=== PATIENT | male | born 1940 | race Caucasian/White ===

== ENCOUNTER 2017-04-20 10:12 | Inpatient (IN) | payer MEDICARE, OTHER ==
[2017-04-20] VITALS (17 sets, daily range): BP systolic 107–169; BP diastolic 82–105; PULSE 62–126; RESP 13–18; TEMP 98–98.7; O2SAT 92–97
[~2017-04-20] VITALS: Ht 180.3 cm; Wt 66.5 kg
[~2017-04-20 10:12] MED LIST: LORT5TAB PO; Z.0.UNKNOWN
--- NOTE | 2017-04-20 10:36 | PD ---
HPI Chief Complaint: Respiratory Symptoms Time Seen by Provider: 10:27 Travel History International Travel<30 days: No Contact w/Intl Traveler<30days: No Traveled to known affect area: No History of Present Illness HPI This is a 76-year-old male who presents to the emergency department with a history of atrial fibrillation and stent in the coronary arteries who presents to the emergency department with increasing shortness of breath over the past 2 days. He says he's become increasingly short of breath, constant, worse with exertion, improved with rest with no associated chest pain. He says he's had a nonproductive cough. 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 He says he took his diltiazem last evening. PFSH Past Medical History Hx Anticoagulant Therapy: Yes (XARELTO) Cardiovascular Problems: Yes (STENT PLACEMENT) Cerebrovascular Accident: Yes (CVA 20 YEARS AGO) Myocardial Infarction: Yes (2004) Past Surgical History Coronary Stent: Yes Other Surgery: Yes Social History Alcohol Use: No Tobacco Use: No Substance Use: No Allergies-Medications (Allergen,Severity, Reaction): Coded Allergies: No Known Allergies (Unverified , 04/20/17) Reported Meds & Prescriptions Reported Meds & Active Scripts Active Reported Xarelto (Rivaroxaban) 20 Mg Tab 20 Mg PO DAILY Digoxin 0.125 Mg Tab 0.125 Mg PO DAILY Cartia Xt (Diltiazem ER 24 HR) 120 Mg Caper 180 Mg PO DAILY Review of Systems Except as stated in HPI: all other systems reviewed are Neg Physical Exam Narrative GENERAL:Well appearing, no acute distress SKIN: Focused skin assessment warm and dry. HEAD: Atraumatic. Normocephalic. EYES: Pupils equal and round. No injection or drainage. ENT: Moist mucous membranes NECK: Trachea midline. CARDIOVASCULAR: Regular rate and rhythm. No murmur appreciated. Trace edema bilaterally. RESPIRATORY: Rales in the right lung base. GASTROINTESTINAL: Abdomen soft, non-tender, nondistended. MUSCULOSKELETAL: No obvious deformities. NEUROLOGICAL: Awake and alert. No obvious cranial nerve deficits. Moving all extremities. PSYCHIATRIC: Appropriate mood and affect; insight and judgment normal. Data Data Last Documented VS Vital Signs Date Time Temp Pulse Resp B/P Pulse Ox O2 Delivery O2 Flow Rate FiO2 04/20/17 11:30 82 18 143/89 94 Room Air 04/20/17 10:16 98.7 Orders Complete Blood Count With Diff (04/20/17 10:33) Comprehensive Metabolic Panel (04/20/17 10:33) B-Type Natriuretic Peptide (04/20/17 10:33) Troponin I (04/20/17 10:33) Iv Access Insert/Monitor (04/20/17 10:33) Electrocardiogram (04/20/17 10:33) Ecg Monitoring (04/20/17 10:33) Oximetry (04/20/17 10:33) Oxygen Administration (04/20/17 10:33) Chest, Single Ap (04/20/17 10:33) Sodium Chloride 0.9% Flush (Ns Flush) (04/20/17 10:45) Diltiazem Inj (Cardizem Inj) (04/20/17 10:45) Furosemide Inj (Lasix Inj) (04/20/17 12:00) Admit Order (Ed Use Only) (04/20/17 12:22) Vital Signs (Adult) MI.Q4H (04/20/17 12:23) Sodium Chloride 0.9% Flush (Ns Flush) (04/20/17 12:30) Sodium Chloride 0.9% Flush (Ns Flush) (04/20/17 12:30) Labs Laboratory Tests Test 04/20/17 10:45 White Blood Count 8.4 TH/MM3 Red Blood Count 4.53 MIL/MM3 Hemoglobin 13.5 GM/DL Hematocrit 40.9 % Mean Corpuscular Volume 90.3 FL Mean Corpuscular Hemoglobin 29.7 PG Mean Corpuscular Hemoglobin 32.9 % Concent Red Cell Distribution Width 14.5 % Platelet Count 222 TH/MM3 Mean Platelet Volume 9.4 FL Neutrophils (%) (Auto) 75.3 % Lymphocytes (%) (Auto) 14.9 % Monocytes (%) (Auto) 6.9 % Eosinophils (%) (Auto) 1.7 % Basophils (%) (Auto) 1.2 % Neutrophils # (Auto) 6.3 TH/MM3 Lymphocytes # (Auto) 1.2 TH/MM3 Monocytes # (Auto) 0.6 TH/MM3 Eosinophils # (Auto) 0.1 TH/MM3 Basophils # (Auto) 0.1 TH/MM3 CBC Comment DIFF FINAL Differential Comment Sodium Level 141 MEQ/L Potassium Level 4.0 MEQ/L Chloride Level 106 MEQ/L Carbon Dioxide Level 27.1 MEQ/L Anion Gap 8 MEQ/L Blood Urea Nitrogen 24 MG/DL Creatinine 1.22 MG/DL Estimat Glomerular Filtration 57 ML/MIN Rate Random Glucose 188 MG/DL Calcium Level 9.0 MG/DL Total Bilirubin 0.4 MG/DL Aspartate Amino Transf 25 U/L (AST/SGOT) Alanine Aminotransferase 22 U/L (ALT/SGPT) Alkaline Phosphatase 85 U/L Troponin I 0.05 NG/ML B-Type Natriuretic Peptide 1398 PG/ML Total Protein 7.4 GM/DL Albumin 3.0 GM/DL [facility] Medical Decision Making Medical Screen Exam Complete: Yes Emergency Medical Condition: Yes Interpretation(s) Afebrile, tachycardic, hypertensive No leukocytosis Electrolytes are reassuring BNP is 1398 Chest x-ray: Cardiomegaly with positive fluid balance, small to moderate left pleural effusion Differential Diagnosis Atrial fibrillation with RVR, congestive heart failure, pneumonia Narrative Course This is a 76-year-old male who presents to the emergency department with increasing shortness of breath it's been going on for 2 days. When he arrived his heart rate was in the 130s in atrial fibrillation with RVR. He was placed in a monitor and an IV was established. He is given 1 dose of IV diltiazem and his heart rate improved. He was found to have volume overload on chest x-ray and his BNP is elevated consistent with congestive heart failure. I think he requires admission for diuresis and rate control. Diagnosis Primary Impression: Congestive heart failure Qualified Code: I50.9 - Acute congestive heart failure, unspecified congestive heart failure type Admitting Information Admitting Physician Requests: Admit Shoshana Brandt MD Apr 20, 2017 10:36
[2017-04-20] MEDS ORDERED: SODIUM CHLORIDE 0.9% FLUSH 10 ML FLUSH IVF PRN (10:45)
[2017-04-20] MEDS ORDERED: DILTIAZEM HCL 25 MG/5 ML VIAL IV ONE (10:45)
[2017-04-20 11:07] LABS: AUTOMATED NEUTROPHIL # 6.3 TH/MM3 (1.8-7.7); BASOPHIL # 0.1 TH/MM3 (0-0.2); BASOPHIL % 1.2 % (0.0-2.0); EOSINOPHIL # 0.1 TH/MM3 (0-0.4); EOSINOPHIL % 1.7 % (0.0-4.0); HEMATOCRIT 40.9 % (39.0-51.0); HEMO FLAGS DIFF FINAL; LYMPH % 14.9 % (9.0-44.0); LYMPHOCYTE # 1.2 TH/MM3 (1.0-4.8); MEAN CELL VOLUME 90.3 FL (80.0-100.0); MEAN CORPUSCULAR HEMOGLOBIN 29.7 PG (27.0-34.0); MEAN CORPUSCULAR HGB CONC 32.9 % (32.0-36.0); MONO % 6.9 % (0.0-8.0); NEUT % 75.3 % (16.0-70.0); PLATELET COUNT 222 TH/MM3 (150-450); RED BLOOD COUNT 4.53 MIL/MM3 (4.50-5.90); RED CELL DISTRIBUTION WIDTH 14.5 % (11.6-17.2); WHITE BLOOD COUNT 8.4 TH/MM3 (4.0-11.0)
[2017-04-20 11:20] LABS: ALT (GPT) 22 U/L (12-78); ANION GAP 8 MEQ/L (5-15); AST (GOT) 25 U/L (15-37); BICARBONATE 27.1 MEQ/L (21.0-32.0); BLOOD UREA NITROGEN 24 MG/DL (7-18); CHLORIDE 106 MEQ/L (98-107); GLOMERULAR FILTRATION RATE 57 ML/MIN (>89); SODIUM (NA) 141 MEQ/L (136-145)
--- NOTE | 2017-04-20 11:20 | RADRPT ---
EXAM DATE/TIME: 04/20/2017 10:56 [facility] COMPARISON: No previous studies available for comparison. INDICATIONS : Shortness of breath for 2 days. MEDICAL HISTORY : Myocardial infarction. CVA. SURGICAL HISTORY : Coronary stent. ENCOUNTER: Initial ACUITY: 2 days PAIN SCORE: 0/10 LOCATION: Bilateral chest FINDINGS: Prior silhouette is enlarged with indistinct central bony vasculature. There is a small to moderate l eft pleural effusion with associated airspace disease in the left lower lobe. Bony thorax is intact. CONCLUSION: 1. Cardiomegaly with positive fluid balance. 2. Small to moderate left pleural effusion with associated left lower lobe airspace disease. Himanshu Uribe MD on April 20, 2017 at 11:16 Board Certified Radiologist. This report was verified electronically.
[2017-04-20 11:24] LABS: ALKALINE PHOSPHATASE 85 U/L (45-117); TOTAL BILIRUBIN ADULT 0.4 MG/DL (0.2-1.0)
--- NOTE | 2017-04-20 11:58 | EKG ---
Date Performed: 04/20/2017 Time Performed: 10:38:42 PTAGE: 76 years EKG: ATRIAL FIBRILLATION WITH RAPID VENTRICULAR RESPONSE LEFT AXIS DEVIATION LEFT BUNDLE BRANCH BLOCK ABNORMAL ECG PREVIOUS TRACING : 03/05/2017 23.26, image not available. DOCTOR: Yuri Montenegro Interpretating Date/Time 04/20/2017 11:57:30
[2017-04-20] MEDS ORDERED: FUROSEMIDE 40 MG/4 ML VIAL IV PUSH ONE (12:00)
[2017-04-20] MEDS ORDERED: SODIUM CHLORIDE 0.9% FLUSH 10 ML FLUSH IV FLUSH PRN (12:30)
[2017-04-20] MEDS: SODIUM CHLORIDE 0.9% FLUSH 10 ML FLUSH IV FLUSH SCH ×2 (12:30→21:00)
--- NOTE | 2017-04-20 13:02 | HHI.HP ---
HPI Service Family Medicine Primary Care Physician Nadeem Souza MD Admission Diagnosis atrial fibrillation with rvr, chf Diagnoses: International Travel<30 Days: No Contact w/Intl Traveler<30days: No Known Affected Area: No History of Present Illness Patient is a pleasant 76-year-old male, with a past medical history of atrial fibrillation and CAD with a stent placed in 2007, who has been having increasing shortness of breath since 4 PM on 04/19/2017. It became progressively worse overnight, and he saw his hog scalder in the morning. He was found to have a heart rate of 130, and was directed to go to the [place] emergency room. He was given 10 mg Cardizem IV push 1 in the ED and his rate corrected to 90 bpm. He has been taking 20 mg of Xarelto daily. In general, he takes digoxin 0.125 mg daily, as well as diltiazem extended release 180 mg daily, he has not been compliant with these medications, and reports missing his doses on Wednesday 04/18. He feels like his shortness of breath , is similar to previous episodes where there was "fluid on his lungs." He also reports a fast heart rate, but denies any chest pain. He denies any fevers , chills, headaches, blurry vision, abdominal pain, nausea, vomiting, diarrhea, diaphoresis, chest pain, arm pain. His shortness of breath was the most concerning. (Angelito Hu MD R2) Review of Systems ROS Limitations: Poor Historian Constitutional: COMPLAINS OF: Fatigue, DENIES: Fever, Chills Eyes: DENIES: Blurred vision, Diplopia Respiratory: COMPLAINS OF: Shortness of breath, DENIES: Cough, Sputum production Cardiovascular: COMPLAINS OF: Palpitations, Dyspnea on Exertion, PND, Orthopnea , DENIES: Chest pain, Syncope, Lower Extremity Edema Gastrointestinal: DENIES: Abdominal pain, Black stools, Bloody stools, Constipation, Diarrhea, Nausea, Vomiting (Angelito Hu MD R2) Past Family Social History Past Medical History A fib CAD s/p stent in 2007 hypertension Past Surgical History Cardiac stent placement 2007, otherwise denies surgeries (Angelito Hu MD R2) Allergies: Coded Allergies: No Known Allergies (Unverified , 04/20/17) Family History Non contributory Social History Denies tob, etoh, or drug use. Originally from [facility]. (Angelito Hu MD R2) Physical Exam Vital Signs Vital Signs Date Time Temp Pulse Resp B/P Pulse Ox O2 Delivery O2 Flow Rate FiO2 04/20/17 11:30 82 18 143/89 94 Room Air 04/20/17 10:55 76 18 137/83 95 Room Air 04/20/17 10:39 96 Room Air 04/20/17 10:39 96 Room Air 04/20/17 10:33 128 18 97 Room Air 04/20/17 10:16 98.7 126 13 140/105 97 Physical Exam GENERAL: This is a well-nourished, well-developed patient, in no apparent distress. SKIN: No rashes, ecchymoses or lesions. Cool and dry. HEAD: Atraumatic. Normocephalic. No temporal or scalp tenderness. EYES: Pupils equal round and reactive. Extraocular motions intact. No scleral icterus. No injection or drainage. ENT: Nose without bleeding, purulent drainage or septal hematoma. Throat without erythema, tonsillar hypertrophy or exudate. Uvula midline. Airway patent. NECK: Trachea midline. No JVD or lymphadenopathy. Supple, nontender, no meningeal signs. CARDIOVASCULAR: Regular rate and rhythm without murmurs, gallops, or rubs. RESPIRATORY: Clear to auscultation. Breath sounds equal bilaterally. No wheezes , rales, or rhonchi. GASTROINTESTINAL: Abdomen soft, non-tender, nondistended. No hepato-splenomegaly , or palpable masses. No guarding. MUSCULOSKELETAL: Extremities without clubbing, cyanosis, or edema. No joint tenderness, effusion, or edema noted. No calf tenderness. Negative Homans sign bilaterally. NEUROLOGICAL: Awake and alert. Cranial nerves II through XII intact. Motor and sensory grossly within normal limits. Five out of 5 muscle strength in all muscle groups. Normal speech. Laboratory Laboratory Tests Test 04/20/17 10:45 White Blood Count 8.4 Red Blood Count 4.53 Hemoglobin 13.5 Hematocrit 40.9 Mean Corpuscular Volume 90.3 Mean Corpuscular Hemoglobin 29.7 Mean Corpuscular Hemoglobin 32.9 Concent Red Cell Distribution Width 14.5 Platelet Count 222 Mean Platelet Volume 9.4 Neutrophils (%) (Auto) 75.3 Lymphocytes (%) (Auto) 14.9 Monocytes (%) (Auto) 6.9 Eosinophils (%) (Auto) 1.7 Basophils (%) (Auto) 1.2 Neutrophils # (Auto) 6.3 Lymphocytes # (Auto) 1.2 Monocytes # (Auto) 0.6 Eosinophils # (Auto) 0.1 Basophils # (Auto) 0.1 CBC Comment DIFF FINAL Differential Comment Sodium Level 141 Potassium Level 4.0 Chloride Level 106 Carbon Dioxide Level 27.1 Anion Gap 8 Blood Urea Nitrogen 24 Creatinine 1.22 Estimat Glomerular Filtration 57 Rate Random Glucose 188 Calcium Level 9.0 Total Bilirubin 0.4 Aspartate Amino Transf 25 (AST/SGOT) Alanine Aminotransferase 22 (ALT/SGPT) Alkaline Phosphatase 85 Troponin I 0.05 B-Type Natriuretic Peptide 1398 Total Protein 7.4 Albumin 3.0 (Angelito Hu MD R2) Result Diagram: 04/20/17 1045 04/20/17 1045 Assessment and Plan Assessment and Plan Pleasant 76-year-old male, with a past medical history of coronary artery disease, status post stent in 2007, and atrial fibrillation, presenting with a heart rate of 130 bpm, and an elevated BNP of 1400, as well as signs of congestive heart failure on chest x-ray. He will be admitted on a Cardizem drip , to control his heart rate, trend EKGs and troponins, and consult his hog scalder. Code Status Full Code. (Angelito Hu MD R2) Attending Attestation The patient has been seen and examined. The chart and all resident notes have been reviewed. I agree that inpatient care is appropriate and that a two midnight stay is expected for the reasons documented in the resident history and physical. I have discussed this with the resident and certify the resident s order for inpatient admission. All systems reviewed and neg except as stated in HPI (Christy Peter MD) Problem List: (1) Atrial fibrillation Status: Acute Plan: IV cardizem gtt; titrate to HR < 100 bpm. Transition to PO medications at the discretion of cardiology. Appreciate their assistance. Continue home anticoagulation (Xarelto 20 mg daily). Monitor fluid status; strict I&Os. (2) Congestive heart failure Status: Acute Plan: Likely 2/2 to uncontrolled atrial fibrillation, given medical non- compliance with anti-arrhythmics. Trend troponin x 3, and EKGs. No recent Echocardiogram in EMR. Will repeat. (3) Nutrition, metabolism, and development symptoms Status: Acute Plan: Fluids: Encourage PO intake Nutrition: Heart Healthy Diet DVT ppx: Xarelto as above. Electrolytes: At goal. Repeat BMP in am. dw Dr. Peter. (Angelito Hu MD R2) Physician Certification 2 Midnight Certification Type: Admission for Inpatient Services Order for Inpatient Services The services are ordered in accordance with Medicare regulations or non- Medicare payer requirements, as applicable. In the case of services not specified as inpatient-only, they are appropriately provided as inpatient services in accordance with the 2-midnight benchmark. Estimated LOS (days): 2 2 days is the estimated time the patient will need to remain in the hospital, assuming treatment plan goals are met and no additional complications. Post-Hospital Plan: Home (Angelito Hu MD R2) Problem Qualifiers (1) Congestive heart failure: Qualified Code: I50.9 - Acute congestive heart failure, unspecified congestive heart failure type Angelito Hu MD R2 Apr 20, 2017 13:02 Christy Peter MD Apr 25, 2017 14:39
[2017-04-20] MEDS ORDERED: DILTIAZEM INJ 125 MG in SODIUM CHLORIDE 0.9% INJ 100 ML IV SCH (13:30)
[2017-04-20] MEDS ORDERED: CART120C PO (13:32)
[2017-04-20] MEDS ORDERED: XARE20TA PO (13:32)
[2017-04-20] MEDS ORDERED: DIGO0.12 PO (13:32)
[2017-04-20] MEDS: POTASSIUM CHLORIDE 10 MEQ CONTROLLED RELEASE TAB PO SCH ×2 (14:00→22:04)
[2017-04-20] MEDS ORDERED: NITROGLYCERIN 0.4 MG SL 25 TABS/BTL SL PRN (14:00)
[2017-04-20] MEDS ORDERED: DILTIAZEM HCL 25 MG/5 ML VIAL IVP ONE (14:00)
[2017-04-20] MEDS: FUROSEMIDE 20 MG/2 ML VIAL IV PUSH SCH (17:31)
[2017-04-20] MEDS ORDERED: DILTIAZEM HCL 30 MG TAB PO SCH (18:00)
[2017-04-20] MEDS: DILTIAZEM HCL 60 MG TAB PO SCH (18:41)
[2017-04-20] MEDS: RIVAROXABAN 20 MG TAB PO SCH (18:41)
--- NOTE | 2017-04-20 20:42 | MB ---
cc: LONG LEE MD DATE OF CONSULTATION 04/20/17 DATE OF 1940 REASON FOR CONSULTATION A-fib with RVR. HISTORY OF PRESENT ILLNESS 76-year-old male with past medical history significant for atrial fibrillation on chronic oral anticoagulation. Coronary artery disease status post stent who presents to the hospital with complaints of palpitations and worsening shortness of breath since yesterday. He was found to be in atrial fibrillation with RVR and heart failure. He was given Cardizem and admitted to the hospital for further evaluation and management. He denies chest pain, fevers, chills, nausea, vomiting, diarrhea, diaphoresis, chest pain. He does report noncompliance with medications for the last 2 days. The last time he took his medication was on Tuesday. REVIEW OF SYSTEMS Negative except for what is mentioned in the HPI. PAST MEDICAL HISTORY History of hypertension, atrial fibrillation, on chronic oral anticoagulation. MEDICATIONS Home medications: 1. Digoxin 0.125 milligrams p.o. daily. 2. Diltiazem 180 milligrams p.o. daily. 3. Xarelto 20 milligrams p.o. daily. FAMILY HISTORY Noncontributory. ALLERGIES NO KNOWN DRUG ALLERGIES. PHYSICAL EXAMINATION VITAL SIGNS: Temperature 97, respiratory rate 18, heart rate 126 in the ER and now it is in the 90s. GENERAL: Generally awake, alert, oriented x3 in no acute distress. NECK: No JVD, no carotid bruits. HEART: Irregularly irregularly. There is a 1/6 systolic ejection murmur. No gallops or rubs. LUNGS: Clear to auscultation bilaterally. No wheezes or rhonchi or rales. ABDOMEN: Soft, nontender, nondistended. Positive bowel sounds. EXTREMITIES: No cyanosis or edema. Pulses throughout. LABORATORY DATA CBC hemoglobin 13, hematocrit of 40, platelet count of 222. Electrolytes, sodium 141, potassium 4.0, BUN 24, creatinine 1.2, troponin 0.05. BNP 1398, TSH 0.7. IMAGING STUDIES Chest x-ray some pulmonary edema. CARDIOLOGY STUDIES EKG atrial fibrillation with RVR with a heart rate in the 120s. ASSESSMENT/PLAN 76-year-old main admitted with atrial fibrillation with RVR and symptoms Heart failure in the setting of noncompliance with medications. He remains afebrile and hemodynamically stable. He was started on Cardizem drip in the emergency department and heart rate has come down significantly. No cardiovascular complaints. Atrial fibrillation exacerbation most likely due to noncompliance with home a-fib regimen. Recommendations: 1. Wean the Cardizem drip and start Cardizem p.o. 2. Restart oral anticoagulation. 3. Continue cycling cardiac markers per protocol 4. Low-salt diet, 5. Encourage ambulation 6. Strict in and outputs. 7. IV diuresis. 8. 2DEcho Thank you for the opportunity to take part in the care of this patient. Long Lee MD COMMUNITY RECREATION PROGRAMMER/EO /5:35 PM /8:30 PM [email or web address]
[2017-04-21] VITALS (18 sets, daily range): BP systolic 105–114; BP diastolic 68–75; PULSE 65–97; RESP 16–19; TEMP 98–98.3; O2SAT 91–94
[2017-04-21] MEDS: DILTIAZEM HCL 60 MG TAB PO SCH ×3 (00:01→11:08)
[2017-04-21 00:13] LABS: BICARBONATE 30.2 MEQ/L (21.0-32.0); POTASSIUM 3.8 MEQ/L (3.5-5.1)
[2017-04-21 06:24] LABS: AUTOMATED NEUTROPHIL # 5.6 TH/MM3 (1.8-7.7); BASOPHIL # 0.1 TH/MM3 (0-0.2); BASOPHIL % 0.8 % (0.0-2.0); EOSINOPHIL # 0.3 TH/MM3 (0-0.4); EOSINOPHIL % 4.1 % (0.0-4.0); HEMO FLAGS DIFF FINAL; LYMPH % 18.6 % (9.0-44.0); LYMPHOCYTE # 1.6 TH/MM3 (1.0-4.8); MEAN CORPUSCULAR HGB CONC 32.2 % (32.0-36.0); MONO % 9.3 % (0.0-8.0); NEUT % 67.2 % (16.0-70.0); PLATELET COUNT 214 TH/MM3 (150-450); RED BLOOD COUNT 4.56 MIL/MM3 (4.50-5.90); RED CELL DISTRIBUTION WIDTH 13.8 % (11.6-17.2); WHITE BLOOD COUNT 8.3 TH/MM3 (4.0-11.0)
[2017-04-21] MEDS ORDERED: DIGOXIN 0.125 MG TAB PO SCH (09:00)
[2017-04-21] MEDS: FUROSEMIDE 20 MG/2 ML VIAL IV PUSH SCH (09:16)
[2017-04-21] MEDS: POTASSIUM CHLORIDE 10 MEQ CONTROLLED RELEASE TAB PO SCH (09:16)
[2017-04-21] MEDS: SODIUM CHLORIDE 0.9% FLUSH 10 ML FLUSH IV FLUSH SCH (09:16)
[2017-04-21] MEDS: RIVAROXABAN 20 MG TAB PO SCH (09:17)
--- NOTE | 2017-04-21 12:31 | ECHRPT ---
Indication: Persistent atrial fibrillation CONCLUSIONS The left ventricular systolic function is severely reduced with an estimated ejection fraction in th e range of 25-30%. Upper normal left ventricular size. Possible akinesis of the mid to basal inferior wall, and modera te to severe hypokinesis of all other myocardial segments. Septal wall motion is also abnormal possibly due to a n underlying left bundle branch block. Mild mitral valve regurgitation. Structurally normal mitral valve. There is trace tricuspid valve regurgitation. The estimated pulmonary arterial pressure is 21 mmHg. BP: 143 / 89 HR: 82 Rhythm: Atrial fibrillation MEASUREMENTS (Male / Female) Normal Values Technical Quality:Fair 2D ECHO LV Diastolic Diameter PLAX 5.4 cm 4.2 - 5.9 / 3.9 - 5.3 cm LV Systolic Diameter PLAX 4.9 cm IVS Diastolic Thickness 1.4 cm 0.6 - 1.0 / 0.6 - 0.9 cm LVPW Diastolic Thickness 1.4 cm 0.6 - 1.0 / 0.6 - 0.9 cm LV Relative Wall Thickness 0.5 LVOT Diameter 2.0 cm LA Systolic Diameter LX 4.0 cm 3.0 - 4.0 / 2.7 - 3.8 cm M-MODE Aortic Root Diameter MM 2.8 cm AV Cusp Separation MM 1.8 cm DOPPLER AV Peak Velocity 133.0 cm/s AV Peak Gradient 7.1 mmHg LVOT Peak Velocity 102.0 cm/s LVOT Peak Gradient 4.2 mmHg AV Area Cont Eq pk 2.4 cm MR Peak Velocity 271.5 cm/s MR Peak Gradient 29.5 mmHg TR Peak Velocity 228.0 cm/s TR Peak Gradient 20.8 mmHg FINDINGS LEFT VENTRICLE The left ventricular systolic function is severely reduced with an estimated ejection fraction in th e range of 25-30%. Upper normal left ventricular size. Possible akinesis of the mid to basal inferior wall, and modera te to severe hypokinesis of all other myocardial segments. MITRAL VALVE Mild mitral valve regurgitation. Structurally normal mitral valve. TRICUSPID VALVE There is trace tricuspid valve regurgitation. The estimated pulmonary arterial pressure is 21 mmHg. Structurally normal tricuspid valve. PERICARDIUM A left sided pleural effusion is present. There is a small pericardial effusion present. Yuri Montenegro MD (Electronically Signed) Final Date:21 April 2017 12:30
--- NOTE | 2017-04-21 13:13 | HHI.DCPOC ---
Discharge Care Plan Goals to Promote Your Health * To prevent worsening of your condition and complications follow all discharge instructions * To maintain your health at the optimal level take all medications as prescribed Directions to Meet Your Goals Take your medications as prescribed Follow your dietary instruction Follow activity as directed Keep your appointments as scheduled Take your immunizations and boosters as scheduled If your symptoms worsen call your PCP, if no PCP go to Urgent Care Center or Emergency Room Smoking is Dangerous to Your Health. Avoid second hand smoke Call the 24-hour hour crisis hotline for domestic abuse at Mitzi Alcantara MD R3 Apr 21, 2017 13:13 Christy Peter MD Apr 21, 2017 14:14
--- NOTE | 2017-04-21 14:01 | EKG ---
Date Performed: 04/21/2017 Time Performed: 05:42:30 PTAGE: 76 years EKG: Atrial fibrillation Left axis deviation Left bundle branch block Compared to prior tracing no significant change Abnormal ECG PREVIOUS TRACING : 04/20/2017 22.51 DOCTOR: Sussy Salcedo Interpretating Date/Time 04/21/2017 13:53:22
--- NOTE | 2017-04-21 14:01 | EKG ---
Date Performed: 04/20/2017 Time Performed: 22:51:40 PTAGE: 76 years EKG: Atrial fibrillation Left axis deviation Left bundle branch block Compared to prior tracing no significant change Abnormal ECG PREVIOUS TRACING : 04/20/2017 10.38 DOCTOR: Sussy Salcedo Interpretating Date/Time 04/21/2017 13:53:14
[2017-04-21] MEDS ORDERED: ENAL5TAB PO (14:08)
[2017-04-21] MEDS ORDERED: FURO1TAB62 PO (14:11)
[2017-04-21] MEDS ORDERED: POTA10CA PO (14:11)
--- NOTE | 2017-04-21 14:18 | PD.CARD.PN ---
Subjective Subjective Remarks no complaints no overnight events afib rate control Objective Medications Current Medications Medications (Trade) Dose Ordered Sig/[place] Route Start Time Stop Time Status Last Admin (NS Flush) 2 ml UNSCH PRN IV FLUSH 04/20/17 12:30 (NS Flush) 2 ml BID IV FLUSH 04/20/17 12:30 04/21/17 09:16 (Nitrostat Sl) 0.4 mg Q5M PRN SL 04/20/17 14:00 (Lasix Inj) 20 mg BID@09,18 IV PUSH 04/20/17 18:00 04/21/17 09:16 (KCl) 10 meq BID PO 04/20/17 14:00 04/21/17 09:16 (Xarelto) 20 mg DAILY PO 04/20/17 18:00 04/21/17 09:17 (Cardizem) 60 mg Q6HR PO 04/20/17 18:00 04/21/17 11:08 (Lanoxin) 0.125 mg DAILY PO 04/21/17 09:00 04/21/17 09:16 Vital Signs / I&O Vital Signs Date Time Temp Pulse Resp B/P Pulse Ox O2 Delivery O2 Flow Rate FiO2 04/21/17 11:09 94 Room Air 04/21/17 11:07 98.0 93 19 105/75 94 04/21/17 11:00 82 04/21/17 10:00 86 04/21/17 09:03 92 04/21/17 09:00 82 04/21/17 08:00 82 04/21/17 07:45 98.2 78 16 114/72 93 04/21/17 07:15 69 04/21/17 07:00 92 Room Air 04/21/17 06:00 80 04/21/17 05:15 65 04/21/17 04:12 70 04/21/17 03:49 97 04/21/17 03:15 91 Room Air 04/21/17 03:15 98.3 77 16 108/68 91 04/21/17 02:00 75 04/21/17 01:00 70 04/21/17 00:00 72 04/20/17 23:20 93 Room Air 04/20/17 23:00 82 04/20/17 23:00 98.0 96 18 107/82 93 04/20/17 22:49 96 04/20/17 22:00 68 04/20/17 21:00 62 04/20/17 20:00 80 04/20/17 19:40 96 Room Air 04/20/17 19:40 107 04/20/17 19:20 98.2 86 16 120/91 96 04/20/17 18:00 96 04/20/17 17:00 84 04/20/17 16:30 79 04/20/17 16:30 94 Room Air 04/20/17 15:46 90 17 134/94 92 Room Air 04/20/17 14:33 95 21 I/O 04/20/17 04/20/17 04/20/17 04/21/17 04/21/17 04/21/17 07:00 15:00 23:00 07:00 15:00 23:00 Intake Total 253 ml 527 ml Output Total 500 ml 1200 ml 1100 ml Balance -500 ml -947 ml -573 ml Intake Oral 240 ml 490 ml IV Total 13 ml 37 ml Output Urine Total 500 ml 1200 ml 1100 ml # Voids 1 3 # Bowel Movements 0 Physical Exam GENERAL: Well-nourished, well-developed patient. SKIN: Warm and dry. HEAD: Normocephalic. EYES: No scleral icterus. No injection or drainage. NECK: Supple, trachea midline. No JVD or lymphadenopathy. CARDIOVASCULAR: Irr Irr without murmurs, gallops, or rubs. RESPIRATORY: Breath sounds equal bilaterally. No accessory muscle use. GASTROINTESTINAL: Abdomen soft, non-tender, nondistended. EXTREMITIES: No cyanosis, or edema. NEUROLOGICAL: Awake, alert, and oriented x 3. Non-focal. Laboratory Laboratory Tests Test 04/20/17 04/20/17 04/20/17 04/21/17 14:39 19:00 23:06 04:31 Thyroid Stimulating Hormone 0.770 uIU/ML 3rd Gen Troponin I 0.08 NG/ML 0.08 NG/ML Sodium Level 141 MEQ/L Potassium Level 3.8 MEQ/L Chloride Level 105 MEQ/L Carbon Dioxide Level 30.2 MEQ/L Anion Gap 6 MEQ/L Blood Urea Nitrogen 26 MG/DL Creatinine 1.27 MG/DL Estimat Glomerular Filtration 55 ML/MIN Rate Random Glucose 120 MG/DL Calcium Level 8.7 MG/DL Phosphorus Level 3.1 MG/DL Magnesium Level 2.0 MG/DL White Blood Count 8.3 TH/MM3 Red Blood Count 4.56 MIL/MM3 Hemoglobin 13.2 GM/DL Hematocrit 41.0 % Mean Corpuscular Volume 90.0 FL Mean Corpuscular Hemoglobin 29.0 PG Mean Corpuscular Hemoglobin 32.2 % Concent Red Cell Distribution Width 13.8 % Platelet Count 214 TH/MM3 Mean Platelet Volume 9.6 FL Neutrophils (%) (Auto) 67.2 % Lymphocytes (%) (Auto) 18.6 % Monocytes (%) (Auto) 9.3 % Eosinophils (%) (Auto) 4.1 % Basophils (%) (Auto) 0.8 % Neutrophils # (Auto) 5.6 TH/MM3 Lymphocytes # (Auto) 1.6 TH/MM3 Monocytes # (Auto) 0.8 TH/MM3 Eosinophils # (Auto) 0.3 TH/MM3 Basophils # (Auto) 0.1 TH/MM3 CBC Comment DIFF FINAL Differential Comment B-Type Natriuretic Peptide 920 PG/ML Assessment and Plan Problem List: (1) Atrial fibrillation Assessment and Plan: Rate controlled Recs: Cont Cardizem PO Cont OAC Stable from CV standpoint to be d/c home today (2) LBBB (left bundle branch block) (3) Congestive heart failure Problem Qualifiers (1) Congestive heart failure: Qualified Code: I50.9 - Acute congestive heart failure, unspecified congestive heart failure type Nadeem Souza MD Apr 21, 2017 14:17
--- NOTE | 2017-04-21 14:21 | HHI.FPPN ---
Subjective Subjective Patient seen and examined with the resident team this morning. Case reviewed and discussed. Please refer to resident H&P for further details regarding history of present illness, ROS, past medical and surgical history, family and social history. All systems reviewed and negative except as stated in history of present illness. In summary, patient is a 76-year-old male with a history of chronic systolic heart failure as well as atrial fibrillation and medical nonadherence, presenting with A. fib with RVR and acute congestive heart failure. He was started on a diltiazem drip with rate control as well as diuresis overnight. He had over 2 L of urine output overnight. He is seen this morning in his bed undergoing 2-D echo. He reports significant improvement in his breathing and feels back to his baseline. He remains rate controlled. [facility] Objective Objective Laboratory Tests - Abnormals Test 04/20/17 04/20/17 04/21/17 19:00 23:06 04:31 Troponin I 0.08 NG/ML 0.08 NG/ML Blood Urea Nitrogen 26 MG/DL Estimat Glomerular Filtration 55 ML/MIN Rate Random Glucose 120 MG/DL Monocytes (%) (Auto) 9.3 % Eosinophils (%) (Auto) 4.1 % B-Type Natriuretic Peptide 920 PG/ML Vital Signs 04/20/17 04/20/17 04/20/17 04/20/17 14:33 15:46 16:30 16:30 Pulse 90 79 Resp 17 B/P 134/94 Pulse Ox 95 92 94 O2 Delivery Room Air Room Air FiO2 21 04/20/17 04/20/17 04/20/17 04/20/17 17:00 18:00 19:20 19:40 Temp 98.2 Pulse 84 96 86 107 Resp 16 B/P 120/91 Pulse Ox 96 04/20/17 04/20/17 04/20/17 04/20/17 19:40 20:00 21:00 22:00 Pulse 80 62 68 Pulse Ox 96 O2 Delivery Room Air 04/20/17 04/20/17 04/20/17 04/20/17 22:49 23:00 23:00 23:20 Temp 98.0 Pulse 96 82 Resp 18 B/P 107/82 Pulse Ox 96 93 93 O2 Delivery Room Air 04/21/17 04/21/17 04/21/17 04/21/17 00:00 01:00 02:00 03:15 Temp 98.3 Pulse 72 70 75 77 Resp 16 B/P 108/68 Pulse Ox 91 04/21/17 04/21/17 04/21/17 04/21/17 03:15 03:49 04:12 05:15 Pulse 97 70 65 Pulse Ox 91 O2 Delivery Room Air 04/21/17 04/21/17 04/21/17 04/21/17 06:00 07:00 07:15 07:45 Temp 98.2 Pulse 80 69 78 Resp 16 B/P 114/72 Pulse Ox 92 93 O2 Delivery Room Air 04/21/17 04/21/17 04/21/17 04/21/17 08:00 09:00 09:03 10:00 Pulse 82 82 86 Pulse Ox 92 04/21/17 04/21/17 04/21/17 11:00 11:07 11:09 Temp 98.0 Pulse 82 93 Resp 19 B/P 105/75 Pulse Ox 94 94 O2 Delivery Room Air INTAKE & OUTPUT 04/21/17 07:00 Intake Total 780 ml Output Total 2800 ml Balance -2020 ml Physical exam GENERAL: Well-developed, well-nourished thin elderly male resting in bed SKIN: Warm and dry. No rashes HEAD: Normocephalic. Atraumatic EYES: No scleral icterus. No injection or drainage. ENT: OP clear. MMM. NECK: Supple, trachea midline. No lymphadenopathy. CARDIOVASCULAR: Irregularly irregular rhythm, rate-controlled without audible murmurs, gallops, or rubs. RESPIRATORY: Breath sounds equal and clear bilaterally. No accessory muscle use. GASTROINTESTINAL: Abdomen soft, non-tender, nondistended. Normal active bowel sounds. MUSCULOSKELETAL: No cyanosis, or edema. No calf tenderness BACK: Nontender without obvious deformity. No CVA tenderness. Neuro: Awake and alert, cranial nerves grossly intact. Normal speech Assessment Assessment 76-year-old male with: Acute on chronic congestive heart failure Atrial fibrillation with RVR Medical nonadherence PLAN PLAN Cardizem drip, weaned to off and resume home oral meds Continue anticoagulation with Xarelto Continue diuresis 2-D echo Continue telemetry monitoring Cardiology consulted, appreciate Dr. Fuentes. Patient seen and examined. Case reviewed and discussed with the resident team. Agree with plan of care as discussed with me and documented in the resident note. Christy Peter MD Apr 21, 2017 14:21
== END 2017-04-21 14:17 | disposition home or self-care (01) | DRG 309 ==
LOC: NEPE 10:12 → NEDA 12:24 → HCIN 16:04 → HCIS 04-21 11:15
PROVIDERS: ADMIT Family Medicine; ATTEND Family Medicine
DX: I48.91 Unspecified atrial fibrillation (principal); I50.22 Chronic systolic (congestive) heart failure; I11.0 Hypertensive heart disease with heart failure; I44.7 Left bundle-branch block, unspecified; I25.10 Atherosclerotic heart disease of native coronary artery without angina pectoris; I25.2 Old myocardial infarction; Z79.01 Long term (current) use of anticoagulants; Z86.73 Personal history of transient ischemic attack (TIA), and cerebral infarction without residual deficits; Z91.14 Patient's other noncompliance with medication regimen; Z91.19 Patient's noncompliance with other medical treatment and regimen; Z95.5 Presence of coronary angioplasty implant and graft
CPT/HCPCS: 71010; 80048; 80053; 83735; 83880; 84100; 84443; 84484; 85025; 93005; 93306; 96374; 96375; J1940

== ENCOUNTER 2017-08-31 10:20 | Inpatient (IN) | payer MEDICARE, OTHER ==
[2017-08-31] VITALS (7 sets, daily range): BP systolic 122–149; BP diastolic 61–90; PULSE 61–98; RESP 12–18; TEMP 97.3–97.8; O2SAT 92–100
[~2017-08-31] VITALS: Ht 182.9 cm; Wt 67.5 kg
[~2017-08-31 10:20] MED LIST changes: +CART120C PO; +DIGO0.12 PO; +ENAL5TAB PO; +FURO1TAB62 PO; -LORT5TAB PO; +POTA10CA PO; +XARE20TA PO; -Z.0.UNKNOWN
--- NOTE | 2017-08-31 11:16 | PD ---
HPI Chief Complaint: Medical Clearance Time Seen by Provider: 11:00 Travel History International Travel<30 days: No Contact w/Intl Traveler<30days: No Traveled to known affect area: No History of Present Illness HPI 77 YO M with PMH of hypertension, CHF, A. fib, [place], CAD status post stenting ON XARELTO presents to the ED for evaluation after abnormal result. The patient had a CT at [facility] by orders of Dr. Fuentes, interventional cardiology. This showed an 8.7 cm infrarenal abdominal aneurysm. He is aware of this finding as he had a workup in [place] a month ago and was told to follow up on return to the [place]. On arrival the patient has no physical complaints. He endorses compliance with his daily medications. He is originally from [facility], [place]. 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) Asthma: No Autoimmune Disease: No Heart Rhythm Problems: Yes (a fib) Cancer: No Cardiovascular Problems: Yes High Cholesterol: No Chest Pain: No Congestive Heart Failure: Yes COPD: No Cerebrovascular Accident: Yes (CVA x2, 2007 and 1989) Endocrine: No Genitourinary: No Immune Disorder: No Musculoskeletal: Yes Neurologic: Yes Psychiatric: No Reproductive: No Respiratory: Yes Migraines: No Myocardial Infarction: Yes (2004) Seizures: No Sickle Cell Disease: No Sleep Apnea: No Past Surgical History Abdominal Surgery: No Cardiac Surgery: No Coronary Stent: Yes Ear Surgery: No Endocrine Surgery: No Eye Surgery: No Genitourinary Surgery: No Gynecologic Surgery: No Oral Surgery: Yes (sinus dental abcess) Thoracic Surgery: No Other Surgery: Yes Social History Alcohol Use: No Tobacco Use: No Substance Use: No Allergies-Medications (Allergen,Severity, Reaction): Coded Allergies: No Known Allergies (Unverified Adverse Reaction, Unknown, 08/31/17) Reported Meds & Prescriptions Reported Meds & Active Scripts Active Lasix (Furosemide) 20 Mg Tab 20 Mg PO DAILY Reported Xarelto (Rivaroxaban) 20 Mg Tab 20 Mg PO DAILY Digoxin 0.125 Mg Tab 0.125 Mg PO DAILY Cartia Xt (Diltiazem ER 24 HR) 120 Mg Caper 180 Mg PO DAILY Review of Systems Except as stated in HPI: all other systems reviewed are Neg Physical Exam Narrative GENERAL: Well-nourished, well-developed tall, thin white male in no acute distress. SKIN: Focused skin assessment warm/dry. HEAD: Normocephalic. EYES: No scleral icterus. No injection or drainage. NECK: Supple, trachea midline. No JVD or lymphadenopathy. CARDIOVASCULAR: Irregularly irregular rate and rhythm without murmurs, gallops, or rubs. RESPIRATORY: Breath sounds clear and equal bilaterally. No accessory muscle use. GASTROINTESTINAL: Abdomen soft, non-tender, nondistended. No palpable masses. Active bowel sounds. MUSCULOSKELETAL: No cyanosis, or edema. BACK: Nontender without obvious deformity. No CVA tenderness. Data Data Last Documented VS Vital Signs Date Time Temp Pulse Resp B/P (MAP) Pulse Ox O2 Delivery O2 Flow Rate FiO2 08/31/17 11:56 98 18 128/61 (83) 92 Nasal Cannula 3.00 08/31/17 10:23 97.4 Orders Orders Complete Blood Count With Diff (08/31/17 11:16) Comprehensive Metabolic Panel (08/31/17 11:16) Prothrombin Time / Inr (Pt) (08/31/17 11:16) Act Partial Throm Time (Ptt) (08/31/17 11:16) Urinalysis - C+S If Indicated (08/31/17 11:16) Iv Access Insert/Monitor (08/31/17 11:16) Ecg Monitoring (08/31/17 11:16) Oximetry (08/31/17 11:16) Sodium Chloride 0.9% Flush (Ns Flush) (08/31/17 11:30) Electrocardiogram (08/31/17 11:16) Chest, Single Ap (08/31/17 11:16) Type And Screen (08/31/17 11:16) Consult Cardiology (08/31/17 ) (Hub Use Only)Inp Phy Cons/Ref (08/31/17 ) Cta Thor Abd Aorta W Iv C W3d (08/31/17 ) Consult Vascular Surgery (08/31/17 ) Diet Npo (08/31/17 Lunch) (Hub Use Only)In Phy Cons/Ref (08/31/17 ) Admit Order (Ed Use Only) (08/31/17 12:41) Labs Laboratory Tests Test 08/31/17 11:30 White Blood Count 8.0 TH/MM3 Red Blood Count 4.81 MIL/MM3 Hemoglobin 14.3 GM/DL Hematocrit 43.3 % Mean Corpuscular Volume 90.0 FL Mean Corpuscular Hemoglobin 29.7 PG Mean Corpuscular Hemoglobin Concent 33.0 % Red Cell Distribution Width 14.4 % Platelet Count 226 TH/MM3 Mean Platelet Volume 9.0 FL Neutrophils (%) (Auto) 67.6 % Lymphocytes (%) (Auto) 19.6 % Monocytes (%) (Auto) 9.8 % Eosinophils (%) (Auto) 2.1 % Basophils (%) (Auto) 0.9 % Neutrophils # (Auto) 5.4 TH/MM3 Lymphocytes # (Auto) 1.6 TH/MM3 Monocytes # (Auto) 0.8 TH/MM3 Eosinophils # (Auto) 0.2 TH/MM3 Basophils # (Auto) 0.1 TH/MM3 CBC Comment DIFF FINAL Differential Comment Prothrombin Time 11.6 SEC Prothromb Time International Ratio 1.0 RATIO Activated Partial Thromboplast Time 28.5 SEC Blood Urea Nitrogen 26 MG/DL Creatinine 1.15 MG/DL Random Glucose 68 MG/DL Total Protein 7.9 GM/DL Albumin 3.1 GM/DL Calcium Level 8.8 MG/DL Alkaline Phosphatase 105 U/L Aspartate Amino Transf (AST/SGOT) 26 U/L Alanine Aminotransferase (ALT/SGPT) 25 U/L Total Bilirubin 0.4 MG/DL Sodium Level 136 MEQ/L Potassium Level 4.1 MEQ/L Chloride Level 102 MEQ/L Carbon Dioxide Level 28.0 MEQ/L Anion Gap 6 MEQ/L Estimat Glomerular Filtration Rate 61 ML/MIN [facility] Medical Decision Making Medical Screen Exam Complete: Yes Emergency Medical Condition: Yes Differential Diagnosis Abnormal result versus AAA versus CAD versus other Narrative Course 77 YO M with PMH of hypertension, CHF, A. fib, [place], CAD s/p stenting ON XARELTO presents to the ED for evaluation after abnormal result. The patient had a CT at [facility] by orders of Dr. Fuentes, interventional cardiology. This showed an 8.7 cm infrarenal abdominal aneurysm. He is aware of this finding as he had a workup in [place] a month ago. On arrival the patient has no physical complaints. He is originally from [facility], has lived in the for 30 years. Vitals reviewed. Physical exam reveals a thin, tall white male in no acute distress. Irregularly irregular heart rate with no appreciable M/R/G. Chest CTAB. Abdomen soft, nontender. No palpable masses. No lower extremity edema. EKG: Rate 70, A. fib with PVCs. Marked LAD. LBBB. Reviewed by Dr. Goyal CXR: No acute disease per radiology read. CBC unremarkable. INR 1.0. Mild elevation of the BUN, CMP otherwise unremarkable. Type and screen ordered and pending. I reviewed the CT from [facility]. I spoke with Dr. Fuentes. He states that the patient also had a positive nuclear stress test and will require a heart catheter and stenting. Dr. Fuentes recommends that the patient be admitted to the hospitalist service in the CICU. Dr. Pena evaluated the patient in the ED and he plans endovascular AAA repair, possibly Tuesday, pending studies. I discussed the plan of care with the patient who is agreeable to admission. Dr. Sidhu agrees to accept the patient to the medicine service. Please see medicine notes for disposition. Kaylin Fletcher Aug 31, 2017 11:15
--- NOTE | 2017-08-31 11:16 | PD ---
HPI Chief Complaint: Medical Clearance Time Seen by Provider: 11:00 Travel History International Travel<30 days: No Contact w/Intl Traveler<30days: No Traveled to known affect area: No History of Present Illness HPI 77 YO M with PMH of hypertension, CHF, A. fib, [place], CAD status post stenting ON XARELTO presents to the ED for evaluation after abnormal result. The patient had a CT at [employer] [facility] by orders of Dr. Fuentes, interventional cardiology. This showed an 8.7 cm infrarenal abdominal aneurysm. He is aware of this finding as he had a workup in [place] a month ago and was told to follow [place] On arrival the patient has no physical complaints. He endorses compliance with his daily medications. He is originally from [facility], [place]. 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) Asthma: No Autoimmune Disease: No Heart Rhythm Problems: Yes (a fib) Cancer: No Cardiovascular Problems: Yes High Cholesterol: No Chest Pain: No Congestive Heart Failure: Yes COPD: No Cerebrovascular Accident: Yes (CVA x2, 2007 and 1989) Endocrine: No Genitourinary: No Immune Disorder: No Musculoskeletal: Yes Neurologic: Yes Psychiatric: No Reproductive: No Respiratory: Yes Migraines: No Myocardial Infarction: Yes (2004) Seizures: No Sickle Cell Disease: No Sleep Apnea: No Past Surgical History Abdominal Surgery: No Cardiac Surgery: No Coronary Stent: Yes Ear Surgery: No Endocrine Surgery: No Eye Surgery: No Genitourinary Surgery: No Gynecologic Surgery: No Oral Surgery: Yes (sinus dental abcess) Thoracic Surgery: No Other Surgery: Yes Social History Alcohol Use: No Tobacco Use: No Substance Use: No Allergies-Medications (Allergen,Severity, Reaction): Coded Allergies: No Known Allergies (Unverified Adverse Reaction, Unknown, 08/31/17) Reported Meds & Prescriptions Reported Meds & Active Scripts Active Lasix (Furosemide) 20 Mg Tab 20 Mg PO DAILY Reported Xarelto (Rivaroxaban) 20 Mg Tab 20 Mg PO DAILY Digoxin 0.125 Mg Tab 0.125 Mg PO DAILY Cartia Xt (Diltiazem ER 24 HR) 120 Mg Caper 180 Mg PO DAILY Review of Systems Except as stated in HPI: all other systems reviewed are Neg Physical Exam Narrative GENERAL: Well-nourished, well-developed tall, thin white male in no acute distress. SKIN: Focused skin assessment warm/dry. HEAD: Normocephalic. EYES: No scleral icterus. No injection or drainage. NECK: Supple, trachea midline. No JVD or lymphadenopathy. CARDIOVASCULAR: Irregularly irregular rate and rhythm without murmurs, gallops, or rubs. RESPIRATORY: Breath sounds clear and equal bilaterally. No accessory muscle use. GASTROINTESTINAL: Abdomen soft, non-tender, nondistended. No palpable masses. Active bowel sounds. MUSCULOSKELETAL: No cyanosis, or edema. BACK: Nontender without obvious deformity. No CVA tenderness. Data Data Last Documented VS Vital Signs Date Time Temp Pulse Resp B/P (MAP) Pulse Ox O2 Delivery O2 Flow Rate FiO2 08/31/17 11:56 98 18 128/61 (83) 92 Nasal Cannula 3.00 08/31/17 10:23 97.4 Orders Orders Complete Blood Count With Diff (08/31/17 11:16) Comprehensive Metabolic Panel (08/31/17 11:16) Prothrombin Time / Inr (Pt) (08/31/17 11:16) Act Partial Throm Time (Ptt) (08/31/17 11:16) Urinalysis - C+S If Indicated (08/31/17 11:16) Iv Access Insert/Monitor (08/31/17 11:16) Ecg Monitoring (08/31/17 11:16) Oximetry (08/31/17 11:16) Sodium Chloride 0.9% Flush (Ns Flush) (08/31/17 11:30) Electrocardiogram (08/31/17 11:16) Chest, Single Ap (08/31/17 11:16) Type And Screen (08/31/17 11:16) Consult Cardiology (08/31/17 ) (Hub Use Only)Inp Phy Cons/Ref (08/31/17 ) Cta Thor Abd Aorta W Iv C W3d (08/31/17 ) Consult Vascular Surgery (08/31/17 ) Diet Npo (08/31/17 Lunch) (Hub Use Only)In Phy Cons/Ref (08/31/17 ) Admit Order (Ed Use Only) (08/31/17 12:41) Labs Laboratory Tests Test 08/31/17 11:30 White Blood Count 8.0 TH/MM3 Red Blood Count 4.81 MIL/MM3 Hemoglobin 14.3 GM/DL Hematocrit 43.3 % Mean Corpuscular Volume 90.0 FL Mean Corpuscular Hemoglobin 29.7 PG Mean Corpuscular Hemoglobin Concent 33.0 % Red Cell Distribution Width 14.4 % Platelet Count 226 TH/MM3 Mean Platelet Volume 9.0 FL Neutrophils (%) (Auto) 67.6 % Lymphocytes (%) (Auto) 19.6 % Monocytes (%) (Auto) 9.8 % Eosinophils (%) (Auto) 2.1 % Basophils (%) (Auto) 0.9 % Neutrophils # (Auto) 5.4 TH/MM3 Lymphocytes # (Auto) 1.6 TH/MM3 Monocytes # (Auto) 0.8 TH/MM3 Eosinophils # (Auto) 0.2 TH/MM3 Basophils # (Auto) 0.1 TH/MM3 CBC Comment DIFF FINAL Differential Comment Prothrombin Time 11.6 SEC Prothromb Time International Ratio 1.0 RATIO Activated Partial Thromboplast Time 28.5 SEC Blood Urea Nitrogen 26 MG/DL Creatinine 1.15 MG/DL Random Glucose 68 MG/DL Total Protein 7.9 GM/DL Albumin 3.1 GM/DL Calcium Level 8.8 MG/DL Alkaline Phosphatase 105 U/L Aspartate Amino Transf (AST/SGOT) 26 U/L Alanine Aminotransferase (ALT/SGPT) 25 U/L Total Bilirubin 0.4 MG/DL Sodium Level 136 MEQ/L Potassium Level 4.1 MEQ/L Chloride Level 102 MEQ/L Carbon Dioxide Level 28.0 MEQ/L Anion Gap 6 MEQ/L Estimat Glomerular Filtration Rate 61 ML/MIN [facility] Medical Decision Making Medical Screen Exam Complete: Yes Emergency Medical Condition: Yes Differential Diagnosis Abnormal result versus AAA versus CAD versus other Narrative Course 77 YO M with PMH of hypertension, CHF, A. fib, OR, CAD s/p stenting ON XARELTO presents to the ED for evaluation after abnormal result. The patient had a CT at [facility] by orders of Dr. Fuentes, interventional cardiology. This showed an 8.7 cm infrarenal abdominal aneurysm. He is aware of this finding as he had a workup in [place] a month ago. On arrival the patient has no physical complaints. He is originally from [facility], has lived in the for 30 years. Vitals reviewed. Physical exam reveals a thin, tall white male in no acute distress. Irregularly irregular heart rate with no appreciable M/R/G. Chest CTAB. Abdomen soft, nontender. No palpable masses. No lower extremity edema. EKG: Rate 70, A. fib with PVCs. Marked LAD. LBBB. Reviewed by Dr. Goyal CXR: No acute disease per radiology read. CBC unremarkable. INR 1.0. Mild elevation of the BUN, CMP otherwise unremarkable. Type and screen ordered and pending. I reviewed the CT from [employer]. I spoke with Dr. Fuentse. He states that the patient also had a positive nuclear stress test and will require a heart catheter and stenting. Dr. Fuentes recommends that the patient be admitted to the hospitalist service in the CICU. Dr. Pena evaluated the patient in the ED and he plans endovascular AAA repair, possibly Tuesday, pending studies. I discussed the plan of care with the patient who is agreeable to admission. Dr. Sidhu agrees to accept the patient to the medicine service. Please see medicine notes for disposition. Kaylin Fletcher Aug 31, 2017 11:15
[2017-08-31] MEDS ORDERED: SODIUM CHLORIDE 0.9% FLUSH 10 ML FLUSH IV FLUSH PRN ×2 (11:30→19:00)
[2017-08-31 11:59] LABS: AUTOMATED NEUTROPHIL # 5.4 TH/MM3 (1.8-7.7); BASOPHIL # 0.1 TH/MM3 (0-0.2); BASOPHIL % 0.9 % (0.0-2.0); EOSINOPHIL # 0.2 TH/MM3 (0-0.4); EOSINOPHIL % 2.1 % (0.0-4.0); HEMATOCRIT 43.3 % (39.0-51.0); HEMOGLOBIN 14.3 GM/DL (13.0-17.0); LYMPH % 19.6 % (9.0-44.0); LYMPHOCYTE # 1.6 TH/MM3 (1.0-4.8); MEAN CORPUSCULAR HEMOGLOBIN 29.7 PG (27.0-34.0); MONO % 9.8 % (0.0-8.0); MONOCYTE # 0.8 TH/MM3 (0-0.9); NEUT % 67.6 % (16.0-70.0); PLATELET COUNT 226 TH/MM3 (150-450); RED BLOOD COUNT 4.81 MIL/MM3 (4.50-5.90); RED CELL DISTRIBUTION WIDTH 14.4 % (11.6-17.2)
--- NOTE | 2017-08-31 12:04 | RADRPT ---
EXAM DATE/TIME: 08/31/2017 11:35 [facility] COMPARISON: CHEST SINGLE AP, April 20, 2017, 10:56. INDICATIONS : Evaluate for communicable disease, pneumothorax, pneumonia. Preoperative exam. MEDICAL HISTORY : Myocardial infarction. SURGICAL HISTORY : Coronary artery stent. ENCOUNTER: Initial ACUITY: 1 day PAIN SCORE: 0/10 LOCATION: Bilateral chest FINDINGS: A single view of the chest demonstrates the lungs to be symmetrically aerated without evidence of mas s, infiltrate or effusion. There is apparent mild residual scarring at the left lung base. Mild athe rosclerotic changes are present in the aorta. The cardiomediastinal contours are unremarkable. [place] us structures are intact. CONCLUSION: No acute disease. Apparent mild chronic scarring in the left lung base. Markos Padilla MD on August 31, 2017 at 12:03 Board Certified Radiologist. This report was verified electronically.
[2017-08-31 12:14] LABS: PROTHROMBIN TIME - PATIENT 11.6 SEC (9.8-11.6)
[2017-08-31 12:16] LABS: ALKALINE PHOSPHATASE 105 U/L (45-117); TOTAL BILIRUBIN ADULT 0.4 MG/DL (0.2-1.0); TOTAL PROTEIN 7.9 GM/DL (6.4-8.2)
[2017-08-31 12:17] LABS: ALBUMIN 3.1 GM/DL (3.4-5.0); ALT (GPT) 25 U/L (12-78); AST (GOT) 26 U/L (15-37); BLOOD UREA NITROGEN 26 MG/DL (7-18); CALCIUM 8.8 MG/DL (8.5-10.1); CHLORIDE 102 MEQ/L (98-107); CREATININE 1.15 MG/DL (0.60-1.30); GLOMERULAR FILTRATION RATE 61 ML/MIN (>89); GLUCOSE,RANDOM 68 MG/DL (74-106); SODIUM (NA) 136 MEQ/L (136-145)
--- NOTE | 2017-08-31 12:48 | PD.VS.CON ---
History of Present Illness Chief Complaint: AAA Consult Requested by: Dr. Fuentes History of Present Illness 77 yo German male with newly diagnosed AAA, nearly 9 cm. No abdominal pain and no back pain. Was visiting his son in [facility] last week and "felt bad" - but again no pain - and his son did what sounds like CT or ultrasound and he was advised to see a physician in the [place]. No prior knowledge of a AAA. No family history. Past/Family/Social History Past Medical History CAD with stents ? a fib skin cancer arthritis Past Surgical History C with stents 2007 skin cancers Family History no aneurysms Home Medications Active Scripts Furosemide (Lasix) 20 Mg Tab, 20 MG PO DAILY, #30 TAB 0 Refills Prov:Mitzi Alcantara MD 04/21/17 Reported Medications Rivaroxaban (Xarelto) 20 Mg Tab, 20 MG PO DAILY for Blood Clot Prevention, TAB 0 Refills 04/20/17 Digoxin (Digoxin) 0.125 Mg Tab, 0.125 MG PO DAILY for Regulate Heart Beat, #30 TAB 0 Refills 04/20/17 Diltiazem ER 24 HR (Cartia Xt) 120 Mg Caper, 180 MG PO DAILY, #30 CAP 0 Refills 04/20/17 Coded Allergies: No Known Allergies (Unverified Adverse Reaction, Unknown, 08/31/17) Review of Systems Constitutional: DENIES: Fatigue, Chills Cardiovascular: DENIES: Chest pain, Lower Extremity Edema, Claudication Gastrointestinal: DENIES: Abdominal pain Physical Exam Vitals/I&O Date Time Temp Pulse Resp B/P (MAP) Pulse Ox O2 Delivery O2 Flow Rate FiO2 08/31/17 11:56 98 18 128/61 (83) 92 Nasal Cannula 3.00 08/31/17 10:23 97.4 61 16 125/90 (102) 100 Room Air Neuro: resting comfortably, no distress HEENT: anicteric sclera Neck: trachea midline, no JVD Heart: no murmurs appreciated Lungs: clear B Abdomen: nontender, palpable pulsatile mass L of midline, nontender Vascular: palpable femoral pulses generous R popliteal pulse Extremities: no edema no masses or lesions Laboratory Tests Test 08/31/17 11:30 White Blood Count 8.0 Red Blood Count 4.81 Hemoglobin 14.3 Hematocrit 43.3 Mean Corpuscular Volume 90.0 Mean Corpuscular Hemoglobin 29.7 Mean Corpuscular Hemoglobin Concent 33.0 Red Cell Distribution Width 14.4 Platelet Count 226 Mean Platelet Volume 9.0 Neutrophils (%) (Auto) 67.6 Lymphocytes (%) (Auto) 19.6 Monocytes (%) (Auto) 9.8 Eosinophils (%) (Auto) 2.1 Basophils (%) (Auto) 0.9 Neutrophils # (Auto) 5.4 Lymphocytes # (Auto) 1.6 Monocytes # (Auto) 0.8 Eosinophils # (Auto) 0.2 Basophils # (Auto) 0.1 CBC Comment DIFF FINAL Differential Comment Prothrombin Time 11.6 Prothromb Time International Ratio 1.0 Activated Partial Thromboplast Time 28.5 Blood Urea Nitrogen 26 Creatinine 1.15 Random Glucose 68 Total Protein 7.9 Albumin 3.1 Calcium Level 8.8 Alkaline Phosphatase 105 Aspartate Amino Transf (AST/SGOT) 26 Alanine Aminotransferase (ALT/SGPT) 25 Total Bilirubin 0.4 Sodium Level 136 Potassium Level 4.1 Chloride Level 102 Carbon Dioxide Level 28.0 Anion Gap 6 Estimat Glomerular Filtration Rate 61 Last 48 hours Impressions Chest X-Ray 08/31/17 1116 Signed Impressions: Service Date/Time: Thursday, August 31, 2017 11:35 - CONCLUSION: No acute disease. Apparent mild chronic scarring in the left lung base. Markos Padilla MD Assessment and Plan Plan Reasonably healthy male with very large AAA. On my review of outpatient [place] CT, he is a marginal endovascular candidate. Will get contrasted CTA and perform centerpath analysis to determine if endovascular option appropriate. I think he would tolerate open repair if that is best anatomic option. In talking with Dr. Fuentes, he would like to perform LHC on him and if so, will give him a day or two to recover but plan on repairing AAA this admission. Pt aware and agrees with plan. Josh Pena MD FACS RPVI watch and clock repairer [facility] - Heart and Vascular Surgery at [facility] [phone] Josh Pena MD Aug 31, 2017 12:48
--- NOTE | 2017-08-31 12:48 | PD.VS.CON ---
History of Present Illness Chief Complaint: AAA Consult Requested by: Dr. Fuentes History of Present Illness 77 yo Mongolian male with newly diagnosed AAA, nearly 9 cm. No abdominal pain and no back pain. Was visiting his son in [facility] last week and "felt bad" - but again no pain - and his son did what sounds like CT or ultrasound and he was advised to see a physician in the [place]. No prior knowledge of a AAA. No family history. Past/Family/Social History Past Medical History CAD with stents ? a fib skin cancer arthritis Past Surgical History C with stents 2007 skin cancers Family History no aneurysms Home Medications Active Scripts Furosemide (Lasix) 20 Mg Tab, 20 MG PO DAILY, #30 TAB 0 Refills Prov:Mitzi Alcantara MD 04/21/17 Reported Medications Rivaroxaban (Xarelto) 20 Mg Tab, 20 MG PO DAILY for Blood Clot Prevention, TAB 0 Refills 04/20/17 Digoxin (Digoxin) 0.125 Mg Tab, 0.125 MG PO DAILY for Regulate Heart Beat, #30 TAB 0 Refills 04/20/17 Diltiazem ER 24 HR (Cartia Xt) 120 Mg Caper, 180 MG PO DAILY, #30 CAP 0 Refills 04/20/17 Coded Allergies: No Known Allergies (Unverified Adverse Reaction, Unknown, 08/31/17) Review of Systems Constitutional: DENIES: Fatigue, Chills Cardiovascular: DENIES: Chest pain, Lower Extremity Edema, Claudication Gastrointestinal: DENIES: Abdominal pain Physical Exam Vitals/I&O Date Time Temp Pulse Resp B/P (MAP) Pulse Ox O2 Delivery O2 Flow Rate FiO2 08/31/17 11:56 98 18 128/61 (83) 92 Nasal Cannula 3.00 08/31/17 10:23 97.4 61 16 125/90 (102) 100 Room Air Neuro: resting comfortably, no distress HEENT: anicteric sclera Neck: trachea midline, no JVD Heart: no murmurs appreciated Lungs: clear B Abdomen: nontender, palpable pulsatile mass L of midline, nontender Vascular: palpable femoral pulses generous R popliteal pulse Extremities: no edema no masses or lesions Laboratory Tests Test 08/31/17 11:30 White Blood Count 8.0 Red Blood Count 4.81 Hemoglobin 14.3 Hematocrit 43.3 Mean Corpuscular Volume 90.0 Mean Corpuscular Hemoglobin 29.7 Mean Corpuscular Hemoglobin Concent 33.0 Red Cell Distribution Width 14.4 Platelet Count 226 Mean Platelet Volume 9.0 Neutrophils (%) (Auto) 67.6 Lymphocytes (%) (Auto) 19.6 Monocytes (%) (Auto) 9.8 Eosinophils (%) (Auto) 2.1 Basophils (%) (Auto) 0.9 Neutrophils # (Auto) 5.4 Lymphocytes # (Auto) 1.6 Monocytes # (Auto) 0.8 Eosinophils # (Auto) 0.2 Basophils # (Auto) 0.1 CBC Comment DIFF FINAL Differential Comment Prothrombin Time 11.6 Prothromb Time International Ratio 1.0 Activated Partial Thromboplast Time 28.5 Blood Urea Nitrogen 26 Creatinine 1.15 Random Glucose 68 Total Protein 7.9 Albumin 3.1 Calcium Level 8.8 Alkaline Phosphatase 105 Aspartate Amino Transf (AST/SGOT) 26 Alanine Aminotransferase (ALT/SGPT) 25 Total Bilirubin 0.4 Sodium Level 136 Potassium Level 4.1 Chloride Level 102 Carbon Dioxide Level 28.0 Anion Gap 6 Estimat Glomerular Filtration Rate 61 Last 48 hours Impressions Chest X-Ray 08/31/17 1116 Signed Impressions: Service Date/Time: Thursday, August 31, 2017 11:35 - CONCLUSION: No acute disease. Apparent mild chronic scarring in the left lung base. Markos Padilla MD Assessment and Plan Plan Reasonably healthy male with very large AAA. On my review of outpatient [place] CT, he is a marginal endovascular candidate. Will get contrasted CTA and perform centerpath analysis to determine if endovascular option appropriate. I think he would tolerate open repair if that is best anatomic option. In talking with Dr. Fuentes, he would like to perform LHC on him and if so, will give him a day or two to recover but plan on repairing AAA this admission. Pt aware and agrees with plan. Josh Pena MD FACS RPVI web developer programmer [facility] - Heart and Vascular Surgery at [facility] [phone] Josh Pena MD Aug 31, 2017 12:48
--- NOTE | 2017-08-31 12:48 | PD.VS.CON ---
History of Present Illness Chief Complaint: AAA Consult Requested by: Dr. Fuentes History of Present Illness 77 yo Belarusian male with newly diagnosed AAA, nearly 9 cm. No abdominal pain and no back pain. Was visiting his son in [facility] last week and "felt bad" - but again no pain - and his son did what sounds like CT or ultrasound and he was advised to see a physician in the [place]. No prior knowledge of a AAA. No family history. Past/Family/Social History Past Medical History CAD with stents ? a fib skin cancer arthritis Past Surgical History C with stents 2007 skin cancers Family History no aneurysms Home Medications Active Scripts Furosemide (Lasix) 20 Mg Tab, 20 MG PO DAILY, #30 TAB 0 Refills Prov:Mitzi Alcantara MD 04/21/17 Reported Medications Rivaroxaban (Xarelto) 20 Mg Tab, 20 MG PO DAILY for Blood Clot Prevention, TAB 0 Refills 04/20/17 Digoxin (Digoxin) 0.125 Mg Tab, 0.125 MG PO DAILY for Regulate Heart Beat, #30 TAB 0 Refills 04/20/17 Diltiazem ER 24 HR (Cartia Xt) 120 Mg Caper, 180 MG PO DAILY, #30 CAP 0 Refills 04/20/17 Coded Allergies: No Known Allergies (Unverified Adverse Reaction, Unknown, 08/31/17) Review of Systems Constitutional: DENIES: Fatigue, Chills Cardiovascular: DENIES: Chest pain, Lower Extremity Edema, Claudication Gastrointestinal: DENIES: Abdominal pain Physical Exam Vitals/I&O Date Time Temp Pulse Resp B/P (MAP) Pulse Ox O2 Delivery O2 Flow Rate FiO2 08/31/17 11:56 98 18 128/61 (83) 92 Nasal Cannula 3.00 08/31/17 10:23 97.4 61 16 125/90 (102) 100 Room Air Neuro: resting comfortably, no distress HEENT: anicteric sclera Neck: trachea midline, no JVD Heart: no murmurs appreciated Lungs: clear B Abdomen: nontender, palpable pulsatile mass L of midline, nontender Vascular: palpable femoral pulses generous R popliteal pulse Extremities: no edema no masses or lesions Laboratory Tests Test 08/31/17 11:30 White Blood Count 8.0 Red Blood Count 4.81 Hemoglobin 14.3 Hematocrit 43.3 Mean Corpuscular Volume 90.0 Mean Corpuscular Hemoglobin 29.7 Mean Corpuscular Hemoglobin Concent 33.0 Red Cell Distribution Width 14.4 Platelet Count 226 Mean Platelet Volume 9.0 Neutrophils (%) (Auto) 67.6 Lymphocytes (%) (Auto) 19.6 Monocytes (%) (Auto) 9.8 Eosinophils (%) (Auto) 2.1 Basophils (%) (Auto) 0.9 Neutrophils # (Auto) 5.4 Lymphocytes # (Auto) 1.6 Monocytes # (Auto) 0.8 Eosinophils # (Auto) 0.2 Basophils # (Auto) 0.1 CBC Comment DIFF FINAL Differential Comment Prothrombin Time 11.6 Prothromb Time International Ratio 1.0 Activated Partial Thromboplast Time 28.5 Blood Urea Nitrogen 26 Creatinine 1.15 Random Glucose 68 Total Protein 7.9 Albumin 3.1 Calcium Level 8.8 Alkaline Phosphatase 105 Aspartate Amino Transf (AST/SGOT) 26 Alanine Aminotransferase (ALT/SGPT) 25 Total Bilirubin 0.4 Sodium Level 136 Potassium Level 4.1 Chloride Level 102 Carbon Dioxide Level 28.0 Anion Gap 6 Estimat Glomerular Filtration Rate 61 Last 48 hours Impressions Chest X-Ray 08/31/17 1116 Signed Impressions: Service Date/Time: Thursday, August 31, 2017 11:35 - CONCLUSION: No acute disease. Apparent mild chronic scarring in the left lung base. Markos Padilla MD Assessment and Plan Plan Reasonably healthy male with very large AAA. On my review of outpatient [place] CT, he is a marginal endovascular candidate. Will get contrasted CTA and perform centerpath analysis to determine if endovascular option appropriate. I think he would tolerate open repair if that is best anatomic option. In talking with Dr. Fuentes, he would like to perform LHC on him and if so, will give him a day or two to recover but plan on repairing AAA this admission. Pt aware and agrees with plan. Josh Pena MD FACS RPVI shell mold bonder [facility] - Heart and Vascular Surgery at [facility] [phone] Josh Pena MD Aug 31, 2017 12:48
--- NOTE | 2017-08-31 12:57 | HHI.HP ---
[facility] No Primary Care Physician Admission Diagnosis AAA, CAD Diagnoses: (1) AAA (abdominal aortic aneurysm) Diagnosis: Principal (2) CAD (coronary artery disease) Diagnosis: Principal Chief Complaint: ' I'm doing fine'. Travel History International Travel<30 Days: No Contact w/Intl Traveler <30 Da: No Traveled to Known Affected Are: No History of Present Illness patient is a 77 y/o male with history of CAD, atrial fibrillation, AAA, was sent to ER by his hospital pharmacy technician because of abdominal aortic aneurysm. he was found to have an abdominal aortic aneurysm of 8.7 cm. he also reportedly have an abnormal stress test. he was sent to ER by his hospital pharmacy technician for further evaluation. at the time of my examination he was resting comfortably with no distress. he denies any chest pain, sob or abdominal pain. Review of Systems Constitutional: DENIES: Fever, Weight loss, Chills, Night Sweats Eyes: DENIES: Blurred vision, Diplopia, Vision loss, Double Vision Ears, nose, mouth, throat: DENIES: Tinnitus, Vertigo, Throat pain, Epistaxis Respiratory: DENIES: Apneas, Cough, Snoring, Wheezing, Hemoptysis, Sputum production, Shortness of breath Cardiovascular: DENIES: Chest pain, Palpitations, Syncope, Dyspnea on Exertion , PND, Lower Extremity Edema, Orthopnea, Claudication Gastrointestinal: DENIES: Abdominal pain, Black stools, Bloody stools, Constipation, Diarrhea, Nausea, Vomiting, Difficulty Swallowing, Anorexia Genitourinary: DENIES: Urinary frequency, Urgency, Hematuria, Dysuria Musculoskeletal: DENIES: Joint pain, Muscle aches, Stiffness, Joint Swelling Integumentary: DENIES: Rash Neurologic: DENIES: Abnormal gait, Headache, Localized weakness, Paresthesias, Seizures, Speech Problems, Tremor, Poor Balance Psychiatric: DENIES: Anxiety, Confusion, Mood changes, Depression, Hallucinations, Agitation, Suicidal Ideation, Homicidal Ideation, Delusions Past Family Social History Past Medical History atrial fibrillation CAD AAA Past Surgical History cardiac stent placement Reported Medications Lasix (Furosemide) 20 Mg Tab 20 Mg PO DAILY Xarelto (Rivaroxaban) 20 Mg Tab 20 Mg PO DAILY Digoxin 0.125 Mg Tab 0.125 Mg PO DAILY Cartia Xt (Diltiazem ER 24 HR) 120 Mg Caper 180 Mg PO RODNEY Allergies: Coded Allergies: No Known Allergies (Unverified Adverse Reaction, Unknown, 08/31/17) Active Ordered Medications Current Medications Sodium Chloride (NS Flush) 2 ml UNSCH PRN IV FLUSH FLUSH AFTER USING IV ACCESS ; Start 08/31/17 at 11:30 Family History not significant. Social History no smoking or drinking. Physical Exam Vital Signs Vital Signs Date Time Temp Pulse Resp B/P (MAP) Pulse Ox O2 Delivery O2 Flow Rate FiO2 08/31/17 11:56 98 18 128/61 (83) 92 Nasal Cannula 3.00 08/31/17 10:23 97.4 61 16 125/90 (102) 100 Room Air Physical Exam GENERAL: This is a well-nourished, well-developed patient, in no apparent distress. SKIN: No rashes, ecchymoses or lesions. Cool and dry. HEAD: Atraumatic. Normocephalic. No temporal or scalp tenderness. EYES: Pupils equal round and reactive. Extraocular motions intact. No scleral icterus. No injection or drainage. ENT: Nose without bleeding, purulent drainage or septal hematoma. Throat without erythema, tonsillar hypertrophy or exudate. Uvula midline. Airway patent. NECK: Trachea midline. No JVD or lymphadenopathy. Supple, nontender, no meningeal signs. CARDIOVASCULAR: Regular rate and rhythm without murmurs, gallops, or rubs. RESPIRATORY: Clear to auscultation. Breath sounds equal bilaterally. No wheezes , rales, or rhonchi. GASTROINTESTINAL: Abdomen soft, non-tender, nondistended. No hepato-splenomegaly , or palpable masses. No guarding. MUSCULOSKELETAL: Extremities without clubbing, cyanosis, or edema. No joint tenderness, effusion, or edema noted. No calf tenderness. Negative Homans sign bilaterally. NEUROLOGICAL: Awake and alert. Cranial nerves II through XII intact. Motor and sensory grossly within normal limits. Five out of 5 muscle strength in all muscle groups. Normal speech. Laboratory Laboratory Tests Test 08/31/17 11:30 White Blood Count 8.0 Red Blood Count 4.81 Hemoglobin 14.3 Hematocrit 43.3 Mean Corpuscular Volume 90.0 Mean Corpuscular Hemoglobin 29.7 Mean Corpuscular Hemoglobin Concent 33.0 Red Cell Distribution Width 14.4 Platelet Count 226 Mean Platelet Volume 9.0 Neutrophils (%) (Auto) 67.6 Lymphocytes (%) (Auto) 19.6 Monocytes (%) (Auto) 9.8 Eosinophils (%) (Auto) 2.1 Basophils (%) (Auto) 0.9 Neutrophils # (Auto) 5.4 Lymphocytes # (Auto) 1.6 Monocytes # (Auto) 0.8 Eosinophils # (Auto) 0.2 Basophils # (Auto) 0.1 CBC Comment DIFF FINAL Differential Comment Prothrombin Time 11.6 Prothromb Time International Ratio 1.0 Activated Partial Thromboplast Time 28.5 Blood Urea Nitrogen 26 Creatinine 1.15 Random Glucose 68 Total Protein 7.9 Albumin 3.1 Calcium Level 8.8 Alkaline Phosphatase 105 Aspartate Amino Transf (AST/SGOT) 26 Alanine Aminotransferase (ALT/SGPT) 25 Total Bilirubin 0.4 Sodium Level 136 Potassium Level 4.1 Chloride Level 102 Carbon Dioxide Level 28.0 Anion Gap 6 Estimat Glomerular Filtration Rate 61 Result Diagram: 08/31/17 1130 08/31/17 1130 Imaging Last Impressions Chest X-Ray 08/31/17 1116 Signed Impressions: Service Date/Time: Thursday, August 31, 2017 11:35 - CONCLUSION: No acute disease. Apparent mild chronic scarring in the left lung base. Markos Padilla MD EKG; atrial fibrillation with LBBB Caprini VTE Risk Assessment Caprini VTE Risk Assessment: Mod/High Risk (score >= 2) Caprini Risk Assessment Model Point Value = 1 Point Value = 2 Point Value = 3 Point Value = 5 Age 41-60 Minor surgery BMI > 25 kg/m2 Swollen legs Varicose veins or History of unexplained or recurrent spontaneous Oral contraceptives or hormone replacement Sepsis (< 1 month) Serious lung disease, including pneumonia (< 1 month) Abnormal pulmonary function Acute myocardial infarction Congestive heart failure (< 1 month) History of inflammatory bowel disease Medical patient at bed rest Age 61-74 Arthroscopic surgery Major open surgery (> 45 min) Laparoscopic surgery (> 45 min) Malignancy Confined to bed (> 72 hours) Immobilizing plaster cast Central venous access Age >= 75 History of VTE Family history of VTE Factor V Leiden Prothrombin [id number] Lupus anticoagulant Anticardiolipin antibodies Elevated serum homocysteine Heparin-induced thrombocytopenia Other congenital or acquired thrombophilia Stroke (< 1 month) Elective arthroplasty Hip, pelvis, or leg fracture Acute spinal cord injury (< 1 month) Prophylaxis Regimen Total Risk Factor Score Risk Level Prophylaxis Regimen 0-1 Low Early ambulation 2 Moderate Order ONE of the following: *Sequential Compression Device (SCD) *Heparin 5000 units SQ BID 3-4 Higher Order ONE of the following medications: *Heparin 5000 units SQ TID *Enoxaparin/Lovenox 40 mg SQ daily (WT < 150 kg, CrCl > 30 mL/min) *Enoxaparin/Lovenox 30 mg SQ daily (WT < 150 kg, CrCl > 10-29 mL/min) *Enoxaparin/Lovenox 30 mg SQ BID (WT < 150 kg, CrCl > 30 mL/min) AND/OR *Sequential Compression Device (SCD) 5 or more Highest Order ONE of the following medications: *Heparin 5000 units SQ TID (Preferred with Epidurals) *Enoxaparin/Lovenox 40 mg SQ daily (WT < 150 kg, CrCl > 30 mL/min) *Enoxaparin/Lovenox 30 mg SQ daily (WT < 150 kg, CrCl > 10-29 mL/min) *Enoxaparin/Lovenox 30 mg SQ BID (WT < 150 kg, CrCl > 30 mL/min) AND *Sequential Compression Device (SCD) Assessment and Plan Assessment and Plan A/P - Abdominal Aortic Aneurysm CTA of the abdominal aorta pending- vascular surgery consulted. -CAD- s/p stent placement with reported abnormal stress test cardiology consult pending. -atrial fibrillation; resume cardizem and digoxin- Xarelto on hold till cardiology/ vascular surgery evaluation -DVT prophylaxis; hold Xarelto till cardiology / vascular surgery evaluation and recommendations. Discussed Condition With ER and the patient. Physician Certification 2 Midnight Certification Type: Admission for Inpatient Services Order for Inpatient Services The services are ordered in accordance with Medicare regulations or non- Medicare payer requirements, as applicable. In the case of services not specified as inpatient-only, they are appropriately provided as inpatient services in accordance with the 2-midnight benchmark. Estimated LOS (days): 4 days is the estimated time the patient will need to remain in the hospital, assuming treatment plan goals are met and no additional complications. Post-Hospital Plan: Not yet determined Josette Sidhu MD Aug 31, 2017 12:57
[2017-08-31] MEDS ORDERED: SODIUM CHLOR 0.9% 1000 ML INJ 1,000 ML IV ONE (13:00)
[2017-08-31] MEDS ORDERED: IOHEXOL 350 MG/ML 10 ML VIAL (for RAD DIAG) IVCONTRAST ONE (13:16)
--- NOTE | 2017-08-31 13:35 | PD ---
Data Data Last Documented VS Vital Signs Date Time Temp Pulse Resp B/P (MAP) Pulse Ox O2 Delivery O2 Flow Rate FiO2 08/31/17 11:56 98 18 128/61 (83) 92 Nasal Cannula 3.00 08/31/17 10:23 97.4 Orders Orders Complete Blood Count With Diff (08/31/17 11:16) Comprehensive Metabolic Panel (08/31/17 11:16) Prothrombin Time / Inr (Pt) (08/31/17 11:16) Act Partial Throm Time (Ptt) (08/31/17 11:16) Urinalysis - C+S If Indicated (08/31/17 11:16) Iv Access Insert/Monitor (08/31/17 11:16) Ecg Monitoring (08/31/17 11:16) Oximetry (08/31/17 11:16) Sodium Chloride 0.9% Flush (Ns Flush) (08/31/17 11:30) Electrocardiogram (08/31/17 11:16) Chest, Single Ap (08/31/17 11:16) Type And Screen (08/31/17 11:16) Consult Cardiology (08/31/17 ) (Hub Use Only)Inp Phy Cons/Ref (08/31/17 ) Cta Thor Abd Aorta W Iv C W3d (08/31/17 ) Consult Vascular Surgery (08/31/17 ) Diet Npo (08/31/17 Lunch) (Hub Use Only)Inp Phy Cons/Ref (08/31/17 ) Admit Order (Ed Use Only) (08/31/17 12:41) Labs Laboratory Tests Test 08/31/17 11:30 White Blood Count 8.0 TH/MM3 Red Blood Count 4.81 MIL/MM3 Hemoglobin 14.3 GM/DL Hematocrit 43.3 % Mean Corpuscular Volume 90.0 FL Mean Corpuscular Hemoglobin 29.7 PG Mean Corpuscular Hemoglobin Concent 33.0 % Red Cell Distribution Width 14.4 % Platelet Count 226 TH/MM3 Mean Platelet Volume 9.0 FL Neutrophils (%) (Auto) 67.6 % Lymphocytes (%) (Auto) 19.6 % Monocytes (%) (Auto) 9.8 % Eosinophils (%) (Auto) 2.1 % Basophils (%) (Auto) 0.9 % Neutrophils # (Auto) 5.4 TH/MM3 Lymphocytes # (Auto) 1.6 TH/MM3 Monocytes # (Auto) 0.8 TH/MM3 Eosinophils # (Auto) 0.2 TH/MM3 Basophils # (Auto) 0.1 TH/MM3 CBC Comment DIFF FINAL Differential Comment Prothrombin Time 11.6 SEC Prothromb Time International Ratio 1.0 RATIO Activated Partial Thromboplast Time 28.5 SEC Blood Urea Nitrogen 26 MG/DL Creatinine 1.15 MG/DL Random Glucose 68 MG/DL Total Protein 7.9 GM/DL Albumin 3.1 GM/DL Calcium Level 8.8 MG/DL Alkaline Phosphatase 105 U/L Aspartate Amino Transf (AST/SGOT) 26 U/L Alanine Aminotransferase (ALT/SGPT) 25 U/L Total Bilirubin 0.4 MG/DL Sodium Level 136 MEQ/L Potassium Level 4.1 MEQ/L Chloride Level 102 MEQ/L Carbon Dioxide Level 28.0 MEQ/L Anion Gap 6 MEQ/L Estimat Glomerular Filtration Rate 61 ML/MIN MDM Supervised Visit with MISTY: Yes Narrative Course The history, exam, and medical decision-making in the associated mid-level provider note were completed with my assistance. I reviewed and agree with the findings presented. I attest that I had a [id number] encounter with the patient on the same day, and personally performed and documented my assessment and findings in the medical record. *My assessment and Findings: 77-year-old man presents to the ED referred in for incidentally found large aortic aneurysm. Spoke with Dr. Pena, vascular surgery, will admit. Dr. Fuentes wants to look at his heart prior to any open surgery. Patient asymptomatic. Butch Goyal MD Aug 31, 2017 13:35
[2017-08-31 14:30] LABS: BILIRUBIN, URINE NEG (NEG); BLOOD, URINE NEG (NEG); GLUCOSE,URINE NEG (NEG); KETONE, URINE NEG (NEG); NITRITE,URINE NEG (NEG); PH, URINE 6.5 (5.0-8.5); URINE COLOR COLORLESS (YELLW/STRAW); URINE LEUKOCYTE ESTERASE NEG (NEG)
--- NOTE | 2017-08-31 14:42 | RADRPT ---
EXAM DATE/TIME: 08/31/2017 13:04 [place] COMPARISON: No previous studies available for comparison. INDICATIONS : Short of breath. IV CONTRAST: 95 cc Omnipaque 350 (iohexol) IV RADIATION DOSE: 4.83 CTDIvol (mGy) MEDICAL HISTORY : Cardiovascular disease. Hypertension. SURGICAL HISTORY : Coronary artery stent. ENCOUNTER: Initial ACUITY: 1 day PAIN SCALE: 0/10 LOCATION: Bilateral chest TECHNIQUE: Volumetric scanning was performed using a multi-row detector CT scanner. The data was post processed with a variety of visualization algorithms including full volume maximum intensity projection, multi -planar sliding thin slab reformation, curved planar reformation, and surface rendering techniques. Using automated exposure control and adjustment of the mA and/or kV according to patient size, radiat ion dose was kept as low as reasonably achievable to obtain optimal diagnostic quality images. DICOM format image data is available electronically for review and comparison. FINDINGS: LUNGS: There is no consolidation or pneumothorax. No concerning pulmonary nodule is visualized. Small bila teral pleural effusions greater on the left. MEDIASTINUM: No abnormally enlarged lymph nodes by CT criteria. No axillary or hilar abnormalities are identified. Evidence of previous renal disease with calcified mediastinal and hilar lymph nodes. ABDOMEN: The liver and spleen are free of focal defects. The gallbladder and pancreas demonstrate no abnormali ty. The adrenal glands are normal. The kidneys demonstrate no evidence of solid renal mass or hydrone phrosis. No free fluid or abdominal masses are identified. No para-aortic adenopathy is seen. Diverti culosis of the colon. Bilateral renal cysts. PELVIS: No evidence of free fluid or pelvic mass. No abnormally enlarged inguinal or retroperitoneal lymph no ananda are present. The bladder is unremarkable. THORACIC AORTA: The thoracic aortic root is normal with normal branching of the great vessels. There is no evidence of aneurysm or dissection. ABDOMINAL AORTA: Massive aneurysm in the infrarenal location measuring 9.0 x 8.8 x 7.7 cm. Large amount of intramural thrombus.. The renal arteries are patent bilaterally. The proximal celiac and superior mesenteric a rteries are patent and normal in diameter. PELVIC VESSELS: The internal iliac and external iliac vessels are patent without aneurysm or stenosis. CONCLUSION: 1. Massive infrarenal abdominal aortic aneurysm measuring 9.0 x 8.8 x 7.7 cm. 2. Bilateral renal cysts. 3. Diverticulosis colon without diverticulitis. 4. Small bilateral pleural effusions greater the left. Maurice Yee MD on August 31, 2017 at 14:36 Board Certified Radiologist. This report was verified electronically.
[2017-08-31] MEDS ORDERED: IOHEXOL 350 MG/ML 100 ML BTL (for Cath Lab) OTHER ONE (15:05)
[2017-08-31] MEDS ORDERED: HEPARIN-NS/PF INJ 500 ML ONE ×2 (15:09→16:09)
[2017-08-31] MEDS ORDERED: HEPARIN SODIUM - IV 10,000 UNITS/10 ML VIAL ONE (15:10)
[2017-08-31] MEDS ORDERED: MIDAZOLAM HCL 2 MG/2 ML VIAL ONE ×5 (15:10→18:22)
[2017-08-31] MEDS ORDERED: NITROGLYCERIN INJ 5 ML ONE (15:10)
[2017-08-31] MEDS ORDERED: VERAPAMIL HCL 5 MG/2 ML VIAL ONE (15:27)
--- NOTE | 2017-08-31 15:48 | MB ---
cc: [facility] DATE OF CONSULTATION: 08/31/2017 DATE OF : 1940 REASON FOR CONSULTATION Shortness of breath, positive stress test and a large abdominal aortic aneurysm. HISTORY OF PRESENT ILLNESS 77-year-old male with a past medical history significant for atrial fibrillation on chronic oral anticoagulation taking Eliquis, hypertension, hypercholesterinemia, who was admitted to the hospital with vague complaints of shortness of breath and abdominal pain. The patient is known to me. He has been into the office recently. A stress test ordered showed significant positive ischemia in the anterior wall and he was scheduled for a cath. He also had a CTA of the abdomen and pelvis showing a large 8.7 cm abdominal aortic aneurysm and he has been referred to Dr. Pruitt. Currently he denies chest pain, fevers, chills, nausea, vomiting, diarrhea, diaphoresis or chest pain. He repots being compliant with medications. REVIEW OF SYSTEMS Negative except for what is mentioned in the HPI. PAST MEDICAL HISTORY 1. Hypertension. 2. Atrial fibrillation. 3. Hyperlipidemia. MEDICATIONS Home medications: 1. Digoxin. 2. Diltiazem. 3. Xarelto. FAMILY HISTORY Noncontributory. ALLERGIES No known drug allergies. PHYSICAL EXAMINATION VITAL SIGNS: Temperature 97, respiratory rate 18, heart rate 70, blood pressure 148/70. O2 sat 100% on room air. GENERAL: Awake, alert and oriented x3, in no acute distress. NECK: No JVD. No carotid bruits. HEART: Irregularly irregular. No murmurs, rubs or gallops appreciated. LUNGS: Clear to auscultation bilaterally. No wheezes, rhonchi or rales. ABDOMEN: Soft, nontender, nondistended. Positive bowel sounds. EXTREMITIES: No cyanosis or edema. Pulses throughout. LABORATORY Hemoglobin 14, hematocrit 43, platelet count 226. INR 1.0. Sodium 136, potassium 4.1, BUN 26, creatinine 1.15. Troponin 0.08 and 0.08. BNP 920. Urinalysis unremarkable. IMAGING Chest x-ray: No acute cardiopulmonary disease. CT of the abdomen shows a massive infrarenal abdominal aortic aneurysm. EKG: Atrial fibrillation. ASSESSMENT 77-year-old male with a positive stress test, complaint of shortness of breath and also a massive abdominal aortic aneurysm. The patient remains afebrile and hemodynamically stable. He has been consulted with Dr. Pena for endovascular abdominal aortic aneurysm. Regarding his positive stress test and his symptoms of shortness of breath, he does have a history of CAD status post PCI in the past. No open heart surgeries. Will recommend to do a left heart cath to further evaluate the progression of CAD before AAA repair. The risks and benefits of left heart cath /PCI including but not limited to infection, bleeding, neurovascular trauma, stroke, emergent bypass surgery and have been explained to the patient. The patient understands the risks and he is willing to proceed. PLAN Keep n.p.o. for LHC/PCI Access right transradial 6 [place] sheath. Hold Xarelto. Blood pressure management. Thank you for the opportunity to take part in the care of this patient. Further management to be determined. MD SHANNA Arvizu/BT /2:51 PM /3:32 PM [facility]
[2017-08-31] MEDS ORDERED: CLOPIDOGREL 300 MG TAB ONE (18:29)
[2017-08-31] MEDS: SODIUM CHLOR 0.9% 1000 ML INJ 1,000 ML IV SCH (18:47)
--- NOTE | 2017-08-31 18:59 | CATHPROC ---
[facility] HIS Report Study Information Study Number Admission Scheduled Start Study Start [id number] Aug 31 2017 12:44PM 08/31/2017 Aug 31 2017 2:52PM [place] [facility] Cardiac Catheterization Admit Source Facility Department Emergency department [facility] - [facility] Physician and Clinical Staff Initial Nadeem Guzman Bridge Teacher Lisa Ahumada,HUMBERTO Bridge Teacher Airam Morrison RN Bridge Teacher Mitzi Padron,HUMBERTO Recorder Domenico Peoples,RT(R) Recorder Yahaira Davis RCIS TECH2 Recorder Jennifer Davila,RT(R) Scrub Airam Hansen,RT(R) Procedures Performed Procedure Location (Site) Vessel Name Coronary Angiograms LCA Left Coronary Coronary Angiograms RCA Right Coronary Drug Eluting Inflatio Marginal1 Right Coronary Drug Eluting Inflatio RCA Mid Right Coronary Drug Eluting Inflatio RCA Prox Right Coronary L Heart Cath LV Gram-hand inj. LV LV Ventricle PTCA ACUTE MARGIN RCA-(10 Right Coronary PTCA Marginal1 Right Coronary PTCA RCA Mid Right Coronary PTCA RCA Prox Right Coronary PTCA ADD ON'S Wire insertion Fem Art (right) Femoral Art Wire insertion Radial (left) Radial Art. Equipment Time Chief Controller Tower Description Size Mfg Part Number Used/Scraped COPILOT VALVE, BLEEDBACK [id number] 15:56 [employer] Used CONTROL *[id number] 16:39 [employer] WIRE, MAHENDRA LA XT 300CM 300CM Used *[id number] 17:48 [employer] WIRE, DOC EXTENSION 145CM 145CM 03123 *[id number] Used 16:34 [employer] WIRE, DOC EXTENSION 145CM 145CM 36406 *[id number] Used WIRE, WHISPER W/HYDROCOAT [id number] 16:06 [employer] 190CM Used 190CM *[id number] TRANSDUCER, TRUWAVE [id number] 14:56 GARCIA JACKSON * Used W/STOCKCOCK *[id number] [address] 17:59 [employer] BALLOON, 2.0 8MM EMERGE MR 2.0 8MM Used *[id number] [address] 17:25 [employer] BALLOON, 2.0 8MM EMERGE MR 2.0 8MM Used *[id number] [address] 17:30 [employer] BALLOON, 2.5 8MM EMERGE MR 2.5 8MM Used *[id number] 18:02 [employer] STENT, SYNERGY 2.5 X 16MM Used *[id number] 17:35 [employer] STENT, SYNERGY 3.0 X 38MM Used *[id number] 17:59 [employer] STENT, SYNERGY 3.0 X 8MM Used *[id number] WIRE, CHOICE PT EX. SUPPORT 04581-60 16:02 [employer] 180CM Used 182CM *[id number] 92898-337 16:32 [employer] WIRE, FIGHTER 300CM 300CM Used *9715262 95464-922 18:16 [employer] WIRE, SAMURAI 190CM 190CM Used *7156500 534-520T *5834013 [phone] *5620960 534-521T *[id number] [id number] 14:56 [employer] PACK, CCL CUSTOM * Used *4389196 14:56 [employer] SUPPORT, ARTERIAL ADULT 80363 *3879369 Used BALLOON, 1.25 X 6MM SPRINTER [id number] 16:15 [employer] 6MM Used LEGEND OTW *9357329 [id number] 15:56 [employer]/AVE EBU 3.5 Z2 GUIDE CATHETER FR 6 Used *3599816 NY9061 15:54 [employer] 30 WILLIAM INDEFLATOR Used *2233300 BAND, RADIAL COMPRESSION TR [id number] 18:32 [employer] 29CM Used LARGE 29 *8465006 [id number] 14:56 [email or web address] WIRE, 3MMJ .035 180CM 180CM Used *5752323 [id number] 14:56 NAMIC MANIFOLD, 4 PORT * Used *0707061 14:56 [employer] OMNIPAQUE, 350 MG, 150ML 150ML 0167821 Used [id number] 14:56 [employer] BL[employer]ET,WARM AIR CCL * Used *0810379 SHEATH, FR6 TRANSRADIAL RM*[id number] 14:56 [employer] FR 6 Used SLENDER 10CM *5524971 WIRE, RUNTHROUGH NS FLOPPY 25-1011 15:55 [employer] 180CM Used .014 180CM *9238134 WIRE, RUNTHROUGH NS FLOPPY 25-1011 17:23 [employer] 180CM Used .014 180CM *[id number] 35-1450 16:59 [employer]/ALBERT CATHETER, FINECROSS 150CM FR 5 Used *1246119 Scrap: [id number] 18:23 [employer] STENT, SYNERGY 2.75 X 16MM Procedure *2746391 Aborted Scrap: [id number] 18:24 [employer] STENT, SYNERGY 2.75 X 38MM Procedure *8238127 Aborted Equipment Model, Serial, Lot Number and Expiration Data Description Model Number Serial Number Lot Number Expiration Date BALLOON, 2.0 8MM EMERGE MR [id number] 03-08-2020 BALLOON, 2.0 8MM EMERGE MR [id number] 03-01-2020 BALLOON, 2.5 8MM EMERGE MR [id number] 01-07-2020 CATHETER, FINECROSS 150CM 219047 02-27-2019 EBU 3.5 Z2 GUIDE CATHETER [id number] 07-07-2019 STENT, SYNERGY [id number] 11-23-2017 STENT, SYNERGY [id number] 12-14-2017 STENT, SYNERGY [id number] 11-09-2017 STENT, SYNERGY [id number] WIRE, CHOICE PT EX. SUPPORT [id number] 04-26-2019 182CM WIRE, EZEQUIEL 300CM [id number] 09-23-2019 WIRE, EVERTON 190CM [id number] 11-15-2019 History: Current Medications Medication Dosage/Unit Route Frequency Last Date/Time Taken XARELTO LASIX History: Allergies Allergy Reaction No Known Allergies History: Risk Factors Family History of Hypertension Dyslipidemia Previous MT Previous Heart Failure Premature CAD No No Yes Yes Yes Prior Valve Prior PCI Prior PCIDate Prior CABG Surgery No Yes 08/31/2008 No Cerebrovascular Peripheral Artery Chronic Lung On Dialysis Diabetes Disease Disease Disease No Yes No No No History: CV Disease Selection Items Known CAD History: Stress Tests Stress or Imaging Studies Performed Yes Standard Exercise Stress Test No Stress Echo No Stress Test SPECT Stress Test SPECT Result Stress Test SPECT Ischemia Risk/Extent Yes Positive High Stress Test CMR No Cardiac CTA Coronary Calcium Score No No History: Other Disease Selection Items CAD History: Other Current Smoker No Labs Hgb (g/dl) Hct (%) RBC (MIL/MM3) WBC (l/cumm) Platelets (thousands) 11.60-17.00 35.00-51.00 4.00-5.90 4.00-11.00 150.00-450.00 14.3 43.3 4.8 8 226 Glucose (mg/dl) BUN (mg/dl) Creatinine (mg/dl) BUN:Creatinine (1:x) 74.00-106.00 7.00-18.00 0.50-1.30 10.00-20.00 68 26 1.1 23.6 Na (meq/l) K (meq/l) Cl (meq/l) CO2 (mmol/L) Ca (mg/dl) 136.00-145.00 3.50-5.10 98.00-107.00 21.00-32.00 8.50-10.10 136 4.1 102 28 8.8 PT (sec) PTT (sec) INR (PTT:PT) 9.80-11.60 24.30-30.10 0.90-1.10 11.6 28.5 1 CPK-MB (ng/ML) 0.50-3.60 Not Drawn Medication Medication Total Dose (Bolus/Oral) Medication Total Dosage/Unit 1% XYLOCAINE 5 mL FENTANYL 200 mcg HEPARIN 5000 units NTG (IC) 300 mcg PLAVIX 600 mg RADIAL COCKTAIL 5 mL (Bolus) VERSED 8 mg Medications (Bolus/Oral) Medication Time Given Dosage/Unit Administered By Reason VERSED 08/31/2017 3:40:08 PM 2 mg Lisa Ahumada 2 mg VERSED given in lab by Lisa Ahumada RN in Right Groin via Peripheral IV. Ordered by Nadeem Hui. FENTANYL 08/31/2017 3:41:31 PM 50 mcg Lisa Ahumada 50 mcg FENTANYL given in lab by Lisa Ahumada RN in Right Antecubital via Peripheral IV. Ordered b y Nadeem Souza. 1% XYLOCAINE 08/31/2017 3:41:54 PM 5 mL Lisa Ahumada 5 mL 1% XYLOCAINE given in lab by Lisa Ahumada RN in Left Radial via Subcutaneous. HEPARIN 08/31/2017 3:55:23 PM 5000 units Lisa Ahumada 5000 units HEPARIN given in lab by Lisa Ahumada RN in Right Antecubital via Peripheral IV. Ordere d by Nadeem Souza. VERSED 08/31/2017 4:12:52 PM 1 mg Lisa Ahumada 1 mg VERSED given in lab by Lisa Ahumada RN in Right Antecubital via Peripheral IV. Ordered by Co x-Fredrick Nadeem. VERSED 08/31/2017 4:43:04 PM 1 mg Ebony, Lisa 1 mg VERSED given in lab by Lisa Ahumada RN in Right Antecubital via Peripheral IV. Ordered by Co x-Fredrick, Nadeem. FENTANYL 08/31/2017 4:49:00 PM 25 mcg Ebony, Lisa 25 mcg FENTANYL given in lab by Lisa Ahumada RN in Right Antecubital via Peripheral IV. Ordered b y Fuentes-Fredrick, Nadeem. VERSED 08/31/2017 4:51:00 PM 1 mg Brandyn, Lisa 1 mg VERSED given in lab by Lisa Ahumada RN in Right Antecubital via Peripheral IV. Ordered by Co x-Fredrick Nadeem. VERSED 08/31/2017 5:07:00 PM 1 mg Hesher, Airam 1 mg VERSED given in lab by Airam Morrison RN in Right Antecubital via Peripheral IV. Ordered by Fuentes -Fredrick Nadeem. FENTANYL 08/31/2017 5:08:02 PM 25 mcg Hesher, Airam 25 mcg FENTANYL given in lab by Airam Morrison RN in Right Antecubital via Peripheral IV. Ordered by Fuentes-Fredrick, Nadeem. NTG (IC) 08/31/2017 5:35:27 PM 200 mcg Fuentes-Fredrick, Nadeem 200 mcg NTG (IC) given in lab by Nadeem Souza in Left Radial via Intra-coronary. VERSED 08/31/2017 5:36:53 PM 2 mg Hesher, Airam 2 mg VERSED given in lab by Airam Morirson RN in Right Antecubital via Peripheral IV. Ordered by Fuentes -Fredrick Nadeem. FENTANYL 08/31/2017 5:45:08 PM 25 mcg Hesher, Airam 25 mcg FENTANYL given in lab by Airam Morrison RN in Right Antecubital via Peripheral IV. Ordered by Fuentes-Fredrick Nadeem. FENTANYL 08/31/2017 6:02:00 PM 25 mcg Hesher, Airam 25 mcg FENTANYL given in lab by Airam Morrison RN in Right Antecubital via Peripheral IV. Ordered by Nadeem Souza. NTG (IC) 08/31/2017 6:13:19 PM 100 mcg Nadeem Souza 100 mcg NTG (IC) given in lab by Nadeem Souza in Left Radial via Intra-coronary. FENTANYL 08/31/2017 6:18:53 PM 50 mcg Airam Morrison 50 mcg FENTANYL given in lab by Airam Morrison, HUMBERTO in Right Antecubital via Peripheral IV. Ordered by Nadeem Souza. PLAVIX 08/31/2017 6:42:38 PM 600 mg Airam Morrison 600 mg PLAVIX given in lab by Airam Morrison, HUMBERTO via Oral. Ordered by Nadeem Souza. Ntg 200mcg Verapamil 2.5mg Heparin RADIAL COCKTAIL 08/31/2017 6:43:07 PM 5 mL (Bolus) Nadeem Souza 2500U 5 mL (Bolus) RADIAL COCKTAIL given in lab by Nadeem Souza in Left Radial via Radial. Using [Solu tion Name]. Reason: Ntg 200mcg Verapamil 2.5mg Heparin 2500U. Medication (Drip) Medication Time Given Dosage/Unit Concentration/Unit Diluent (ml) Solution IV Solutions 08/31/2017 3:07:11 PM 0 mL (IV) 500 NaCl .9 IV Solutions given in lab by Lisa Ahumada RN in Right Antecubital via Peripheral IV. Pump/Drip Fl ow = 20 ml/hr using NaCl .9. Initial Case Assessment Cardiovascular HR Rhythm NIBP Chest Pain 86 Paced 147/94 0 Edema Present Skin color Skin None Normal Warm Dry Circulatory - Right Pulses Dorsalis Pedis Femoral Radial 0 3 2 Scale (0,1,2,3,4,d) Circulatory - Left Pulses Dorsalis Pedis Femoral Radial d 3 Scale (0,1,2,3,4,d) Neurological State Oriented to time-place- Alert Moves all extremities person Respiration - General Respiration Rate SpO2 (%) O2 (lpm) (B/min) 10 85 2 Chronological Log Time Study Chronological Log 15:06:00 Patient arrived via Bed. 15:06:01 Patient Name, D.O.B, / Armband Verified By R.N. 15:06:01 Consent signed by the physician and the patient and verified by the [employer] staff. 15:06:02 Pre-op and post- op instructions given; patient acknowledges understanding of instruction s. 15:06:03 Verbal Stimulation=2 Physical Stimulation=2 Airway=2 Respiration=2 TOTAL=8. (0=absent, 1= limited, 2=present) 15:06:24 Presedation assessment performed by [employer] RN. 15:06:28 Allens test performed on the right radial and ulnar artery. 15:06:34 Patient has been NPO for Less than 6Hrs. 15:06:36 Skin Breakdown- none per patient. 15:06:46 Patient Warmer Placed on the Table. 15:06:49 Tiffany Prominences Protected 15:06:52 A # 20 IV was noted in the Antecubital (right). Grade = 0 IV Solutions given in lab by Lisa Ahumada, RN in Right Antecubital via Peripheral IV. Pump /Drip Flow = 20 ml/hr 15:07:11 using NaCl .9. 15:07:34 History and physical on the chart or being dictated. Assessment: Initial Case, HR=86 BPM, Rhythm=Paced, ZRED=579/94 mmhg, Chest Pain=0, Edema=None, Color=Normal, Skin = Warm, Dry Right Pulses: Sumanth Ped=0, Femoral=3, Radial=2 15:07:35 Left Pulses: Sumanth Ped=d, Femoral=3 Neurological: State=Alert, Ox3, LEMUS Respiration: Resp=10 B/min, SpO2=85 %, O2=2 lpm Vitals capture started with the following parameters, Patient=Adult, Interval=5 min, Initial Pr psdkym=947 mmHg, 15:24:01 Deflation Rate=5 mmHg, Cuff placed on Right Arm 15:24:35 HR=83 bpm, RGPD=342/94 mmhg, SpO2=82.0 %, Resp=10 B/min, Pain=0, Susan=10, Almonte=2 15:24:47 Reference ECG taken 15:25:23 Left radial and groin(s) prepped with 2% chlorhexidine, and draped after a 3 min. waiting t isabelle. 15:29:34 HR=90 bpm, GALE=173/95 mmhg, SpO2=68.0 %, Resp=9 B/min, Pain=0, Susan=10, Almonte=2 15:29:39 MD paged 15:30:43 Pressure channel 1 zeroed. 15:34:43 HR=76 bpm, MALX=396/65 mmhg, SpO2=84.0 %, Resp=9 B/min, Pain=0, Susan=10, Almonte=2 15:37:27 MD arrived. Time Out. Correct patient, correct procedure, correct physician, power injector loaded, with co ntrast with surgical team 15:39:28 present. Time Out Concurred by MD and individual staff in procedure. 15:39:41 Case Start 15:39:42 HR=78 bpm, NTNG=465/86 mmhg, SpO2=78.0 %, Resp=9 B/min, Pain=0, Susan=10, Almonte=2 15:40:08 2 mg VERSED given in lab by Lisa Ahumada, HUMBERTO in Right Groin via Peripheral IV. Ordered b y Nadeem Souza. 50 mcg FENTANYL given in lab by Lisa Ahumada, HUMBERTO in Right Antecubital via Peripheral IV. Ord ered by Harley, 15:41:31 Nadeem. 15:41:54 5 mL 1% XYLOCAINE given in lab by Lisa Ahumada, HUMBERTO in Left Radial via Subcutaneous. 15:42:05 Access site was Radial Artery. A SHEATH, FR6 TRANSRADIAL SLENDER 10CM FR 6 was advanced into the Radial (left) using the Klaus rizvi 15:43:11 technique. A JR 4.0 INFINITI CATHETER FR 5 was advanced over a wire. OMNIPAQUE, 350 MG, 150ML 150ML was us ed for 15:44:01 injections. 15:44:41 HR=92 bpm, VNWH=568/68 mmhg, SpO2=98.0 %, Resp=9 B/min, Pain=0, Susan=10, Almonte=2 Recorded Pressure: LV, HR=80, Condition=Condition 1 15:44:50 (Left Ventricle) LV 123/1/3 15:45:07 The LV was manually injected with 8 cc's and visualized. OMNIPAQUE, 350 MG, 150ML 150ML use d. Recorded Pressure: LV, Ao, HR=93, Condition=Condition 1 15:45:24 (Left Ventricle) LV 118/1/5, (Aorta) Ao 93/60/76 15:45:56 The RCA was injected and visualized at various angles. OMNIPAQUE, 350 MG, 150ML 150ML used . After removing the current catheter a JL 4.0 INFINITI CATHETER FR 5 was advanced over a WIRE, 3 MMJ .035 180CM 15:47:32 180CM. 15:49:30 HR=85 bpm, YVZU=913/70 mmhg, SpO2=96.0 %, Resp=11 B/min, Pain=0, Susan=10, Almonte=2 15:49:53 The LCA was injected and visualized at various angles. OMNIPAQUE, 350 MG, 150ML 150ML used . 15:53:44 Catheter was removed 15:54:03 contrast and 30 WILLIAM INDEFLATOR added. 15:54:33 HR=75 bpm, PUOJ=885/64 mmhg, SpO2=96.0 %, Resp=11 B/min, Pain=0, Susan=10, Almonte=2 5000 units HEPARIN given in lab by Lisa Ahumada, HUMBERTO in Right Antecubital via Peripheral IV. Ordered by Harley, 15:55:23 Nadeem. A EBU 3.5 Z2 GUIDE CATHETER FR 6 was advanced over a wire. OMNIPAQUE, 350 MG, 150ML 150ML was u sed for 15:55:46 injections. 15:58:06 A WIRE, RUNTHROUGH NS FLOPPY .014 180CM 180CM was inserted via Radial (left). 15:59:36 HR=76 bpm, FTDY=320/75 mmhg, SpO2=97.0 %, Resp=12 B/min, Pain=0, Susan=10, Almonte=2 16:00:26 Wire removed 16:00:38 A WIRE, CHOICE PT EX. SUPPORT 182CM 180CM was inserted via Radial (left). 16:04:35 HR=65 bpm, XGBQ=974/80 mmhg, SpO2=97.0 %, Resp=12 B/min, Pain=0, Susan=10, Almonte=2 16:06:35 Wire removed 16:07:25 A WIRE, WHISPER W/HYDROCOAT 190CM 190CM was inserted via Radial (left). 16:09:38 HR=77 bpm, ZFDX=393/67 mmhg, SpO2=98.0 %, Resp=13 B/min, Pain=0, Susan=10, Almonte=2 16:12:19 Runthru Wire removed 16:12:52 1 mg VERSED given in lab by Lisa Ahumada, RN in Right Antecubital via Peripheral IV. Ord ered by Nadeem Souza. 16:14:35 HR=76 bpm, HKOG=723/70 mmhg, SpO2=98.0 %, Resp=12 B/min, Pain=0, Susan=10, Almonte=2 16:15:05 A WIRE, WHISPER W/HYDROCOAT 190CM 190CM was inserted via Radial (left). 16:16:17 A WIRE, DOC EXTENSION 145CM 145CM was attached to Whisper wire inserted via Fem Art (right) . A BALLOON, 1.25 X 6MM SPRINTER LEGEND OTW 6MM was inserted over WIRE, WHISPER W/HYDROCOAT 190CM 16:16:54 190CM via the Radial (left). 16:19:36 HR=70 bpm, YIPD=643/64 mmhg, SpO2=98.0 %, Resp=13 B/min, Pain=0, Susan=10, Almonte=2 16:22:13 Doc Wire removed 16:24:17 Activated Clotting Time Drawn 16:24:37 HR=70 bpm, TNJY=147/69 mmhg, SpO2=98.0 %, Resp=13 B/min, Pain=0, Susan=10, Almonte=2 16:29:39 HR=61 bpm, TNDO=689/66 mmhg, Resp=13 B/min, Pain=0, Susan=10, Almonte=2 16:34:34 ACT (Normal Range 90-180) = 477 16:34:40 HR=70 bpm, LWMW=653/60 mmhg, SpO2=97.0 %, Resp=12 B/min 16:36:49 The previous wire was exchanged for a WIRE, FIGHTER 300CM 300CM. 16:39:37 HR=78 bpm, QRAM=755/82 mmhg, SpO2=98.0 %, Resp=13 B/min 16:40:21 The previous wire was exchanged for a WIRE, BULX FIELDER XT 300CM 300CM. 16:43:04 1 mg VERSED given in lab by Lisa Ahumada, HUMBERTO in Right Antecubital via Peripheral IV. Ord ered by Nadeem Souza. 16:44:38 HR=74 bpm, CCOA=889/75 mmhg, SpO2=98.0 %, Resp=13 B/min 25 mcg FENTANYL given in lab by Lisa Ahumada, RN in Right Antecubital via Peripheral IV. Ord ered by Harley, 16:49:00 Nadeem. 16:49:37 HR=78 bpm, YTOZ=620/90 mmhg, SpO2=98.0 %, Resp=10 B/min 16:51:00 1 mg VERSED given in lab by Lisa Ahumada, HUMBERTO in Right Antecubital via Peripheral IV. Ord ered by Nadeem Souza. 16:54:42 HR=70 bpm, RWSQ=087/74 mmhg, SpO2=97.0 %, Resp=11 B/min 16:57:16 Balloon Removed. 16:59:45 HR=89 bpm, UEJX=087/69 mmhg, SpO2=96.0 %, Resp=11 B/min A CATHETER, FINECROSS 150CM FR 5 was advanced over a wire. OMNIPAQUE, 350 MG, 150ML 150ML was u sed for 16:59:49 injections. 17:04:40 HR=68 bpm, SRVA=534/79 mmhg, Resp=12 B/min 17:06:08 Finecross Catheter was removed 17:06:12 Wire removed 17:07:00 1 mg VERSED given in lab by Airam Morrison, HUMBERTO in Right Antecubital via Peripheral IV. Orde red by Nadeem Souza. 17:07:27 Catheter was removed 25 mcg FENTANYL given in lab by Airam Morrison, RN in Right Antecubital via Peripheral IV. Orde red by Harley, 17:08:02 Nadeem. A JR 4.0 GUIDE CATHETER FR 6 was advanced over a wire. OMNIPAQUE, 350 MG, 150ML 150ML was used for 17:08:16 injections. 17:09:43 HR=68 bpm, FBGQ=542/85 mmhg, SpO2=97.0 %, Resp=13 B/min 17:11:52 A WIRE, RUNTHROUGH NS FLOPPY .014 180CM 180CM was inserted via Radial (left). 17:14:42 HR=73 bpm, BYNV=513/79 mmhg, SpO2=96.0 %, Resp=9 B/min 17:19:45 HR=79 bpm, QHMY=479/78 mmhg, SpO2=95.0 %, Resp=11 B/min 17:22:28 A WIRE, RUNTHROUGH NS FLOPPY .014 180CM 180CM was inserted via Fem Art (right). (second run through) 17:24:48 HR=78 bpm, RMXP=490/66 mmhg, SpO2=95.0 %, Resp=12 B/min A BALLOON, 2.0 8MM EMERGE MR 2.0 8MM was inserted over WIRE, RUNTHROUGH NS FLOPPY .014 180CM 18 0CM via 17:25:25 the Radial (left). A BALLOON, 2.0 8MM EMERGE MR 2.0 8MM over a WIRE, RUNTHROUGH NS FLOPPY .014 180CM 180CM in the RCA 17:26:12 Prox was inflated using a 30 WILLIAM INDEFLATOR at 10 william for 13 sec. A BALLOON, 2.0 8MM EMERGE MR 2.0 8MM over a WIRE, RUNTHROUGH NS FLOPPY .014 180CM 180CM in the RCA 17:27:15 Prox was inflated using a 30 WILLIAM INDEFLATOR at 10 william for 12 sec. A BALLOON, 2.0 8MM EMERGE MR 2.0 8MM over a WIRE, RUNTHROUGH NS FLOPPY .014 180CM 180CM in the RCA 17:27:35 Prox was inflated using a 30 WILLIAM INDEFLATOR at 12 william for 18 sec. A BALLOON, 2.0 8MM EMERGE MR 2.0 8MM over a WIRE, RUNTHROUGH NS FLOPPY .014 180CM 180CM in the RCA 17:29:20 Prox was inflated using a 30 WILLIAM INDEFLATOR at 16 william for 25 sec. 17:29:43 HR=71 bpm, FHUA=385/77 mmhg, SpO2=97.0 %, Resp=12 B/min 17:29:53 Balloon Removed. A BALLOON, 2.5 8MM EMERGE MR 2.5 8MM was inserted over WIRE, RUNTHROUGH NS FLOPPY .014 180CM 18 0CM via 17:31:14 the Radial (left). A BALLOON, 2.5 8MM EMERGE MR 2.5 8MM over a WIRE, RUNTHROUGH NS FLOPPY .014 180CM 180CM in the RCA 17:31:54 Prox was inflated using a 30 WILLIAM INDEFLATOR at 8 william for 10 sec. A BALLOON, 2.5 8MM EMERGE MR 2.5 8MM over a WIRE, RUNTHROUGH NS FLOPPY .014 180CM 180CM in the RCA 17:32:55 Mid was inflated using a 30 WILLIAM INDEFLATOR at 10 william for 10 sec. A BALLOON, 2.5 8MM EMERGE MR 2.5 8MM over a WIRE, RUNTHROUGH NS FLOPPY .014 180CM 180CM in the RCA 17:33:41 Mid was inflated using a 30 WILLIAM INDEFLATOR at 12 william for 10 sec. 17:34:46 HR=64 bpm, GKDM=549/77 mmhg, SpO2=97.0 %, Resp=12 B/min 17:35:27 200 mcg NTG (IC) given in lab by Nadeem Souza in Left Radial via Intra-coronary. A STENT, SYNERGY 3.0 X 38MM was advanced through a JR 4.0 GUIDE CATHETER FR 6 over a WIRE, RUNT HROUGH 17:36:09 NS FLOPPY .014 180CM 180CM. 17:36:53 2 mg VERSED given in lab by Airam Morrison, HUMBERTO in Right Antecubital via Peripheral IV. Orde red by Nadeem Souza. A STENT, SYNERGY 3.0 X 38MM was deployed using a 30 WILLIAM INDEFLATOR at 14 atmospheres for 18 sec onds in the 17:37:27 RCA Mid. 17:39:23 Delivery device removed A BALLOON, 2.0 8MM EMERGE MR 2.0 8MM was inserted over WIRE, RUNTHROUGH NS FLOPPY .014 180CM 18 0CM via 17:39:31 the Radial (left). 17:39:45 HR=72 bpm, NDOH=608/80 mmhg, SpO2=95.0 %, Resp=12 B/min A BALLOON, 2.0 8MM EMERGE MR 2.0 8MM over a WIRE, RUNTHROUGH NS FLOPPY .014 180CM 180CM in the ACUTE 17:41:12 MARGIN RCA-(10 was inflated using a 30 WILLIAM INDEFLATOR at 6 william for 10 sec. 17:44:42 HR=75 bpm, HMQQ=148/82 mmhg, SpO2=97.0 %, Resp=12 B/min 25 mcg FENTANYL given in lab by Airam Morrison RN in Right Antecubital via Peripheral IV. Orde red by Harley, 17:45:08 Nadeem. A BALLOON, 2.0 8MM EMERGE MR 2.0 8MM over a WIRE, RUNTHROUGH NS FLOPPY .014 180CM 180CM in the ACUTE 17:45:27 MARGIN RCA-(10 was inflated using a 30 WILLIAM INDEFLATOR at 6 william for 17 sec. 17:45:41 Balloon Removed. 17:48:34 Doc wire attached to runthrough. A BALLOON, 1.25 X 6MM SPRINTER LEGEND OTW 6MM was inserted over WIRE, DOC EXTENSION 145CM 145CM via 17:48:49 the Radial (left). 17:49:48 HR=75 bpm, HAXS=961/79 mmhg, SpO2=97.0 %, Resp=10 B/min A BALLOON, 1.25 X 6MM SPRINTER LEGEND OTW 6MM over a WIRE, DOC EXTENSION 145CM 145CM in the RCA Prox 17:51:12 was inflated using a 30 WILLIAM INDEFLATOR at 8 william for 12 sec. A BALLOON, 1.25 X 6MM SPRINTER LEGEND OTW 6MM over a WIRE, DOC EXTENSION 145CM 145CM in the RCA Prox 17:51:47 was inflated using a 30 WILLIAM INDEFLATOR at 8 william for 15 sec. 17:54:44 HR=70 bpm, EACC=575/78 mmhg, SpO2=95.0 %, Resp=11 B/min 17:54:48 Balloon Removed. A BALLOON, 1.25 X 6MM SPRINTER LEGEND OTW 6MM over a WIRE, DOC EXTENSION 145CM 145CM in the RCA Prox 17:55:57 was inflated using a 30 WILLIAM INDEFLATOR at 10 william for 15 sec. 17:57:47 Doc Wire removed 17:59:48 HR=73 bpm, GPQH=605/80 mmhg, SpO2=96.0 %, Resp=11 B/min A BALLOON, 2.0 8MM EMERGE MR 2.0 8MM was inserted over WIRE, RUNTHROUGH NS FLOPPY .014 180CM 18 0CM via 18:00:00 the Radial (left). A BALLOON, 2.0 8MM EMERGE MR 2.0 8MM over a WIRE, RUNTHROUGH NS FLOPPY .014 180CM 180CM in the 18:00:17 Marginal1 was inflated using a 30 WILLIAM INDEFLATOR at 6 william for 8 sec. A BALLOON, 2.0 8MM EMERGE MR 2.0 8MM over a WIRE, RUNTHROUGH NS FLOPPY .014 180CM 180CM in the 18:00:33 Marginal1 was inflated using a 30 WILLIAM INDEFLATOR at 6 william for 8 sec. A BALLOON, 2.0 8MM EMERGE MR 2.0 8MM over a WIRE, RUNTHROUGH NS FLOPPY .014 180CM 180CM in the 18:00:47 Marginal1 was inflated using a 30 WILLIAM INDEFLATOR at 6 william for 6 sec. 25 mcg FENTANYL given in lab by Airam Morrison, HUMBERTO in Right Antecubital via Peripheral IV. Orde red by Harley, 18:02:00 Nadeem. 18:02:09 Balloon Removed. A BALLOON, 2.5 8MM EMERGE MR 2.5 8MM was inserted over WIRE, RUNTHROUGH NS FLOPPY .014 180CM 18 0CM via 18:04:12 the Radial (left). A BALLOON, 2.5 8MM EMERGE MR 2.5 8MM over a WIRE, RUNTHROUGH NS FLOPPY .014 180CM 180CM in the 18:04:35 Marginal1 was inflated using a 30 WILLIAM INDEFLATOR at 8 william for 10 sec. ::47 HR=71 bpm, XGQG=929/85 mmhg, SpO2=97.0 %, Resp=11 B/min A BALLOON, 2.5 8MM EMERGE MR 2.5 8MM over a WIRE, RUNTHROUGH NS FLOPPY .014 180CM 180CM in the 18:05:07 Marginal1 was inflated using a 30 WILLIAM INDEFLATOR at 8 william for 6 sec. 18::29 Balloon Removed. A STENT, SYNERGY 2.5 X 16MM was advanced through a JR 4.0 GUIDE CATHETER FR 6 over a WIRE, RUNT HROUGH ::33 NS FLOPPY .014 180CM 180CM. A STENT, SYNERGY 2.5 X 16MM was deployed using a 30 WILLIAM INDEFLATOR at 14 atmospheres for 22 sec onds in the 18:07:04 Marginal1. 18:09:48 HR=71 bpm, TWMZ=143/81 mmhg, SpO2=96.0 %, Resp=11 B/min 18:10:28 Delivery device removed 18:11:17 1 runthrough wire removed A STENT, SYNERGY 3.0 X 8MM was advanced through a JR 4.0 GUIDE CATHETER FR 6 over a WIRE, RUNTH ROUGH NS 18:12:32 FLOPPY .014 180CM 180CM. A STENT, SYNERGY 3.0 X 8MM was deployed using a 30 WILLIAM INDEFLATOR at 12 atmospheres for 15 seco nds in the 18:12:50 RCA Prox. 18:13:19 100 mcg NTG (IC) given in lab by Nadeem Souza in Left Radial via Intra-coronary. 18:14:07 Delivery device removed 18:14:55 HR=84 bpm, IRFD=740/76 mmhg, SpO2=96.0 %, Resp=11 B/min 18:15:57 A WIRE, SAMURAI 190CM 190CM was inserted via Fem Art (right). 18:16:22 Interventional wire has crossed the lesion 50 mcg FENTANYL given in lab by Airam Morrison, HUMBERTO in Right Antecubital via Peripheral IV. Orde red by Harley, 18:18:53 Nadeem. A STENT, SYNERGY 2.75 X 38MM was advanced through a JR 4.0 GUIDE CATHETER FR 6 over a WIRE, LAUREN URAI 18:18:54 190CM 190CM. 18:19:52 HR=78 bpm, JZPM=171/89 mmhg, SpO2=96 %, Resp=12 B/min 18:22:48 Stent not deployed. Stent removed and intact. A STENT, SYNERGY 2.75 X 16MM was advanced through a JR 4.0 GUIDE CATHETER FR 6 over a WIRE, MURAI 18:24:09 190CM 190CM. 18:24:53 HR=90 bpm, NESX=910/79 mmhg, SpO2=96.0 %, Resp=8 B/min 18:26:15 Stent not deployed. Stent removed and intact. 18:26:20 Wire removed 18:26:44 Catheter was removed 18:28:00 Case End 18:29:46 HR=73 bpm, HAFZ=894/87 mmhg, SpO2=95.0 %, Resp=10 B/min Radial Compression Device Used. 94 mLs of air placed in BAND, RADIAL COMPRESSION TR LARGE 29 2 9CM. Affected 18:31:13 hand 13 % O2 saturation. 18:34:14 No case complications noted. 18:34:15 Cine recording checked. 18:35:22 Bedside Report will be given. 18:35:23 Implantable Device card placed in patient's chart. 18:35:24 HR=78 bpm, SNVW=215/97 mmhg, Resp=10 B/min 18:35:26 Contrast Scanned 18:35:31 A Left Heart Cath was performed. 18:35:[facility] 600 mg PLAVIX given in lab by Airam Morrison RN via Oral. Ordered by Nadeem Souza. 5 mL (Bolus) RADIAL COCKTAIL given in lab by Nadeem Souza in Left Radial via Radial. Corby stuart [Solution Name]. 18:43:07 Reason: Ntg 200mcg Verapamil 2.5mg Heparin 2500U. End Study - Contrast Media Used In Study Contrast Total Opened (mL) Total Used (mL) Total Wasted (mL) Omnipaque 400 400 0 End Study - Maximum Contrast Load Max Contrast Load (mL) 363.6 End Study - Radiation Exposure Fluoro Time (minutes) 90.3 End Study - Patient Disposition Complications Transferred To Interventional Outcome No Telemetry Bed a partial success
--- NOTE | 2017-08-31 18:59 | CATHPROC ---
[employer] HIS Report Study Information Study Number Admission Scheduled Start Study Start [id number] Aug 31 2017 12:44PM 08/31/2017 Aug 31 2017 2:52PM [facility] Cardiac Catheterization Admit Source Facility Department Emergency department [facility] - [employer] Engine [employer] Specialist Physician and Clinical Staff Initial Nadeem Guzman Cover Marker Lisa Ahumada,HUMBERTO Cover Marker Airam Morrison RN Cover Marker Mitzi Padron,HUMBERTO Recorder Domenico Peoples,RT(R) Recorder Yahaira Davis RCIS TECH2 Recorder Jennifer Davila,RT(R) Scrub Airam Hansen,RT(R) Procedures Performed Procedure Location (Site) Vessel Name Coronary Angiograms LCA Left Coronary Coronary Angiograms RCA Right Coronary Drug Eluting Inflatio Marginal1 Right Coronary Drug Eluting Inflatio RCA Mid Right Coronary Drug Eluting Inflatio RCA Prox Right Coronary L Heart Cath LV Gram-hand inj. LV LV Ventricle PTCA ACUTE MARGIN RCA-(10 Right Coronary PTCA Marginal1 Right Coronary PTCA RCA Mid Right Coronary PTCA RCA Prox Right Coronary PTCA ADD ON'S Wire insertion Fem Art (right) Femoral Art Wire insertion Radial (left) Radial Art. Equipment Time Mediator Description Size Mfg Part Number Used/Scraped COPILOT VALVE, BLEEDBACK [id number] 15:56 [employer] Used CONTROL *[id number] 16:39 [employer] WIRE, MAHENDRA LA XT 300CM 300CM Used *[id number] 17:48 [employer] WIRE, DOC EXTENSION 145CM 145CM 61558 *[id number] Used 16:34 [employer] WIRE, DOC EXTENSION 145CM 145CM 18189 *[id number] Used WIRE, WHISPER W/HYDROCOAT [id number] 16:06 [employer] 190CM Used 190CM *[id number] TRANSDUCER, TRUWAVE [id number] 14:56 GARCIA JACKSON * Used W/STOCKCOCK *[id number] 17:59 [employer] BALLOON, 2.0 8MM EMERGE MR 2.0 8MM Used *[id number] 17:25 [employer] BALLOON, 2.0 8MM EMERGE MR 2.0 8MM Used *[id number] [id number] 17:30 [employer] BALLOON, 2.5 8MM EMERGE MR 2.5 8MM Used *[id number] 18:02 [employer] STENT, SYNERGY 2.5 X 16MM Used *[id number] 17:35 [employer] STENT, SYNERGY 3.0 X 38MM Used *[id number] 17:59 [employer] STENT, SYNERGY 3.0 X 8MM Used *[id number] WIRE, CHOICE PT EX. SUPPORT 83528-30 16:02 [employer] 180CM Used 182CM *8468883 70025-224 16:32 [employer] WIRE, FIGHTER 300CM 300CM Used *3899068 34733-055 18:16 [employer] WIRE, SAMURAI 190CM 190CM Used *[id number] [id number] *5560329 [phone] *[id number] 534-521T *1779158 [id number] 14:56 [employer] PACK, CCL CUSTOM * Used *4862919 14:56 [employer] SUPPORT, ARTERIAL ADULT 04009 *[id number] Used BALLOON, 1.25 X 6MM SPRINTER [id number] 16:15 [employer] 6MM Used LEGEND OTW *3603743 [id number] 15:56 [employer]/AVE EBU 3.5 Z2 GUIDE CATHETER FR 6 Used *6914264 LW9804 15:54 [employer] MEDICAL 30 WILLIAM INDEFLATOR Used *8929638 BAND, RADIAL COMPRESSION TR [id number] 18:32 [employer] MEDICAL 29CM Used LARGE 29 *[id number] 14:56 [employer] WIRE, 3MMJ .035 180CM 180CM Used *5997327 [id number] 14:56 [employer]AMIC MANIFOLD, 4 PORT * Used *1738982 14:56 [employer] OMNIPAQUE, 350 MG, 150ML 150ML 9053528 Used [id number] 14:56 [employer] BLANKET,WARM AIR CCL * Used *6638278 SHEATH, FR6 TRANSRADIAL RM*[id number] 14:56 [employer] FR 6 Used SLENDER 10CM *[id number] WIRE, RUNTHROUGH NS FLOPPY 25-1011 15:55 [employer] 180CM Used .014 180CM *5234026 WIRE, RUNTHROUGH NS FLOPPY 25-1011 17:23 [employer] 180CM Used .014 180CM *6050586 35-1450 16:59 [employer]/ALBERT CATHETER, FINECROSS 150CM FR 5 Used *2000026 Scrap: [id number] 18:23 [employer] STENT, SYNERGY 2.75 X 16MM Procedure *6553825 Aborted Scrap: [id number] 18:24 [employer] STENT, SYNERGY 2.75 X 38MM Procedure *[id number] Aborted Equipment Model, Serial, Lot Number and Expiration Data Description Model Number Serial Number Lot Number Expiration Date BALLOON, 2.0 8MM EMERGE MR [id number] 03-08-2020 BALLOON, 2.0 8MM EMERGE MR [id number] 03-01-2020 BALLOON, 2.5 8MM EMERGE MR [id number] 01-07-2020 CATHETER, FINECROSS 150CM 303574 02-27-2019 EBU 3.5 Z2 GUIDE CATHETER [id number] 07-07-2019 STENT, SYNERGY [id number] 11-23-2017 STENT, SYNERGY [id number] 12-14-2017 STENT, SYNERGY [id number] 11-09-2017 STENT, SYNERGY [id number] WIRE, CHOICE PT EX. SUPPORT [id number] 04-26-2019 182CM WIRE, EZEQUIEL 300CM [id number] 09-23-2019 WIRE, EVERTON 190CM [id number] 11-15-2019 History: Current Medications Medication Dosage/Unit Route Frequency Last Date/Time Taken XARELTO LASIX History: Allergies Allergy Reaction No Known Allergies History: Risk Factors Family History of Hypertension Dyslipidemia Previous LA Previous Heart Failure Premature CAD No No Yes Yes Yes Prior Valve Prior PCI Prior PCIDate Prior CABG Surgery No Yes 08/31/2008 No Cerebrovascular Peripheral Artery Chronic Lung On Dialysis Diabetes Disease Disease Disease No Yes No No No History: CV Disease Selection Items Known CAD History: Stress Tests Stress or Imaging Studies Performed Yes Standard Exercise Stress Test No Stress Echo No Stress Test SPECT Stress Test SPECT Result Stress Test SPECT Ischemia Risk/Extent Yes Positive High Stress Test CMR No Cardiac CTA Coronary Calcium Score No No History: Other Disease Selection Items CAD History: Other Current Smoker No Labs Hgb (g/dl) Hct (%) RBC (MIL/MM3) WBC (l/cumm) Platelets (thousands) 11.60-17.00 35.00-51.00 4.00-5.90 4.00-11.00 150.00-450.00 14.3 43.3 4.8 8 226 Glucose (mg/dl) BUN (mg/dl) Creatinine (mg/dl) BUN:Creatinine (1:x) 74.00-106.00 7.00-18.00 0.50-1.30 10.00-20.00 68 26 1.1 23.6 Na (meq/l) K (meq/l) Cl (meq/l) CO2 (mmol/L) Ca (mg/dl) 136.00-145.00 3.50-5.10 98.00-107.00 21.00-32.00 8.50-10.10 136 4.1 102 28 8.8 PT (sec) PTT (sec) INR (PTT:PT) 9.80-11.60 24.30-30.10 0.90-1.10 11.6 28.5 1 CPK-MB (ng/ML) 0.50-3.60 Not Drawn Medication Medication Total Dose (Bolus/Oral) Medication Total Dosage/Unit 1% XYLOCAINE 5 mL FENTANYL 200 mcg HEPARIN 5000 units NTG (IC) 300 mcg PLAVIX 600 mg RADIAL COCKTAIL 5 mL (Bolus) VERSED 8 mg Medications (Bolus/Oral) Medication Time Given Dosage/Unit Administered By Reason VERSED 08/31/2017 3:40:08 PM 2 mg Lisa Ahumada 2 mg VERSED given in lab by Lisa Ahumada RN in Right Groin via Peripheral IV. Ordered by Nadeem Hui. FENTANYL 08/31/2017 3:41:31 PM 50 mcg Lisa Ahumada 50 mcg FENTANYL given in lab by Lisa Ahumada RN in Right Antecubital via Peripheral IV. Ordered b y Nadeem Souza. 1% XYLOCAINE 08/31/2017 3:41:54 PM 5 mL Lisa Ahumada 5 mL 1% XYLOCAINE given in lab by Lisa Ahumada RN in Left Radial via Subcutaneous. HEPARIN 08/31/2017 3:55:23 PM 5000 units Lisa Ahumada 5000 units HEPARIN given in lab by Lisa Ahumada RN in Right Antecubital via Peripheral IV. Ordere d by Nadeem Souza. VERSED 08/31/2017 4:12:52 PM 1 mg Lisa Ahumada 1 mg VERSED given in lab by Lisa Ahumada RN in Right Antecubital via Peripheral IV. Ordered by Co x-Fredrick Nadeem. VERSED 08/31/2017 4:43:04 PM 1 mg Hankinson, Lisa 1 mg VERSED given in lab by Lisa Ahumada RN in Right Antecubital via Peripheral IV. Ordered by Co x-Fredrick, Nadeem. FENTANYL 08/31/2017 4:49:00 PM 25 mcg Hankinson, Lisa 25 mcg FENTANYL given in lab by Lisa Ahumada RN in Right Antecubital via Peripheral IV. Ordered b y Fuentes-Fredrick, Nadeem. VERSED 08/31/2017 4:51:00 PM 1 mg Brandyn, Lisa 1 mg VERSED given in lab by Lisa Ahumada RN in Right Antecubital via Peripheral IV. Ordered by Co x-Fredrick Nadeem. VERSED 08/31/2017 5:07:00 PM 1 mg Hesher, Airam 1 mg VERSED given in lab by Airam Morrison RN in Right Antecubital via Peripheral IV. Ordered by Fuentes -Fredrick Nadeem. FENTANYL 08/31/2017 5:08:02 PM 25 mcg Hesher, Airam 25 mcg FENTANYL given in lab by Airam Morrison RN in Right Antecubital via Peripheral IV. Ordered by Fuentes-Fredrick, Nadeem. NTG (IC) 08/31/2017 5:35:27 PM 200 mcg Fuentes-Fredrick, Ndaeem 200 mcg NTG (IC) given in lab by Nadeem Souza in Left Radial via Intra-coronary. VERSED 08/31/2017 5:36:53 PM 2 mg Hesher, Airam 2 mg VERSED given in lab by Airam Morrison RN in Right Antecubital via Peripheral IV. Ordered by Fuentes -Fredrick Nadeem. FENTANYL 08/31/2017 5:45:08 PM 25 mcg Hesher, Ariam 25 mcg FENTANYL given in lab by Airam Morrison RN in Right Antecubital via Peripheral IV. Ordered by Fuentes-Fredrick Nadeem. FENTANYL 08/31/2017 6:02:00 PM 25 mcg Hesher, Airam 25 mcg FENTANYL given in lab by Airam Morrison RN in Right Antecubital via Peripheral IV. Ordered by Nadeem Souza. NTG (IC) 08/31/2017 6:13:19 PM 100 mcg Nadeem Souza 100 mcg NTG (IC) given in lab by Nadeem Souza in Left Radial via Intra-coronary. FENTANYL 08/31/2017 6:18:53 PM 50 mcg Airam Morrison 50 mcg FENTANYL given in lab by Airam Morrison, HUMBERTO in Right Antecubital via Peripheral IV. Ordered by Nadeem Souza. PLAVIX 08/31/2017 6:42:38 PM 600 mg Airam Morrison 600 mg PLAVIX given in lab by Airam Morrison, HUMBERTO via Oral. Ordered by Nadeem Souza. Ntg 200mcg Verapamil 2.5mg Heparin RADIAL COCKTAIL 08/31/2017 6:43:07 PM 5 mL (Bolus) Nadeem Souza 2500U 5 mL (Bolus) RADIAL COCKTAIL given in lab by Nadeem Souza in Left Radial via Radial. Using [Solu tion Name]. Reason: Ntg 200mcg Verapamil 2.5mg Heparin 2500U. Medication (Drip) Medication Time Given Dosage/Unit Concentration/Unit Diluent (ml) Solution IV Solutions 08/31/2017 3:07:11 PM 0 mL (IV) 500 NaCl .9 IV Solutions given in lab by Lisa Ahumada RN in Right Antecubital via Peripheral IV. Pump/Drip Fl ow = 20 ml/hr using NaCl .9. Initial Case Assessment Cardiovascular HR Rhythm NIBP Chest Pain 86 Paced 147/94 0 Edema Present Skin color Skin None Normal Warm Dry Circulatory - Right Pulses Dorsalis Pedis Femoral Radial 0 3 2 Scale (0,1,2,3,4,d) Circulatory - Left Pulses Dorsalis Pedis Femoral Radial d 3 Scale (0,1,2,3,4,d) Neurological State Oriented to time-place- Alert Moves all extremities person Respiration - General Respiration Rate SpO2 (%) O2 (lpm) (B/min) 10 85 2 Chronological Log Time Study Chronological Log 15:06:00 Patient arrived via Bed. 15:06:01 Patient Name, D.O.B, / Armband Verified By R.N. 15:06:01 Consent signed by the physician and the patient and verified by the Search Engine Optimization Specialist staff. 15:06:02 Pre-op and post- op instructions given; patient acknowledges understanding of instruction s. 15:06:03 Verbal Stimulation=2 Physical Stimulation=2 Airway=2 Respiration=2 TOTAL=8. (0=absent, 1= limited, 2=present) 15:06:24 Presedation assessment performed by Search Engine Optimization Specialist RN. 15:06:28 Allens test performed on the right radial and ulnar artery. 15:06:34 Patient has been NPO for Less than 6Hrs. 15:06:36 Skin Breakdown- none per patient. 15:06:46 Patient Warmer Placed on the Table. 15:06:49 Tiffany Prominences Protected 15:06:52 A # 20 IV was noted in the Antecubital (right). Grade = 0 IV Solutions given in lab by Lisa Ahumada, RN in Right Antecubital via Peripheral IV. Pump /Drip Flow = 20 ml/hr 15:07:11 using NaCl .9. 15:07:34 History and physical on the chart or being dictated. Assessment: Initial Case, HR=86 BPM, Rhythm=Paced, EYTS=598/94 mmhg, Chest Pain=0, Edema=None, Color=Normal, Skin = Warm, Dry Right Pulses: Sumanth Ped=0, Femoral=3, Radial=2 15:07:35 Left Pulses: Sumanth Ped=d, Femoral=3 Neurological: State=Alert, Ox3, LEMUS Respiration: Resp=10 B/min, SpO2=85 %, O2=2 lpm Vitals capture started with the following parameters, Patient=Adult, Interval=5 min, Initial Pr zhalym=300 mmHg, 15:24:01 Deflation Rate=5 mmHg, Cuff placed on Right Arm 15:24:35 HR=83 bpm, MNVV=382/94 mmhg, SpO2=82.0 %, Resp=10 B/min, Pain=0, Susan=10, Almonte=2 15:24:47 Reference ECG taken 15:25:23 Left radial and groin(s) prepped with 2% chlorhexidine, and draped after a 3 min. waiting t isabelle. 15:29:34 HR=90 bpm, LWTU=049/95 mmhg, SpO2=68.0 %, Resp=9 B/min, Pain=0, Susan=10, Almonte=2 15:29:39 MD paged 15:30:43 Pressure channel 1 zeroed. 15:34:43 HR=76 bpm, PPMC=491/65 mmhg, SpO2=84.0 %, Resp=9 B/min, Pain=0, Susan=10, Almonte=2 15:37:27 MD arrived. Time Out. Correct patient, correct procedure, correct physician, power injector loaded, with co ntrast with surgical team 15:39:28 present. Time Out Concurred by MD and individual staff in procedure. 15:39:41 Case Start 15:39:42 HR=78 bpm, TXTI=371/86 mmhg, SpO2=78.0 %, Resp=9 B/min, Pain=0, Susan=10, Almonte=2 15:40:08 2 mg VERSED given in lab by Lisa Ahumada, HUMBERTO in Right Groin via Peripheral IV. Ordered b y Nadeem Souza. 50 mcg FENTANYL given in lab by Lisa Ahumada, HUMBERTO in Right Antecubital via Peripheral IV. Ord ered by Harley, 15:41:31 Nadeem. 15:41:54 5 mL 1% XYLOCAINE given in lab by Lisa Ahumada, HUMBEROT in Left Radial via Subcutaneous. 15:42:05 Access site was Radial Artery. A SHEATH, FR6 TRANSRADIAL SLENDER 10CM FR 6 was advanced into the Radial (left) using the Klaus rizvi 15:43:11 technique. A JR 4.0 INFINITI CATHETER FR 5 was advanced over a wire. OMNIPAQUE, 350 MG, 150ML 150ML was us ed for 15:44:01 injections. 15:44:41 HR=92 bpm, KNNZ=267/68 mmhg, SpO2=98.0 %, Resp=9 B/min, Pain=0, Susan=10, Almonte=2 Recorded Pressure: LV, HR=80, Condition=Condition 1 15:44:50 (Left Ventricle) LV 123/1/3 15:45:07 The LV was manually injected with 8 cc's and visualized. OMNIPAQUE, 350 MG, 150ML 150ML use d. Recorded Pressure: LV, Ao, HR=93, Condition=Condition 1 15:45:24 (Left Ventricle) LV 118/1/5, (Aorta) Ao 93/60/76 15:45:56 The RCA was injected and visualized at various angles. OMNIPAQUE, 350 MG, 150ML 150ML used . After removing the current catheter a JL 4.0 INFINITI CATHETER FR 5 was advanced over a WIRE, 3 MMJ .035 180CM 15:47:32 180CM. 15:49:30 HR=85 bpm, EHJG=713/70 mmhg, SpO2=96.0 %, Resp=11 B/min, Pain=0, Susan=10, Almonte=2 15:49:53 The LCA was injected and visualized at various angles. OMNIPAQUE, 350 MG, 150ML 150ML used . 15:53:44 Catheter was removed 15:54:03 contrast and 30 WILLIAM INDEFLATOR added. 15:54:33 HR=75 bpm, DXAA=940/64 mmhg, SpO2=96.0 %, Resp=11 B/min, Pain=0, Susan=10, Almonte=2 5000 units HEPARIN given in lab by Lisa Ahumada, HUMBERTO in Right Antecubital via Peripheral IV. Ordered by Harley, 15:55:23 Nadeem. A EBU 3.5 Z2 GUIDE CATHETER FR 6 was advanced over a wire. OMNIPAQUE, 350 MG, 150ML 150ML was u sed for 15:55:46 injections. 15:58:06 A WIRE, RUNTHROUGH NS FLOPPY .014 180CM 180CM was inserted via Radial (left). 15:59:36 HR=76 bpm, ENLB=367/75 mmhg, SpO2=97.0 %, Resp=12 B/min, Pain=0, Susan=10, Almonte=2 16:00:26 Wire removed 16:00:38 A WIRE, CHOICE PT EX. SUPPORT 182CM 180CM was inserted via Radial (left). 16:04:35 HR=65 bpm, XFHE=081/80 mmhg, SpO2=97.0 %, Resp=12 B/min, Pain=0, Susan=10, Almonte=2 16:06:35 Wire removed 16:07:25 A WIRE, WHISPER W/HYDROCOAT 190CM 190CM was inserted via Radial (left). 16:09:38 HR=77 bpm, SSHL=185/67 mmhg, SpO2=98.0 %, Resp=13 B/min, Pain=0, Susan=10, Almonte=2 16:12:19 Runthru Wire removed 16:12:52 1 mg VERSED given in lab by Lisa Ahumada, RN in Right Antecubital via Peripheral IV. Ord ered by Nadeem Souza. 16:14:35 HR=76 bpm, MVKQ=324/70 mmhg, SpO2=98.0 %, Resp=12 B/min, Pain=0, Susan=10, Almonte=2 16:15:05 A WIRE, WHISPER W/HYDROCOAT 190CM 190CM was inserted via Radial (left). 16:16:17 A WIRE, DOC EXTENSION 145CM 145CM was attached to Whisper wire inserted via Fem Art (right) . A BALLOON, 1.25 X 6MM SPRINTER LEGEND OTW 6MM was inserted over WIRE, WHISPER W/HYDROCOAT 190CM 16:16:54 190CM via the Radial (left). 16:19:36 HR=70 bpm, CZDP=395/64 mmhg, SpO2=98.0 %, Resp=13 B/min, Pain=0, Susan=10, Lamonte=2 16:22:13 Doc Wire removed 16:24:17 Activated Clotting Time Drawn 16:24:37 HR=70 bpm, CXRK=646/69 mmhg, SpO2=98.0 %, Resp=13 B/min, Pain=0, Susan=10, Almonte=2 16:29:39 HR=61 bpm, JHHQ=591/66 mmhg, Resp=13 B/min, Pain=0, Susan=10, Almonte=2 16:34:34 ACT (Normal Range 90-180) = 477 16:34:40 HR=70 bpm, CHSD=440/60 mmhg, SpO2=97.0 %, Resp=12 B/min 16:36:49 The previous wire was exchanged for a WIRE, FIGHTER 300CM 300CM. 16:39:37 HR=78 bpm, ZIJS=144/82 mmhg, SpO2=98.0 %, Resp=13 B/min 16:40:21 The previous wire was exchanged for a WIRE, [employer] FIELDER XT 300CM 300CM. 16:43:04 1 mg VERSED given in lab by Lisa Ahumada, HUMBERTO in Right Antecubital via Peripheral IV. Ord ered by Nadeem Souza. 16:44:38 HR=74 bpm, USKH=302/75 mmhg, SpO2=98.0 %, Resp=13 B/min 25 mcg FENTANYL given in lab by Lisa Ahumada, RN in Right Antecubital via Peripheral IV. Ord ered by Harley, 16:49:00 Nadeem. 16:49:37 HR=78 bpm, QEPP=237/90 mmhg, SpO2=98.0 %, Resp=10 B/min 16:51:00 1 mg VERSED given in lab by Lisa Ahumada, HUMBERTO in Right Antecubital via Peripheral IV. Ord ered by Nadeem Souza. 16:54:42 HR=70 bpm, YFFB=941/74 mmhg, SpO2=97.0 %, Resp=11 B/min 16:57:16 Balloon Removed. 16:59:45 HR=89 bpm, YYJH=420/69 mmhg, SpO2=96.0 %, Resp=11 B/min A CATHETER, FINECROSS 150CM FR 5 was advanced over a wire. OMNIPAQUE, 350 MG, 150ML 150ML was u sed for 16:59:49 injections. 17:04:40 HR=68 bpm, YFXM=685/79 mmhg, Resp=12 B/min 17:06:08 Finecross Catheter was removed 17:06:12 Wire removed 17:07:00 1 mg VERSED given in lab by Airam Morrison, HUMBERTO in Right Antecubital via Peripheral IV. Orde red by Nadeem Souza. 17:07:27 Catheter was removed 25 mcg FENTANYL given in lab by Airam Morrison, RN in Right Antecubital via Peripheral IV. Orde red by Harley, 17:08:02 Nadeem. A JR 4.0 GUIDE CATHETER FR 6 was advanced over a wire. OMNIPAQUE, 350 MG, 150ML 150ML was used for 17:08:16 injections. 17:09:43 HR=68 bpm, XEPK=796/85 mmhg, SpO2=97.0 %, Resp=13 B/min 17:11:52 A WIRE, RUNTHROUGH NS FLOPPY .014 180CM 180CM was inserted via Radial (left). 17:14:42 HR=73 bpm, TAWC=943/79 mmhg, SpO2=96.0 %, Resp=9 B/min 17:19:45 HR=79 bpm, LCYC=008/78 mmhg, SpO2=95.0 %, Resp=11 B/min 17:22:28 A WIRE, RUNTHROUGH NS FLOPPY .014 180CM 180CM was inserted via Fem Art (right). (second run through) 17:24:48 HR=78 bpm, WWKA=709/66 mmhg, SpO2=95.0 %, Resp=12 B/min A BALLOON, 2.0 8MM EMERGE MR 2.0 8MM was inserted over WIRE, RUNTHROUGH NS FLOPPY .014 180CM 18 0CM via 17:25:25 the Radial (left). A BALLOON, 2.0 8MM EMERGE MR 2.0 8MM over a WIRE, RUNTHROUGH NS FLOPPY .014 180CM 180CM in the RCA 17:26:12 Prox was inflated using a 30 WILLIAM INDEFLATOR at 10 william for 13 sec. A BALLOON, 2.0 8MM EMERGE MR 2.0 8MM over a WIRE, RUNTHROUGH NS FLOPPY .014 180CM 180CM in the RCA 17:27:15 Prox was inflated using a 30 WILLIAM INDEFLATOR at 10 william for 12 sec. A BALLOON, 2.0 8MM EMERGE MR 2.0 8MM over a WIRE, RUNTHROUGH NS FLOPPY .014 180CM 180CM in the RCA 17:27:35 Prox was inflated using a 30 WILLIAM INDEFLATOR at 12 william for 18 sec. A BALLOON, 2.0 8MM EMERGE MR 2.0 8MM over a WIRE, RUNTHROUGH NS FLOPPY .014 180CM 180CM in the RCA 17:29:20 Prox was inflated using a 30 WILLIAM INDEFLATOR at 16 william for 25 sec. 17:29:43 HR=71 bpm, MOJE=122/77 mmhg, SpO2=97.0 %, Resp=12 B/min 17:29:53 Balloon Removed. A BALLOON, 2.5 8MM EMERGE MR 2.5 8MM was inserted over WIRE, RUNTHROUGH NS FLOPPY .014 180CM 18 0CM via 17:31:14 the Radial (left). A BALLOON, 2.5 8MM EMERGE MR 2.5 8MM over a WIRE, RUNTHROUGH NS FLOPPY .014 180CM 180CM in the RCA 17:31:54 Prox was inflated using a 30 WILLIAM INDEFLATOR at 8 william for 10 sec. A BALLOON, 2.5 8MM EMERGE MR 2.5 8MM over a WIRE, RUNTHROUGH NS FLOPPY .014 180CM 180CM in the RCA 17:32:55 Mid was inflated using a 30 WILLIAM INDEFLATOR at 10 william for 10 sec. A BALLOON, 2.5 8MM EMERGE MR 2.5 8MM over a WIRE, RUNTHROUGH NS FLOPPY .014 180CM 180CM in the RCA 17:33:41 Mid was inflated using a 30 WILLIAM INDEFLATOR at 12 william for 10 sec. 17:34:46 HR=64 bpm, QMDM=314/77 mmhg, SpO2=97.0 %, Resp=12 B/min 17:35:27 200 mcg NTG (IC) given in lab by Nadeem Souza in Left Radial via Intra-coronary. A STENT, SYNERGY 3.0 X 38MM was advanced through a JR 4.0 GUIDE CATHETER FR 6 over a WIRE, RUNT HROUGH 17:36:09 NS FLOPPY .014 180CM 180CM. 17:36:53 2 mg VERSED given in lab by Airam Morrison, HUMBERTO in Right Antecubital via Peripheral IV. Orde red by Nadeem Souza. A STENT, SYNERGY 3.0 X 38MM was deployed using a 30 WILLIAM INDEFLATOR at 14 atmospheres for 18 sec onds in the 17:37:27 RCA Mid. 17:39:23 Delivery device removed A BALLOON, 2.0 8MM EMERGE MR 2.0 8MM was inserted over WIRE, RUNTHROUGH NS FLOPPY .014 180CM 18 0CM via 17:39:31 the Radial (left). 17:39:45 HR=72 bpm, TLPL=021/80 mmhg, SpO2=95.0 %, Resp=12 B/min A BALLOON, 2.0 8MM EMERGE MR 2.0 8MM over a WIRE, RUNTHROUGH NS FLOPPY .014 180CM 180CM in the ACUTE 17:41:12 MARGIN RCA-(10 was inflated using a 30 WILLIAM INDEFLATOR at 6 william for 10 sec. 17:44:42 HR=75 bpm, WSVB=848/82 mmhg, SpO2=97.0 %, Resp=12 B/min 25 mcg FENTANYL given in lab by Airam Morrison RN in Right Antecubital via Peripheral IV. Orde red by Harley, 17:45:08 Nadeem. A BALLOON, 2.0 8MM EMERGE MR 2.0 8MM over a WIRE, RUNTHROUGH NS FLOPPY .014 180CM 180CM in the ACUTE 17:45:27 MARGIN RCA-(10 was inflated using a 30 WILLIAM INDEFLATOR at 6 william for 17 sec. 17:45:41 Balloon Removed. 17:48:34 Doc wire attached to runthrough. A BALLOON, 1.25 X 6MM SPRINTER LEGEND OTW 6MM was inserted over WIRE, DOC EXTENSION 145CM 145CM via 17:48:49 the Radial (left). 17:49:48 HR=75 bpm, OQGQ=378/79 mmhg, SpO2=97.0 %, Resp=10 B/min A BALLOON, 1.25 X 6MM SPRINTER LEGEND OTW 6MM over a WIRE, DOC EXTENSION 145CM 145CM in the RCA Prox 17:51:12 was inflated using a 30 WILLIAM INDEFLATOR at 8 william for 12 sec. A BALLOON, 1.25 X 6MM SPRINTER LEGEND OTW 6MM over a WIRE, DOC EXTENSION 145CM 145CM in the RCA Prox 17:51:47 was inflated using a 30 WILLIAM INDEFLATOR at 8 william for 15 sec. 17:54:44 HR=70 bpm, UQVZ=128/78 mmhg, SpO2=95.0 %, Resp=11 B/min 17:54:48 Balloon Removed. A BALLOON, 1.25 X 6MM SPRINTER LEGEND OTW 6MM over a WIRE, DOC EXTENSION 145CM 145CM in the RCA Prox 17:55:57 was inflated using a 30 WILLIAM INDEFLATOR at 10 william for 15 sec. 17:57:47 Doc Wire removed 17:59:48 HR=73 bpm, MFQI=830/80 mmhg, SpO2=96.0 %, Resp=11 B/min A BALLOON, 2.0 8MM EMERGE MR 2.0 8MM was inserted over WIRE, RUNTHROUGH NS FLOPPY .014 180CM 18 0CM via 18:00:00 the Radial (left). A BALLOON, 2.0 8MM EMERGE MR 2.0 8MM over a WIRE, RUNTHROUGH NS FLOPPY .014 180CM 180CM in the 18:00:17 Marginal1 was inflated using a 30 WILLIAM INDEFLATOR at 6 william for 8 sec. A BALLOON, 2.0 8MM EMERGE MR 2.0 8MM over a WIRE, RUNTHROUGH NS FLOPPY .014 180CM 180CM in the 18:00:33 Marginal1 was inflated using a 30 WILLIAM INDEFLATOR at 6 william for 8 sec. A BALLOON, 2.0 8MM EMERGE MR 2.0 8MM over a WIRE, RUNTHROUGH NS FLOPPY .014 180CM 180CM in the 18:00:47 Marginal1 was inflated using a 30 WILLIAM INDEFLATOR at 6 william for 6 sec. 25 mcg FENTANYL given in lab by Airam Morrison, HUMBERTO in Right Antecubital via Peripheral IV. Orde red by Harley, 18:02:00 Nadeem. 18:02:09 Balloon Removed. A BALLOON, 2.5 8MM EMERGE MR 2.5 8MM was inserted over WIRE, RUNTHROUGH NS FLOPPY .014 180CM 18 0CM via 18:04:12 the Radial (left). A BALLOON, 2.5 8MM EMERGE MR 2.5 8MM over a WIRE, RUNTHROUGH NS FLOPPY .014 180CM 180CM in the 18:04:35 Marginal1 was inflated using a 30 WILLIAM INDEFLATOR at 8 william for 10 sec. ::47 HR=71 bpm, PTOY=382/85 mmhg, SpO2=97.0 %, Resp=11 B/min A BALLOON, 2.5 8MM EMERGE MR 2.5 8MM over a WIRE, RUNTHROUGH NS FLOPPY .014 180CM 180CM in the 18:05:07 Marginal1 was inflated using a 30 WILLIAM INDEFLATOR at 8 william for 6 sec. 18::29 Balloon Removed. A STENT, SYNERGY 2.5 X 16MM was advanced through a JR 4.0 GUIDE CATHETER FR 6 over a WIRE, RUNT HROUGH ::33 NS FLOPPY .014 180CM 180CM. A STENT, SYNERGY 2.5 X 16MM was deployed using a 30 WILLIAM INDEFLATOR at 14 atmospheres for 22 sec onds in the 18:07:04 Marginal1. 18:09:48 HR=71 bpm, UXXL=416/81 mmhg, SpO2=96.0 %, Resp=11 B/min 18:10:28 Delivery device removed 18:11:17 1 runthrough wire removed A STENT, SYNERGY 3.0 X 8MM was advanced through a JR 4.0 GUIDE CATHETER FR 6 over a WIRE, RUNTH ROUGH NS 18:12:32 FLOPPY .014 180CM 180CM. A STENT, SYNERGY 3.0 X 8MM was deployed using a 30 WILLIAM INDEFLATOR at 12 atmospheres for 15 seco nds in the 18:12:50 RCA Prox. 18:13:19 100 mcg NTG (IC) given in lab by Nadeem Souza in Left Radial via Intra-coronary. 18:14:07 Delivery device removed 18:14:55 HR=84 bpm, BNDS=891/76 mmhg, SpO2=96.0 %, Resp=11 B/min 18:15:57 A WIRE, SAMURAI 190CM 190CM was inserted via Fem Art (right). 18:16:22 Interventional wire has crossed the lesion 50 mcg FENTANYL given in lab by Airam Morrison, HUMBERTO in Right Antecubital via Peripheral IV. Orde red by Harley, 18:18:53 Nadeem. A STENT, SYNERGY 2.75 X 38MM was advanced through a JR 4.0 GUIDE CATHETER FR 6 over a WIRE, LAUREN URAI 18:18:54 190CM 190CM. 18:19:52 HR=78 bpm, DNDQ=518/89 mmhg, SpO2=96 %, Resp=12 B/min 18:22:48 Stent not deployed. Stent removed and intact. A STENT, SYNERGY 2.75 X 16MM was advanced through a JR 4.0 GUIDE CATHETER FR 6 over a WIRE, MURAI 18:24:09 190CM 190CM. 18:24:53 HR=90 bpm, FNCS=351/79 mmhg, SpO2=96.0 %, Resp=8 B/min 18:26:15 Stent not deployed. Stent removed and intact. 18:26:20 Wire removed 18:26:44 Catheter was removed 18:28:00 Case End 18:29:46 HR=73 bpm, VETJ=510/87 mmhg, SpO2=95.0 %, Resp=10 B/min Radial Compression Device Used. 94 mLs of air placed in BAND, RADIAL COMPRESSION TR LARGE 29 2 9CM. Affected 18:31:13 hand 13 % O2 saturation. 18:34:14 No case complications noted. 18:34:15 Cine recording checked. 18:35:22 Bedside Report will be given. 18:35:23 Implantable Device card placed in patient's chart. 18:35:24 HR=78 bpm, RLSH=120/97 mmhg, Resp=10 B/min 18:35:26 Contrast Scanned 18:35:31 A Left Heart Cath was performed. 18:35:32 [facility] 600 mg PLAVIX given in lab by Airam Morrison RN via Oral. Ordered by Nadeem Souza. 5 mL (Bolus) RADIAL COCKTAIL given in lab by Nadeem Souza in Left Radial via Radial. Corby stuart [Solution Name]. 18:43:07 Reason: Ntg 200mcg Verapamil 2.5mg Heparin 2500U. End Study - Contrast Media Used In Study Contrast Total Opened (mL) Total Used (mL) Total Wasted (mL) Omnipaque 400 400 0 End Study - Maximum Contrast Load Max Contrast Load (mL) 363.6 End Study - Radiation Exposure Fluoro Time (minutes) 90.3 End Study - Patient Disposition Complications Transferred To Interventional Outcome No Telemetry Bed a partial success
--- NOTE | 2017-08-31 18:59 | CATHPROC ---
[facility] HIS Report Study Information Study Number Admission Scheduled Start Study Start [id number] Aug 31 2017 12:44PM 08/31/2017 Aug 31 2017 2:52PM [facility] Cardiac Catheterization Admit Source Facility Department Emergency department [facility] - [employer] Counsellor Physician and Clinical Staff Initial Nadeem Guzman Whiskey Filterer Lisa Ahumada,HUMBERTO Whiskey Filterer Airam Morrison RN Whiskey Filterer Mitzi Padron,HUMBERTO Recorder Domenico Peoples,RT(R) Recorder Yahaira Davis RCIS TECH2 Recorder Jennifer Davila,RT(R) Scrub Airam Hansen,RT(R) Procedures Performed Procedure Location (Site) Vessel Name Coronary Angiograms LCA Left Coronary Coronary Angiograms RCA Right Coronary Drug Eluting Inflatio Marginal1 Right Coronary Drug Eluting Inflatio RCA Mid Right Coronary Drug Eluting Inflatio RCA Prox Right Coronary L Heart Cath LV Gram-hand inj. LV LV Ventricle PTCA ACUTE MARGIN RCA-(10 Right Coronary PTCA Marginal1 Right Coronary PTCA RCA Mid Right Coronary PTCA RCA Prox Right Coronary PTCA ADD ON'S Wire insertion Fem Art (right) Femoral Art Wire insertion Radial (left) Radial Art. Equipment Time Filler Shredder Helper Description Size Mfg Part Number Used/Scraped COPILOT VALVE, BLEEDBACK [id number] 15:56 [employer] Used CONTROL *[id number] 16:39 [employer] WIRE, MAHENDRA LA XT 300CM 300CM Used *[id number] 17:48 [employer] WIRE, DOC EXTENSION 145CM 145CM 99107 *[id number] Used 16:34 [employer] WIRE, DOC EXTENSION 145CM 145CM [id number] *[id number] Used WIRE, WHISPER W/HYDROCOAT [id number] 16:06 [employer] 190CM Used 190CM *[id number] TRANSDUCER, TRUWAVE AT338T 14:56 GARCIA JACKSON * Used W/STOCKCOCK *[id number] 17:59 [employer] BALLOON, 2.0 8MM EMERGE MR 2.0 8MM Used *[id number] 17:25 [employer] BALLOON, 2.0 8MM EMERGE MR 2.0 8MM Used *[id number] 17:30 [employer] BALLOON, 2.5 8MM EMERGE MR 2.5 8MM Used *[id number] 18:02 [employer] STENT, SYNERGY 2.5 X 16MM Used *[id number] 17:35 [employer] STENT, SYNERGY 3.0 X 38MM Used *[id number] 17:59 [employer] STENT, SYNERGY 3.0 X 8MM Used *[id number] WIRE, CHOICE PT EX. SUPPORT 63894-36 16:02 [employer] 180CM Used 182CM *1361700 46241-094 16:32 [employer] WIRE, FIGHTER 300CM 300CM Used *[id number] 92573-557 18:16 [employer] WIRE, SAMURAI 190CM 190CM Used *9815700 534-520T *[phone] *[id number] 534-521T *[id number] 14:56 [employer] PACK, CCL CUSTOM * Used *2593848 14:56 [employer] SUPPORT, ARTERIAL ADULT 89385 *[id number] Used BALLOON, 1.25 X 6MM SPRINTER [id number] 16:15 [employer] 6MM Used LEGEND OTW *5903504 [id number] 15:56 [employer]/AVE EBU 3.5 Z2 GUIDE CATHETER FR 6 Used *0134412 BZ0519 15:54 [employer] MEDICAL 30 WILLIAM INDEFLATOR Used *2263958 BAND, RADIAL COMPRESSION TR [id number] 18:32 [employer] MEDICAL 29CM Used LARGE 29 *5464239 [id number] 14:56 [employer] WIRE, 3MMJ .035 180CM 180CM Used *4263490 [id number] 14:56 NAMIC MANIFOLD, 4 PORT * Used *5896207 14:56 [employer] OMNIPAQUE, 350 MG, 150ML 150ML 0999918 Used [id number] 14:56 [employer] BLANKET,WARM AIR CCL * Used *7769094 SHEATH, FR6 TRANSRADIAL [id number] 14:56 [employer] FR 6 Used SLENDER 10CM *[id number] WIRE, RUNTHROUGH NS FLOPPY 25-1011 15:55 [employer] 180CM Used .014 180CM *5187513 WIRE, RUNTHROUGH NS FLOPPY 25-1011 17:23 [employer] 180CM Used .014 180CM *[id number] 35-1450 16:59 [employer]/ALBERT CATHETER, FINECROSS 150CM FR 5 Used *1979828 Scrap: [id number] 18:23 [employer] STENT, SYNERGY 2.75 X 16MM Procedure *[id number] Aborted Scrap: [id number] 18:24 [employer] STENT, SYNERGY 2.75 X 38MM Procedure *1560215 Aborted Equipment Model, Serial, Lot Number and Expiration Data Description Model Number Serial Number Lot Number Expiration Date BALLOON, 2.0 8MM EMERGE MR [id number] 03-08-2020 BALLOON, 2.0 8MM EMERGE MR [id number] 03-01-2020 BALLOON, 2.5 8MM EMERGE MR [id number] 01-07-2020 CATHETER, FINECROSS 150CM 319298 02-27-2019 EBU 3.5 Z2 GUIDE CATHETER [id number] 07-07-2019 STENT, SYNERGY [id number] 11-23-2017 STENT, SYNERGY [id number] 12-14-2017 STENT, SYNERGY [id number] 11-09-2017 STENT, SYNERGY [id number] WIRE, CHOICE PT EX. SUPPORT [id number] 04-26-2019 182CM WIRE, EZEQUIEL 300CM [id number] 09-23-2019 WIRE, EVERTON 190CM [id number] 11-15-2019 History: Current Medications Medication Dosage/Unit Route Frequency Last Date/Time Taken XARELTO LASIX History: Allergies Allergy Reaction No Known Allergies History: Risk Factors Family History of Hypertension Dyslipidemia Previous KS Previous Heart Failure Premature CAD No No Yes Yes Yes Prior Valve Prior PCI Prior PCIDate Prior CABG Surgery No Yes 08/31/2008 No Cerebrovascular Peripheral Artery Chronic Lung On Dialysis Diabetes Disease Disease Disease No Yes No No No History: CV Disease Selection Items Known CAD History: Stress Tests Stress or Imaging Studies Performed Yes Standard Exercise Stress Test No Stress Echo No Stress Test SPECT Stress Test SPECT Result Stress Test SPECT Ischemia Risk/Extent Yes Positive High Stress Test CMR No Cardiac CTA Coronary Calcium Score No No History: Other Disease Selection Items CAD History: Other Current Smoker No Labs Hgb (g/dl) Hct (%) RBC (MIL/MM3) WBC (l/cumm) Platelets (thousands) 11.60-17.00 35.00-51.00 4.00-5.90 4.00-11.00 150.00-450.00 14.3 43.3 4.8 8 226 Glucose (mg/dl) BUN (mg/dl) Creatinine (mg/dl) BUN:Creatinine (1:x) 74.00-106.00 7.00-18.00 0.50-1.30 10.00-20.00 68 26 1.1 23.6 Na (meq/l) K (meq/l) Cl (meq/l) CO2 (mmol/L) Ca (mg/dl) 136.00-145.00 3.50-5.10 98.00-107.00 21.00-32.00 8.50-10.10 136 4.1 102 28 8.8 PT (sec) PTT (sec) INR (PTT:PT) 9.80-11.60 24.30-30.10 0.90-1.10 11.6 28.5 1 CPK-MB (ng/ML) 0.50-3.60 Not Drawn Medication Medication Total Dose (Bolus/Oral) Medication Total Dosage/Unit 1% XYLOCAINE 5 mL FENTANYL 200 mcg HEPARIN 5000 units NTG (IC) 300 mcg PLAVIX 600 mg RADIAL COCKTAIL 5 mL (Bolus) VERSED 8 mg Medications (Bolus/Oral) Medication Time Given Dosage/Unit Administered By Reason VERSED 08/31/2017 3:40:08 PM 2 mg Lisa Ahumada 2 mg VERSED given in lab by Lisa Ahumada RN in Right Groin via Peripheral IV. Ordered by Nadeem Hui. FENTANYL 08/31/2017 3:41:31 PM 50 mcg Lisa Ahumada 50 mcg FENTANYL given in lab by Lisa Ahumada RN in Right Antecubital via Peripheral IV. Ordered b y Nadeem Souza. 1% XYLOCAINE 08/31/2017 3:41:54 PM 5 mL Lisa Ahumada 5 mL 1% XYLOCAINE given in lab by Lisa Ahumada RN in Left Radial via Subcutaneous. HEPARIN 08/31/2017 3:55:23 PM 5000 units Lisa Ahumada 5000 units HEPARIN given in lab by Lisa Ahumada RN in Right Antecubital via Peripheral IV. Ordere d by Nadeem Souza. VERSED 08/31/2017 4:12:52 PM 1 mg Lisa Ahumada 1 mg VERSED given in lab by Lisa Ahumada RN in Right Antecubital via Peripheral IV. Ordered by Co x-Fredrick Nadeem. VERSED 08/31/2017 4:43:04 PM 1 mg [place], Lisa 1 mg VERSED given in lab by Lisa Ahumada RN in Right Antecubital via Peripheral IV. Ordered by Co x-Fredrick, Nadeem. FENTANYL 08/31/2017 4:49:00 PM 25 mcg [place], Lisa 25 mcg FENTANYL given in lab by Lisa Ahumada RN in Right Antecubital via Peripheral IV. Ordered b y Fuentes-Fredrick, Nadeem. VERSED 08/31/2017 4:51:00 PM 1 mg Brandyn, Lisa 1 mg VERSED given in lab by Lisa Ahumada RN in Right Antecubital via Peripheral IV. Ordered by Co x-Fredrick Nadeem. VERSED 08/31/2017 5:07:00 PM 1 mg Hesher, Airam 1 mg VERSED given in lab by Airam Morrison RN in Right Antecubital via Peripheral IV. Ordered by Fuentes -Fredrick Nadeem. FENTANYL 08/31/2017 5:08:02 PM 25 mcg Hesher, Airam 25 mcg FENTANYL given in lab by Airam Morrison RN in Right Antecubital via Peripheral IV. Ordered by Fuentes-Fredrick, Nadeem. NTG (IC) 08/31/2017 5:35:27 PM 200 mcg Fuentes-Fredrick, Nadeem 200 mcg NTG (IC) given in lab by Nadeem Souza in Left Radial via Intra-coronary. VERSED 08/31/2017 5:36:53 PM 2 mg Hesher, Airam 2 mg VERSED given in lab by Airam Morrison RN in Right Antecubital via Peripheral IV. Ordered by Fuentes -Fredrick Nadeem. FENTANYL 08/31/2017 5:45:08 PM 25 mcg Hesher, Airam 25 mcg FENTANYL given in lab by Airam Morrison RN in Right Antecubital via Peripheral IV. Ordered by Fuentes-Fredrick Nadeem. FENTANYL 08/31/2017 6:02:00 PM 25 mcg Hesher, Airam 25 mcg FENTANYL given in lab by Airam Morrison RN in Right Antecubital via Peripheral IV. Ordered by Nadeem Souza. NTG (IC) 08/31/2017 6:13:19 PM 100 mcg Nadeem Souza 100 mcg NTG (IC) given in lab by Nadeem Souza in Left Radial via Intra-coronary. FENTANYL 08/31/2017 6:18:53 PM 50 mcg Airam Morrison 50 mcg FENTANYL given in lab by Airam Morrison, HUMBERTO in Right Antecubital via Peripheral IV. Ordered by Nadeem Souza. PLAVIX 08/31/2017 6:42:38 PM 600 mg Airam Morrison 600 mg PLAVIX given in lab by Airam Morrison, HUMBERTO via Oral. Ordered by Nadeem Souza. Ntg 200mcg Verapamil 2.5mg Heparin RADIAL COCKTAIL 08/31/2017 6:43:07 PM 5 mL (Bolus) Nadeem Souza 2500U 5 mL (Bolus) RADIAL COCKTAIL given in lab by Nadeem Souza in Left Radial via Radial. Using [Solu tion Name]. Reason: Ntg 200mcg Verapamil 2.5mg Heparin 2500U. Medication (Drip) Medication Time Given Dosage/Unit Concentration/Unit Diluent (ml) Solution IV Solutions 08/31/2017 3:07:11 PM 0 mL (IV) 500 NaCl .9 IV Solutions given in lab by Lisa Ahumada RN in Right Antecubital via Peripheral IV. Pump/Drip Fl ow = 20 ml/hr using NaCl .9. Initial Case Assessment Cardiovascular HR Rhythm NIBP Chest Pain 86 Paced 147/94 0 Edema Present Skin color Skin None Normal Warm Dry Circulatory - Right Pulses Dorsalis Pedis Femoral Radial 0 3 2 Scale (0,1,2,3,4,d) Circulatory - Left Pulses Dorsalis Pedis Femoral Radial d 3 Scale (0,1,2,3,4,d) Neurological State Oriented to time-place- Alert Moves all extremities person Respiration - General Respiration Rate SpO2 (%) O2 (lpm) (B/min) 10 85 2 Chronological Log Time Study Chronological Log 15:06:00 Patient arrived via Bed. 15:06:01 Patient Name, D.O.B, / Armband Verified By R.N. 15:06:01 Consent signed by the physician and the patient and verified by the School Counsellor staff. 15:06:02 Pre-op and post- op instructions given; patient acknowledges understanding of instruction s. 15:06:03 Verbal Stimulation=2 Physical Stimulation=2 Airway=2 Respiration=2 TOTAL=8. (0=absent, 1= limited, 2=present) 15:06:24 Presedation assessment performed by School Counsellor RN. 15:06:28 Allens test performed on the right radial and ulnar artery. 15:06:34 Patient has been NPO for Less than 6Hrs. 15:06:36 Skin Breakdown- none per patient. 15:06:46 Patient Warmer Placed on the Table. 15:06:49 Tiffany Prominences Protected 15:06:52 A # 20 IV was noted in the Antecubital (right). Grade = 0 IV Solutions given in lab by Lisa Ahumada, RN in Right Antecubital via Peripheral IV. Pump /Drip Flow = 20 ml/hr 15:07:11 using NaCl .9. 15:07:34 History and physical on the chart or being dictated. Assessment: Initial Case, HR=86 BPM, Rhythm=Paced, LWHR=841/94 mmhg, Chest Pain=0, Edema=None, Color=Normal, Skin = Warm, Dry Right Pulses: Sumanth Ped=0, Femoral=3, Radial=2 15:07:35 Left Pulses: Sumanth Ped=d, Femoral=3 Neurological: State=Alert, Ox3, LEMUS Respiration: Resp=10 B/min, SpO2=85 %, O2=2 lpm Vitals capture started with the following parameters, Patient=Adult, Interval=5 min, Initial Pr otaiwv=176 mmHg, 15:24:01 Deflation Rate=5 mmHg, Cuff placed on Right Arm 15:24:35 HR=83 bpm, XKPV=192/94 mmhg, SpO2=82.0 %, Resp=10 B/min, Pain=0, Susan=10, Almonte=2 15:24:47 Reference ECG taken 15:25:23 Left radial and groin(s) prepped with 2% chlorhexidine, and draped after a 3 min. waiting t isabelle. 15:29:34 HR=90 bpm, MRTY=367/95 mmhg, SpO2=68.0 %, Resp=9 B/min, Pain=0, Susan=10, Almonte=2 15:29:39 MD paged 15:30:43 Pressure channel 1 zeroed. 15:34:43 HR=76 bpm, YSVN=372/65 mmhg, SpO2=84.0 %, Resp=9 B/min, Pain=0, Susan=10, Almonte=2 15:37:27 MD arrived. Time Out. Correct patient, correct procedure, correct physician, power injector loaded, with co ntrast with surgical team 15:39:28 present. Time Out Concurred by MD and individual staff in procedure. 15:39:41 Case Start 15:39:42 HR=78 bpm, MXWR=260/86 mmhg, SpO2=78.0 %, Resp=9 B/min, Pain=0, Susan=10, Almonte=2 15:40:08 2 mg VERSED given in lab by Lisa Ahumada, HUMBERTO in Right Groin via Peripheral IV. Ordered b y Nadeem Souza. 50 mcg FENTANYL given in lab by Lisa Ahumada, HUMBERTO in Right Antecubital via Peripheral IV. Ord ered by Harley, 15:41:31 Nadeem. 15:41:54 5 mL 1% XYLOCAINE given in lab by Lisa Ahumada, HUMBERTO in Left Radial via Subcutaneous. 15:42:05 Access site was Radial Artery. A SHEATH, FR6 TRANSRADIAL SLENDER 10CM FR 6 was advanced into the Radial (left) using the Klaus rizvi 15:43:11 technique. A JR 4.0 INFINITI CATHETER FR 5 was advanced over a wire. OMNIPAQUE, 350 MG, 150ML 150ML was us ed for 15:44:01 injections. 15:44:41 HR=92 bpm, HKVT=933/68 mmhg, SpO2=98.0 %, Resp=9 B/min, Pain=0, Susan=10, Almonte=2 Recorded Pressure: LV, HR=80, Condition=Condition 1 15:44:50 (Left Ventricle) LV 123/1/3 15:45:07 The LV was manually injected with 8 cc's and visualized. OMNIPAQUE, 350 MG, 150ML 150ML use d. Recorded Pressure: LV, Ao, HR=93, Condition=Condition 1 15:45:24 (Left Ventricle) LV 118/1/5, (Aorta) Ao 93/60/76 15:45:56 The RCA was injected and visualized at various angles. OMNIPAQUE, 350 MG, 150ML 150ML used . After removing the current catheter a JL 4.0 INFINITI CATHETER FR 5 was advanced over a WIRE, 3 MMJ .035 180CM 15:47:32 180CM. 15:49:30 HR=85 bpm, LABA=988/70 mmhg, SpO2=96.0 %, Resp=11 B/min, Pain=0, Susan=10, Almonte=2 15:49:53 The LCA was injected and visualized at various angles. OMNIPAQUE, 350 MG, 150ML 150ML used . 15:53:44 Catheter was removed 15:54:03 contrast and 30 WILLIAM INDEFLATOR added. 15:54:33 HR=75 bpm, KLBG=466/64 mmhg, SpO2=96.0 %, Resp=11 B/min, Pain=0, Susan=10, Almonte=2 5000 units HEPARIN given in lab by Lisa Ahumada, HUMBERTO in Right Antecubital via Peripheral IV. Ordered by Harley, 15:55:23 Nadeem. A EBU 3.5 Z2 GUIDE CATHETER FR 6 was advanced over a wire. OMNIPAQUE, 350 MG, 150ML 150ML was u sed for 15:55:46 injections. 15:58:06 A WIRE, RUNTHROUGH NS FLOPPY .014 180CM 180CM was inserted via Radial (left). 15:59:36 HR=76 bpm, ZEKV=961/75 mmhg, SpO2=97.0 %, Resp=12 B/min, Pain=0, Susan=10, Almonte=2 16:00:26 Wire removed 16:00:38 A WIRE, CHOICE PT EX. SUPPORT 182CM 180CM was inserted via Radial (left). 16:04:35 HR=65 bpm, PEGI=035/80 mmhg, SpO2=97.0 %, Resp=12 B/min, Pain=0, Susan=10, Almonte=2 16:06:35 Wire removed 16:07:25 A WIRE, WHISPER W/HYDROCOAT 190CM 190CM was inserted via Radial (left). 16:09:38 HR=77 bpm, NNDV=079/67 mmhg, SpO2=98.0 %, Resp=13 B/min, Pain=0, Susan=10, Almonte=2 16:12:19 Runthru Wire removed 16:12:52 1 mg VERSED given in lab by Lisa Ahumada, RN in Right Antecubital via Peripheral IV. Ord ered by Nadeem Souza. 16:14:35 HR=76 bpm, FGBM=834/70 mmhg, SpO2=98.0 %, Resp=12 B/min, Pain=0, Susan=10, Almonte=2 16:15:05 A WIRE, WHISPER W/HYDROCOAT 190CM 190CM was inserted via Radial (left). 16:16:17 A WIRE, DOC EXTENSION 145CM 145CM was attached to Whisper wire inserted via Fem Art (right) . A BALLOON, 1.25 X 6MM SPRINTER LEGEND OTW 6MM was inserted over WIRE, WHISPER W/HYDROCOAT 190CM 16:16:54 190CM via the Radial (left). 16:19:36 HR=70 bpm, UZFB=380/64 mmhg, SpO2=98.0 %, Resp=13 B/min, Pain=0, Susan=10, Almonte=2 16:22:13 Doc Wire removed 16:24:17 Activated Clotting Time Drawn 16:24:37 HR=70 bpm, SDJC=854/69 mmhg, SpO2=98.0 %, Resp=13 B/min, Pain=0, Susan=10, Almonte=2 16:29:39 HR=61 bpm, YXYC=990/66 mmhg, Resp=13 B/min, Pain=0, Susan=10, Almonte=2 16:34:34 ACT (Normal Range 90-180) = 477 16:34:40 HR=70 bpm, ELCI=084/60 mmhg, SpO2=97.0 %, Resp=12 B/min 16:36:49 The previous wire was exchanged for a WIRE, FIGHTER 300CM 300CM. 16:39:37 HR=78 bpm, PSSC=217/82 mmhg, SpO2=98.0 %, Resp=13 B/min 16:40:21 The previous wire was exchanged for a WIRE, Arrayit FIELDER XT 300CM 300CM. 16:43:04 1 mg VERSED given in lab by Lisa Ahumada, HUMBERTO in Right Antecubital via Peripheral IV. Ord ered by Nadeem Souza. 16:44:38 HR=74 bpm, DQKW=302/75 mmhg, SpO2=98.0 %, Resp=13 B/min 25 mcg FENTANYL given in lab by Lisa Ahumada, RN in Right Antecubital via Peripheral IV. Ord ered by Harley, 16:49:00 Nadeem. 16:49:37 HR=78 bpm, GIZN=904/90 mmhg, SpO2=98.0 %, Resp=10 B/min 16:51:00 1 mg VERSED given in lab by Lisa Ahumada, HUMBERTO in Right Antecubital via Peripheral IV. Ord ered by Nadeem Souza. 16:54:42 HR=70 bpm, UIRW=415/74 mmhg, SpO2=97.0 %, Resp=11 B/min 16:57:16 Balloon Removed. 16:59:45 HR=89 bpm, ZYTR=139/69 mmhg, SpO2=96.0 %, Resp=11 B/min A CATHETER, FINECROSS 150CM FR 5 was advanced over a wire. OMNIPAQUE, 350 MG, 150ML 150ML was u sed for 16:59:49 injections. 17:04:40 HR=68 bpm, EJEW=847/79 mmhg, Resp=12 B/min 17:06:08 Finecross Catheter was removed 17:06:12 Wire removed 17:07:00 1 mg VERSED given in lab by Airam Morrison, HUMBERTO in Right Antecubital via Peripheral IV. Orde red by Nadeem Souza. 17:07:27 Catheter was removed 25 mcg FENTANYL given in lab by Airam Morrison, RN in Right Antecubital via Peripheral IV. Orde red by Harley, 17:08:02 Nadeem. A JR 4.0 GUIDE CATHETER FR 6 was advanced over a wire. OMNIPAQUE, 350 MG, 150ML 150ML was used for 17:08:16 injections. 17:09:43 HR=68 bpm, NJII=456/85 mmhg, SpO2=97.0 %, Resp=13 B/min 17:11:52 A WIRE, RUNTHROUGH NS FLOPPY .014 180CM 180CM was inserted via Radial (left). 17:14:42 HR=73 bpm, SRZC=233/79 mmhg, SpO2=96.0 %, Resp=9 B/min 17:19:45 HR=79 bpm, VLRC=672/78 mmhg, SpO2=95.0 %, Resp=11 B/min 17:22:28 A WIRE, RUNTHROUGH NS FLOPPY .014 180CM 180CM was inserted via Fem Art (right). (second run through) 17:24:48 HR=78 bpm, NKWU=710/66 mmhg, SpO2=95.0 %, Resp=12 B/min A BALLOON, 2.0 8MM EMERGE MR 2.0 8MM was inserted over WIRE, RUNTHROUGH NS FLOPPY .014 180CM 18 0CM via 17:25:25 the Radial (left). A BALLOON, 2.0 8MM EMERGE MR 2.0 8MM over a WIRE, RUNTHROUGH NS FLOPPY .014 180CM 180CM in the RCA 17:26:12 Prox was inflated using a 30 WILLIAM INDEFLATOR at 10 william for 13 sec. A BALLOON, 2.0 8MM EMERGE MR 2.0 8MM over a WIRE, RUNTHROUGH NS FLOPPY .014 180CM 180CM in the RCA 17:27:15 Prox was inflated using a 30 WILLIAM INDEFLATOR at 10 william for 12 sec. A BALLOON, 2.0 8MM EMERGE MR 2.0 8MM over a WIRE, RUNTHROUGH NS FLOPPY .014 180CM 180CM in the RCA 17:27:35 Prox was inflated using a 30 WILLIAM INDEFLATOR at 12 william for 18 sec. A BALLOON, 2.0 8MM EMERGE MR 2.0 8MM over a WIRE, RUNTHROUGH NS FLOPPY .014 180CM 180CM in the RCA 17:29:20 Prox was inflated using a 30 WILLIAM INDEFLATOR at 16 william for 25 sec. 17:29:43 HR=71 bpm, UOAU=573/77 mmhg, SpO2=97.0 %, Resp=12 B/min 17:29:53 Balloon Removed. A BALLOON, 2.5 8MM EMERGE MR 2.5 8MM was inserted over WIRE, RUNTHROUGH NS FLOPPY .014 180CM 18 0CM via 17:31:14 the Radial (left). A BALLOON, 2.5 8MM EMERGE MR 2.5 8MM over a WIRE, RUNTHROUGH NS FLOPPY .014 180CM 180CM in the RCA 17:31:54 Prox was inflated using a 30 WILLIAM INDEFLATOR at 8 william for 10 sec. A BALLOON, 2.5 8MM EMERGE MR 2.5 8MM over a WIRE, RUNTHROUGH NS FLOPPY .014 180CM 180CM in the RCA 17:32:55 Mid was inflated using a 30 WILLIAM INDEFLATOR at 10 william for 10 sec. A BALLOON, 2.5 8MM EMERGE MR 2.5 8MM over a WIRE, RUNTHROUGH NS FLOPPY .014 180CM 180CM in the RCA 17:33:41 Mid was inflated using a 30 WILLIAM INDEFLATOR at 12 william for 10 sec. 17:34:46 HR=64 bpm, IXAG=873/77 mmhg, SpO2=97.0 %, Resp=12 B/min 17:35:27 200 mcg NTG (IC) given in lab by Ndaeem Souza in Left Radial via Intra-coronary. A STENT, SYNERGY 3.0 X 38MM was advanced through a JR 4.0 GUIDE CATHETER FR 6 over a WIRE, RUNT HROUGH 17:36:09 NS FLOPPY .014 180CM 180CM. 17:36:53 2 mg VERSED given in lab by Airam Morrison, HUMBERTO in Right Antecubital via Peripheral IV. Orde red by Nadeem Souza. A STENT, SYNERGY 3.0 X 38MM was deployed using a 30 WILLIAM INDEFLATOR at 14 atmospheres for 18 sec onds in the 17:37:27 RCA Mid. 17:39:23 Delivery device removed A BALLOON, 2.0 8MM EMERGE MR 2.0 8MM was inserted over WIRE, RUNTHROUGH NS FLOPPY .014 180CM 18 0CM via 17:39:31 the Radial (left). 17:39:45 HR=72 bpm, MBNJ=753/80 mmhg, SpO2=95.0 %, Resp=12 B/min A BALLOON, 2.0 8MM EMERGE MR 2.0 8MM over a WIRE, RUNTHROUGH NS FLOPPY .014 180CM 180CM in the ACUTE 17:41:12 MARGIN RCA-(10 was inflated using a 30 WILLIAM INDEFLATOR at 6 william for 10 sec. 17:44:42 HR=75 bpm, NHDZ=279/82 mmhg, SpO2=97.0 %, Resp=12 B/min 25 mcg FENTANYL given in lab by Airam Morrison RN in Right Antecubital via Peripheral IV. Orde red by Harley, 17:45:08 Nadeem. A BALLOON, 2.0 8MM EMERGE MR 2.0 8MM over a WIRE, RUNTHROUGH NS FLOPPY .014 180CM 180CM in the ACUTE 17:45:27 MARGIN RCA-(10 was inflated using a 30 WILLIAM INDEFLATOR at 6 william for 17 sec. 17:45:41 Balloon Removed. 17:48:34 Doc wire attached to runthrough. A BALLOON, 1.25 X 6MM SPRINTER LEGEND OTW 6MM was inserted over WIRE, DOC EXTENSION 145CM 145CM via 17:48:49 the Radial (left). 17:49:48 HR=75 bpm, CSMK=530/79 mmhg, SpO2=97.0 %, Resp=10 B/min A BALLOON, 1.25 X 6MM SPRINTER LEGEND OTW 6MM over a WIRE, DOC EXTENSION 145CM 145CM in the RCA Prox 17:51:12 was inflated using a 30 WILLIAM INDEFLATOR at 8 william for 12 sec. A BALLOON, 1.25 X 6MM SPRINTER LEGEND OTW 6MM over a WIRE, DOC EXTENSION 145CM 145CM in the RCA Prox 17:51:47 was inflated using a 30 WILLIAM INDEFLATOR at 8 william for 15 sec. 17:54:44 HR=70 bpm, LCQD=312/78 mmhg, SpO2=95.0 %, Resp=11 B/min 17:54:48 Balloon Removed. A BALLOON, 1.25 X 6MM SPRINTER LEGEND OTW 6MM over a WIRE, DOC EXTENSION 145CM 145CM in the RCA Prox 17:55:57 was inflated using a 30 WILLIAM INDEFLATOR at 10 william for 15 sec. 17:57:47 Doc Wire removed 17:59:48 HR=73 bpm, GYMN=265/80 mmhg, SpO2=96.0 %, Resp=11 B/min A BALLOON, 2.0 8MM EMERGE MR 2.0 8MM was inserted over WIRE, RUNTHROUGH NS FLOPPY .014 180CM 18 0CM via 18:00:00 the Radial (left). A BALLOON, 2.0 8MM EMERGE MR 2.0 8MM over a WIRE, RUNTHROUGH NS FLOPPY .014 180CM 180CM in the 18:00:17 Marginal1 was inflated using a 30 WILLIAM INDEFLATOR at 6 william for 8 sec. A BALLOON, 2.0 8MM EMERGE MR 2.0 8MM over a WIRE, RUNTHROUGH NS FLOPPY .014 180CM 180CM in the 18:00:33 Marginal1 was inflated using a 30 WILLIAM INDEFLATOR at 6 william for 8 sec. A BALLOON, 2.0 8MM EMERGE MR 2.0 8MM over a WIRE, RUNTHROUGH NS FLOPPY .014 180CM 180CM in the 18:00:47 Marginal1 was inflated using a 30 WILLIAM INDEFLATOR at 6 william for 6 sec. 25 mcg FENTANYL given in lab by Airam Morrison, HUMBERTO in Right Antecubital via Peripheral IV. Orde red by Harley, 18:02:00 Nadeem. 18:02:09 Balloon Removed. A BALLOON, 2.5 8MM EMERGE MR 2.5 8MM was inserted over WIRE, RUNTHROUGH NS FLOPPY .014 180CM 18 0CM via 18:04:12 the Radial (left). A BALLOON, 2.5 8MM EMERGE MR 2.5 8MM over a WIRE, RUNTHROUGH NS FLOPPY .014 180CM 180CM in the 18:04:35 Marginal1 was inflated using a 30 WILLIAM INDEFLATOR at 8 william for 10 sec. ::47 HR=71 bpm, TXBA=358/85 mmhg, SpO2=97.0 %, Resp=11 B/min A BALLOON, 2.5 8MM EMERGE MR 2.5 8MM over a WIRE, RUNTHROUGH NS FLOPPY .014 180CM 180CM in the 18:05:07 Marginal1 was inflated using a 30 WILLIAM INDEFLATOR at 8 william for 6 sec. 18::29 Balloon Removed. A STENT, SYNERGY 2.5 X 16MM was advanced through a JR 4.0 GUIDE CATHETER FR 6 over a WIRE, RUNT HROUGH ::33 NS FLOPPY .014 180CM 180CM. A STENT, SYNERGY 2.5 X 16MM was deployed using a 30 WILLIAM INDEFLATOR at 14 atmospheres for 22 sec onds in the 18:07:04 Marginal1. 18:09:48 HR=71 bpm, GDXH=047/81 mmhg, SpO2=96.0 %, Resp=11 B/min 18:10:28 Delivery device removed 18:11:17 1 runthrough wire removed A STENT, SYNERGY 3.0 X 8MM was advanced through a JR 4.0 GUIDE CATHETER FR 6 over a WIRE, RUNTH ROUGH NS 18:12:32 FLOPPY .014 180CM 180CM. A STENT, SYNERGY 3.0 X 8MM was deployed using a 30 WILLIAM INDEFLATOR at 12 atmospheres for 15 seco nds in the 18:12:50 RCA Prox. 18:13:19 100 mcg NTG (IC) given in lab by Nadeem Souza in Left Radial via Intra-coronary. 18:14:07 Delivery device removed 18:14:55 HR=84 bpm, TYKB=400/76 mmhg, SpO2=96.0 %, Resp=11 B/min 18:15:57 A WIRE, SAMURAI 190CM 190CM was inserted via Fem Art (right). 18:16:22 Interventional wire has crossed the lesion 50 mcg FENTANYL given in lab by Airam Morrison, HUMBERTO in Right Antecubital via Peripheral IV. Orde red by Harley, 18:18:53 Nadeem. A STENT, SYNERGY 2.75 X 38MM was advanced through a JR 4.0 GUIDE CATHETER FR 6 over a WIRE, LAUREN URAI 18:18:54 190CM 190CM. 18:19:52 HR=78 bpm, RYUX=260/89 mmhg, SpO2=96 %, Resp=12 B/min 18:22:48 Stent not deployed. Stent removed and intact. A STENT, SYNERGY 2.75 X 16MM was advanced through a JR 4.0 GUIDE CATHETER FR 6 over a WIRE, MURAI 18:24:09 190CM 190CM. 18:24:53 HR=90 bpm, GQRC=001/79 mmhg, SpO2=96.0 %, Resp=8 B/min 18:26:15 Stent not deployed. Stent removed and intact. 18:26:20 Wire removed 18:26:44 Catheter was removed 18:28:00 Case End 18:29:46 HR=73 bpm, LNQW=271/87 mmhg, SpO2=95.0 %, Resp=10 B/min Radial Compression Device Used. 94 mLs of air placed in BAND, RADIAL COMPRESSION TR LARGE 29 2 9CM. Affected 18:31:13 hand 13 % O2 saturation. 18:34:14 No case complications noted. 18:34:15 Cine recording checked. 18:35:22 Bedside Report will be given. 18:35:23 Implantable Device card placed in patient's chart. 18:35:24 HR=78 bpm, NCHK=766/97 mmhg, Resp=10 B/min 18:35:26 Contrast Scanned 18:35:31 A Left Heart Cath was performed. 18:35:[facility] 600 mg PLAVIX given in lab by Airam Morrison RN via Oral. Ordered by Nadeem Souza. 5 mL (Bolus) RADIAL COCKTAIL given in lab by Nadeem Souza in Left Radial via Radial. Corby stuart [Solution Name]. 18:43:07 Reason: Ntg 200mcg Verapamil 2.5mg Heparin 2500U. End Study - Contrast Media Used In Study Contrast Total Opened (mL) Total Used (mL) Total Wasted (mL) Omnipaque 400 400 0 End Study - Maximum Contrast Load Max Contrast Load (mL) 363.6 End Study - Radiation Exposure Fluoro Time (minutes) 90.3 End Study - Patient Disposition Complications Transferred To Interventional Outcome No Telemetry Bed a partial success
[2017-08-31] MEDS ORDERED: MISC INFORMATION XX ONE (19:00)
[2017-08-31] MEDS ORDERED: CLOPIDOGREL 300 MG TAB PO ONE (19:00)
[2017-08-31] MEDS: SODIUM CHLORIDE 0.9% FLUSH 10 ML FLUSH IV FLUSH SCH (19:55)
[2017-09-01] VITALS (24 sets, daily range): BP systolic 110–144; BP diastolic 61–78; PULSE 62–81; RESP 12–16; TEMP 98–99.1; O2SAT 95–97
[2017-09-01 04:48] LABS: AUTOMATED NEUTROPHIL # 5.8 TH/MM3 (1.8-7.7); BASOPHIL # 0.1 TH/MM3 (0-0.2); BASOPHIL % 0.8 % (0.0-2.0); EOSINOPHIL # 0.2 TH/MM3 (0-0.4); EOSINOPHIL % 2.4 % (0.0-4.0); HEMATOCRIT 39.5 % (39.0-51.0); HEMOGLOBIN 13.1 GM/DL (13.0-17.0); LYMPH % 9.3 % (9.0-44.0); LYMPHOCYTE # 0.7 TH/MM3 (1.0-4.8); MEAN CELL VOLUME 88.4 FL (80.0-100.0); MEAN CORPUSCULAR HEMOGLOBIN 29.3 PG (27.0-34.0); MEAN CORPUSCULAR HGB CONC 33.2 % (32.0-36.0); MEAN PLATELET VOLUME 8.8 FL (7.0-11.0); MONO % 7.5 % (0.0-8.0); MONOCYTE # 0.5 TH/MM3 (0-0.9); PLATELET COUNT 188 TH/MM3 (150-450); RED BLOOD COUNT 4.47 MIL/MM3 (4.50-5.90); RED CELL DISTRIBUTION WIDTH 14.4 % (11.6-17.2); WHITE BLOOD COUNT 7.2 TH/MM3 (4.0-11.0)
[2017-09-01 05:21] LABS: BICARBONATE 25.1 MEQ/L (21.0-32.0); CALCIUM 8.4 MG/DL (8.5-10.1); CREATININE 0.88 MG/DL (0.60-1.30)
--- NOTE | 2017-09-01 06:48 | MA ---
cc: SIERRANADEEM Castanon DATE OF 1940 DATE OF PROCEDURE August 31, 2017 PROCEDURE PERFORMED 1. Left heart catheterization. 2. Selective right and left coronary angiography. 3. Left ventriculogram. 4. Successful PCI to the right coronary artery. 5. Successful PCI to the right marginal branch. INDICATION Positive stress test/Preoperative evaluation for AAA repair. PROCEDURE DESCRIPTION Consent signed. The patient was brought into the Cardiac Catheterization Laboratory in a fasting state. Her left wrist was prepped and draped in sterile fashion using 1% lidocaine for local anesthesia and a micropuncture kit. A 6-Macedonian sheath was inserted into the left radial artery. Antispasmodic cocktail was given, then selective right and left coronary angiography was performed with a JR-4 and JL-4 diagnostic catheters. Angiography was taken in multiple views. The JR-4 diagnostic catheter then was introduced into the ventricle over a wire. This was followed by pressure recordings, left ventriculogram and pullback. We identified three significant lesions, the first one being SENIOR UNDERWRITING ASSISTANT of the LAD which was filling by collaterals that come from the left circumflex artery as well as from the diagonal arteries and 99% blockages of the main right coronary artery and a high prominent right ventricular branch. 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 For this heparin was given for IV anticoagulation. The right coronary artery was wired with a JR-4 guide. The vessels were wired with two Run-Through wires, then predilated with a 2.0/14 balloons, followed by insertion and deployment of a stent in the right coronary artery of 3-mm x 38- mm drug-eluting stent. The stent was postdilated with stent balloon. Following this we predilated the RV branch with a 2.0 and a 2.5 balloon followed by insertion and deployment of a 2.5/16 drug-eluting stent. There was a small non-flow limiting dissection in the proximal area of the right coronary artery for which a small drug-eluting stent 3 x 8 was also deployed in this segment. After stent deployment the patient had MARIE-3 flow. Final angiographic views revealed good stent apposition and expansion with MARIE-3 flow. There is a significant lesion distally in the PDA; however, given the amount of contrast and time of the procedure the lesions were not fixed. The same with SENIOR UNDERWRITING ASSISTANT of the LAD for which, given it is a SENIOR UNDERWRITING ASSISTANT and he is having good collaterals to this part of the heart, we will leave for future intervention. The right wrist access site after the procedure was closed with a TR Band. The patient was started on IV fluids and loaded with Plavix. ANGIOGRAPHIC RESULTS The left ventricular pressure was 118/1 with an LVEDP of 5. The aortic pressure was 193/60 with an LVEDP of 76. There was no gradient upon pullback from the left ventricle to the aorta. Left ventriculogram revealed hypokinesis of the anterior wall with an EF estimated of 40%. ANGIOGRAPHY 1. LEFT MAIN: Patent with MARIE-3 flow, nonobstructive coronary artery disease. 2. LAD: The LAD is 100% occluded in its midsegment after the first septum. The LAD is being filled by collaterals. This LAD seems to be a transapical vessel which is diffusely diseased. The LAD also has two diagonals which are patent with MARIE-3 flow and nonobstructive coronary artery disease. 3. LEFT CIRCUMFLEX ARTERY: The circumflex artery has minimal luminal irregularities. It two main OM vessels which are patent with MARIE-2/3 flow and nonobstructive coronary artery disease. 4. RAMUS- Small patent. 5. RIGHT CORONARY ARTERY: The right coronary artery is a dominant vesse giving off the PDA, has a high bifurcation, prominent RV Marginal branch. The RV Marginal branch is 99% occluded with 0 SURAJ-3 flow and the proximal RCA has 99% occlusion also with MARIE-3 0 flow. CONCLUSIONS 1. Successful PCI with JUVENTINO to right coronary artery. 2. Successful PCI to right marginal branch. 3. LV systolic dysfunction, EF of 40% with anterior wall hypokinesis. 4. SENIOR UNDERWRITING ASSISTANT of mid-LAD. RECOMMENDATIONS The patient will be admitted to the CV/ICU for post-cath care. He will be given IV hydration. Continue aspirin and Plavix as well as aggressive medical management for his coronary artery disease. The patient is a known to be in atrial fibrillation and the Eliquis will be stopped for future EVAR with Dr. Pena during this admission. Nadeem Souza MD WIRE SPINNER/SSB /6:43 PM /6:33 AM NEAL
--- NOTE | 2017-09-01 06:48 | MA ---
cc: SIERRANADEEM Castanon DATE OF 1940 DATE OF PROCEDURE August 31, 2017 PROCEDURE PERFORMED 1. Left heart catheterization. 2. Selective right and left coronary angiography. 3. Left ventriculogram. 4. Successful PCI to the right coronary artery. 5. Successful PCI to the right marginal branch. INDICATION Positive stress test/Preoperative evaluation for AAA repair. PROCEDURE DESCRIPTION Consent signed. The patient was brought into the Cardiac Catheterization Laboratory in a fasting state. Her left wrist was prepped and draped in sterile fashion using 1% lidocaine for local anesthesia and a micropuncture kit. A 6-Hebrew sheath was inserted into the left radial artery. Antispasmodic cocktail was given, then selective right and left coronary angiography was performed with a JR-4 and JL-4 diagnostic catheters. Angiography was taken in multiple views. The JR-4 diagnostic catheter then was introduced into the ventricle over a wire. This was followed by pressure recordings, left ventriculogram and pullback. We identified three significant lesions, the first one being TELETYPE TECHNICIAN of the LAD which was filling by collaterals that come from the left circumflex artery as well as from the diagonal arteries and 99% blockages of the main right coronary artery and a high prominent right ventricular branch. 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 For this heparin was given for IV anticoagulation. The right coronary artery was wired with a JR-4 guide. The vessels were wired with two Run-Through wires, then predilated with a 2.0/14 balloons, followed by insertion and deployment of a stent in the right coronary artery of 3-mm x 38- mm drug-eluting stent. The stent was postdilated with stent balloon. Following this we predilated the RV branch with a 2.0 and a 2.5 balloon followed by insertion and deployment of a 2.5/16 drug-eluting stent. There was a small non-flow limiting dissection in the proximal area of the right coronary artery for which a small drug-eluting stent 3 x 8 was also deployed in this segment. After stent deployment the patient had MARIE-3 flow. Final angiographic views revealed good stent apposition and expansion with MARIE-3 flow. There is a significant lesion distally in the PDA; however, given the amount of contrast and time of the procedure the lesions were not fixed. The same with TELETYPE TECHNICIAN of the LAD for which, given it is a TELETYPE TECHNICIAN and he is having good collaterals to this part of the heart, we will leave for future intervention. The right wrist access site after the procedure was closed with a TR Band. The patient was started on IV fluids and loaded with Plavix. ANGIOGRAPHIC RESULTS The left ventricular pressure was 118/1 with an LVEDP of 5. The aortic pressure was 193/60 with an LVEDP of 76. There was no gradient upon pullback from the left ventricle to the aorta. Left ventriculogram revealed hypokinesis of the anterior wall with an EF estimated of 40%. ANGIOGRAPHY 1. LEFT MAIN: Patent with MARIE-3 flow, nonobstructive coronary artery disease. 2. LAD: The LAD is 100% occluded in its midsegment after the first septum. The LAD is being filled by collaterals. This LAD seems to be a transapical vessel which is diffusely diseased. The LAD also has two diagonals which are patent with MARIE-3 flow and nonobstructive coronary artery disease. 3. LEFT CIRCUMFLEX ARTERY: The circumflex artery has minimal luminal irregularities. It two main OM vessels which are patent with MARIE-2/3 flow and nonobstructive coronary artery disease. 4. RAMUS- Small patent. 5. RIGHT CORONARY ARTERY: The right coronary artery is a dominant vesse giving off the PDA, has a high bifurcation, prominent RV Marginal branch. The RV Marginal branch is 99% occluded with 0 SURAJ-3 flow and the proximal RCA has 99% occlusion also with MARIE-3 0 flow. CONCLUSIONS 1. Successful PCI with JUVENTINO to right coronary artery. 2. Successful PCI to right marginal branch. 3. LV systolic dysfunction, EF of 40% with anterior wall hypokinesis. 4. TELETYPE TECHNICIAN of mid-LAD. RECOMMENDATIONS The patient will be admitted to the CV/ICU for post-cath care. He will be given IV hydration. Continue aspirin and Plavix as well as aggressive medical management for his coronary artery disease. The patient is a known to be in atrial fibrillation and the Eliquis will be stopped for future EVAR with Dr. Pena during this admission. Nadeem Souza MD INSTALLER TECHNICIAN/SSB /6:43 PM /6:33 AM NEAL
--- NOTE | 2017-09-01 06:48 | MA ---
cc: SIERRANADEEM Castanon DATE OF 1940 DATE OF PROCEDURE August 31, 2017 PROCEDURE PERFORMED 1. Left heart catheterization. 2. Selective right and left coronary angiography. 3. Left ventriculogram. 4. Successful PCI to the right coronary artery. 5. Successful PCI to the right marginal branch. INDICATION Positive stress test/Preoperative evaluation for AAA repair. PROCEDURE DESCRIPTION Consent signed. The patient was brought into the Cardiac Catheterization Laboratory in a fasting state. Her left wrist was prepped and draped in sterile fashion using 1% lidocaine for local anesthesia and a micropuncture kit. A 6-Persian sheath was inserted into the left radial artery. Antispasmodic cocktail was given, then selective right and left coronary angiography was performed with a JR-4 and JL-4 diagnostic catheters. Angiography was taken in multiple views. The JR-4 diagnostic catheter then was introduced into the ventricle over a wire. This was followed by pressure recordings, left ventriculogram and pullback. We identified three significant lesions, the first one being MINIATURE SET BUILDER of the LAD which was filling by collaterals that come from the left circumflex artery as well as from the diagonal arteries and 99% blockages of the main right coronary artery and a high prominent right ventricular branch. 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 For this heparin was given for IV anticoagulation. The right coronary artery was wired with a JR-4 guide. The vessels were wired with two Run-Through wires, then predilated with a 2.0/14 balloons, followed by insertion and deployment of a stent in the right coronary artery of 3-mm x 38- mm drug-eluting stent. The stent was postdilated with stent balloon. Following this we predilated the RV branch with a 2.0 and a 2.5 balloon followed by insertion and deployment of a 2.5/16 drug-eluting stent. There was a small non-flow limiting dissection in the proximal area of the right coronary artery for which a small drug-eluting stent 3 x 8 was also deployed in this segment. After stent deployment the patient had MARIE-3 flow. Final angiographic views revealed good stent apposition and expansion with MARIE-3 flow. There is a significant lesion distally in the PDA; however, given the amount of contrast and time of the procedure the lesions were not fixed. The same with MINIATURE SET BUILDER of the LAD for which, given it is a MINIATURE SET BUILDER and he is having good collaterals to this part of the heart, we will leave for future intervention. The right wrist access site after the procedure was closed with a TR Band. The patient was started on IV fluids and loaded with Plavix. ANGIOGRAPHIC RESULTS The left ventricular pressure was 118/1 with an LVEDP of 5. The aortic pressure was 193/60 with an LVEDP of 76. There was no gradient upon pullback from the left ventricle to the aorta. Left ventriculogram revealed hypokinesis of the anterior wall with an EF estimated of 40%. ANGIOGRAPHY 1. LEFT MAIN: Patent with MARIE-3 flow, nonobstructive coronary artery disease. 2. LAD: The LAD is 100% occluded in its midsegment after the first septum. The LAD is being filled by collaterals. This LAD seems to be a transapical vessel which is diffusely diseased. The LAD also has two diagonals which are patent with MARIE-3 flow and nonobstructive coronary artery disease. 3. LEFT CIRCUMFLEX ARTERY: The circumflex artery has minimal luminal irregularities. It two main OM vessels which are patent with MARIE-2/3 flow and nonobstructive coronary artery disease. 4. RAMUS- Small patent. 5. RIGHT CORONARY ARTERY: The right coronary artery is a dominant vesse giving off the PDA, has a high bifurcation, prominent RV Marginal branch. The RV Marginal branch is 99% occluded with 0 SURAJ-3 flow and the proximal RCA has 99% occlusion also with MARIE-3 0 flow. CONCLUSIONS 1. Successful PCI with JUVENTINO to right coronary artery. 2. Successful PCI to right marginal branch. 3. LV systolic dysfunction, EF of 40% with anterior wall hypokinesis. 4. MINIATURE SET BUILDER of mid-LAD. RECOMMENDATIONS The patient will be admitted to the CV/ICU for post-cath care. He will be given IV hydration. Continue aspirin and Plavix as well as aggressive medical management for his coronary artery disease. The patient is a known to be in atrial fibrillation and the Eliquis will be stopped for future EVAR with Dr. Pena during this admission. Nadeem Souza MD EXTENSION CLERK/SSB /6:43 PM /6:33 AM NEAL
[2017-09-01] MEDS: DILTIAZEM-CD 180 MG CAP ER PO SCH (08:48)
[2017-09-01] MEDS: FUROSEMIDE 20 MG TAB PO SCH (08:49)
[2017-09-01] MEDS: CLOPIDOGREL 75 MG TAB PO SCH (08:49)
[2017-09-01] MEDS: ASPIRIN 81 MG CHEW TAB PO SCH (08:49)
[2017-09-01] MEDS: SODIUM CHLORIDE 0.9% FLUSH 10 ML FLUSH IV FLUSH SCH ×2 (08:49→21:00)
[2017-09-01] MEDS: DIGOXIN 0.125 MG TAB PO SCH (08:49)
--- NOTE | 2017-09-01 09:17 | PD.CARD.PN ---
Subjective Subjective Remarks No CV complaints No overnight events s/p PCi/JUVENTINO to RCA Objective Medications Current Medications Medications (Trade) Dose Ordered Sig/[place] Route Start Time Stop Time Status Last Admin (NS Flush) 2 ml UNSCH PRN IV FLUSH 08/31/17 11:30 (Lanoxin) 0.125 mg DAILY PO 09/01/17 09:00 09/01/17 08:49 (Cardizem Cd) 180 mg DAILY PO 09/01/17 09:00 09/01/17 08:48 (Lasix) 20 mg DAILY PO 09/01/17 09:00 09/01/17 08:49 (Aspirin Chew) 81 mg DAILY PO 09/01/17 09:00 09/01/17 08:49 (Plavix) 75 mg DAILY PO 09/01/17 09:00 09/01/17 08:49 (NS Flush) 2 ml UNSCH PRN IV FLUSH 08/31/17 19:00 (NS Flush) 2 ml BID IV FLUSH 08/31/17 21:00 09/01/17 08:49 Vital Signs / I&O Vital Signs Date Time Temp Pulse Resp B/P (MAP) Pulse Ox O2 Delivery O2 Flow Rate FiO2 09/01/17 07:00 71 09/01/17 06:00 74 09/01/17 05:00 72 09/01/17 04:00 76 09/01/17 03:00 81 09/01/17 03:00 98.0 69 12 133/78 (96) 97 09/01/17 02:00 72 09/01/17 01:00 74 09/01/17 00:00 72 08/31/17 23:00 97.8 83 16 122/72 (89) 96 08/31/17 23:00 78 08/31/17 22:00 74 08/31/17 21:00 74 08/31/17 20:00 74 08/31/17 19:30 96 Room Air 08/31/17 19:00 97.3 79 12 149/72 (97) 96 08/31/17 19:00 77 08/31/17 15:35 08/31/17 11:56 98 18 128/61 (83) 92 Nasal Cannula 3.00 08/31/17 10:23 97.4 61 16 125/90 (102) 100 Room Air I/O 08/31/17 08/31/17 08/31/17 09/01/17 09/01/17 09/01/17 07:00 15:00 23:00 07:00 15:00 23:00 Intake Total 1480 ml Output Total 275 ml Balance 1205 ml Intake Oral 480 ml IV Total 1000 ml Output Urine Total 275 ml # Voids 2 # Bowel Movements 0 Physical Exam GENERAL: Well-nourished, well-developed patient. SKIN: Warm and dry. HEAD: Normocephalic. EYES: No scleral icterus. No injection or drainage. NECK: Supple, trachea midline. No JVD or lymphadenopathy. CARDIOVASCULAR: Regular rate and rhythm without murmurs, gallops, or rubs. RESPIRATORY: Breath sounds equal bilaterally. No accessory muscle use. GASTROINTESTINAL: Abdomen soft, non-tender, nondistended. EXTREMITIES: No cyanosis, or edema. NEUROLOGICAL: Awake, alert, and oriented x 3. Non-focal. Laboratory Laboratory Tests Test 08/31/17 11:30 08/31/17 13:45 09/01/17 03:32 White Blood Count 8.0 TH/MM3 7.2 TH/MM3 Red Blood Count 4.81 MIL/MM3 4.47 MIL/MM3 Hemoglobin 14.3 GM/DL 13.1 GM/DL Hematocrit 43.3 % 39.5 % Mean Corpuscular Volume 90.0 FL 88.4 FL Mean Corpuscular Hemoglobin 29.7 PG 29.3 PG Mean Corpuscular Hemoglobin Concent 33.0 % 33.2 % Red Cell Distribution Width 14.4 % 14.4 % Platelet Count 226 TH/MM3 188 TH/MM3 Mean Platelet Volume 9.0 FL 8.8 FL Neutrophils (%) (Auto) 67.6 % 80.0 % Lymphocytes (%) (Auto) 19.6 % 9.3 % Monocytes (%) (Auto) 9.8 % 7.5 % Eosinophils (%) (Auto) 2.1 % 2.4 % Basophils (%) (Auto) 0.9 % 0.8 % Neutrophils # (Auto) 5.4 TH/MM3 5.8 TH/MM3 Lymphocytes # (Auto) 1.6 TH/MM3 0.7 TH/MM3 Monocytes # (Auto) 0.8 TH/MM3 0.5 TH/MM3 Eosinophils # (Auto) 0.2 TH/MM3 0.2 TH/MM3 Basophils # (Auto) 0.1 TH/MM3 0.1 TH/MM3 CBC Comment DIFF FINAL DIFF FINAL Differential Comment Prothrombin Time 11.6 SEC Prothromb Time International Ratio 1.0 RATIO Activated Partial Thromboplast Time 28.5 SEC Blood Urea Nitrogen 26 MG/DL 15 MG/DL Creatinine 1.15 MG/DL 0.88 MG/DL Random Glucose 68 MG/DL 74 MG/DL Total Protein 7.9 GM/DL Albumin 3.1 GM/DL Calcium Level 8.8 MG/DL 8.4 MG/DL Alkaline Phosphatase 105 U/L Aspartate Amino Transf (AST/SGOT) 26 U/L Alanine Aminotransferase (ALT/SGPT) 25 U/L Total Bilirubin 0.4 MG/DL Sodium Level 136 MEQ/L 140 MEQ/L Potassium Level 4.1 MEQ/L 3.7 MEQ/L Chloride Level 102 MEQ/L 105 MEQ/L Carbon Dioxide Level 28.0 MEQ/L 25.1 MEQ/L Anion Gap 6 MEQ/L 10 MEQ/L Estimat Glomerular Filtration Rate 61 ML/MIN 84 ML/MIN Urine Color COLORLESS Urine Turbidity CLEAR Urine pH 6.5 Urine Specific [place] 1.010 Urine Protein NEG mg/dL Urine Glucose (UA) NEG mg/dL Urine Ketones NEG mg/dL Urine Occult Blood NEG Urine Nitrite NEG Urine Bilirubin NEG Urine Urobilinogen LESS THAN 2.0 MG/DL Urine Leukocyte Esterase NEG Urine WBC LESS THAN 1 /hpf Microscopic Urinalysis Comment CULT NOT INDICATED Imaging Last Impressions Chest X-Ray 08/31/17 1116 Signed Impressions: Service Date/Time: Thursday, August 31, 2017 11:35 - CONCLUSION: No acute disease. Apparent mild chronic scarring in the left lung base. Markos Padilla MD Aorta CTA 08/31/17 0000 Signed Impressions: Service Date/Time: Thursday, August 31, 2017 13:04 - CONCLUSION: 1. Massive infrarenal abdominal aortic aneurysm measuring 9.0 x 8.8 x 7.7 cm. 2. Bilateral renal cysts. 3. Diverticulosis colon without diverticulitis. 4. Small bilateral pleural effusions greater the left. Maurice Yee MD Last 24 hours Impressions Chest X-Ray 08/31/17 1116 Signed Impressions: Service Date/Time: Thursday, August 31, 2017 11:35 - CONCLUSION: No acute disease. Apparent mild chronic scarring in the left lung base. Markos Padilla MD Assessment and Plan Problem List: (1) CAD (coronary artery disease) ICD Codes: I25.10 - Atherosclerotic heart disease of [place] coronary artery without angina pectoris Plan: Cont DAPT with ASA and Plavix AAA repair next week (2) Congestive heart failure ICD Codes: I50.9 - Congestive heart failure Status: Acute (3) Atrial fibrillation ICD Codes: I48.91 - Unspecified atrial fibrillation Status: Acute (4) LBBB (left bundle branch block) ICD Codes: I44.7 - Left bundle-branch block, unspecified Status: Acute (5) AAA (abdominal aortic aneurysm) ICD Codes: I71.4 - Abdominal aortic aneurysm, without rupture Problem Qualifiers (1) CAD (coronary artery disease): Nadeem Souza MD Sep 01, 2017 09:17
--- NOTE | 2017-09-01 09:39 | PD.VS.PN ---
Subjective Subjective/Hospital Course 77/M Alert in NAD Pt in bed w/o c/o abdominal/back pain Pt reported a good night (Adriana Rosen) Objective Vitals/I&O Date Time Temp Pulse Resp B/P (MAP) Pulse Ox O2 Delivery O2 Flow Rate FiO2 09/01/17 07:00 71 09/01/17 06:00 74 09/01/17 05:00 72 09/01/17 04:00 76 09/01/17 03:00 81 09/01/17 03:00 98.0 69 12 133/78 (96) 97 09/01/17 02:00 72 09/01/17 01:00 74 09/01/17 00:00 72 08/31/17 23:00 97.8 83 16 122/72 (89) 96 08/31/17 23:00 78 08/31/17 22:00 74 08/31/17 21:00 74 08/31/17 20:00 74 08/31/17 19:30 96 Room Air 08/31/17 19:00 97.3 79 12 149/72 (97) 96 08/31/17 19:00 77 08/31/17 15:35 08/31/17 11:56 98 18 128/61 (83) 92 Nasal Cannula 3.00 08/31/17 10:23 97.4 61 16 125/90 (102) 100 Room Air 09/01/17 09/01/17 09/01/17 07:00 15:00 23:00 Intake Total 1480 ml Output Total 275 ml Balance 1205 ml Physical Exam GENERAL: A&OX3, GCS15, NAD SKIN: Warm and dry. GASTROINTESTINAL: Abdomen soft, non-tender, nondistended. Pt denies abdominal/back pain (Adriana Rosen) Laboratory Laboratory Tests Test 08/31/17 11:30 08/31/17 13:45 09/01/17 03:32 White Blood Count 8.0 7.2 Red Blood Count 4.81 4.47 Hemoglobin 14.3 13.1 Hematocrit 43.3 39.5 Mean Corpuscular Volume 90.0 88.4 Mean Corpuscular Hemoglobin 29.7 29.3 Mean Corpuscular Hemoglobin Concent 33.0 33.2 Red Cell Distribution Width 14.4 14.4 Platelet Count 226 188 Mean Platelet Volume 9.0 8.8 Neutrophils (%) (Auto) 67.6 80.0 Lymphocytes (%) (Auto) 19.6 9.3 Monocytes (%) (Auto) 9.8 7.5 Eosinophils (%) (Auto) 2.1 2.4 Basophils (%) (Auto) 0.9 0.8 Neutrophils # (Auto) 5.4 5.8 Lymphocytes # (Auto) 1.6 0.7 Monocytes # (Auto) 0.8 0.5 Eosinophils # (Auto) 0.2 0.2 Basophils # (Auto) 0.1 0.1 CBC Comment DIFF FINAL DIFF FINAL Differential Comment Prothrombin Time 11.6 Prothromb Time International Ratio 1.0 Activated Partial Thromboplast Time 28.5 Blood Urea Nitrogen 26 15 Creatinine 1.15 0.88 Random Glucose 68 74 Total Protein 7.9 Albumin 3.1 Calcium Level 8.8 8.4 Alkaline Phosphatase 105 Aspartate Amino Transf (AST/SGOT) 26 Alanine Aminotransferase (ALT/SGPT) 25 Total Bilirubin 0.4 Sodium Level 136 140 Potassium Level 4.1 3.7 Chloride Level 102 105 Carbon Dioxide Level 28.0 25.1 Anion Gap 6 10 Estimat Glomerular Filtration Rate 61 84 Urine Color COLORLESS Urine Turbidity CLEAR Urine pH 6.5 Urine Specific [place] 1.010 Urine Protein NEG Urine Glucose (UA) NEG Urine Ketones NEG Urine Occult Blood NEG Urine Nitrite NEG Urine Bilirubin NEG Urine Urobilinogen LESS THAN 2.0 Urine Leukocyte Esterase NEG Urine WBC LESS THAN 1 Microscopic Urinalysis Comment CULT NOT INDICATED Imaging Last 48 hours Impressions Chest X-Ray 08/31/17 1116 Signed Impressions: Service Date/Time: Thursday, August 31, 2017 11:35 - CONCLUSION: No acute disease. Apparent mild chronic scarring in the left lung base. Markos Padilla MD Aorta CTA 08/31/17 0000 Signed Impressions: Service Date/Time: Thursday, August 31, 2017 13:04 - CONCLUSION: 1. Massive infrarenal abdominal aortic aneurysm measuring 9.0 x 8.8 x 7.7 cm. 2. Bilateral renal cysts. 3. Diverticulosis colon without diverticulitis. 4. Small bilateral pleural effusions greater the left. Maurice Yee MD (Adriana Rosen [facility]) Assessment and Plan Plan 77/M who recently discovered a large AAA while visiting family in [facility] Pt asymptomatic w/o abdominal/back pain Plan Dr. Pena reviewed CTA results Discussed w/ pt Abdominal Endovascular Aneurysm repair (EVAR) Questions answered Pt agrees w/ plan Consent signed and placed in the chart Surgical Intervention (EVAR) scheduled w/ Dr. Pena on Tuesday09/06/17 Adriana MCDONALD [facility] [phone] (Adriana Rosen) Plan Needs 2-3 days without IV contrast (CTA and LHC yesterday) then EVAR. Plan for Tuesday. (Josh Pena MD) Adriana Rosen Sep 01, 2017 09:39 Josh Pena MD Sep 01, 2017 10:19
--- NOTE | 2017-09-01 13:30 | HHI.PR ---
Subjective Remarks resting comfortably with no distress. denies chest pain, abdominal pain or sob. no new complaints. Objective Vitals Vital Signs Date Time Temp Pulse Resp B/P (MAP) Pulse Ox O2 Delivery O2 Flow Rate FiO2 09/01/17 12:00 78 09/01/17 11:55 98.2 72 16 122/62 (82) 96 09/01/17 11:00 71 09/01/17 10:00 78 09/01/17 09:00 76 09/01/17 08:00 97 Room Air 09/01/17 08:00 74 09/01/17 08:00 98.1 72 16 144/68 (93) 96 09/01/17 07:00 71 09/01/17 06:00 74 09/01/17 05:00 72 09/01/17 04:00 76 09/01/17 03:00 81 09/01/17 03:00 98.0 69 12 133/78 (96) 97 09/01/17 02:00 72 09/01/17 01:00 74 09/01/17 00:00 72 08/31/17 23:00 97.8 83 16 122/72 (89) 96 08/31/17 23:00 78 08/31/17 22:00 74 08/31/17 21:00 74 08/31/17 20:00 74 08/31/17 19:30 96 Room Air 08/31/17 19:00 97.3 79 12 149/72 (97) 96 08/31/17 19:00 77 08/31/17 15:35 I/O 08/31/17 08/31/17 08/31/17 09/01/17 09/01/17 09/01/17 07:00 15:00 23:00 07:00 15:00 23:00 Intake Total 1480 ml Output Total 275 ml Balance 1205 ml Intake Oral 480 ml IV Total 1000 ml Output Urine Total 275 ml # Voids 2 # Bowel Movements 0 Result Diagram: 09/01/1733109/01/17331 Imaging Last Impressions Chest X-Ray 08/31/17 1116 Signed Impressions: Service Date/Time: Thursday, August 31, 2017 11:35 - CONCLUSION: No acute disease. Apparent mild chronic scarring in the left lung base. Markos Padilla MD Aorta CTA 08/31/17 0000 Signed Impressions: Service Date/Time: Thursday, August 31, 2017 13:04 - CONCLUSION: 1. Massive infrarenal abdominal aortic aneurysm measuring 9.0 x 8.8 x 7.7 cm. 2. Bilateral renal cysts. 3. Diverticulosis colon without diverticulitis. 4. Small bilateral pleural effusions greater the left. Maurice Yee MD Objective Remarks GENERAL: This is a well-nourished, well-developed patient, in no apparent distress. CARDIOVASCULAR: Regular rate and regular rhythm without murmurs, gallops, or rubs. RESPIRATORY: Clear to auscultation. Breath sounds equal bilaterally. No wheezes , rales, or rhonchi. GASTROINTESTINAL: Abdomen soft, non-tender, nondistended. Normal, active bowel sounds MUSCULOSKELETAL: Extremities without clubbing, cyanosis, or edema. NEURO: Alert & Oriented x4 to person, place, time, situation. Moves all ext x4 Procedures cardiac cath. Medications and IVs Current Medications Sodium Chloride (NS Flush) 2 ml UNSCH PRN IV FLUSH FLUSH AFTER USING IV ACCESS ; Start 08/31/17 at 11:30 Digoxin (Lanoxin) 0.125 mg DAILY PO Last administered on 09/01/17 08:49; Start 09/01/17 at 09:00 Diltiazem HCl (Cardizem Cd) 180 mg DAILY PO Last administered on 09/01/17 08: 48; Start 09/01/17 at 09:00 Furosemide (Lasix) 20 mg DAILY PO Last administered on 09/01/17 08:49; Start 09/01/17 at 09:00 Sodium Chloride 1,000 ml @ 60 mls/hr [id number] ONCE IV ; Start 08/31/17 at 13:00 ; Stop 09/01/17 at 05:39; Status DC Iohexol (Omnipaque 350 Inj) 100 ml STK-MED ONCE IVCONTRAST Last administered on 08/31/17 13:16; Start 08/31/17 at 13:16; Stop 08/31/17 at 13:17; Status DC Heparin Sodium/ Sodium Chloride 500 ml @ As Directed STK-MED ONCE .ROUTE Last administered on 08/31/17 15:09; Start 08/31/17 at 15:09; Stop 08/31/17 at 15:10 ; Status DC Midazolam HCl (Versed Inj) 2 mg STK-MED ONCE .ROUTE Last administered on 15:40; Start 08/31/17 at 15:10; Stop 08/31/17 at 15:11; Status DC Fentanyl Citrate (fentaNYL INJ) 100 mcg STK-MED ONCE .ROUTE Last administered on 08/31/17 15:41; Start 08/31/17 at 15:10; Stop 08/31/17 at 15:11; Status DC Heparin Sodium (Porcine) (Heparin Inj) 10,000 units STK-MED ONCE .ROUTE Last administered on 08/31/17 15:43; Start 08/31/17 at 15:10; Stop 08/31/17 at 15:11 ; Status DC Nitroglycerin 5 ml @ As Directed STK-MED ONCE .ROUTE Last administered on 15:43; Start 08/31/17 at 15:10; Stop 08/31/17 at 15:11; Status DC Verapamil HCl (Isoptin Inj) 5 mg STK-MED ONCE .ROUTE Last administered on 15:43; Start 08/31/17 at 15:27; Stop 08/31/17 at 15:28; Status DC Midazolam HCl (Versed Inj) 2 mg STK-MED ONCE .ROUTE Last administered on 16:12; Start 08/31/17 at 16:05; Stop 08/31/17 at 16:06; Status DC Heparin Sodium/ Sodium Chloride 500 ml @ As Directed STK-MED ONCE .ROUTE Last administered on 08/31/17 16:09; Start 08/31/17 at 16:09; Stop 08/31/17 at 16:10 ; Status DC Midazolam HCl (Versed Inj) 2 mg STK-MED ONCE .ROUTE Last administered on 16:51; Start 08/31/17 at 16:50; Stop 08/31/17 at 16:51; Status DC Midazolam HCl (Versed Inj) 2 mg STK-MED ONCE .ROUTE Last administered on 17:36; Start 08/31/17 at 17:37; Stop 08/31/17 at 17:38; Status DC Fentanyl Citrate (fentaNYL INJ) 100 mcg STK-MED ONCE .ROUTE Last administered on 08/31/17 17:45; Start 08/31/17 at 17:44; Stop 08/31/17 at 17:45; Status DC Midazolam HCl (Versed Inj) 2 mg STK-MED ONCE .ROUTE ; Start 08/31/17 at 18:22; Stop 08/31/17 at 18:23; Status DC Clopidogrel Bisulfate (Plavix) 600 mg STK-MED ONCE .ROUTE Last administered on 08/31/17 18:29; Start 08/31/17 at 18:29; Stop 08/31/17 at 18:30; Status DC Sodium Chloride 1,000 ml @ 125 mls/hr Q8H IV Last administered on 08/31/17 18 :47; Start 08/31/17 at 18:47; Stop 08/31/17 at 22:46; Status DC Aspirin (Aspirin Chew) 81 mg DAILY PO Last administered on 09/01/17 08:49; Start 09/01/17 at 09:00 Clopidogrel Bisulfate (Plavix) 600 mg NOW ONCE PO ; Start 08/31/17 at 19:00; Stop 08/31/17 at 19:01; Status DC Clopidogrel Bisulfate (Plavix) 75 mg DAILY PO Last administered on 09/01/17 08 :49; Start 09/01/17 at 09:00 Sodium Chloride (NS Flush) 2 ml UNSCH PRN IV FLUSH FLUSH AFTER USING IV ACCESS ; Start 08/31/17 at 19:00 Sodium Chloride (NS Flush) 2 ml BID IV FLUSH Last administered on 09/01/17 08: 49; Start 08/31/17 at 21:00 Miscellaneous Information 1 ONCE ONCE XX ; Start 08/31/17 at 19:00; Stop at 19:02; Status DC A/P Problem List: (1) AAA (abdominal aortic aneurysm) ICD Code: I71.4 - Abdominal aortic aneurysm, without rupture (2) CAD (coronary artery disease) ICD Code: I25.10 - Atherosclerotic heart disease of [place] coronary artery without angina pectoris Assessment and Plan A/P - Abdominal Aortic Aneurysm vascular surgery consult appreciated; plan for repair next week ( 09/06/17). -CAD- s/p stent placement s/p cardiac cath with : 1. Successful PCI with JUVENTINO to right coronary artery. 2. Successful PCI to right ventricular artery. 3. LV systolic dysfunction, EF of 40% with anterior wall hypokinesis. 4. [employer] of [place]. continue aspirin and plavix. will add statin. lipid panel tomorrow. cardiology following. -atrial fibrillation; resumed cardizem and digoxin- Xarelto on hold for planned vascular intervention. -DVT prophylaxis; hold Xarelto till cardiology / vascular surgery evaluation and recommendations. Problem Qualifiers (1) CAD (coronary artery disease): Josette Sidhu MD Sep 01, 2017 13:30
--- NOTE | 2017-09-01 13:32 | EKG ---
Date Performed: 08/31/2017 Time Performed: 11:34:41 PTAGE: 77 years EKG: ATRIAL FIBRILLATION WITH ABERRANT CONDUCTION OR VENTRICULAR PREMATURE COMPLEXES MARKED LEFT AXIS DEVIATION LEFT BUNDLE BRANCH BLOCK ABNORMAL ECG Compared to prior tracing no significant change PREVIOUS TRACING : 04/21/2017 05.42 DOCTOR: Adrian Holguin Interpretating Date/Time 09/01/2017 13:29:10
[2017-09-02] VITALS (28 sets, daily range): BP systolic 120–155; BP diastolic 58–94; PULSE 55–89; RESP 14–16; TEMP 97.6–98.4; O2SAT 89–99
[2017-09-02 04:48] LABS: CHOLESTEROL/ HDL RATIO 3.75 RATIO; HDL CHOLESTEROL 45.5 MG/DL (40.0-60.0)
[2017-09-02] MEDS: SODIUM CHLORIDE 0.9% FLUSH 10 ML FLUSH IV FLUSH SCH ×2 (09:13→22:48)
[2017-09-02] MEDS: DIGOXIN 0.125 MG TAB PO SCH (09:13)
[2017-09-02] MEDS: CLOPIDOGREL 75 MG TAB PO SCH (09:44)
[2017-09-02] MEDS: ASPIRIN 81 MG CHEW TAB PO SCH (09:44)
[2017-09-02] MEDS: DILTIAZEM-CD 180 MG CAP ER PO SCH (09:44)
[2017-09-02] MEDS ORDERED: IOHEXOL 350 MG/ML 100 ML BTL (for Cath Lab) OTHER ONE (09:53)
[2017-09-02] MEDS ORDERED: HEPARIN-NS/PF INJ 1,000 ML ONE (10:03)
[2017-09-02] MEDS ORDERED: MIDAZOLAM HCL 5 MG/5 ML VIAL ONE (10:03)
[2017-09-02] MEDS ORDERED: HEPARIN SODIUM - IV 10,000 UNITS/10 ML VIAL ONE ×2 (10:04→11:58)
[2017-09-02] MEDS ORDERED: MIDAZOLAM HCL 2 MG/2 ML VIAL ONE (12:05)
[2017-09-02] MEDS ORDERED: PROTAMINE SULFATE 50 MG/5 ML VIAL ONE (12:16)
--- NOTE | 2017-09-02 12:47 | CATHPROC ---
[facility] HIS Report Study Information Study Number Admission Scheduled Start Study Start [id number] Aug 31 2017 12:44PM 09/02/2017 Sep 02 2017 9:23AM [place] [facility]iac Catheterization Admit Source Facility Department Emergency department [facility] - Snuff Packing Machine Operator Physician and Clinical Staff Initial Nadeem Guzman Hood Fitter Mitzi Padron,HUMBERTO Hood Fitter Airam Morrison,HUMBERTO Recorder Christopher Munoz,RT(R) Scrub Angelito Salinas RCIS(BS) Procedures Performed Procedure Location (Site) Vessel Name L Heart Cath Wire insertion Fem Art (left) Femoral Art Wire insertion Fem Art (right) Femoral Art Equipment Time Patient Access Description Size Mfg Part Number Used/Scraped [id number] 11:26 [employer] WIRE, ASAHI FIELDER XT 300CM 300CM Used *[id number] 12:05 [employer] WIRE, ASAHI FIELDER XT 300CM 300CM Used *[id number] 11:39 [employer] WIRE, DESK MONITOR 200 300CM 300CM Used *[id number] 11:01 [employer] WIRE, SUPERCORE 300CM 300CM Used *[id number] MYNX MANAGER BILINGUAL CLOSURE DEVICE [id number] 12:19 [employer]ESS CLOSURE INC. FR 5 Used TAVR *[id number] TAVR TRANSDUCER, TRUWAVE [id number] 09:51 GARCIA JACKSON * Used W/JENNIFER *[id number] 11:10 [employer] CATHETER, FR7 GUIDEZILLA II FR 7 [id number] Used [id number] 10:18 [employer] WIRE, SAMURAI 190CM 190CM Used *[id number] 11:06 [employer] WIRE, SAMURAI 300CM 300CM [id number] Used 11:12 [employer] WIRE, SAMURAI 300CM 300CM [id number] Used [id number] 12:12 C[employer] MEDICAL VASCADE, FR6 CLOSURE SYSTEM FR 6\7 Used *[id number] INTRODUCER SET, 09:51 [employer]. FR 5 [id number] *[id number] Used MICROPUNCTURE, STIFFENED [phone] *7718740 538-442 *4081151 538-453S *5020729 [phone] *[id number] 09:51 [employer] INDUSTRIES PACK, CCL CUSTOM * Used *[id number] WIRE, WHOLEY .035 MOD-J 145 [id number] 10:57 MEDTRONIC 145CM Used CM *[id number] 10:19 MEDTRONIC/AVE EBU 3.5 ZUMAII CATHETER FR 7 Used *[id number] [id number] 09:51 [email or web address] MEDICAL WIRE, 3MMJ .035 180CM 180CM Used *[id number] [id number] 09:51 NAMIC MANIFOLD, 4 PORT * Used *[id number] 09:51 NYCOMED OMNIPAQUE, 350 MG, 150ML 150ML [id number] Used [id number] 09:51 [employer] BLANKET,WARM AIR CCL * Used *[id number] YYP035 10:53 TERUMO MEDICAL SHEATH, FR5 TERUMO (10CM) FR 5 Used *[id number] [id number] 10:45 [employer] SHEATH, FR5 TERUMO (10CM) FR 5 Used *[id number] TCR932 12:13 [employer]ICAL SHEATH, FR7 TERUMO (10CM) FR 7 Used *[id number] SHEATH, FR7 PINNACLE 10:19 TERUMO MEDICAL/ALBERT FR 7 [id number] Used DESTINATION 45CM CATHETER, TURNPIKE SPIRAL 10:17 VASCULAR SOLUTIONS * 5642 *[id number] Used 135CM Equipment Model, Serial, Lot Number and Expiration Data Description Model Number Serial Number Lot Number Expiration Date WIRE, WHOLEY .035 MOD-J 145 [id number] 04-30-2019 CM History: Current Medications Medication Dosage/Unit Route Frequency Last Date/Time Taken XARELTO LASIX PLAVIX ASA CARDIZEM LIPITOR History: Allergies Allergy Reaction No Known Allergies History: Risk Factors Family History of Hypertension Dyslipidemia Previous [facility] Previous Heart Failure Premature CAD No No Yes Yes Yes Prior Valve Prior PCI Prior PCIDate Prior CABG Surgery No Yes 08/31/2017 No Cerebrovascular Peripheral Artery Chronic Lung On Dialysis Diabetes Disease Disease Disease No Yes No No No History: CV Disease Selection Items Known CAD History: Stress Tests Stress or Imaging Studies Performed Yes Standard Exercise Stress Test No Stress Echo No Stress Test SPECT Stress Test SPECT Result Stress Test SPECT Ischemia Risk/Extent Yes Positive High Stress Test CMR No Cardiac CTA Coronary Calcium Score No No History: Arrhythmias Selection Items Atrial fibrillation History: Other Disease Selection Items CAD History: Other Current Smoker No Labs Hgb (g/dl) Hct (%) WBC (l/cumm) Platelets (thousands) 11.60-17.00 35.00-51.00 4.00-11.00 150.00-450.00 13.1 39.5 7.2 188 Glucose (mg/dl) BUN (mg/dl) Creatinine (mg/dl) BUN:Creatinine (1:x) 74.00-106.00 7.00-18.00 0.50-1.30 10.00-20.00 74 15 0.8 18.8 Na (meq/l) K (meq/l) 136.00-145.00 3.50-5.10 140 3.7 INR (PTT:PT) 0.90-1.10 1 Medication Medication Total Dose (Bolus/Oral) Medication Total Dosage/Unit 1% XYLOCAINE 40 mL FENTANYL 125 mcg HEPARIN 52019 units PROTAMINE 30 mg VERSED 5 mg Medications (Bolus/Oral) Medication Time Given Dosage/Unit Administered By Reason VERSED 09/02/2017 10:38:21 AM 2 mg Tamiko, Airam 2 mg VERSED given in lab by Airam Morrison RN in Right Antecubital via Peripheral IV. Ordered by Nadeem Briceno. FENTANYL 09/02/2017 10:39:33 AM 50 mcg Tamiko, Airam 50 mcg FENTANYL given in lab by Airam Morrison RN in Right Antecubital via Peripheral IV. Ordered by Nadeem Souza. 1% XYLOCAINE 09/02/2017 10:42:24 AM 20 mL Gina-Fredrick Nadeem 20 mL 1% XYLOCAINE given in lab by Nadeem Souza in Right Groin via Subcutaneous. Ordered by Nadeem Ledesma. VERSED 09/02/2017 10:42:54 AM 1 mg Hesher, Airam 1 mg VERSED given in lab by Airam Morrison RN in Right Antecubital via Peripheral IV. Ordered by Nadeem Briceno. 1% XYLOCAINE 09/02/2017 10:53:55 AM 20 mL Fuentes-Fredrick, Nadeem 20 mL 1% XYLOCAINE given in lab by Nadeem Souza in Left Groin via Subcutaneous. HEPARIN 09/02/2017 11:04:32 AM 4800 units Airam Morrison 4800 units HEPARIN given in lab by Airam Morrison RN in Right Antecubital via Peripheral IV. Ordered by Nadeem Souza. HEPARIN 09/02/2017 11:22:47 AM 3000 units Hesher, Airam 3000 units HEPARIN given in lab by Airam Morrison RN via Peripheral IV. Ordered by Nadeem Souza . VERSED 09/02/2017 11:30:54 AM 1 mg Hesher, Airam 1 mg VERSED given in lab by Airam Morrison RN in Right Antecubital via Peripheral IV. Ordered by Nadeem Briceno. FENTANYL 09/02/2017 11:31:02 AM 50 mcg Hesher, Airam 50 mcg FENTANYL given in lab by Airam Morrison RN in Right Antecubital via Peripheral IV. Ordered by Nadeem Souza. HEPARIN 09/02/2017 11:59:38 AM 3000 units Adamy, Mitzi 3000 units HEPARIN given in lab by Mitzi Padron RN via Peripheral IV. Ordered by Gilda Souza o. VERSED 09/02/2017 12:07:31 PM 1 mg Adamy, Mitzi 1 mg VERSED given in lab by Mitzi Padron RN in Right Antecubital via Peripheral IV. Ordered by Nadeem Mayes. FENTANYL 09/02/2017 12:08:05 PM 25 mcg Adamy, Mitzi 25 mcg FENTANYL given in lab by Mitzi Padron RN in Right Antecubital via Peripheral IV. Ordered b y Nadeem Souza. PROTAMINE 09/02/2017 12:18:29 PM 15 mg Adamy, Mitzi 15 mg PROTAMINE given in lab by Mitzi Padron RN in Right Antecubital via Peripheral IV. Ordered b y Nadeem Souza. PROTAMINE 09/02/2017 12:28:53 PM 15 mg Adamy, Mitzi 15 mg PROTAMINE given in lab by Mitzi Padron RN via Peripheral IV. Ordered by Nadeem Souza. Medication (Drip) Medication Time Given Dosage/Unit Concentration/Unit Diluent (ml) Solution IV Solutions 09/02/2017 9:59:53 AM 0 mL (IV) 500 NaCl .9 Patient arrived on IV Solutions given by Nadeem Souza in Right Antecubital via Peripheral IV. Pu mp/Drip Flow = 20 ml/hr using NaCl .9. Ordered by Nadeem Souza. Initial Case Assessment Cardiovascular HR Rhythm NIBP Chest Pain 96 afib 167/113 0 Edema Present Skin color Skin None Normal Warm Dry Circulatory - Right Pulses Dorsalis Pedis Femoral d 3 Scale (0,1,2,3,4,d) Circulatory - Left Pulses Dorsalis Pedis Femoral d 3 Scale (0,1,2,3,4,d) Neurological State Oriented to time-place- Alert Moves all extremities person Respiration - General Respiration Rate SpO2 (%) O2 (lpm) (B/min) 18 98 0 Chronological Log Time Study Chronological Log 9:53:35 Patient arrived via Bed. 9:53:38 Patient Name, D.O.B, / Armband Verified By R.N. 9:53:39 Consent signed by the physician and the patient and verified by the Snuff Packing Machine Operator staff. 9:53:40 Pre-op and post- op instructions given; patient acknowledges understanding of instructions. 9:53:47 Verbal Stimulation=2 Physical Stimulation=2 Airway=2 Respiration=2 TOTAL=8. (0=absent, 1=li mited, 2=present) 9:54:02 Presedation assessment performed by Snuff Packing Machine Operator RN. 9:54:04 Patient has been NPO for More than 6Hrs. 9:54:06 Skin Breakdown-none present per patient. Vitals capture started with the following parameters, Patient=Adult, Interval=5 min, Initial Pr izpefz=566 mmHg, 9:58:43 Deflation Rate=5 mmHg, Cuff placed on Right Arm 9:59:04 Reference ECG taken 9:59:14 CI=416 bpm, LAYN=125/113 mmhg, SpO2=95.0 %, Resp=8 B/min, Almonte=2 9:59:29 Skin Breakdown-none present per patient. 9:59:43 A # 20 IV was noted in the Antecubital (right). Grade = 0 Patient arrived on IV Solutions given by Nadeem Souza in Right Antecubital via Peripheral IV. Pump/Drip Flow = 20 9:59:53 ml/hr using NaCl .9. Ordered by Nadeem Souza. 10:00:10 History and physical on the chart or being dictated. Assessment: Initial Case, HR=96 BPM, Rhythm=afib, JAHN=227/113 mmhg, Chest Pain=0, Edema=None, Color=Normal, Skin = Warm, Dry Right Pulses: Sumanth Ped=d, Femoral=3 10:00:13 Left Pulses: Sumanth Ped=d, Femoral=3 Neurological: State=Alert, Ox3, LEMUS Respiration: Resp=18 B/min, SpO2=98 %, O2=0 lpm 10:01:23 Bilateral groins prepped with 2% chlorhexidine, and draped after a 3 minute waiting time. 10:04:20 HR=84 bpm, ENXF=337/100 mmhg, SpO2=97.0 %, Resp=10 B/min, Almonte=2 10:09:21 HR=96 bpm, XPIW=917/106 mmhg, SpO2=96.0 %, Resp=8 B/min, Almonte=2 10:12:27 MD paged 10:14:22 HR=87 bpm, DCGQ=758/107 mmhg, WhI7=107.0 %, Resp=8 B/min, Almonte=2 10:14:56 Pressure channel 1 zeroed. 10:19:21 HR=90 bpm, THVK=183/114 mmhg, PaJ6=160.0 %, Resp=8 B/min, Almonte=2 10:24:18 HR=88 bpm, GEXY=685/109 mmhg, VjS1=898.0 %, Resp=7 B/min, Almonte=2 10:29:21 HR=96 bpm, UXTJ=739/106 mmhg, Resp=10 B/min, Almonte=2 10:34:22 HR=99 bpm, LZSF=093/126 mmhg, FaA3=375.0 %, Resp=11 B/min, Almonte=2 10:38:21 2 mg VERSED given in lab by Airam Morrison, RN in Right Antecubital via Peripheral IV. Orde red by Nadeem Souza. 10:39:14 MD arrived. 10:39:19 HR=90 bpm, FTMC=925/98 mmhg, SpO2=99.0 %, Resp=15 B/min, Almonte=2 50 mcg FENTANYL given in lab by Airam Morrison, RN in Right Antecubital via Peripheral IV. Orde red by Harley, 10:39:33 Nadeem. Time Out. Correct patient, correct procedure, correct physician, power injector not loaded with contrast with surgical 10:41:50 team present. Time Out Concurred by MD and individual staff in procedure. Not loaded at this ti me. 10:42:20 Presedation re-assessment performed by Snuff Packing Machine Operator RN. 10:42:23 Case Start 20 mL 1% XYLOCAINE given in lab by Nadeem Souaz in Right Groin via Subcutaneous. Ordered b y Harley, 10:42:24 Nadeem. 10:42:54 1 mg VERSED given in lab by Airam Morrison, HUMBERTO in Right Antecubital via Peripheral IV. Orde red by Nadeem Souza. 10:43:14 Access site was Right Femoral Artery. A INTRODUCER SET, MICROPUNCTURE, STIFFENED FR 5 was advanced into the Fem Art (right) using the 10:43:22 Percutaneous technique. 10:43:48 A WIRE, 3MMJ .035 180CM 180CM was inserted via Fem Art (right). 10:44:20 HR=98 bpm, FNLL=377/87 mmhg, SpO2=96.0 %, Resp=12 B/min, Almonte=2 A SHEATH, FR5 TERUMO (10CM) FR 5 was exchanged in the Fem Art (right). This was necessary in or jer[place]o to 10:44:58 accomodate a larger catheter. A JR 4.0 INFINITI CATHETER FR 4 was advanced over a wire. OMNIPAQUE, 350 MG, 150ML 150ML was us ed for 10:45:32 injections. 10:49:13 HR=92 bpm, BFZQ=648/93 mmhg, SpO2=91.0 %, Resp=12 B/min, Almonte=2 After removing the current catheter a PIGTAIL ANG. INFINITI CATHETER FR 4 was advanced over a W LISANDRA, 3MMJ .035 10:50:05 180CM 180CM. 10:53:48 Catheter was removed 10:53:55 20 mL 1% XYLOCAINE given in lab by Nadeem Souza in Left Groin via Subcutaneous. 10:54:18 HR=89 bpm, CDIF=662/86 mmhg, SpO2=97.0 %, Resp=11 B/min, Pain=0, Susan=10, Almonte=2 Access site was Left Femoral Artery with MP KIT 10:54:35 10:54:50 A WIRE, 3MMJ .035 180CM 180CM was inserted via Fem Art (left). 10:55:00 A SHEATH, FR5 TERUMO (10CM) FR 5 was advanced into the Fem Art (left) using the Percutaneou s technique. 10:57:29 A WIRE, WHOLEY .035 MOD-J 145 CM 145CM was inserted via Fem Art (left). A MPA-2 INFINITI CATHETER FR 4 was advanced over a wire. OMNIPAQUE, 350 MG, 150ML 150ML was use d for 10:57:40 injections. 10:59:19 HR=82 bpm, KPNA=568/86 mmhg, SpO2=98.0 %, Resp=11 B/min, Almonte=2 11:03:58 Catheter was removed A SHEATH, FR7 PINNACLE DESTINATION 45CM FR 7 was exchanged in the Fem Art (right). This was nec essary in 11:04:02 order to accomodate a larger catheter. 11:04:18 HR=79 bpm, BWHC=210/75 mmhg, SpO2=98.0 %, Resp=11 B/min, Almonte=2 4800 units HEPARIN given in lab by Airam Morrison, RN in Right Antecubital via Peripheral IV. O rdered by Harley, 11:04:32 Nadeem. A EBU 3.5 ZUMAII CATHETER FR 7 was advanced over a wire. OMNIPAQUE, 350 MG, 150ML 150ML was use d for 11:05:52 injections. 11:06:05 The previous wire was exchanged for a WIRE, SUPERCORE 300CM 300CM. Recorded Pressure: Ao, HR=89, Condition=Condition 1 11:07:06 (Aorta) Ao 118/71/94 11:09:15 HR=87 bpm, TDNV=706/80 mmhg, SpO2=97.0 %, Resp=11 B/min, Almonte=2 A CATHETER, FR7 GUIDEZILLA II FR 7 was advanced over a wire. OMNIPAQUE, 350 MG, 150ML 150ML was used for 11:09:56 injections. 11:12:58 A WIRE, SAMURAI 300CM 300CM was inserted via Fem Art (right). 11:14:08 A WIRE, SAMURAI 300CM 300CM was inserted via Fem Art (right). 11:14:16 HR=83 bpm, TCLF=185/84 mmhg, SpO2=97.0 %, Resp=11 B/min, Almonte=2 11:16:04 Wires removed 11:16:31 A WIRE, SUPERCORE 300CM 300CM was inserted via Fem Art (right). After removing the current catheter a XBLAD 4.0 GUIDE CATHETER FR 7 was advanced over a WIRE, S UPERCORE 11:18:32 300CM 300CM. 11:19:05 A WIRE, SAMURAI 300CM 300CM was inserted via Fem Art (right). 11:19:17 HR=84 bpm, EXGQ=183/80 mmhg, Resp=11 B/min, Almonte=2 11:22:37 ACT (Normal Range 90-180) = 216 11:22:47 3000 units HEPARIN given in lab by Airam Morrison RN via Peripheral IV. Ordered by Nadeem Smith. 11:24:14 HR=76 bpm, NRUA=412/86 mmhg, SpO2=98.0 %, Resp=11 B/min, Almonte=2 11:26:00 The previous wire was exchanged for a WIRE, MAHENDRA BAEER XT 300CM 300CM. A CATHETER, TURNPIKE SPIRAL 135CM * was advanced over a wire. OMNIPAQUE, 350 MG, 150ML 150ML wa s used 11:27:50 for injections. 11:29:17 HR=90 bpm, JJMO=395/91 mmhg, SpO2=98.0 %, Resp=11 B/min, Almonte=2 11:30:54 1 mg VERSED given in lab by Airam Morrison, RN in Right Antecubital via Peripheral IV. Orde red by Nadeem Souza. 50 mcg FENTANYL given in lab by Airam Morrison, RN in Right Antecubital via Peripheral IV. Orde red by Harley, 11:31:02 Nadeem. 11:34:18 HR=77 bpm, YIOC=308/84 mmhg, SpO2=97.0 %, Resp=11 B/min, Almonte=2 11:38:48 Interventional wire has crossed the lesion 11:39:22 HR=83 bpm, NRMK=744/83 mmhg, SpO2=96.0 %, Resp=11 B/min, Almonte=2 11:40:45 The previous wire was exchanged for a WIRE, DESK MONITOR 200 300CM 300CM. 11:44:23 HR=75 bpm, WYCZ=134/86 mmhg, SpO2=96.0 %, Resp=11 B/min, Almonte=2 11:49:54 HR=97 bpm, SELH=217/91 mmhg, SpO2=98.0 %, Resp=11 B/min, Almonte=2 11:53:19 Activated Clotting Time Drawn 11:54:23 HR=81 bpm, FXCZ=208/88 mmhg, SpO2=97.0 %, Resp=10 B/min, Almonte=2 11:55:51 Wire removed 11:55:57 Injection through turnpike catheter. 11:56:48 ACT (Normal Range 90-180) = 264 11:59:20 HR=88 bpm, URQC=171/91 mmhg, SpO2=97.0 %, Resp=11 B/min, Almonte=2 11:59:38 3000 units HEPARIN given in lab by Mitzi Padron, HUMBERTO via Peripheral IV. Ordered by Nadeem Jean. 11:59:53 A WIRE, DESK MONITOR 200 300CM 300CM was inserted via Fem Art (right). 12:04:33 Wire removed 12:04:42 A WIRE, MEIRMobile Captain FIELDER XT 300CM 300CM was inserted via Fem Art (right). 12:04:58 HR=84 bpm, DPPM=517/84 mmhg, SpO2=98.0 %, Resp=11 B/min, Almonte=2 1 mg VERSED given in lab by Mitzi Padron, RN in Right Antecubital via Peripheral IV. Ordered by Harley, 12:07:31 Nadeem. 25 mcg FENTANYL given in lab by Mitzi Padron, RN in Right Antecubital via Peripheral IV. Ord ered by Harley, 12:08:05 Nadeem. 12:09:24 HR=89 bpm, MLDF=278/90 mmhg, SpO2=98.0 %, Resp=11 B/min, Almonte=2 12:10:34 Activated Clotting Time Drawn 12:11:38 Wire removed 12:11:41 Turnpike Catheter was removed 12:13:31 Catheter was removed A SHEATH, FR7 TERUMO (10CM) FR 7 was exchanged in the Fem Art (left). This was necessary in ord er to 12:13:35 accomodate a larger catheter. 12:14:25 HR=78 bpm, NXKX=633/77 mmhg, SpO2=97.0 %, Resp=10 B/min, Almonte=2 12:16:08 VASCADE, FR6 CLOSURE SYSTEM FR 6\7 placement in the Fem Art (left) 12:16:42 ACT (Normal Range 90-180) = 319 15 mg PROTAMINE given in lab by Mitzi Padron, RN in Right Antecubital via Peripheral IV. Ord ered by Harley, 12:18:29 Nadeem. 12:19:12 MYNX MANAGER BILINGUAL CLOSURE DEVICE TAVR FR 5 placement in the Fem Art (right) 12:19:24 HR=82 bpm, MDHN=388/92 mmhg, SpO2=98.0 %, Resp=10 B/min, Almonte=2 12:24:25 HR=83 bpm, DPNY=268/95 mmhg, SpO2=99.0 %, Resp=11 B/min, Almonte=2 12:28:53 15 mg PROTAMINE given in lab by Mitzi Padron, HUMBERTO via Peripheral IV. Ordered by Nadeem Wilde. 12:29:28 MN=964 bpm, WCDP=327/86 mmhg, GeU8=712.0 %, Resp=11 B/min, Almonte=2 12:30:18 Case End 12:34:29 HR=79 bpm, KXNO=376/93 mmhg, SpO2=99.0 %, Resp=11 B/min 12:39:41 Vitals capture stopped. 12:41:59 Sterile dressing applied to site 12:42:00 No case complications noted. 12:42:12 Cine recording checked. 12:42:14 Bedside Report will be given. 12:42:16 Implantable Device card placed in patient's chart. 12:42:24 Contrast Scanned 12:42:25 A Left Heart Cath was performed. 12:42:26 Patient moved to [facility] End Study - Contrast Media Used In Study Contrast Total Opened (mL) Total Used (mL) Total Wasted (mL) Omnipaque 165 165 0 End Study - Maximum Contrast Load Max Contrast Load (mL) 428.1 End Study - Radiation Exposure Fluoro Time (minutes) 47.7 End Study - Patient Disposition Complications Transferred To Interventional Outcome No Telemetry Bed incomplete
--- NOTE | 2017-09-02 12:47 | CATHPROC ---
[employer] HIS Report Study Information Study Number Admission Scheduled Start Study Start [id number] Aug 31 2017 12:44PM 09/02/2017 Sep 02 2017 9:23AM [facility] Cardiac Catheterization Admit Source Facility Department Emergency department [facility] - [facility] Physician and Clinical Staff Initial Nadeem Guzman Nail Galvanizer Mitzi Padron,HUMBERTO Nail Galvanizer Airam Morrison,HUMBERTO Recorder Christopher Munoz,RT(R) Scrub Angelito Salinas RCIS(BS) Procedures Performed Procedure Location (Site) Vessel Name L Heart Cath Wire insertion Fem Art (left) Femoral Art Wire insertion Fem Art (right) Femoral Art Equipment Time Digital Imaging Technician Description Size Mfg Part Number Used/Scraped [id number] 11:26 [employer] WIRE, ASAHI FIELDER XT 300CM 300CM Used *[id number] 12:05 [employer] WIRE, ASAHI FIELDER XT 300CM 300CM Used *[id number] 11:39 [employer] WIRE, LAB SYSTEMS ANALYST 200 300CM 300CM Used *[id number] 11:01 [employer] WIRE, SUPERCORE 300CM 300CM Used *[id number] MYNX FLOOR ASSEMBLER CLOSURE DEVICE [id number] 12:19 ACCESS CLOSURE INC. FR 5 Used TAVR *[id number] TAVR TRANSDUCER, TRUWAVE [id number] 09:51 GARCIA JACKSON * Used W/JENNIFER *[id number] 11:10 [employer]ON SCI[employer] CATHETER, FR7 GUIDEZILLA II FR 7 [id number] 10:18 [employer] WIRE, SAMURAI 190CM 190CM Used *[id number] 11:06 [employer] WIRE, SAMURAI 300CM 300CM [id number] Used 11:12 [employer] WIRE, SAMURAI 300CM 300CM [id number] Used [id number] 12:12 CARDIVA MEDICAL VASCADE, FR6 CLOSURE SYSTEM FR 6\7 Used *[id number] INTRODUCER SET, 09:51 [employer]OOK INC. FR 5 [id number] *[id number] Used MICROPUNCTURE, STIFFENED [id number] *7761830 538-442 *[id number] [id number] *[id number] [phone] *[id number] 09:51 [employer] INDUSTRIES PACK, CCL CUSTOM * Used *[id number] WIRE, WHOLEY .035 MOD-J 145 [id number] 10:57 MEDTRONIC 145CM Used CM *[id number] 10:19 MEDTRONIC/AVE EBU 3.5 ZUMAII CATHETER FR 7 Used *[id number] 09:51 Monitor110 MEDICAL WIRE, 3MMJ .035 180CM 180CM Used *[id number] 09:51 NAMIC MANIFOLD, 4 PORT * Used *6854735 09:51 NYCOMED OMNIPAQUE, 350 MG, 150ML 150ML [id number] Used [id number] 09:51 [employer] MED[employer] BLANKET,WARM AIR CCL * Used *9281824 ROU503 10:53 TERUMO MEDICAL SHEATH, FR5 TERUMO (10CM) FR 5 Used *[id number] [id number] 10:45 [employer] MEDICAL SHEATH, FR5 TERUMO (10CM) FR 5 Used *[id number] [id number] 12:13 [employer] MEDICAL SHEATH, FR7 TERUMO (10CM) FR 7 Used *[id number] SHEATH, FR7 PINNACLE 10:19 TERUMO MEDICAL/ALBERT FR 7 [id number] Used DESTINATION 45CM CATHETER, TURNPIKE SPIRAL 10:17 VASCULAR SOLUTIONS * [id number] *[id number] Used 135CM Equipment Model, Serial, Lot Number and Expiration Data Description Model Number Serial Number Lot Number Expiration Date WIRE, WHOLEY .035 MOD-J 145 [id number] 04-30-2019 CM History: Current Medications Medication Dosage/Unit Route Frequency Last Date/Time Taken XARELTO LASIX PLAVIX ASA CARDIZEM LIPITOR History: Allergies Allergy Reaction No Known Allergies History: Risk Factors Family History of Hypertension Dyslipidemia Previous [facility] Previous Heart Failure Premature CAD No No Yes Yes Yes Prior Valve Prior PCI Prior PCIDate Prior CABG Surgery No Yes 08/31/2017 No Cerebrovascular Peripheral Artery Chronic Lung On Dialysis Diabetes Disease Disease Disease No Yes No No No History: CV Disease Selection Items Known CAD History: Stress Tests Stress or Imaging Studies Performed Yes Standard Exercise Stress Test No Stress Echo No Stress Test SPECT Stress Test SPECT Result Stress Test SPECT Ischemia Risk/Extent Yes Positive High Stress Test CMR No Cardiac CTA Coronary Calcium Score No No History: Arrhythmias Selection Items Atrial fibrillation History: Other Disease Selection Items CAD History: Other Current Smoker No Labs Hgb (g/dl) Hct (%) WBC (l/cumm) Platelets (thousands) 11.60-17.00 35.00-51.00 4.00-11.00 150.00-450.00 13.1 39.5 7.2 188 Glucose (mg/dl) BUN (mg/dl) Creatinine (mg/dl) BUN:Creatinine (1:x) 74.00-106.00 7.00-18.00 0.50-1.30 10.00-20.00 74 15 0.8 18.8 Na (meq/l) K (meq/l) 136.00-145.00 3.50-5.10 140 3.7 INR (PTT:PT) 0.90-1.10 1 Medication Medication Total Dose (Bolus/Oral) Medication Total Dosage/Unit 1% XYLOCAINE 40 mL FENTANYL 125 mcg HEPARIN 26969 units PROTAMINE 30 mg VERSED 5 mg Medications (Bolus/Oral) Medication Time Given Dosage/Unit Administered By Reason VERSED 09/02/2017 10:38:21 AM 2 mg Tamiko, Airam 2 mg VERSED given in lab by Airam Morrison RN in Right Antecubital via Peripheral IV. Ordered by Nadeem Briceno. FENTANYL 09/02/2017 10:39:33 AM 50 mcg Tamiko, Airam 50 mcg FENTANYL given in lab by Airam Morrison RN in Right Antecubital via Peripheral IV. Ordered by Nadeem Souza. 1% XYLOCAINE 09/02/2017 10:42:24 AM 20 mL Gina-Fredrick Nadeem 20 mL 1% XYLOCAINE given in lab by Nadeem Souza in Right Groin via Subcutaneous. Ordered by Nadeem Ledesma. VERSED 09/02/2017 10:42:54 AM 1 mg Hesher, Airam 1 mg VERSED given in lab by Airam Morrison RN in Right Antecubital via Peripheral IV. Ordered by Nadeem Briceno. 1% XYLOCAINE 09/02/2017 10:53:55 AM 20 mL Fuentes-Fredrick, Nadeem 20 mL 1% XYLOCAINE given in lab by Nadeem Souza in Left Groin via Subcutaneous. HEPARIN 09/02/2017 11:04:32 AM 4800 units Airam Morrison 4800 units HEPARIN given in lab by Airam Morrison RN in Right Antecubital via Peripheral IV. Ordered by Nadeem Souza. HEPARIN 09/02/2017 11:22:47 AM 3000 units Hesher, Airam 3000 units HEPARIN given in lab by Airam Morrison RN via Peripheral IV. Ordered by Nadeem Souza . VERSED 09/02/2017 11:30:54 AM 1 mg Hesher, Airam 1 mg VERSED given in lab by Airam Morrison RN in Right Antecubital via Peripheral IV. Ordered by Nadeem Briceno. FENTANYL 09/02/2017 11:31:02 AM 50 mcg Hesher, Airam 50 mcg FENTANYL given in lab by Airam Morrison RN in Right Antecubital via Peripheral IV. Ordered by Nadeem Souza. HEPARIN 09/02/2017 11:59:38 AM 3000 units Adamy, Mitzi 3000 units HEPARIN given in lab by Mitzi Padron RN via Peripheral IV. Ordered by Gilda Souza o. VERSED 09/02/2017 12:07:31 PM 1 mg Adamy, Mitzi 1 mg VERSED given in lab by Mitzi Padron RN in Right Antecubital via Peripheral IV. Ordered by Nadeem Mayes. FENTANYL 09/02/2017 12:08:05 PM 25 mcg Adamy, Mitzi 25 mcg FENTANYL given in lab by Mitzi Padron RN in Right Antecubital via Peripheral IV. Ordered b y Nadeem Souza. PROTAMINE 09/02/2017 12:18:29 PM 15 mg Adamy, Mitzi 15 mg PROTAMINE given in lab by Mitzi Padron RN in Right Antecubital via Peripheral IV. Ordered b y Nadeem Souza. PROTAMINE 09/02/2017 12:28:53 PM 15 mg Adamy, Mitzi 15 mg PROTAMINE given in lab by Mitzi Padron RN via Peripheral IV. Ordered by Nadeem Souza. Medication (Drip) Medication Time Given Dosage/Unit Concentration/Unit Diluent (ml) Solution IV Solutions 09/02/2017 9:59:53 AM 0 mL (IV) 500 NaCl .9 Patient arrived on IV Solutions given by Nadeem Souza in Right Antecubital via Peripheral IV. Pu mp/Drip Flow = 20 ml/hr using NaCl .9. Ordered by Nadeem Souza. Initial Case Assessment Cardiovascular HR Rhythm NIBP Chest Pain 96 afib 167/113 0 Edema Present Skin color Skin None Normal Warm Dry Circulatory - Right Pulses Dorsalis Pedis Femoral d 3 Scale (0,1,2,3,4,d) Circulatory - Left Pulses Dorsalis Pedis Femoral d 3 Scale (0,1,2,3,4,d) Neurological State Oriented to time-place- Alert Moves all extremities person Respiration - General Respiration Rate SpO2 (%) O2 (lpm) (B/min) 18 98 0 Chronological Log Time Study Chronological Log 9:53:35 Patient arrived via Bed. 9:53:38 Patient Name, D.O.B, / Armband Verified By R.N. 9:53:39 Consent signed by the physician and the patient and verified by the [facility] staff. 9:53:40 Pre-op and post- op instructions given; patient acknowledges understanding of instructions. 9:53:47 Verbal Stimulation=2 Physical Stimulation=2 Airway=2 Respiration=2 TOTAL=8. (0=absent, 1=li mited, 2=present) 9:54:02 Presedation assessment performed by [facility] RN. 9:54:04 Patient has been NPO for More than 6Hrs. 9:54:06 Skin Breakdown-none present per patient. Vitals capture started with the following parameters, Patient=Adult, Interval=5 min, Initial Pr lsofbv=279 mmHg, 9:58:43 Deflation Rate=5 mmHg, Cuff placed on Right Arm 9:59:04 Reference ECG taken 9:59:14 LO=312 bpm, RAWE=424/113 mmhg, SpO2=95.0 %, Resp=8 B/min, Almonte=2 9:59:29 Skin Breakdown-none present per patient. 9:59:43 A # 20 IV was noted in the Antecubital (right). Grade = 0 Patient arrived on IV Solutions given by Nadeem Souza in Right Antecubital via Peripheral IV. Pump/Drip Flow = 20 9:59:53 ml/hr using NaCl .9. Ordered by Nadeem Souza. 10:00:10 History and physical on the chart or being dictated. Assessment: Initial Case, HR=96 BPM, Rhythm=afib, EQDU=193/113 mmhg, Chest Pain=0, Edema=None, Color=Normal, Skin = Warm, Dry Right Pulses: Sumanth Ped=d, Femoral=3 10:00:13 Left Pulses: Sumanth Ped=d, Femoral=3 Neurological: State=Alert, Ox3, LEMUS Respiration: Resp=18 B/min, SpO2=98 %, O2=0 lpm 10:01:23 Bilateral groins prepped with 2% chlorhexidine, and draped after a 3 minute waiting time. 10:04:20 HR=84 bpm, TYWR=576/100 mmhg, SpO2=97.0 %, Resp=10 B/min, Almonte=2 10:09:21 HR=96 bpm, UUKO=928/106 mmhg, SpO2=96.0 %, Resp=8 B/min, Almonte=2 10:12:27 MD paged 10:14:22 HR=87 bpm, TBVQ=175/107 mmhg, YjD4=351.0 %, Resp=8 B/min, Almonte=2 10:14:56 Pressure channel 1 zeroed. 10:19:21 HR=90 bpm, BGYG=321/114 mmhg, ZoE3=142.0 %, Resp=8 B/min, Almonte=2 10:24:18 HR=88 bpm, CAPR=575/109 mmhg, JiJ6=702.0 %, Resp=7 B/min, Almonte=2 10:29:21 HR=96 bpm, SHHG=266/106 mmhg, Resp=10 B/min, Almonte=2 10:34:22 HR=99 bpm, FGJO=161/126 mmhg, YpU6=324.0 %, Resp=11 B/min, Almonte=2 10:38:21 2 mg VERSED given in lab by Airam Morrison, RN in Right Antecubital via Peripheral IV. Orde red by Nadeem Souza. 10:39:14 MD arrived. 10:39:19 HR=90 bpm, JONN=676/98 mmhg, SpO2=99.0 %, Resp=15 B/min, Almonte=2 50 mcg FENTANYL given in lab by Airam Morrison, RN in Right Antecubital via Peripheral IV. Orde red by Harley, 10:39:33 Nadeem. Time Out. Correct patient, correct procedure, correct physician, power injector not loaded with contrast with surgical 10:41:50 team present. Time Out Concurred by MD and individual staff in procedure. Not loaded at this ti me. 10:42:20 Presedation re-assessment performed by [facility] RN. 10:42:23 Case Start 20 mL 1% XYLOCAINE given in lab by Nadeem Souza in Right Groin via Subcutaneous. Ordered b y Harley, 10:42:24 Nadeem. 10:42:54 1 mg VERSED given in lab by Airam Morrison, HUMBERTO in Right Antecubital via Peripheral IV. Orde red by Nadeem Souza. 10:43:14 Access site was Right Femoral Artery. A INTRODUCER SET, MICROPUNCTURE, STIFFENED FR 5 was advanced into the Fem Art (right) using the 10:43:22 Percutaneous technique. 10:43:48 A WIRE, 3MMJ .035 180CM 180CM was inserted via Fem Art (right). 10:44:20 HR=98 bpm, OAIG=584/87 mmhg, SpO2=96.0 %, Resp=12 B/min, Almonte=2 A SHEATH, FR5 TERUMO (10CM) FR 5 was exchanged in the Fem Art (right). This was necessary in or [place] to 10:44:58 accomodate a larger catheter. A JR 4.0 INFINITI CATHETER FR 4 was advanced over a wire. OMNIPAQUE, 350 MG, 150ML 150ML was us ed for 10:45:32 injections. 10:49:13 HR=92 bpm, FOUV=643/93 mmhg, SpO2=91.0 %, Resp=12 B/min, Almonte=2 After removing the current catheter a PIGTAIL ANG. INFINITI CATHETER FR 4 was advanced over a W LISANDRA, 3MMJ .035 10:50:05 180CM 180CM. 10:53:48 Catheter was removed 10:53:55 20 mL 1% XYLOCAINE given in lab by Nadeem Souza in Left Groin via Subcutaneous. 10:54:18 HR=89 bpm, BDHL=997/86 mmhg, SpO2=97.0 %, Resp=11 B/min, Pain=0, Susan=10, Almonte=2 Access site was Left Femoral Artery with MP KIT 10:54:35 10:54:50 A WIRE, 3MMJ .035 180CM 180CM was inserted via Fem Art (left). 10:55:00 A SHEATH, FR5 TERUMO (10CM) FR 5 was advanced into the Fem Art (left) using the Percutaneou s technique. 10:57:29 A WIRE, WHOLEY .035 MOD-J 145 CM 145CM was inserted via Fem Art (left). A MPA-2 INFINITI CATHETER FR 4 was advanced over a wire. OMNIPAQUE, 350 MG, 150ML 150ML was use d for 10:57:40 injections. 10:59:19 HR=82 bpm, LMDX=137/86 mmhg, SpO2=98.0 %, Resp=11 B/min, Almonte=2 11:03:58 Catheter was removed A SHEATH, FR7 PINNACLE DESTINATION 45CM FR 7 was exchanged in the Fem Art (right). This was nec essary in 11:04:02 order to accomodate a larger catheter. 11:04:18 HR=79 bpm, NMSH=099/75 mmhg, SpO2=98.0 %, Resp=11 B/min, Almonte=2 4800 units HEPARIN given in lab by Airam Morrison, RN in Right Antecubital via Peripheral IV. O rdered by Harley, 11:04:32 Nadeem. A EBU 3.5 ZUMAII CATHETER FR 7 was advanced over a wire. OMNIPAQUE, 350 MG, 150ML 150ML was use d for 11:05:52 injections. 11:06:05 The previous wire was exchanged for a WIRE, SUPERCORE 300CM 300CM. Recorded Pressure: Ao, HR=89, Condition=Condition 1 11:07:06 (Aorta) Ao 118/71/94 11:09:15 HR=87 bpm, MZKS=897/80 mmhg, SpO2=97.0 %, Resp=11 B/min, Almonte=2 A CATHETER, FR7 GUIDEZILLA II FR 7 was advanced over a wire. OMNIPAQUE, 350 MG, 150ML 150ML was used for 11:09:56 injections. 11:12:58 A WIRE, SAMURAI 300CM 300CM was inserted via Fem Art (right). 11:14:08 A WIRE, SAMURAI 300CM 300CM was inserted via Fem Art (right). 11:14:16 HR=83 bpm, RNAK=755/84 mmhg, SpO2=97.0 %, Resp=11 B/min, Almonte=2 11:16:04 Wires removed 11:16:31 A WIRE, SUPERCORE 300CM 300CM was inserted via Fem Art (right). After removing the current catheter a XBLAD 4.0 GUIDE CATHETER FR 7 was advanced over a WIRE, S UPERCORE 11:18:32 300CM 300CM. 11:19:05 A WIRE, SAMURAI 300CM 300CM was inserted via Fem Art (right). 11:19:17 HR=84 bpm, IPWD=457/80 mmhg, Resp=11 B/min, Almonte=2 11:22:37 ACT (Normal Range 90-180) = 216 11:22:47 3000 units HEPARIN given in lab by Airam Morrison RN via Peripheral IV. Ordered by Nadeem Smith. 11:24:14 HR=76 bpm, UYUL=167/86 mmhg, SpO2=98.0 %, Resp=11 B/min, Almonte=2 11:26:00 The previous wire was exchanged for a WIRE, MAHENDRA BAEER XT 300CM 300CM. A CATHETER, TURNPIKE SPIRAL 135CM * was advanced over a wire. OMNIPAQUE, 350 MG, 150ML 150ML wa s used 11:27:50 for injections. 11:29:17 HR=90 bpm, DPFJ=287/91 mmhg, SpO2=98.0 %, Resp=11 B/min, Almonte=2 11:30:54 1 mg VERSED given in lab by Airam Morrison, RN in Right Antecubital via Peripheral IV. Orde red by Nadeem Souza. 50 mcg FENTANYL given in lab by Airam Morrison, RN in Right Antecubital via Peripheral IV. Orde red by Harley, 11:31:02 Nadeem. 11:34:18 HR=77 bpm, ONQF=815/84 mmhg, SpO2=97.0 %, Resp=11 B/min, Almonte=2 11:38:48 Interventional wire has crossed the lesion 11:39:22 HR=83 bpm, GZPD=164/83 mmhg, SpO2=96.0 %, Resp=11 B/min, Almonte=2 11:40:45 The previous wire was exchanged for a WIRE, LAB SYSTEMS ANALYST 200 300CM 300CM. 11:44:23 HR=75 bpm, TJZJ=974/86 mmhg, SpO2=96.0 %, Resp=11 B/min, Almonte=2 11:49:54 HR=97 bpm, GSTM=085/91 mmhg, SpO2=98.0 %, Resp=11 B/min, Almonte=2 11:53:19 Activated Clotting Time Drawn 11:54:23 HR=81 bpm, FBKW=244/88 mmhg, SpO2=97.0 %, Resp=10 B/min, Almonte=2 11:55:51 Wire removed 11:55:57 Injection through turnpike catheter. 11:56:48 ACT (Normal Range 90-180) = 264 11:59:20 HR=88 bpm, EOMF=691/91 mmhg, SpO2=97.0 %, Resp=11 B/min, Almonte=2 11:59:38 3000 units HEPARIN given in lab by Mitzi Padron, HUMBERTO via Peripheral IV. Ordered by Nadeem Jean. 11:59:53 A WIRE, LAB SYSTEMS ANALYST 200 300CM 300CM was inserted via Fem Art (right). 12:04:33 Wire removed 12:04:42 A WIRE, MEIRAfoundria FIELDER XT 300CM 300CM was inserted via Fem Art (right). 12:04:58 HR=84 bpm, AWOO=032/84 mmhg, SpO2=98.0 %, Resp=11 B/min, Almonte=2 1 mg VERSED given in lab by Mitzi Padron, RN in Right Antecubital via Peripheral IV. Ordered by Harley, 12:07:31 Nadeem. 25 mcg FENTANYL given in lab by Mitzi Padron, RN in Right Antecubital via Peripheral IV. Ord ered by Harley, 12:08:05 Nadeem. 12:09:24 HR=89 bpm, NOGC=493/90 mmhg, SpO2=98.0 %, Resp=11 B/min, Almonte=2 12:10:34 Activated Clotting Time Drawn 12:11:38 Wire removed 12:11:41 Turnpike Catheter was removed 12:13:31 Catheter was removed A SHEATH, FR7 TERUMO (10CM) FR 7 was exchanged in the Fem Art (left). This was necessary in ord er to 12:13:35 accomodate a larger catheter. 12:14:25 HR=78 bpm, HTFE=793/77 mmhg, SpO2=97.0 %, Resp=10 B/min, Almonte=2 12:16:08 VASCADE, FR6 CLOSURE SYSTEM FR 6\7 placement in the Fem Art (left) 12:16:42 ACT (Normal Range 90-180) = 319 15 mg PROTAMINE given in lab by Mitzi Padron, RN in Right Antecubital via Peripheral IV. Ord ered by Harley, 12:18:29 Nadeem. 12:19:12 MYNX FLOOR ASSEMBLER CLOSURE DEVICE TAVR FR 5 placement in the Fem Art (right) 12:19:24 HR=82 bpm, MIIN=882/92 mmhg, SpO2=98.0 %, Resp=10 B/min, Almonte=2 12:24:25 HR=83 bpm, OCNS=281/95 mmhg, SpO2=99.0 %, Resp=11 B/min, Almonte=2 12:28:53 15 mg PROTAMINE given in lab by Mitzi Padron, HUMBERTO via Peripheral IV. Ordered by Nadeem Wilde. 12:29:28 ZH=033 bpm, QQXU=529/86 mmhg, UiI8=834.0 %, Resp=11 B/min, Almonte=2 12:30:18 Case End 12:34:29 HR=79 bpm, OECX=304/93 mmhg, SpO2=99.0 %, Resp=11 B/min 12:39:41 Vitals capture stopped. 12:41:59 Sterile dressing applied to site 12:42:00 No case complications noted. 12:42:12 Cine recording checked. 12:42:14 Bedside Report will be given. 12:42:16 Implantable Device card placed in patient's chart. 12:42:24 Contrast Scanned 12:42:25 A Left Heart Cath was performed. 12:42:26 Patient moved to [facility] End Study - Contrast Media Used In Study Contrast Total Opened (mL) Total Used (mL) Total Wasted (mL) Omnipaque 165 165 0 End Study - Maximum Contrast Load Max Contrast Load (mL) 428.1 End Study - Radiation Exposure Fluoro Time (minutes) 47.7 End Study - Patient Disposition Complications Transferred To Interventional Outcome No Telemetry Bed incomplete
--- NOTE | 2017-09-02 12:47 | CATHPROC ---
[facility] HIS Report Study Information Study Number Admission Scheduled Start Study Start [id number] Aug 31 2017 12:44PM 09/02/2017 Sep 02 2017 9:23AM [place] Service Cardiac Catheterization Admit Source Facility Department Emergency department [facility] - Supervisor [employer] Physician and Clinical Staff Initial Nadeem Guzman Joint Finisher Mitzi Padron,HUMBERTO Joint Finisher Airam Morrison,HUMBERTO Recorder Christopher Munoz,RT(R) Scrub Angelito Salinas RCIS(BS) Procedures Performed Procedure Location (Site) Vessel Name L Heart Cath Wire insertion Fem Art (left) Femoral Art Wire insertion Fem Art (right) Femoral Art Equipment Time Sales And Retail Management Recruiter Description Size Mfg Part Number Used/Scraped [id number] 11:26 [employer] WIRE, ASAHI FIELDER XT 300CM 300CM Used *[id number] 12:05 [employer] WIRE, ASAHI FIELDER XT 300CM 300CM Used *[id number] 11:39 [employer] WIRE, END MAKER 200 300CM 300CM Used *[id number] 11:01 [employer] WIRE, SUPERCORE 300CM 300CM Used *[id number] MYNX WEB SITE PROJECT MANAGER CLOSURE DEVICE [id number] 12:19 ACCESS CLOSURE INC. FR 5 Used TAVR *[id number] TAVR TRANSDUCER, TRUWAVE [id number] 09:51 GARCIA JACKSON * Used W/JENNIFER *[id number] 11:10 BOSTON SCIENTIFIC CATHETER, FR7 GUIDEZILLA II FR 7 [id number] Used [id number] 10:18 [employer] WIRE, SAMURAI 190CM 190CM Used *[id number] 11:06 [employer] WIRE, SAMURAI 300CM 300CM [id number] Used 11:12 [employer] SCI[employer] WIRE, SAMURAI 300CM 300CM [id number] Used [id number] 12:12 CARDIVA MEDICAL VASCADE, FR6 CLOSURE SYSTEM FR 6\7 Used *[id number] INTRODUCER SET, 09:51 [employer]. FR 5 [id number] *[id number] Used MICROPUNCTURE, STIFFENED [id number] *[id number] 538-442 *[id number] *[phone] *[id number] 09:51 [employer] INDUSTRIES PACK, CCL CUSTOM * Used *[id number] WIRE, WHOLEY .035 MOD-J 145 [id number] 10:57 MEDTRONIC 145CM Used CM *[id number] 10:19 MEDTRONIC/AVE EBU 3.5 ZUMAII CATHETER FR 7 Used *[id number] [id number] 09:51 nodila MEDICAL WIRE, 3MMJ .035 180CM 180CM Used *[id number] [id number] 09:51 NAMIC MANIFOLD, 4 PORT * Used *2371537 09:51 NYCOMED OMNIPAQUE, 350 MG, 150ML 150ML [id number] Used [id number] 09:51 ARCOS MEDICAL BLANKET,WARM AIR CCL * Used *[id number] 10:53 TERUMO MEDICAL SHEATH, FR5 TERUMO (10CM) FR 5 Used *[id number] [id number] 10:45 TERUMO MEDICAL SHEATH, FR5 TERUMO (10CM) FR 5 Used *[id number] [id number] 12:13 TERUMO MEDICAL SHEATH, FR7 TERUMO (10CM) FR 7 Used *[id number] SHEATH, FR7 PINNACLE 10:19 TERUMO MEDICAL/ALBERT FR 7 [id number] Used DESTINATION 45CM CATHETER, TURNPIKE SPIRAL 10:17 VASCULAR SOLUTIONS * [id number] *[id number] Used 135CM Equipment Model, Serial, Lot Number and Expiration Data Description Model Number Serial Number Lot Number Expiration Date WIRE, WHOLEY .035 MOD-J 145 [id number] 04-30-2019 CM History: Current Medications Medication Dosage/Unit Route Frequency Last Date/Time Taken XARELTO LASIX PLAVIX ASA CARDIZEM LIPITOR History: Allergies Allergy Reaction No Known Allergies History: Risk Factors Family History of Hypertension Dyslipidemia Previous [place] Previous Heart Failure Premature CAD No No Yes Yes Yes Prior Valve Prior PCI Prior PCIDate Prior CABG Surgery No Yes 08/31/2017 No Cerebrovascular Peripheral Artery Chronic Lung On Dialysis Diabetes Disease Disease Disease No Yes No No No History: CV Disease Selection Items Known CAD History: Stress Tests Stress or Imaging Studies Performed Yes Standard Exercise Stress Test No Stress Echo No Stress Test SPECT Stress Test SPECT Result Stress Test SPECT Ischemia Risk/Extent Yes Positive High Stress Test CMR No Cardiac CTA Coronary Calcium Score No No History: Arrhythmias Selection Items Atrial fibrillation History: Other Disease Selection Items CAD History: Other Current Smoker No Labs Hgb (g/dl) Hct (%) WBC (l/cumm) Platelets (thousands) 11.60-17.00 35.00-51.00 4.00-11.00 150.00-450.00 13.1 39.5 7.2 188 Glucose (mg/dl) BUN (mg/dl) Creatinine (mg/dl) BUN:Creatinine (1:x) 74.00-106.00 7.00-18.00 0.50-1.30 10.00-20.00 74 15 0.8 18.8 Na (meq/l) K (meq/l) 136.00-145.00 3.50-5.10 140 3.7 INR (PTT:PT) 0.90-1.10 1 Medication Medication Total Dose (Bolus/Oral) Medication Total Dosage/Unit 1% XYLOCAINE 40 mL FENTANYL 125 mcg HEPARIN 20832 units PROTAMINE 30 mg VERSED 5 mg Medications (Bolus/Oral) Medication Time Given Dosage/Unit Administered By Reason VERSED 09/02/2017 10:38:21 AM 2 mg Tamiko, Airam 2 mg VERSED given in lab by Airam Morrison RN in Right Antecubital via Peripheral IV. Ordered by Nadeem Briceno. FENTANYL 09/02/2017 10:39:33 AM 50 mcg Tamiko, Airam 50 mcg FENTANYL given in lab by Airam Morrison RN in Right Antecubital via Peripheral IV. Ordered by Nadeem Souza. 1% XYLOCAINE 09/02/2017 10:42:24 AM 20 mL Gina-Fredrick Nadeem 20 mL 1% XYLOCAINE given in lab by Nadeem Souza in Right Groin via Subcutaneous. Ordered by Nadeem Ledesma. VERSED 09/02/2017 10:42:54 AM 1 mg Hesher, Airam 1 mg VERSED given in lab by Airam Morrison RN in Right Antecubital via Peripheral IV. Ordered by Nadeem Briceno. 1% XYLOCAINE 09/02/2017 10:53:55 AM 20 mL Fuentes-Fredrick, Nadeem 20 mL 1% XYLOCAINE given in lab by Nadeem Souza in Left Groin via Subcutaneous. HEPARIN 09/02/2017 11:04:32 AM 4800 units Airam Morrison 4800 units HEPARIN given in lab by Airam Morrison RN in Right Antecubital via Peripheral IV. Ordered by Ndaeem Souza. HEPARIN 09/02/2017 11:22:47 AM 3000 units Hesher, Airam 3000 units HEPARIN given in lab by Airam Morrison RN via Peripheral IV. Ordered by Nadeem Souza . VERSED 09/02/2017 11:30:54 AM 1 mg Hesher, Airam 1 mg VERSED given in lab by Airam Morrison RN in Right Antecubital via Peripheral IV. Ordered by Nadeem Briceno. FENTANYL 09/02/2017 11:31:02 AM 50 mcg Hesher, Airam 50 mcg FENTANYL given in lab by Airam Morrison RN in Right Antecubital via Peripheral IV. Ordered by Nadeem Souza. HEPARIN 09/02/2017 11:59:38 AM 3000 units Adamy, Mitzi 3000 units HEPARIN given in lab by Mitzi Padron RN via Peripheral IV. Ordered by Gilda Souza o. VERSED 09/02/2017 12:07:31 PM 1 mg Adamy, Mitzi 1 mg VERSED given in lab by Mitzi Padron RN in Right Antecubital via Peripheral IV. Ordered by Nadeem Mayes. FENTANYL 09/02/2017 12:08:05 PM 25 mcg Adamy, Imtzi 25 mcg FENTANYL given in lab by Mitzi Padron RN in Right Antecubital via Peripheral IV. Ordered b y Nadeem Souza. PROTAMINE 09/02/2017 12:18:29 PM 15 mg Adamy, Mitzi 15 mg PROTAMINE given in lab by Mitzi Padron RN in Right Antecubital via Peripheral IV. Ordered b y Nadeem Souza. PROTAMINE 09/02/2017 12:28:53 PM 15 mg Adamy, Mitzi 15 mg PROTAMINE given in lab by Mitzi Padron RN via Peripheral IV. Ordered by Nadeem Souza. Medication (Drip) Medication Time Given Dosage/Unit Concentration/Unit Diluent (ml) Solution IV Solutions 09/02/2017 9:59:53 AM 0 mL (IV) 500 NaCl .9 Patient arrived on IV Solutions given by Nadeem Souza in Right Antecubital via Peripheral IV. Pu mp/Drip Flow = 20 ml/hr using NaCl .9. Ordered by Nadeem Souza. Initial Case Assessment Cardiovascular HR Rhythm NIBP Chest Pain 96 afib 167/113 0 Edema Present Skin color Skin None Normal Warm Dry Circulatory - Right Pulses Dorsalis Pedis Femoral d 3 Scale (0,1,2,3,4,d) Circulatory - Left Pulses Dorsalis Pedis Femoral d 3 Scale (0,1,2,3,4,d) Neurological State Oriented to time-place- Alert Moves all extremities person Respiration - General Respiration Rate SpO2 (%) O2 (lpm) (B/min) 18 98 0 Chronological Log Time Study Chronological Log 9:53:35 Patient arrived via Bed. 9:53:38 Patient Name, D.O.B, / Armband Verified By R.N. 9:53:39 Consent signed by the physician and the patient and verified by the Supervisor [employer] staff. 9:53:40 Pre-op and post- op instructions given; patient acknowledges understanding of instructions. 9:53:47 Verbal Stimulation=2 Physical Stimulation=2 Airway=2 Respiration=2 TOTAL=8. (0=absent, 1=li mited, 2=present) 9:54:02 Presedation assessment performed by Supervisor [employer] RN. 9:54:04 Patient has been NPO for More than 6Hrs. 9:54:06 Skin Breakdown-none present per patient. Vitals capture started with the following parameters, Patient=Adult, Interval=5 min, Initial Pr okrkpe=266 mmHg, 9:58:43 Deflation Rate=5 mmHg, Cuff placed on Right Arm 9:59:04 Reference ECG taken 9:59:14 EI=500 bpm, VJXX=563/113 mmhg, SpO2=95.0 %, Resp=8 B/min, Almonte=2 9:59:29 Skin Breakdown-none present per patient. 9:59:43 A # 20 IV was noted in the Antecubital (right). Grade = 0 Patient arrived on IV Solutions given by Nadeem Souza in Right Antecubital via Peripheral IV. Pump/Drip Flow = 20 9:59:53 ml/hr using NaCl .9. Ordered by Nadeem Souza. 10:00:10 History and physical on the chart or being dictated. Assessment: Initial Case, HR=96 BPM, Rhythm=afib, ZNEX=366/113 mmhg, Chest Pain=0, Edema=None, Color=Normal, Skin = Warm, Dry Right Pulses: Sumanth Ped=d, Femoral=3 10:00:13 Left Pulses: Sumanth Ped=d, Femoral=3 Neurological: State=Alert, Ox3, LEMUS Respiration: Resp=18 B/min, SpO2=98 %, O2=0 lpm 10:01:23 Bilateral groins prepped with 2% chlorhexidine, and draped after a 3 minute waiting time. 10:04:20 HR=84 bpm, NZAA=893/100 mmhg, SpO2=97.0 %, Resp=10 B/min, Almonte=2 10:09:21 HR=96 bpm, DQRN=686/106 mmhg, SpO2=96.0 %, Resp=8 B/min, Almonte=2 10:12:27 MD paged 10:14:22 HR=87 bpm, DJDS=651/107 mmhg, LlG8=367.0 %, Resp=8 B/min, Almonte=2 10:14:56 Pressure channel 1 zeroed. 10:19:21 HR=90 bpm, ZIDU=419/114 mmhg, BbH8=885.0 %, Resp=8 B/min, Almonte=2 10:24:18 HR=88 bpm, MUAN=543/109 mmhg, EiR7=063.0 %, Resp=7 B/min, Almonte=2 10:29:21 HR=96 bpm, HKVO=443/106 mmhg, Resp=10 B/min, Almonte=2 10:34:22 HR=99 bpm, YRFO=921/126 mmhg, LjP6=972.0 %, Resp=11 B/min, Almonte=2 10:38:21 2 mg VERSED given in lab by Airam Morrison, RN in Right Antecubital via Peripheral IV. Orde red by Nadeem Souza. 10:39:14 MD arrived. 10:39:19 HR=90 bpm, OCBE=410/98 mmhg, SpO2=99.0 %, Resp=15 B/min, Almonte=2 50 mcg FENTANYL given in lab by Airam Morrison, RN in Right Antecubital via Peripheral IV. Orde red by Harley, 10:39:33 Nadeem. Time Out. Correct patient, correct procedure, correct physician, power injector not loaded with contrast with surgical 10:41:50 team present. Time Out Concurred by MD and individual staff in procedure. Not loaded at this ti me. 10:42:20 Presedation re-assessment performed by Supervisor [employer] RN. 10:42:23 Case Start 20 mL 1% XYLOCAINE given in lab by Nadeem Souza in Right Groin via Subcutaneous. Ordered b y Harley, 10:42:24 Nadeem. 10:42:54 1 mg VERSED given in lab by Airam Morrison, HUMBERTO in Right Antecubital via Peripheral IV. Orde red by Nadeem Souza. 10:43:14 Access site was Right Femoral Artery. A INTRODUCER SET, MICROPUNCTURE, STIFFENED FR 5 was advanced into the Fem Art (right) using the 10:43:22 Percutaneous technique. 10:43:48 A WIRE, 3MMJ .035 180CM 180CM was inserted via Fem Art (right). 10:44:20 HR=98 bpm, IQVQ=045/87 mmhg, SpO2=96.0 %, Resp=12 B/min, Almonte=2 A SHEATH, FR5 TERUMO (10CM) FR 5 was exchanged in the Fem Art (right). This was necessary in or jericho to 10:44:58 accomodate a larger catheter. A JR 4.0 INFINITI CATHETER FR 4 was advanced over a wire. OMNIPAQUE, 350 MG, 150ML 150ML was us ed for 10:45:32 injections. 10:49:13 HR=92 bpm, YIKC=222/93 mmhg, SpO2=91.0 %, Resp=12 B/min, Almonte=2 After removing the current catheter a PIGTAIL ANG. INFINITI CATHETER FR 4 was advanced over a W LISANDRA, 3MMJ .035 10:50:05 180CM 180CM. 10:53:48 Catheter was removed 10:53:55 20 mL 1% XYLOCAINE given in lab by Nadeem Souza in Left Groin via Subcutaneous. 10:54:18 HR=89 bpm, MAHY=452/86 mmhg, SpO2=97.0 %, Resp=11 B/min, Pain=0, Susan=10, Almonte=2 Access site was Left Femoral Artery with MP KIT 10:54:35 10:54:50 A WIRE, 3MMJ .035 180CM 180CM was inserted via Fem Art (left). 10:55:00 A SHEATH, FR5 TERUMO (10CM) FR 5 was advanced into the Fem Art (left) using the Percutaneou s technique. 10:57:29 A WIRE, WHOLEY .035 MOD-J 145 CM 145CM was inserted via Fem Art (left). A MPA-2 INFINITI CATHETER FR 4 was advanced over a wire. OMNIPAQUE, 350 MG, 150ML 150ML was use d for 10:57:40 injections. 10:59:19 HR=82 bpm, RRFN=846/86 mmhg, SpO2=98.0 %, Resp=11 B/min, Almonte=2 11:03:58 Catheter was removed A SHEATH, FR7 PINNACLE DESTINATION 45CM FR 7 was exchanged in the Fem Art (right). This was nec essary in 11:04:02 order to accomodate a larger catheter. 11:04:18 HR=79 bpm, XZDO=284/75 mmhg, SpO2=98.0 %, Resp=11 B/min, Almonte=2 4800 units HEPARIN given in lab by Airam Morrison, RN in Right Antecubital via Peripheral IV. O rdered by Harley, 11:04:32 Nadeem. A EBU 3.5 ZUMAII CATHETER FR 7 was advanced over a wire. OMNIPAQUE, 350 MG, 150ML 150ML was use d for 11:05:52 injections. 11:06:05 The previous wire was exchanged for a WIRE, SUPERCORE 300CM 300CM. Recorded Pressure: Ao, HR=89, Condition=Condition 1 11:07:06 (Aorta) Ao 118/71/94 11:09:15 HR=87 bpm, RAPZ=434/80 mmhg, SpO2=97.0 %, Resp=11 B/min, Almonte=2 A CATHETER, FR7 GUIDEZILLA II FR 7 was advanced over a wire. OMNIPAQUE, 350 MG, 150ML 150ML was used for 11:09:56 injections. 11:12:58 A WIRE, SAMURAI 300CM 300CM was inserted via Fem Art (right). 11:14:08 A WIRE, SAMURAI 300CM 300CM was inserted via Fem Art (right). 11:14:16 HR=83 bpm, ZJTJ=010/84 mmhg, SpO2=97.0 %, Resp=11 B/min, Almonte=2 11:16:04 Wires removed 11:16:31 A WIRE, SUPERCORE 300CM 300CM was inserted via Fem Art (right). After removing the current catheter a XBLAD 4.0 GUIDE CATHETER FR 7 was advanced over a WIRE, S UPERCORE 11:18:32 300CM 300CM. 11:19:05 A WIRE, SAMURAI 300CM 300CM was inserted via Fem Art (right). 11:19:17 HR=84 bpm, FGDC=878/80 mmhg, Resp=11 B/min, Almonte=2 11:22:37 ACT (Normal Range 90-180) = 216 11:22:47 3000 units HEPARIN given in lab by Airam Morrison RN via Peripheral IV. Ordered by Nadeem Smith. 11:24:14 HR=76 bpm, KHCJ=736/86 mmhg, SpO2=98.0 %, Resp=11 B/min, Almonte=2 11:26:00 The previous wire was exchanged for a WIRE, MAHENDRA BAEER XT 300CM 300CM. A CATHETER, TURNPIKE SPIRAL 135CM * was advanced over a wire. OMNIPAQUE, 350 MG, 150ML 150ML wa s used 11:27:50 for injections. 11:29:17 HR=90 bpm, VFNX=548/91 mmhg, SpO2=98.0 %, Resp=11 B/min, Almonte=2 11:30:54 1 mg VERSED given in lab by Airam Morrison, RN in Right Antecubital via Peripheral IV. Orde red by Nadeem Souza. 50 mcg FENTANYL given in lab by Airam Morrison, RN in Right Antecubital via Peripheral IV. Orde red by Harley, 11:31:02 Nadeem. 11:34:18 HR=77 bpm, NVBM=313/84 mmhg, SpO2=97.0 %, Resp=11 B/min, Almonte=2 11:38:48 Interventional wire has crossed the lesion 11:39:22 HR=83 bpm, ZQGW=803/83 mmhg, SpO2=96.0 %, Resp=11 B/min, Almonte=2 11:40:45 The previous wire was exchanged for a WIRE, END MAKER 200 300CM 300CM. 11:44:23 HR=75 bpm, FEVO=483/86 mmhg, SpO2=96.0 %, Resp=11 B/min, Almonte=2 11:49:54 HR=97 bpm, FNON=013/91 mmhg, SpO2=98.0 %, Resp=11 B/min, Almonte=2 11:53:19 Activated Clotting Time Drawn 11:54:23 HR=81 bpm, RMXD=878/88 mmhg, SpO2=97.0 %, Resp=10 B/min, Almonte=2 11:55:51 Wire removed 11:55:57 Injection through turnpike catheter. 11:56:48 ACT (Normal Range 90-180) = 264 11:59:20 HR=88 bpm, MXZC=540/91 mmhg, SpO2=97.0 %, Resp=11 B/min, Almonte=2 11:59:38 3000 units HEPARIN given in lab by Mitzi Padron, HUMBERTO via Peripheral IV. Ordered by Nadeem Jean. 11:59:53 A WIRE, END MAKER 200 300CM 300CM was inserted via Fem Art (right). 12:04:33 Wire removed 12:04:42 A WIRE, MEIRI AM AT FIELDER XT 300CM 300CM was inserted via Fem Art (right). 12:04:58 HR=84 bpm, QTSA=204/84 mmhg, SpO2=98.0 %, Resp=11 B/min, Almonte=2 1 mg VERSED given in lab by Mitzi Padron, RN in Right Antecubital via Peripheral IV. Ordered by Harley, 12:07:31 Nadeem. 25 mcg FENTANYL given in lab by Mitzi Padron, RN in Right Antecubital via Peripheral IV. Ord ered by Harley, 12:08:05 Nadeem. 12:09:24 HR=89 bpm, GDLQ=246/90 mmhg, SpO2=98.0 %, Resp=11 B/min, Almonte=2 12:10:34 Activated Clotting Time Drawn 12:11:38 Wire removed 12:11:41 Turnpike Catheter was removed 12:13:31 Catheter was removed A SHEATH, FR7 TERUMO (10CM) FR 7 was exchanged in the Fem Art (left). This was necessary in ord er to 12:13:35 accomodate a larger catheter. 12:14:25 HR=78 bpm, LXOJ=132/77 mmhg, SpO2=97.0 %, Resp=10 B/min, Almonte=2 12:16:08 VASCADE, FR6 CLOSURE SYSTEM FR 6\7 placement in the Fem Art (left) 12:16:42 ACT (Normal Range 90-180) = 319 15 mg PROTAMINE given in lab by Mitzi Padron, RN in Right Antecubital via Peripheral IV. Ord ered by Harley, 12:18:29 Nadeem. 12:19:12 MYNX WEB SITE PROJECT MANAGER CLOSURE DEVICE TAVR FR 5 placement in the Fem Art (right) 12:19:24 HR=82 bpm, DXWV=800/92 mmhg, SpO2=98.0 %, Resp=10 B/min, Almonte=2 12:24:25 HR=83 bpm, DMDM=304/95 mmhg, SpO2=99.0 %, Resp=11 B/min, Almonte=2 12:28:53 15 mg PROTAMINE given in lab by iMtzi Padron, HUMBERTO via Peripheral IV. Ordered by Nadeem Wilde. 12:29:28 XQ=560 bpm, SKTN=773/86 mmhg, IxJ2=284.0 %, Resp=11 B/min, Almonte=2 12:30:18 Case End 12:34:29 HR=79 bpm, KXFG=115/93 mmhg, SpO2=99.0 %, Resp=11 B/min 12:39:41 Vitals capture stopped. 12:41:59 Sterile dressing applied to site 12:42:00 No case complications noted. 12:42:12 Cine recording checked. 12:42:14 Bedside Report will be given. 12:42:16 Implantable Device card placed in patient's chart. 12:42:24 Contrast Scanned 12:42:25 A Left Heart Cath was performed. 12:42:26 Patient moved to [facility] End Study - Contrast Media Used In Study Contrast Total Opened (mL) Total Used (mL) Total Wasted (mL) Omnipaque 165 165 0 End Study - Maximum Contrast Load Max Contrast Load (mL) 428.1 End Study - Radiation Exposure Fluoro Time (minutes) 47.7 End Study - Patient Disposition Complications Transferred To Interventional Outcome No Telemetry Bed incomplete
--- NOTE | 2017-09-02 12:54 | PD.CARD.PN ---
Subjective Subjective Remarks No CV complaints No overnight events s/p PCi/JUVENTINO to RCA Objective Medications Current Medications Medications (Trade) Dose Ordered Sig/Morena Route Start Time Stop Time Status Last Admin (NS Flush) 2 ml UNSCH PRN IV FLUSH 08/31/17 11:30 (Lanoxin) 0.125 mg DAILY PO 09/01/17 09:00 09/02/17 09:13 (Cardizem Cd) 180 mg DAILY PO 09/01/17 09:00 09/02/17 09:44 (Lasix) 20 mg DAILY PO 09/01/17 09:00 09/01/17 08:49 (Aspirin Chew) 81 mg DAILY PO 09/01/17 09:00 09/02/17 09:44 (Plavix) 75 mg DAILY PO 09/01/17 09:00 09/02/17 09:44 (NS Flush) 2 ml UNSCH PRN IV FLUSH 08/31/17 19:00 (NS Flush) 2 ml BID IV FLUSH 08/31/17 21:00 09/02/17 09:13 (Lipitor) 40 mg DAILY PO 09/02/17 09:00 Vital Signs / I&O Vital Signs Date Time Temp Pulse Resp B/P (MAP) Pulse Ox O2 Delivery O2 Flow Rate FiO2 09/02/17 09:00 88 09/02/17 08:00 98.1 89 16 120/89 (99) 95 09/02/17 08:00 95 Room Air 09/02/17 08:00 89 09/02/17 07:00 72 09/02/17 06:00 68 09/02/17 05:00 69 09/02/17 04:00 70 09/02/17 03:00 66 09/02/17 03:00 98.4 66 16 124/70 (88) 93 09/02/17 02:00 67 09/02/17 01:00 61 09/02/17 00:00 63 09/01/17 23:00 98.8 69 16 115/77 (90) 95 09/01/17 23:00 69 09/01/17 22:00 69 09/01/17 21:00 68 09/01/17 20:00 96 Room Air 09/01/17 20:00 64 09/01/17 20:00 99.1 69 16 110/69 (83) 96 09/01/17 19:00 62 09/01/17 17:00 81 09/01/17 16:00 98.4 78 16 117/61 (79) 96 09/01/17 16:00 78 09/01/17 15:00 76 09/01/17 14:00 65 09/01/17 13:00 74 I/O 09/01/17 09/01/17 09/01/17 09/02/17 09/02/17 09/02/17 07:00 15:00 23:00 07:00 15:00 23:00 Intake Total 1480 ml 625 ml 240 ml Output Total 275 ml 450 ml 350 ml Balance 1205 ml 175 ml -110 ml Intake Oral 480 ml 625 ml 240 ml IV Total 1000 ml Output Urine Total 275 ml 450 ml 350 ml # Voids 2 # Bowel Movements 0 0 0 Physical Exam GENERAL: Well-nourished, well-developed patient. SKIN: Warm and dry. HEAD: Normocephalic. EYES: No scleral icterus. No injection or drainage. NECK: Supple, trachea midline. No JVD or lymphadenopathy. CARDIOVASCULAR: Regular rate and rhythm without murmurs, gallops, or rubs. RESPIRATORY: Breath sounds equal bilaterally. No accessory muscle use. GASTROINTESTINAL: Abdomen soft, non-tender, nondistended. EXTREMITIES: No cyanosis, or edema. NEUROLOGICAL: Awake, alert, and oriented x 3. Non-focal. Laboratory Laboratory Tests Test 09/02/17 04:00 Triglycerides Level 72 MG/DL Cholesterol Level 171 MG/DL LDL Cholesterol 111 MG/DL HDL Cholesterol 45.5 MG/DL Cholesterol/HDL Ratio 3.75 RATIO Assessment and Plan Problem List: (1) CAD (coronary artery disease) ICD Codes: I25.10 - Atherosclerotic heart disease of [place] coronary artery without angina pectoris Plan: Plan for PCI to [employer] of LAD Keep NPO (2) Congestive heart failure ICD Codes: I50.9 - Congestive heart failure Status: Acute (3) Atrial fibrillation ICD Codes: I48.91 - Unspecified atrial fibrillation Status: Acute (4) LBBB (left bundle branch block) ICD Codes: I44.7 - Left bundle-branch block, unspecified Status: Acute (5) AAA (abdominal aortic aneurysm) ICD Codes: I71.4 - Abdominal aortic aneurysm, without rupture Problem Qualifiers (1) CAD (coronary artery disease): Fuentes-Fredrick,Nadeem R MD Sep 02, 2017 12:54
--- NOTE | 2017-09-02 13:05 | PD.CARD ---
Cardiology Procedure Note Procedure Name: High Risk PCI to LAD CIGAR[employer]TE PACKAGE EXAMINER Procedure Date: Sep 02, 2017 Procedure Note: DATE OF 1940 DATE OF PROCEDURE September 02, 2017 PROCEDURE PERFORMED 1. Left heart catheterization. 2. Selective left coronary angiography. 3. Left ventriculogram. 4. Unsuccessful PCI to CIGARETTE PACKAGE EXAMINER of LAD INDICATION Positive stress test. Preoperative evaluation prior to AAA repair. PROCEDURE DESCRIPTION Consent signed. The patient was brought into the Cardiac Catheterization Laboratory in a fasting state. Her left groin was prepped and draped in sterile fashion using 1% lidocaine for local anesthesia and a micropuncture kit. A 7-[place] 45cm sheath was inserted into the left common femoral artery. IV heparin was given for anticoagulation. Then selective left coronary angiography was performed with a EBU 4 7Fr guide. Angiography was taken in multiple views. Then using different coronaries wires, a turn pike we tried several times to open the CIGARETTE PACKAGE EXAMINER of the LAD, however we were unsuccessful to get to the true lumen due to severe calcification, small caliber vessel and long CIGARETTE PACKAGE EXAMINER occlusion, despite creating an adequate channel for reentry. The Procedure was then terminated. Final angiographic views revealed better flow to the LAD however still diminished and mostly being fill in thru collaterals that come from the left circumflex artery as well as from the diagonal arteries. Patient tolerated procedure well without complications. Total contrast used 110cc. Blood Loss 30cc Access sites were close with Vascade and a Mynx. Please refer fo diagnostic previous [facility] for details of coronary anatomy. CONCLUSIONS 1. Unsuccessful CIGARETTE PACKAGE EXAMINER of LAD. RECOMMENDATIONS The patient will be admitted to the CVICU for post-cath care. He will be given IV hydration. Continue aspirin and Plavix as well as aggressive medical management for his coronary artery disease. Regarding his pending surgery he his completely revascularized and there is not need to open the LAD CIGARETTE PACKAGE EXAMINER prior to AAA repair. No further cardiac work needed prior to EVAR. Will follow clinically. Nadeem Souza MD Sep 02, 2017 13:05
--- NOTE | 2017-09-02 13:05 | PD.CARD ---
Cardiology Procedure Note Procedure Name: High Risk PCI to LAD SENIOR SCIENCE CONSULTANT Procedure Date: Sep 02, 2017 Procedure Note: DATE OF 1940 DATE OF PROCEDURE September 02, 2017 PROCEDURE PERFORMED 1. Left heart catheterization. 2. Selective left coronary angiography. 3. Left ventriculogram. 4. Unsuccessful PCI to SENIOR SCIENCE CONSULTANT of LAD INDICATION Positive stress test. Preoperative evaluation prior to AAA repair. PROCEDURE DESCRIPTION Consent signed. The patient was brought into the Cardiac Catheterization Laboratory in a fasting state. Her left groin was prepped and draped in sterile fashion using 1% lidocaine for local anesthesia and a micropuncture kit. A 7-[place]ian 45cm sheath was inserted into the left common femoral artery. IV heparin was given for anticoagulation. Then selective left coronary angiography was performed with a EBU 4 7Fr guide. Angiography was taken in multiple views. Then using different coronaries wires, a turn pike we tried several times to open the SENIOR SCIENCE CONSULTANT of the LAD, however we were unsuccessful to get to the true lumen due to severe calcification, small caliber vessel and long SENIOR SCIENCE CONSULTANT occlusion, despite creating an adequate channel for reentry. The Procedure was then terminated. Final angiographic views revealed better flow to the LAD however still diminished and mostly being fill in thru collaterals that come from the left circumflex artery as well as from the diagonal arteries. Patient tolerated procedure well without complications. Total contrast used 110cc. Blood Loss 30cc Access sites were close with Vascade and a Mynx. Please refer fo diagnostic previous [facility] for details of coronary anatomy. CONCLUSIONS 1. Unsuccessful SENIOR SCIENCE CONSULTANT of LAD. RECOMMENDATIONS The patient will be admitted to the CVICU for post-cath care. He will be given IV hydration. Continue aspirin and Plavix as well as aggressive medical management for his coronary artery disease. Regarding his pending surgery he his completely revascularized and there is not need to open the LAD SENIOR SCIENCE CONSULTANT prior to AAA repair. No further cardiac work needed prior to EVAR. Will follow clinically. Nadeem Souza MD Sep 02, 2017 13:05
--- NOTE | 2017-09-02 13:05 | PD.CARD ---
Cardiology Procedure Note Procedure Name: High Risk PCI to LAD TANDEM MILL ROLLER Procedure Date: Sep 02, 2017 Procedure Note: DATE OF 1940 DATE OF PROCEDURE September 02, 2017 PROCEDURE PERFORMED 1. Left heart catheterization. 2. Selective left coronary angiography. 3. Left ventriculogram. 4. Unsuccessful PCI to TANDEM MILL ROLLER of LAD INDICATION Positive stress test. Preoperative evaluation prior to AAA repair. PROCEDURE DESCRIPTION Consent signed. The patient was brought into the Cardiac Catheterization Laboratory in a fasting state. Her left groin was prepped and draped in sterile fashion using 1% lidocaine for local anesthesia and a micropuncture kit. A 7-[place] 45cm sheath was inserted into the left common femoral artery. IV heparin was given for anticoagulation. Then selective left coronary angiography was performed with a EBU 4 7Fr guide. Angiography was taken in multiple views. Then using different coronaries wires, a turn pike we tried several times to open the TANDEM MILL ROLLER of the LAD, however we were unsuccessful to get to the true lumen due to severe calcification, small caliber vessel and long TANDEM MILL ROLLER occlusion, despite creating an adequate channel for reentry. The Procedure was then terminated. Final angiographic views revealed better flow to the LAD however still diminished and mostly being fill in thru collaterals that come from the left circumflex artery as well as from the diagonal arteries. Patient tolerated procedure well without complications. Total contrast used 110cc. Blood Loss 30cc Access sites were close with Vascade and a Mynx. Please refer fo diagnostic previous [facility] for details of coronary anatomy. CONCLUSIONS 1. Unsuccessful TANDEM MILL ROLLER of LAD. RECOMMENDATIONS The patient will be admitted to the CVICU for post-cath care. He will be given IV hydration. Continue aspirin and Plavix as well as aggressive medical management for his coronary artery disease. Regarding his pending surgery he his completely revascularized and there is not need to open the LAD TANDEM MILL ROLLER prior to AAA repair. No further cardiac work needed prior to EVAR. Will follow clinically. Nadeem Souza MD Sep 02, 2017 13:05
[2017-09-02] MEDS ORDERED: ONDANSETRON HCL 4 MG/2 ML VIAL IV PUSH PRN (14:45)
[2017-09-02] MEDS ORDERED: ATROPINE SULFATE 1 MG/ML VIAL IV PUSH PRN (14:45)
--- NOTE | 2017-09-02 14:52 | HHI.PR ---
Subjective Remarks had cardiac cath earlier today. no chest pain or sob. d/w the RN at the bedside. Objective Vitals Vital Signs Date Time Temp Pulse Resp B/P (MAP) Pulse Ox O2 Delivery O2 Flow Rate FiO2 09/02/17 14:00 79 09/02/17 14:00 76 14 123/58 (79) 96 09/02/17 13:45 78 14 128/81 (97) 94 09/02/17 13:30 69 14 127/84 (98) 94 09/02/17 13:15 79 14 155/94 (114) 89 09/02/17 13:00 79 09/02/17 13:00 98.1 86 14 154/85 (108) 94 09/02/17 13:00 94 Nasal Cannula 2.00 09/02/17 13:00 83 09/02/17 09:00 88 09/02/17 08:00 98.1 89 16 120/89 (99) 95 09/02/17 08:00 95 Room Air 09/02/17 08:00 89 09/02/17 07:00 72 09/02/17 06:00 68 09/02/17 05:00 69 09/02/17 04:00 70 09/02/17 03:00 66 09/02/17 03:00 98.4 66 16 124/70 (88) 93 09/02/17 02:00 67 09/02/17 01:00 61 09/02/17 00:00 63 09/01/17 23:00 98.8 69 16 115/77 (90) 95 09/01/17 23:00 69 09/01/17 22:00 69 09/01/17 21:00 68 09/01/17 20:00 96 Room Air 09/01/17 20:00 64 09/01/17 20:00 99.1 69 16 110/69 (83) 96 09/01/17 19:00 62 09/01/17 17:00 81 09/01/17 16:00 98.4 78 16 117/61 (79) 96 09/01/17 16:00 78 09/01/17 15:00 76 I/O 09/01/17 09/01/17 09/01/17 09/02/17 09/02/17 09/02/17 07:00 15:00 23:00 07:00 15:00 23:00 Intake Total 1480 ml 625 ml 240 ml Output Total 275 ml 450 ml 350 ml Balance 1205 ml 175 ml -110 ml Intake Oral 480 ml 625 ml 240 ml IV Total 1000 ml Output Urine Total 275 ml 450 ml 350 ml # Voids 2 # Bowel Movements 0 0 0 Result Diagram: 09/01/17 0332 09/01/17 0332 Imaging Last Impressions Chest X-Ray 08/31/17 1116 Signed Impressions: Service Date/Time: Thursday, August 31, 2017 11:35 - CONCLUSION: No acute disease. Apparent mild chronic scarring in the left lung base. Markos Padilla MD Aorta CTA 08/31/17 0000 Signed Impressions: Service Date/Time: Thursday, August 31, 2017 13:04 - CONCLUSION: 1. Massive infrarenal abdominal aortic aneurysm measuring 9.0 x 8.8 x 7.7 cm. 2. Bilateral renal cysts. 3. Diverticulosis colon without diverticulitis. 4. Small bilateral pleural effusions greater the left. Maurice Yee MD Objective Remarks GENERAL: This is a well-nourished, well-developed patient, in no apparent distress. CARDIOVASCULAR: Regular rate and regular rhythm without murmurs, gallops, or rubs. RESPIRATORY: Clear to auscultation. Breath sounds equal bilaterally. No wheezes , rales, or rhonchi. GASTROINTESTINAL: Abdomen soft, non-tender, nondistended. Normal, active bowel sounds MUSCULOSKELETAL: Extremities without clubbing, cyanosis, or edema. NEURO: Alert & Oriented x4 to person, place, time, situation. Moves all ext x4 Procedures cardiac cath. Medications and IVs Current Medications Sodium Chloride (NS Flush) 2 ml UNSCH PRN IV FLUSH FLUSH AFTER USING IV ACCESS ; Start 08/31/17 at 11:30 Digoxin (Lanoxin) 0.125 mg DAILY PO Last administered on 09/02/17 09:13; Start 09/01/17 at 09:00 Diltiazem HCl (Cardizem Cd) 180 mg DAILY PO Last administered on 09/02/17 09: 44; Start 09/01/17 at 09:00 Furosemide (Lasix) 20 mg DAILY PO Last administered on 09/01/17 08:49; Start 09/01/17 at 09:00 Sodium Chloride 1,000 ml @ 60 mls/hr [id number] ONCE IV ; Start 08/31/17 at 13:00 ; Stop 09/01/17 at 05:39; Status DC Iohexol (Omnipaque 350 Inj) 100 ml STK-MED ONCE IVCONTRAST Last administered on 08/31/17 13:16; Start 08/31/17 at 13:16; Stop 08/31/17 at 13:17; Status DC Heparin Sodium/ Sodium Chloride 500 ml @ As Directed STK-MED ONCE .ROUTE Last administered on 08/31/17 15:09; Start 08/31/17 at 15:09; Stop 08/31/17 at 15:10 ; Status DC Midazolam HCl (Versed Inj) 2 mg STK-MED ONCE .ROUTE Last administered on 15:40; Start 08/31/17 at 15:10; Stop 08/31/17 at 15:11; Status DC Fentanyl Citrate (fentaNYL INJ) 100 mcg STK-MED ONCE .ROUTE Last administered on 08/31/17 15:41; Start 08/31/17 at 15:10; Stop 08/31/17 at 15:11; Status DC Heparin Sodium (Porcine) (Heparin Inj) 10,000 units STK-MED ONCE .ROUTE Last administered on 08/31/17 15:43; Start 08/31/17 at 15:10; Stop 08/31/17 at 15:11 ; Status DC Nitroglycerin 5 ml @ As Directed STK-MED ONCE .ROUTE Last administered on 15:43; Start 08/31/17 at 15:10; Stop 08/31/17 at 15:11; Status DC Verapamil HCl (Isoptin Inj) 5 mg STK-MED ONCE .ROUTE Last administered on 15:43; Start 08/31/17 at 15:27; Stop 08/31/17 at 15:28; Status DC Midazolam HCl (Versed Inj) 2 mg STK-MED ONCE .ROUTE Last administered on 16:12; Start 08/31/17 at 16:05; Stop 08/31/17 at 16:06; Status DC Heparin Sodium/ Sodium Chloride 500 ml @ As Directed STK-MED ONCE .ROUTE Last administered on 08/31/17 16:09; Start 08/31/17 at 16:09; Stop 08/31/17 at 16:10 ; Status DC Midazolam HCl (Versed Inj) 2 mg STK-MED ONCE .ROUTE Last administered on 16:51; Start 08/31/17 at 16:50; Stop 08/31/17 at 16:51; Status DC Midazolam HCl (Versed Inj) 2 mg STK-MED ONCE .ROUTE Last administered on 17:36; Start 08/31/17 at 17:37; Stop 08/31/17 at 17:38; Status DC Fentanyl Citrate (fentaNYL INJ) 100 mcg STK-MED ONCE .ROUTE Last administered on 08/31/17 17:45; Start 08/31/17 at 17:44; Stop 08/31/17 at 17:45; Status DC Midazolam HCl (Versed Inj) 2 mg STK-MED ONCE .ROUTE ; Start 08/31/17 at 18:22; Stop 08/31/17 at 18:23; Status DC Clopidogrel Bisulfate (Plavix) 600 mg STK-MED ONCE .ROUTE Last administered on 08/31/17 18:29; Start 08/31/17 at 18:29; Stop 08/31/17 at 18:30; Status DC Sodium Chloride 1,000 ml @ 125 mls/hr Q8H IV Last administered on 08/31/17 18 :47; Start 08/31/17 at 18:47; Stop 08/31/17 at 22:46; Status DC Aspirin (Aspirin Chew) 81 mg DAILY PO Last administered on 09/02/17 09:44; Start 09/01/17 at 09:00 Clopidogrel Bisulfate (Plavix) 600 mg NOW ONCE PO ; Start 08/31/17 at 19:00; Stop 08/31/17 at 19:01; Status DC Clopidogrel Bisulfate (Plavix) 75 mg DAILY PO Last administered on 09/02/17 09 :44; Start 09/01/17 at 09:00 Sodium Chloride (NS Flush) 2 ml UNSCH PRN IV FLUSH FLUSH AFTER USING IV ACCESS ; Start 08/31/17 at 19:00 Sodium Chloride (NS Flush) 2 ml BID IV FLUSH Last administered on 09/02/17 09: 13; Start 08/31/17 at 21:00 Miscellaneous Information 1 ONCE ONCE XX ; Start 08/31/17 at 19:00; Stop at 19:02; Status DC Atorvastatin Calcium (Lipitor) 40 mg DAILY PO ; Start 09/02/17 at 09:00 Iohexol (OMNIPAQUE 350 INJ (Marketing [employer])) 100 ml STK-MED ONCE OTHER ; Start at 15:05; Stop 09/01/17 at 15:14; Status DC Fentanyl Citrate (fentaNYL INJ) 100 mcg STK-MED ONCE .ROUTE ; Start 09/02/17 at 10:03; Stop 09/02/17 at 10:04; Status DC Midazolam HCl (Versed Inj) 5 mg STK-MED ONCE .ROUTE ; Start 09/02/17 at 10:03; Stop 09/02/17 at 10:04; Status DC Heparin Sodium/ Sodium Chloride 1,000 ml @ As Directed STK-MED ONCE .ROUTE ; Start 09/02/17 at 10:03; Stop 09/02/17 at 10:04; Status DC Heparin Sodium (Porcine) (Heparin Inj) 10,000 units STK-MED ONCE .ROUTE ; Start 09/02/17 at 10:04; Stop 09/02/17 at 10:05; Status DC Heparin Sodium (Porcine) (Heparin Inj) 10,000 units STK-MED ONCE .ROUTE ; Start 09/02/17 at 11:58; Stop 09/02/17 at 11:59; Status DC Midazolam HCl (Versed Inj) 2 mg STK-MED ONCE .ROUTE ; Start 09/02/17 at 12:05; Stop 09/02/17 at 12:06; Status DC Fentanyl Citrate (fentaNYL INJ) 100 mcg STK-MED ONCE .ROUTE ; Start 09/02/17 at 12:06; Stop 09/02/17 at 12:07; Status DC Protamine Sulfate (Protamine Sulfate Inj) 50 mg STK-MED ONCE .ROUTE ; Start 09/02/17 at 12:16; Stop 09/02/17 at 12:17; Status DC Atropine Sulfate (Atropine Inj) 0.5 mg UNSCH PRN IV PUSH VAGAL REPONSE; Start 09/02/17 at 14:45; Status UNV Ondansetron HCl (Zofran Inj) 4 mg Q4H PRN IV PUSH NAUSEA; Start 09/02/17 at 14: 45; Status UNV A/P Problem List: (1) AAA (abdominal aortic aneurysm) ICD Code: I71.4 - Abdominal aortic aneurysm, without rupture (2) CAD (coronary artery disease) ICD Code: I25.10 - Atherosclerotic heart disease of [place] coronary artery without angina pectoris Assessment and Plan A/P - Abdominal Aortic Aneurysm vascular surgery consult appreciated; plan for repair next week ( 09/06/17). -CAD- s/p stent placement s/p cardiac cath with : 1. Successful PCI with JUVENTINO to right coronary artery. 2. Successful PCI to right ventricular artery. 3. LV systolic dysfunction, EF of 40% with anterior wall hypokinesis. 4. PROJECTION CAMERA OPERATOR of mid-LAD. s/p cardiac cath with unsuccessful PROJECTION CAMERA OPERATOR of LAD. continue aspirin ,plavix. and statin. cardiology following. -atrial fibrillation; resumed cardizem and digoxin- Xarelto on hold for planned vascular intervention. -DVT prophylaxis; hold Xarelto till cardiology / vascular surgery evaluation and recommendations. Problem Qualifiers (1) CAD (coronary artery disease): Josette Sidhu MD Sep 02, 2017 14:52
[2017-09-02] MEDS: ATORVASTATIN 40 MG TAB PO SCH (17:31)
[2017-09-02] MEDS: FUROSEMIDE 20 MG TAB PO SCH (17:31)
[2017-09-03] VITALS (28 sets, daily range): BP systolic 96–129; BP diastolic 60–80; PULSE 58–94; RESP 16–18; TEMP 97–99.2; O2SAT 93–98
[2017-09-03] MEDS: ASPIRIN 81 MG CHEW TAB PO SCH (09:22)
[2017-09-03] MEDS: DILTIAZEM-CD 180 MG CAP ER PO SCH (09:22)
[2017-09-03] MEDS: ATORVASTATIN 40 MG TAB PO SCH (09:23)
[2017-09-03] MEDS: FUROSEMIDE 20 MG TAB PO SCH (09:23)
[2017-09-03] MEDS: CLOPIDOGREL 75 MG TAB PO SCH (09:23)
[2017-09-03] MEDS: SODIUM CHLORIDE 0.9% FLUSH 10 ML FLUSH IV FLUSH SCH ×2 (09:24→22:17)
[2017-09-03] MEDS: DIGOXIN 0.125 MG TAB PO SCH (09:24)
--- NOTE | 2017-09-03 10:57 | PD.CARD.PN ---
Subjective Subjective Remarks Feels well No chest pain/abdominal pain Objective Medications Current Medications Medications (Trade) Dose Ordered Sig/[place] Route Start Time Stop Time Status Last Admin (Lanoxin) 0.125 mg DAILY PO 09/01/17 09:00 09/03/17 09:24 (Cardizem Cd) 180 mg DAILY PO 09/01/17 09:00 09/03/17 09:22 (Lasix) 20 mg DAILY PO 09/01/17 09:00 09/03/17 09:23 (Aspirin Chew) 81 mg DAILY PO 09/01/17 09:00 09/03/17 09:22 (Plavix) 75 mg DAILY PO 09/01/17 09:00 09/03/17 09:23 (NS Flush) 2 ml UNSCH PRN IV FLUSH 08/31/17 19:00 (NS Flush) 2 ml BID IV FLUSH 08/31/17 21:00 09/03/17 09:24 (Lipitor) 40 mg DAILY PO 09/02/17 09:00 09/03/17 09:23 (Atropine Inj) 0.5 mg UNSCH PRN IV PUSH 09/02/17 14:45 (Zofran Inj) 4 mg Q4H PRN IV PUSH 09/02/17 14:45 Vital Signs / I&O Vital Signs Date Time Temp Pulse Resp B/P (MAP) Pulse Ox O2 Delivery O2 Flow Rate FiO2 09/03/17 10:00 89 09/03/17 09:00 85 09/03/17 08:30 83 09/03/17 08:30 98.8 83 18 124/78 (93) 98 09/03/17 08:30 98 Room Air 09/03/17 07:00 85 09/03/17 06:00 78 09/03/17 05:00 78 09/03/17 04:00 72 09/03/17 03:53 97.1 81 16 119/70 (86) 97 09/03/17 03:00 78 09/03/17 02:00 72 09/03/17 01:34 97.6 76 16 96/60 (72) 94 09/03/17 01:00 68 09/03/17 00:00 82 09/02/17 23:00 55 09/02/17 22:00 68 09/02/17 21:00 80 09/02/17 20:15 97.6 71 16 135/91 (106) 96 09/02/17 20:15 97.6 71 16 135/91 (106) 96 09/02/17 20:15 96 Room Air 09/02/17 20:00 66 09/02/17 19:00 68 09/02/17 18:00 68 09/02/17 17:00 64 09/02/17 17:00 64 14 133/76 (95) 94 09/02/17 16:30 69 14 130/77 (94) 96 09/02/17 16:00 67 09/02/17 16:00 98 Nasal Cannula 2.00 09/02/17 16:00 98.1 67 14 143/76 (98) 98 09/02/17 15:30 65 14 130/72 (91) 96 09/02/17 15:00 68 09/02/17 15:00 68 14 130/72 (91) 99 09/02/17 14:30 66 14 145/90 (108) 96 09/02/17 14:00 79 09/02/17 14:00 76 14 123/58 (79) 96 09/02/17 13:45 78 14 128/81 (97) 94 09/02/17 13:30 69 14 127/84 (98) 94 09/02/17 13:15 79 14 155/94 (114) 89 09/02/17 13:00 79 09/02/17 13:00 98.1 86 14 154/85 (108) 94 09/02/17 13:00 94 Nasal Cannula 2.00 09/02/17 13:00 83 I/O 09/02/17 09/02/17 09/02/17 09/03/17 09/03/17 09/03/17 07:00 15:00 23:00 07:00 15:00 23:00 Intake Total 240 ml 800 ml 240 ml Output Total 350 ml 800 ml 0 ml Balance -110 ml 0 ml 240 ml Intake Oral 240 ml 300 ml 240 ml IV Total 500 ml Output Urine Total 350 ml 800 ml Stool Total 0 ml # Voids 2 # Bowel Movements 0 1 Physical Exam GENERAL: NAD, AAOx3 SKIN: Warm and dry. HEAD: Atraumatic. Normocephalic. EYES: Pupils equal and round. No scleral icterus. No injection or drainage. ENT: No nasal bleeding or discharge. Mucous membranes pink and moist. NECK: Trachea midline. No JVD. CARDIOVASCULAR: Irregularly irregular. RESPIRATORY: No accessory muscle use. Clear to auscultation. Breath sounds equal bilaterally. GASTROINTESTINAL: Abdomen soft, non-tender, nondistended. Hepatic and splenic margins not palpable. MUSCULOSKELETAL: Extremities without clubbing, cyanosis, or edema. No obvious deformities. Right groin no hematoma/ecchymosis s/p Mynx. Left groin no hematoma/ecchymosis s/p Vascade NEUROLOGICAL: Awake and alert. No obvious cranial nerve deficits. Motor grossly within normal limits. Five out of 5 muscle strength in the arms and legs. Normal speech. PSYCHIATRIC: Appropriate mood and affect; insight and judgment normal. Assessment and Plan Problem List: (1) CAD (coronary artery disease) ICD Codes: I25.10 - Atherosclerotic heart disease of [place] coronary artery without angina pectoris (2) Congestive heart failure ICD Codes: I50.9 - Congestive heart failure Status: Acute (3) Atrial fibrillation ICD Codes: I48.91 - Unspecified atrial fibrillation Status: Acute (4) LBBB (left bundle branch block) ICD Codes: I44.7 - Left bundle-branch block, unspecified Status: Acute (5) AAA (abdominal aortic aneurysm) ICD Codes: I71.4 - Abdominal aortic aneurysm, without rupture Assessment and Plan 1) Large AAA Plan for EVAR on Tuesday per Dr. Pena 2) CAD s/p MOTOR AND GENERATOR BRUSH CUTTER of RCA with placement of JUVENTINO (3x38), RV branch s/p JUVENTINO (2.5x16), small dissection proximal s/p JUVENTINO (3x8) Attempted MOTOR AND GENERATOR BRUSH CUTTER of LAD unsuccessful Con't ASA/Plavix 3) AFib NOAC on hold for planned EVAR Problem Qualifiers (1) CAD (coronary artery disease): Todd Ariza DO Sep 03, 2017 10:57
--- NOTE | 2017-09-03 12:41 | HHI.PR ---
Subjective Remarks in no distress. overall doing fine. no new complaints. d/w the RN and no acute issues over night. Objective Vitals Vital Signs Date Time Temp Pulse Resp B/P (MAP) Pulse Ox O2 Delivery O2 Flow Rate FiO2 09/03/17 11:00 98 Room Air 09/03/17 11:00 97.9 85 18 129/63 (85) 97 09/03/17 10:00 89 09/03/17 09:00 85 09/03/17 08:30 83 09/03/17 08:30 98.8 83 18 124/78 (93) 98 09/03/17 08:30 98 Room Air 09/03/17 07:00 85 09/03/17 06:00 78 09/03/17 05:00 78 09/03/17 04:00 72 09/03/17 03:53 97.1 81 16 119/70 (86) 97 09/03/17 03:00 78 09/03/17 02:00 72 09/03/17 01:34 97.6 76 16 96/60 (72) 94 09/03/17 01:00 68 09/03/17 00:00 82 09/02/17 23:00 55 09/02/17 22:00 68 09/02/17 21:00 80 09/02/17 20:15 97.6 71 16 135/91 (106) 96 09/02/17 20:15 97.6 71 16 135/91 (106) 96 09/02/17 20:15 96 Room Air 09/02/17 20:00 66 09/02/17 19:00 68 09/02/17 18:00 68 09/02/17 17:00 64 09/02/17 17:00 64 14 133/76 (95) 94 09/02/17 16:30 69 14 130/77 (94) 96 09/02/17 16:00 67 09/02/17 16:00 98 Nasal Cannula 2.00 09/02/17 16:00 98.1 67 14 143/76 (98) 98 09/02/17 15:30 65 14 130/72 (91) 96 09/02/17 15:00 68 09/02/17 15:00 68 14 130/72 (91) 99 09/02/17 14:30 66 14 145/90 (108) 96 09/02/17 14:00 79 09/02/17 14:00 76 14 123/58 (79) 96 09/02/17 13:45 78 14 128/81 (97) 94 09/02/17 13:30 69 14 127/84 (98) 94 09/02/17 13:15 79 14 155/94 (114) 89 09/02/17 13:00 79 09/02/17 13:00 98.1 86 14 154/85 (108) 94 09/02/17 13:00 94 Nasal Cannula 2.00 09/02/17 13:00 83 I/O 09/02/17 09/02/17 09/02/17 09/03/17 09/03/17 09/03/17 07:00 15:00 23:00 07:00 15:00 23:00 Intake Total 240 ml 800 ml 240 ml Output Total 350 ml 800 ml 0 ml Balance -110 ml 0 ml 240 ml Intake Oral 240 ml 300 ml 240 ml IV Total 500 ml Output Urine Total 350 ml 800 ml Stool Total 0 ml # Voids 2 # Bowel Movements 0 1 Result Diagram: 09/01/17 0332 09/01/17 0332 Imaging Last Impressions Chest X-Ray 08/31/17 1116 Signed Impressions: Service Date/Time: Thursday, August 31, 2017 11:35 - CONCLUSION: No acute disease. Apparent mild chronic scarring in the left lung base. Markos Padilla MD Aorta CTA 08/31/17 0000 Signed Impressions: Service Date/Time: Thursday, August 31, 2017 13:04 - CONCLUSION: 1. Massive infrarenal abdominal aortic aneurysm measuring 9.0 x 8.8 x 7.7 cm. 2. Bilateral renal cysts. 3. Diverticulosis colon without diverticulitis. 4. Small bilateral pleural effusions greater the left. Maurice Yee MD Objective Remarks GENERAL: This is a well-nourished, well-developed patient, in no apparent distress. CARDIOVASCULAR: Regular rate and regular rhythm without murmurs, gallops, or rubs. RESPIRATORY: Clear to auscultation. Breath sounds equal bilaterally. No wheezes , rales, or rhonchi. GASTROINTESTINAL: Abdomen soft, non-tender, nondistended. Normal, active bowel sounds MUSCULOSKELETAL: Extremities without clubbing, cyanosis, or edema. NEURO: Alert & Oriented x4 to person, place, time, situation. Moves all ext x4 Procedures cardiac cath. Medications and IVs Current Medications Sodium Chloride (NS Flush) 2 ml UNSCH PRN IV FLUSH FLUSH AFTER USING IV ACCESS ; Start 08/31/17 at 11:30; Stop 09/02/17 at 14:51; Status DC Digoxin (Lanoxin) 0.125 mg DAILY PO Last administered on 09/03/17 09:24; Start 09/01/17 at 09:00 Diltiazem HCl (Cardizem Cd) 180 mg DAILY PO Last administered on 09/03/17 09: 22; Start 09/01/17 at 09:00 Furosemide (Lasix) 20 mg DAILY PO Last administered on 09/03/17 09:23; Start 09/01/17 at 09:00 Sodium Chloride 1,000 ml @ 60 mls/hr [id number] ONCE IV ; Start 08/31/17 at 13:00 ; Stop 09/01/17 at 05:39; Status DC Iohexol (Omnipaque 350 Inj) 100 ml STK-MED ONCE IVCONTRAST Last administered on 08/31/17 13:16; Start 08/31/17 at 13:16; Stop 08/31/17 at 13:17; Status DC Heparin Sodium/ Sodium Chloride 500 ml @ As Directed STK-MED ONCE .ROUTE Last administered on 08/31/17 15:09; Start 08/31/17 at 15:09; Stop 08/31/17 at 15:10 ; Status DC Midazolam HCl (Versed Inj) 2 mg STK-MED ONCE .ROUTE Last administered on 15:40; Start 08/31/17 at 15:10; Stop 08/31/17 at 15:11; Status DC Fentanyl Citrate (fentaNYL INJ) 100 mcg STK-MED ONCE .ROUTE Last administered on 08/31/17 15:41; Start 08/31/17 at 15:10; Stop 08/31/17 at 15:11; Status DC Heparin Sodium (Porcine) (Heparin Inj) 10,000 units STK-MED ONCE .ROUTE Last administered on 08/31/17 15:43; Start 08/31/17 at 15:10; Stop 08/31/17 at 15:11 ; Status DC Nitroglycerin 5 ml @ As Directed STK-MED ONCE .ROUTE Last administered on 15:43; Start 08/31/17 at 15:10; Stop 08/31/17 at 15:11; Status DC Verapamil HCl (Isoptin Inj) 5 mg STK-MED ONCE .ROUTE Last administered on 15:43; Start 08/31/17 at 15:27; Stop 08/31/17 at 15:28; Status DC Midazolam HCl (Versed Inj) 2 mg STK-MED ONCE .ROUTE Last administered on 16:12; Start 08/31/17 at 16:05; Stop 08/31/17 at 16:06; Status DC Heparin Sodium/ Sodium Chloride 500 ml @ As Directed STK-MED ONCE .ROUTE Last administered on 08/31/17 16:09; Start 08/31/17 at 16:09; Stop 08/31/17 at 16:10 ; Status DC Midazolam HCl (Versed Inj) 2 mg STK-MED ONCE .ROUTE Last administered on 16:51; Start 08/31/17 at 16:50; Stop 08/31/17 at 16:51; Status DC Midazolam HCl (Versed Inj) 2 mg STK-MED ONCE .ROUTE Last administered on 17:36; Start 08/31/17 at 17:37; Stop 08/31/17 at 17:38; Status DC Fentanyl Citrate (fentaNYL INJ) 100 mcg STK-MED ONCE .ROUTE Last administered on 08/31/17 17:45; Start 08/31/17 at 17:44; Stop 08/31/17 at 17:45; Status DC Midazolam HCl (Versed Inj) 2 mg STK-MED ONCE .ROUTE ; Start 08/31/17 at 18:22; Stop 08/31/17 at 18:23; Status DC Clopidogrel Bisulfate (Plavix) 600 mg STK-MED ONCE .ROUTE Last administered on 08/31/17 18:29; Start 08/31/17 at 18:29; Stop 08/31/17 at 18:30; Status DC Sodium Chloride 1,000 ml @ 125 mls/hr Q8H IV Last administered on 08/31/17 18 :47; Start 08/31/17 at 18:47; Stop 08/31/17 at 22:46; Status DC Aspirin (Aspirin Chew) 81 mg DAILY PO Last administered on 09/03/17 09:22; Start 09/01/17 at 09:00 Clopidogrel Bisulfate (Plavix) 600 mg NOW ONCE PO ; Start 08/31/17 at 19:00; Stop 08/31/17 at 19:01; Status DC Clopidogrel Bisulfate (Plavix) 75 mg DAILY PO Last administered on 09/03/17 09 :23; Start 09/01/17 at 09:00 Sodium Chloride (NS Flush) 2 ml UNSCH PRN IV FLUSH FLUSH AFTER USING IV ACCESS ; Start 08/31/17 at 19:00 Sodium Chloride (NS Flush) 2 ml BID IV FLUSH Last administered on 09/03/17 09: 24; Start 08/31/17 at 21:00 Miscellaneous Information 1 ONCE ONCE XX ; Start 08/31/17 at 19:00; Stop at 19:02; Status DC Atorvastatin Calcium (Lipitor) 40 mg DAILY PO Last administered on 09/03/17 09 :23; Start 09/02/17 at 09:00 Iohexol (OMNIPAQUE 350 INJ (Mining Plant Operator)) 100 ml STK-MED ONCE OTHER Last administered on 08/31/17 15:05; Start 08/31/17 at 15:05; Stop 09/01/17 at 15:14 ; Status DC Fentanyl Citrate (fentaNYL INJ) 100 mcg STK-MED ONCE .ROUTE Last administered on 09/02/17 10:39; Start 09/02/17 at 10:03; Stop 09/02/17 at 10:04; Status DC Midazolam HCl (Versed Inj) 5 mg STK-MED ONCE .ROUTE Last administered on 10:38; Start 09/02/17 at 10:03; Stop 09/02/17 at 10:04; Status DC Heparin Sodium/ Sodium Chloride 1,000 ml @ As Directed STK-MED ONCE .ROUTE Last administered on 09/02/17 10:03; Start 09/02/17 at 10:03; Stop 09/02/17 at 10:04; Status DC Heparin Sodium (Porcine) (Heparin Inj) 10,000 units STK-MED ONCE .ROUTE Last administered on 09/02/17 11:04; Start 09/02/17 at 10:04; Stop 09/02/17 at 10:05 ; Status DC Heparin Sodium (Porcine) (Heparin Inj) 10,000 units STK-MED ONCE .ROUTE Last administered on 09/02/17 11:59; Start 09/02/17 at 11:58; Stop 09/02/17 at 11:59 ; Status DC Midazolam HCl (Versed Inj) 2 mg STK-MED ONCE .ROUTE Last administered on 12:07; Start 09/02/17 at 12:05; Stop 09/02/17 at 12:06; Status DC Fentanyl Citrate (fentaNYL INJ) 100 mcg STK-MED ONCE .ROUTE Last administered on 09/02/17 12:08; Start 09/02/17 at 12:06; Stop 09/02/17 at 12:07; Status DC Protamine Sulfate (Protamine Sulfate Inj) 50 mg STK-MED ONCE .ROUTE Last administered on 09/02/17 12:18; Start 09/02/17 at 12:16; Stop 09/02/17 at 12:17 ; Status DC Atropine Sulfate (Atropine Inj) 0.5 mg UNSCH PRN IV PUSH VAGAL REPONSE; Start 09/02/17 at 14:45 Ondansetron HCl (Zofran Inj) 4 mg Q4H PRN IV PUSH NAUSEA; Start 09/02/17 at 14: 45 A/P Problem List: (1) AAA (abdominal aortic aneurysm) ICD Code: I71.4 - Abdominal aortic aneurysm, without rupture (2) CAD (coronary artery disease) ICD Code: I25.10 - Atherosclerotic heart disease of [place] coronary artery without angina pectoris Assessment and Plan A/P - Abdominal Aortic Aneurysm vascular surgery consult appreciated; plan for repair next week ( 09/06/17). -CAD- s/p stent placement s/p cardiac cath with : 1. Successful PCI with JUVENTINO to right coronary artery. 2. Successful PCI to right ventricular artery. 3. LV systolic dysfunction, EF of 40% with anterior wall hypokinesis. 4. PRODUCTION ADMINISTRATIVE ASSISTANT of mid-LAD. s/p repeated cardiac cath with unsuccessful PRODUCTION ADMINISTRATIVE ASSISTANT of LAD. continue aspirin ,plavix. and statin. cardiology following. -atrial fibrillation; resumed cardizem and digoxin- Xarelto on hold for planned vascular intervention. -DVT prophylaxis;Xarelto on hold for planned surgery. Problem Qualifiers (1) CAD (coronary artery disease): Josette Sidhu MD Sep 03, 2017 12:41
[2017-09-04] VITALS (26 sets, daily range): BP systolic 111–139; BP diastolic 71–79; PULSE 48–103; RESP 18; TEMP 98–98.6; O2SAT 95–97
[2017-09-04] MEDS: FUROSEMIDE 20 MG TAB PO SCH (09:45)
[2017-09-04] MEDS: ASPIRIN 81 MG CHEW TAB PO SCH (09:45)
[2017-09-04] MEDS: ATORVASTATIN 40 MG TAB PO SCH (09:46)
[2017-09-04] MEDS: DIGOXIN 0.125 MG TAB PO SCH (09:46)
[2017-09-04] MEDS: SODIUM CHLORIDE 0.9% FLUSH 10 ML FLUSH IV FLUSH SCH (09:46)
[2017-09-04] MEDS: DILTIAZEM-CD 180 MG CAP ER PO SCH (09:46)
[2017-09-04] MEDS: CLOPIDOGREL 75 MG TAB PO SCH (09:52)
--- NOTE | 2017-09-04 12:53 | PD.CARD.PN ---
Subjective Subjective Remarks Feels well No chest pain/abdominal pain Objective Medications Current Medications Medications (Trade) Dose Ordered Sig/[place] Route Start Time Stop Time Status Last Admin (Lanoxin) 0.125 mg DAILY PO 09/01/17 09:00 09/04/17 09:46 (Cardizem Cd) 180 mg DAILY PO 09/01/17 09:00 09/04/17 09:46 (Lasix) 20 mg DAILY PO 09/01/17 09:00 09/04/17 09:45 (Aspirin Chew) 81 mg DAILY PO 09/01/17 09:00 09/04/17 09:45 (Plavix) 75 mg DAILY PO 09/01/17 09:00 09/04/17 09:52 (NS Flush) 2 ml UNSCH PRN IV FLUSH 08/31/17 19:00 (NS Flush) 2 ml BID IV FLUSH 08/31/17 21:00 09/04/17 09:46 (Lipitor) 40 mg DAILY PO 09/02/17 09:00 09/04/17 09:46 (Atropine Inj) 0.5 mg UNSCH PRN IV PUSH 09/02/17 14:45 (Zofran Inj) 4 mg Q4H PRN IV PUSH 09/02/17 14:45 Vital Signs / I&O Vital Signs Date Time Temp Pulse Resp B/P (MAP) Pulse Ox O2 Delivery O2 Flow Rate FiO2 09/04/17 12:00 61 09/04/17 11:00 98.1 88 18 111/71 (84) 95 09/04/17 11:00 79 09/04/17 10:00 69 09/04/17 09:00 81 09/04/17 08:00 103 09/04/17 07:00 96 Room Air 09/04/17 07:00 98.5 95 18 127/73 (91) 96 09/04/17 07:00 75 09/04/17 06:00 70 09/04/17 05:32 98.6 76 18 139/79 (99) 97 09/04/17 05:00 74 09/04/17 04:00 66 09/04/17 03:00 66 09/04/17 02:00 71 09/04/17 01:00 48 09/04/17 00:00 66 09/03/17 23:46 98.7 63 18 112/71 (85) 96 09/03/17 23:00 60 09/03/17 22:00 62 09/03/17 21:00 66 09/03/17 20:30 97 Room Air 09/03/17 20:30 99.2 86 18 120/72 (88) 97 09/03/17 20:00 64 09/03/17 19:00 58 09/03/17 18:00 75 09/03/17 17:00 79 09/03/17 16:00 97.0 76 18 120/80 (93) 93 09/03/17 16:00 93 Room Air 09/03/17 15:00 80 09/03/17 14:00 89 09/03/17 13:00 94 I/O 09/03/17 09/03/17 09/03/17 09/04/17 09/04/17 09/04/17 07:00 15:00 23:00 07:00 15:00 23:00 Intake Total 240 ml 600 ml 240 ml Output Total 0 ml Balance 240 ml 600 ml 240 ml Intake Oral 240 ml 600 ml 240 ml Stool Total 0 ml # Voids 2 5 3 # Bowel Movements 2 0 Physical Exam GENERAL: NAD, AAOx3 SKIN: Warm and dry. HEAD: Atraumatic. Normocephalic. EYES: Pupils equal and round. No scleral icterus. No injection or drainage. ENT: No nasal bleeding or discharge. Mucous membranes pink and moist. NECK: Trachea midline. No JVD. CARDIOVASCULAR: Irregularly irregular. RESPIRATORY: No accessory muscle use. Clear to auscultation. Breath sounds equal bilaterally. GASTROINTESTINAL: Abdomen soft, non-tender, nondistended. Hepatic and splenic margins not palpable. MUSCULOSKELETAL: Extremities without clubbing, cyanosis, or edema. No obvious deformities. Right groin no hematoma/ecchymosis s/p [place]. Left groin no hematoma/ecchymosis s/p [place] NEUROLOGICAL: Awake and alert. No obvious cranial nerve deficits. Motor grossly within normal limits. Five out of 5 muscle strength in the arms and legs. Normal speech. PSYCHIATRIC: Appropriate mood and affect; insight and judgment normal. Assessment and Plan Problem List: (1) CAD (coronary artery disease) ICD Codes: I25.10 - Atherosclerotic heart disease of [place] coronary artery without angina pectoris (2) Congestive heart failure ICD Codes: I50.9 - Congestive heart failure Status: Acute (3) Atrial fibrillation ICD Codes: I48.91 - Unspecified atrial fibrillation Status: Acute (4) LBBB (left bundle branch block) ICD Codes: I44.7 - Left bundle-branch block, unspecified Status: Acute (5) AAA (abdominal aortic aneurysm) ICD Codes: I71.4 - Abdominal aortic aneurysm, without rupture Assessment and Plan 1) Large AAA Plan for EVAR on Tuesday per Dr. Pena 2) CAD s/p MANIFEST CLERK of RCA with placement of JUVENTINO (3x38), RV branch s/p JUVENTINO (2.5x16), small dissection proximal s/p JUVENTINO (3x8) Attempted MANIFEST CLERK of LAD unsuccessful Con't ASA/Plavix 3) AFib NOAC on hold for planned EVAR 4) Dr. Fuentes to return tomorrow to assume care Problem Qualifiers (1) CAD (coronary artery disease): Todd Ariza DO Sep 04, 2017 12:53
--- NOTE | 2017-09-04 13:49 | HHI.PR ---
Subjective Remarks in no distress. overall doing fine. no chest pain or sob. Objective Vitals Vital Signs Date Time Temp Pulse Resp B/P (MAP) Pulse Ox O2 Delivery O2 Flow Rate FiO2 09/04/17 12:00 61 09/04/17 11:00 98.1 88 18 111/71 (84) 95 09/04/17 11:00 79 09/04/17 10:00 69 09/04/17 09:00 81 09/04/17 08:00 103 09/04/17 07:00 96 Room Air 09/04/17 07:00 98.5 95 18 127/73 (91) 96 09/04/17 07:00 75 09/04/17 06:00 70 09/04/17 05:32 98.6 76 18 139/79 (99) 97 09/04/17 05:00 74 09/04/17 04:00 66 09/04/17 03:00 66 09/04/17 02:00 71 09/04/17 01:00 48 09/04/17 00:00 66 09/03/17 23:46 98.7 63 18 112/71 (85) 96 09/03/17 23:00 60 09/03/17 22:00 62 09/03/17 21:00 66 09/03/17 20:30 97 Room Air 09/03/17 20:30 99.2 86 18 120/72 (88) 97 09/03/17 20:00 64 09/03/17 19:00 58 09/03/17 18:00 75 09/03/17 17:00 79 09/03/17 16:00 97.0 76 18 120/80 (93) 93 09/03/17 16:00 93 Room Air 09/03/17 15:00 80 09/03/17 14:00 89 I/O 09/03/17 09/03/17 09/03/17 09/04/17 09/04/17 09/04/17 07:00 15:00 23:00 07:00 15:00 23:00 Intake Total 240 ml 600 ml 240 ml Output Total 0 ml Balance 240 ml 600 ml 240 ml Intake Oral 240 ml 600 ml 240 ml Stool Total 0 ml # Voids 2 5 3 # Bowel Movements 2 0 Result Diagram: 09/01/1733109/01/17331 Imaging Last Impressions Chest X-Ray 08/31/17 1116 Signed Impressions: Service Date/Time: Thursday, August 31, 2017 11:35 - CONCLUSION: No acute disease. Apparent mild chronic scarring in the left lung base. Markos Padilla MD Aorta CTA 08/31/17 0000 Signed Impressions: Service Date/Time: Thursday, August 31, 2017 13:04 - CONCLUSION: 1. Massive infrarenal abdominal aortic aneurysm measuring 9.0 x 8.8 x 7.7 cm. 2. Bilateral renal cysts. 3. Diverticulosis colon without diverticulitis. 4. Small bilateral pleural effusions greater the left. Maurice Yee MD Objective Remarks GENERAL: This is a well-nourished, well-developed patient, in no apparent distress. CARDIOVASCULAR: Regular rate and regular rhythm without murmurs, gallops, or rubs. RESPIRATORY: Clear to auscultation. Breath sounds equal bilaterally. No wheezes , rales, or rhonchi. GASTROINTESTINAL: Abdomen soft, non-tender, nondistended. Normal, active bowel sounds MUSCULOSKELETAL: Extremities without clubbing, cyanosis, or edema. NEURO: Alert & Oriented x4 to person, place, time, situation. Moves all ext x4 Procedures cardiac cath. Medications and IVs Current Medications Sodium Chloride (NS Flush) 2 ml UNSCH PRN IV FLUSH FLUSH AFTER USING IV ACCESS ; Start 08/31/17 at 11:30; Stop 09/02/17 at 14:51; Status DC Digoxin (Lanoxin) 0.125 mg DAILY PO Last administered on 09/04/17 09:46; Start 09/01/17 at 09:00 Diltiazem HCl (Cardizem Cd) 180 mg DAILY PO Last administered on 09/04/17 09: 46; Start 09/01/17 at 09:00 Furosemide (Lasix) 20 mg DAILY PO Last administered on 09/04/17 09:45; Start 09/01/17 at 09:00 Sodium Chloride 1,000 ml @ 60 mls/hr [id number] ONCE IV ; Start 08/31/17 at 13:00 ; Stop 09/01/17 at 05:39; Status DC Iohexol (Omnipaque 350 Inj) 100 ml STK-MED ONCE IVCONTRAST Last administered on 08/31/17 13:16; Start 08/31/17 at 13:16; Stop 08/31/17 at 13:17; Status DC Heparin Sodium/ Sodium Chloride 500 ml @ As Directed STK-MED ONCE .ROUTE Last administered on 08/31/17 15:09; Start 08/31/17 at 15:09; Stop 08/31/17 at 15:10 ; Status DC Midazolam HCl (Versed Inj) 2 mg STK-MED ONCE .ROUTE Last administered on 15:40; Start 08/31/17 at 15:10; Stop 08/31/17 at 15:11; Status DC Fentanyl Citrate (fentaNYL INJ) 100 mcg STK-MED ONCE .ROUTE Last administered on 08/31/17 15:41; Start 08/31/17 at 15:10; Stop 08/31/17 at 15:11; Status DC Heparin Sodium (Porcine) (Heparin Inj) 10,000 units STK-MED ONCE .ROUTE Last administered on 08/31/17 15:43; Start 08/31/17 at 15:10; Stop 08/31/17 at 15:11 ; Status DC Nitroglycerin 5 ml @ As Directed STK-MED ONCE .ROUTE Last administered on 15:43; Start 08/31/17 at 15:10; Stop 08/31/17 at 15:11; Status DC Verapamil HCl (Isoptin Inj) 5 mg STK-MED ONCE .ROUTE Last administered on 15:43; Start 08/31/17 at 15:27; Stop 08/31/17 at 15:28; Status DC Midazolam HCl (Versed Inj) 2 mg STK-MED ONCE .ROUTE Last administered on 16:12; Start 08/31/17 at 16:05; Stop 08/31/17 at 16:06; Status DC Heparin Sodium/ Sodium Chloride 500 ml @ As Directed STK-MED ONCE .ROUTE Last administered on 08/31/17 16:09; Start 08/31/17 at 16:09; Stop 08/31/17 at 16:10 ; Status DC Midazolam HCl (Versed Inj) 2 mg STK-MED ONCE .ROUTE Last administered on 16:51; Start 08/31/17 at 16:50; Stop 08/31/17 at 16:51; Status DC Midazolam HCl (Versed Inj) 2 mg STK-MED ONCE .ROUTE Last administered on 17:36; Start 08/31/17 at 17:37; Stop 08/31/17 at 17:38; Status DC Fentanyl Citrate (fentaNYL INJ) 100 mcg STK-MED ONCE .ROUTE Last administered on 08/31/17 17:45; Start 08/31/17 at 17:44; Stop 08/31/17 at 17:45; Status DC Midazolam HCl (Versed Inj) 2 mg STK-MED ONCE .ROUTE ; Start 08/31/17 at 18:22; Stop 08/31/17 at 18:23; Status DC Clopidogrel Bisulfate (Plavix) 600 mg STK-MED ONCE .ROUTE Last administered on 08/31/17 18:29; Start 08/31/17 at 18:29; Stop 08/31/17 at 18:30; Status DC Sodium Chloride 1,000 ml @ 125 mls/hr Q8H IV Last administered on 08/31/17 18 :47; Start 08/31/17 at 18:47; Stop 08/31/17 at 22:46; Status DC Aspirin (Aspirin Chew) 81 mg DAILY PO Last administered on 09/04/17 09:45; Start 09/01/17 at 09:00 Clopidogrel Bisulfate (Plavix) 600 mg NOW ONCE PO ; Start 08/31/17 at 19:00; Stop 08/31/17 at 19:01; Status DC Clopidogrel Bisulfate (Plavix) 75 mg DAILY PO Last administered on 09/04/17 09 :52; Start 09/01/17 at 09:00 Sodium Chloride (NS Flush) 2 ml UNSCH PRN IV FLUSH FLUSH AFTER USING IV ACCESS ; Start 08/31/17 at 19:00 Sodium Chloride (NS Flush) 2 ml BID IV FLUSH Last administered on 09/04/17 09: 46; Start 08/31/17 at 21:00 Miscellaneous Information 1 ONCE ONCE XX ; Start 08/31/17 at 19:00; Stop at 19:02; Status DC Atorvastatin Calcium (Lipitor) 40 mg DAILY PO Last administered on 09/04/17 09 :46; Start 09/02/17 at 09:00 Iohexol (OMNIPAQUE 350 INJ (Electronic Resources Librarian)) 100 ml STK-MED ONCE OTHER Last administered on 08/31/17 15:05; Start 08/31/17 at 15:05; Stop 09/01/17 at 15:14 ; Status DC Fentanyl Citrate (fentaNYL INJ) 100 mcg STK-MED ONCE .ROUTE Last administered on 09/02/17 10:39; Start 09/02/17 at 10:03; Stop 09/02/17 at 10:04; Status DC Midazolam HCl (Versed Inj) 5 mg STK-MED ONCE .ROUTE Last administered on 10:38; Start 09/02/17 at 10:03; Stop 09/02/17 at 10:04; Status DC Heparin Sodium/ Sodium Chloride 1,000 ml @ As Directed STK-MED ONCE .ROUTE Last administered on 09/02/17 10:03; Start 09/02/17 at 10:03; Stop 09/02/17 at 10:04; Status DC Heparin Sodium (Porcine) (Heparin Inj) 10,000 units STK-MED ONCE .ROUTE Last administered on 09/02/17 11:04; Start 09/02/17 at 10:04; Stop 09/02/17 at 10:05 ; Status DC Heparin Sodium (Porcine) (Heparin Inj) 10,000 units STK-MED ONCE .ROUTE Last administered on 09/02/17 11:59; Start 09/02/17 at 11:58; Stop 09/02/17 at 11:59 ; Status DC Midazolam HCl (Versed Inj) 2 mg STK-MED ONCE .ROUTE Last administered on 12:07; Start 09/02/17 at 12:05; Stop 09/02/17 at 12:06; Status DC Fentanyl Citrate (fentaNYL INJ) 100 mcg STK-MED ONCE .ROUTE Last administered on 09/02/17 12:08; Start 09/02/17 at 12:06; Stop 09/02/17 at 12:07; Status DC Protamine Sulfate (Protamine Sulfate Inj) 50 mg STK-MED ONCE .ROUTE Last administered on 09/02/17 12:18; Start 09/02/17 at 12:16; Stop 09/02/17 at 12:17 ; Status DC Atropine Sulfate (Atropine Inj) 0.5 mg UNSCH PRN IV PUSH VAGAL REPONSE; Start 09/02/17 at 14:45 Ondansetron HCl (Zofran Inj) 4 mg Q4H PRN IV PUSH NAUSEA; Start 09/02/17 at 14: 45 A/P Problem List: (1) AAA (abdominal aortic aneurysm) ICD Code: I71.4 - Abdominal aortic aneurysm, without rupture (2) CAD (coronary artery disease) ICD Code: I25.10 - Atherosclerotic heart disease of [place] coronary artery without angina pectoris Assessment and Plan A/P - Abdominal Aortic Aneurysm vascular surgery consult appreciated; plan for repair this week ( 09/06/17). -CAD- s/p stent placement s/p cardiac cath with : 1. Successful PCI with JUVENTINO to right coronary artery. 2. Successful PCI to right ventricular artery. 3. LV systolic dysfunction, EF of 40% with anterior wall hypokinesis. s/p repeated cardiac cath with unsuccessful TURRET LATHE SET UP OPERATOR of LAD. continue aspirin ,plavix. and statin. cardiology following. -atrial fibrillation; resumed cardizem and digoxin- Xarelto on hold for planned vascular intervention. -DVT prophylaxis;Xarelto on hold for planned surgery. Problem Qualifiers (1) CAD (coronary artery disease): Josette Sidhu MD Sep 04, 2017 13:49
[2017-09-05] VITALS (25 sets, daily range): BP systolic 96–128; BP diastolic 58–86; PULSE 50–85; RESP 16–18; TEMP 97.7–98.8; O2SAT 94–98
[2017-09-05] MEDS: SODIUM CHLORIDE 0.9% FLUSH 10 ML FLUSH IV FLUSH SCH ×3 (02:42→21:00)
--- NOTE | 2017-09-05 09:47 | PD.CARD.PN ---
Subjective Subjective Remarks No CV complaints No overnight events s/p PCi/JUVENTINO to RCA Objective Medications Current Medications Medications (Trade) Dose Ordered Sig/[place] Route Start Time Stop Time Status Last Admin (Lanoxin) 0.125 mg DAILY PO 09/01/17 09:00 09/04/17 09:46 (Cardizem Cd) 180 mg DAILY PO 09/01/17 09:00 09/04/17 09:46 (Lasix) 20 mg DAILY PO 09/01/17 09:00 09/04/17 09:45 (Aspirin Chew) 81 mg DAILY PO 09/01/17 09:00 09/04/17 09:45 (Plavix) 75 mg DAILY PO 09/01/17 09:00 09/04/17 09:52 (NS Flush) 2 ml UNSCH PRN IV FLUSH 08/31/17 19:00 (NS Flush) 2 ml BID IV FLUSH 08/31/17 21:00 09/05/17 02:42 (Lipitor) 40 mg DAILY PO 09/02/17 09:00 09/04/17 09:46 (Atropine Inj) 0.5 mg UNSCH PRN IV PUSH 09/02/17 14:45 (Zofran Inj) 4 mg Q4H PRN IV PUSH 09/02/17 14:45 Vital Signs / I&O Vital Signs Date Time Temp Pulse Resp B/P (MAP) Pulse Ox O2 Delivery O2 Flow Rate FiO2 09/05/17 08:52 98.8 80 16 127/86 (100) 97 09/05/17 06:00 78 09/05/17 05:00 70 09/05/17 04:00 64 09/05/17 03:00 98.6 62 18 124/69 (87) 95 09/05/17 03:00 64 09/05/17 02:00 64 09/05/17 01:00 62 09/05/17 00:00 64 09/05/17 00:00 98.6 50 18 116/78 (91) 94 09/04/17 23:00 55 09/04/17 22:00 62 09/04/17 21:00 70 09/04/17 20:30 98.5 74 18 117/79 (92) 96 09/04/17 20:30 96 Room Air 09/04/17 20:00 70 09/04/17 19:00 75 09/04/17 18:00 76 09/04/17 17:00 51 09/04/17 16:00 68 09/04/17 15:00 98.0 63 18 127/71 (89) 97 09/04/17 15:00 83 09/04/17 14:00 79 09/04/17 13:00 97 09/04/17 12:00 61 09/04/17 11:00 98.1 88 18 111/71 (84) 95 09/04/17 11:00 79 09/04/17 10:00 69 I/O 09/04/17 09/04/17 09/04/17 09/05/17 09/05/17 09/05/17 07:00 15:00 23:00 07:00 15:00 23:00 Intake Total 240 ml 1000 ml 360 ml Output Total 500 ml Balance 240 ml 500 ml 360 ml Intake Oral 240 ml 1000 ml 360 ml Output Urine Total 500 ml # Voids 3 2 2 # Bowel Movements 0 1 0 Physical Exam GENERAL: Well-nourished, well-developed patient. SKIN: Warm and dry. HEAD: Normocephalic. EYES: No scleral icterus. No injection or drainage. NECK: Supple, trachea midline. No JVD or lymphadenopathy. CARDIOVASCULAR: Regular rate and rhythm without murmurs, gallops, or rubs. RESPIRATORY: Breath sounds equal bilaterally. No accessory muscle use. GASTROINTESTINAL: Abdomen soft, non-tender, nondistended. EXTREMITIES: No cyanosis, or edema. NEUROLOGICAL: Awake, alert, and oriented x 3. Non-focal. Assessment and Plan Problem List: (1) CAD (coronary artery disease) ICD Codes: I25.10 - Atherosclerotic heart disease of [place] coronary artery without angina pectoris Plan: Large AAA Plan for EVAR on Tuesday per Dr. Becky Grover Con't ASA/Plavix AFib NOAC on hold for planned EVAR (2) Congestive heart failure ICD Codes: I50.9 - Congestive heart failure Status: Acute (3) Atrial fibrillation ICD Codes: I48.91 - Unspecified atrial fibrillation Status: Acute (4) LBBB (left bundle branch block) ICD Codes: I44.7 - Left bundle-branch block, unspecified Status: Acute (5) AAA (abdominal aortic aneurysm) ICD Codes: I71.4 - Abdominal aortic aneurysm, without rupture Problem Qualifiers (1) CAD (coronary artery disease): Nadeem Souza MD Sep 05, 2017 09:47
[2017-09-05] MEDS: ASPIRIN 81 MG CHEW TAB PO SCH (09:50)
[2017-09-05] MEDS: DILTIAZEM-CD 180 MG CAP ER PO SCH (09:51)
[2017-09-05] MEDS: DIGOXIN 0.125 MG TAB PO SCH (09:51)
[2017-09-05] MEDS: CLOPIDOGREL 75 MG TAB PO SCH (09:51)
[2017-09-05] MEDS: FUROSEMIDE 20 MG TAB PO SCH (09:51)
[2017-09-05] MEDS: ATORVASTATIN 40 MG TAB PO SCH (09:51)
--- NOTE | 2017-09-05 13:00 | HHI.PR ---
Subjective Remarks in no acute distress. overall doing fine. no new complaints. Objective Vitals Vital Signs Date Time Temp Pulse Resp B/P (MAP) Pulse Ox O2 Delivery O2 Flow Rate FiO2 09/05/17 12:00 85 09/05/17 11:17 98.1 77 18 128/68 (88) 98 09/05/17 11:00 68 09/05/17 10:00 72 09/05/17 09:00 80 09/05/17 08:52 98.8 80 16 127/86 (100) 97 09/05/17 08:00 74 09/05/17 07:00 97 Room Air 09/05/17 07:00 80 09/05/17 06:00 78 09/05/17 05:00 70 09/05/17 04:00 64 09/05/17 03:00 98.6 62 18 124/69 (87) 95 09/05/17 03:00 64 09/05/17 02:00 64 09/05/17 01:00 62 09/05/17 00:00 64 09/05/17 00:00 98.6 50 18 116/78 (91) 94 09/04/17 23:00 55 09/04/17 22:00 62 09/04/17 21:00 70 09/04/17 20:30 98.5 74 18 117/79 (92) 96 09/04/17 20:30 96 Room Air 09/04/17 20:00 70 09/04/17 19:00 75 09/04/17 18:00 76 09/04/17 17:00 51 09/04/17 16:00 68 09/04/17 15:00 98.0 63 18 127/71 (89) 97 09/04/17 15:00 83 09/04/17 14:00 79 09/04/17 13:00 97 I/O 09/04/17 09/04/17 09/04/17 09/05/17 09/05/17 09/05/17 07:00 15:00 23:00 07:00 15:00 23:00 Intake Total 240 ml 1000 ml 360 ml Output Total 500 ml Balance 240 ml 500 ml 360 ml Intake Oral 240 ml 1000 ml 360 ml Output Urine Total 500 ml # Voids 3 2 2 # Bowel Movements 0 1 0 Result Diagram: 09/01/1733109/01/172 Imaging Last Impressions Chest X-Ray 08/31/17 1116 Signed Impressions: Service Date/Time: Thursday, August 31, 2017 11:35 - CONCLUSION: No acute disease. Apparent mild chronic scarring in the left lung base. Markos Padilla MD Aorta CTA 08/31/17 0000 Signed Impressions: Service Date/Time: Thursday, August 31, 2017 13:04 - CONCLUSION: 1. Massive infrarenal abdominal aortic aneurysm measuring 9.0 x 8.8 x 7.7 cm. 2. Bilateral renal cysts. 3. Diverticulosis colon without diverticulitis. 4. Small bilateral pleural effusions greater the left. Maurice Yee MD Objective Remarks GENERAL: This is a well-nourished, well-developed patient, in no apparent distress. CARDIOVASCULAR: Regular rate and regular rhythm without murmurs, gallops, or rubs. RESPIRATORY: Clear to auscultation. Breath sounds equal bilaterally. No wheezes , rales, or rhonchi. GASTROINTESTINAL: Abdomen soft, non-tender, nondistended. Normal, active bowel sounds MUSCULOSKELETAL: Extremities without clubbing, cyanosis, or edema. NEURO: Alert & Oriented x4 to person, place, time, situation. Moves all ext x4 Procedures cardiac cath. Medications and IVs Current Medications Sodium Chloride (NS Flush) 2 ml UNSCH PRN IV FLUSH FLUSH AFTER USING IV ACCESS ; Start 08/31/17 at 11:30; Stop 09/02/17 at 14:51; Status DC Digoxin (Lanoxin) 0.125 mg DAILY PO Last administered on 09/05/17 09:51; Start 09/01/17 at 09:00 Diltiazem HCl (Cardizem Cd) 180 mg DAILY PO Last administered on 09/05/17 09: 51; Start 09/01/17 at 09:00 Furosemide (Lasix) 20 mg DAILY PO Last administered on 09/05/17 09:51; Start 09/01/17 at 09:00 Sodium Chloride 1,000 ml @ 60 mls/hr [id number] ONCE IV ; Start 08/31/17 at 13:00 ; Stop 09/01/17 at 05:39; Status DC Iohexol (Omnipaque 350 Inj) 100 ml STK-MED ONCE IVCONTRAST Last administered on 08/31/17 13:16; Start 08/31/17 at 13:16; Stop 08/31/17 at 13:17; Status DC Heparin Sodium/ Sodium Chloride 500 ml @ As Directed STK-MED ONCE .ROUTE Last administered on 08/31/17 15:09; Start 08/31/17 at 15:09; Stop 08/31/17 at 15:10 ; Status DC Midazolam HCl (Versed Inj) 2 mg STK-MED ONCE .ROUTE Last administered on 15:40; Start 08/31/17 at 15:10; Stop 08/31/17 at 15:11; Status DC Fentanyl Citrate (fentaNYL INJ) 100 mcg STK-MED ONCE .ROUTE Last administered on 08/31/17 15:41; Start 08/31/17 at 15:10; Stop 08/31/17 at 15:11; Status DC Heparin Sodium (Porcine) (Heparin Inj) 10,000 units STK-MED ONCE .ROUTE Last administered on 08/31/17 15:43; Start 08/31/17 at 15:10; Stop 08/31/17 at 15:11 ; Status DC Nitroglycerin 5 ml @ As Directed STK-MED ONCE .ROUTE Last administered on 15:43; Start 08/31/17 at 15:10; Stop 08/31/17 at 15:11; Status DC Verapamil HCl (Isoptin Inj) 5 mg STK-MED ONCE .ROUTE Last administered on 15:43; Start 08/31/17 at 15:27; Stop 08/31/17 at 15:28; Status DC Midazolam HCl (Versed Inj) 2 mg STK-MED ONCE .ROUTE Last administered on 16:12; Start 08/31/17 at 16:05; Stop 08/31/17 at 16:06; Status DC Heparin Sodium/ Sodium Chloride 500 ml @ As Directed STK-MED ONCE .ROUTE Last administered on 08/31/17 16:09; Start 08/31/17 at 16:09; Stop 08/31/17 at 16:10 ; Status DC Midazolam HCl (Versed Inj) 2 mg STK-MED ONCE .ROUTE Last administered on 16:51; Start 08/31/17 at 16:50; Stop 08/31/17 at 16:51; Status DC Midazolam HCl (Versed Inj) 2 mg STK-MED ONCE .ROUTE Last administered on 17:36; Start 08/31/17 at 17:37; Stop 08/31/17 at 17:38; Status DC Fentanyl Citrate (fentaNYL INJ) 100 mcg STK-MED ONCE .ROUTE Last administered on 08/31/17 17:45; Start 08/31/17 at 17:44; Stop 08/31/17 at 17:45; Status DC Midazolam HCl (Versed Inj) 2 mg STK-MED ONCE .ROUTE ; Start 08/31/17 at 18:22; Stop 08/31/17 at 18:23; Status DC Clopidogrel Bisulfate (Plavix) 600 mg STK-MED ONCE .ROUTE Last administered on 08/31/17 18:29; Start 08/31/17 at 18:29; Stop 08/31/17 at 18:30; Status DC Sodium Chloride 1,000 ml @ 125 mls/hr Q8H IV Last administered on 08/31/17 18 :47; Start 08/31/17 at 18:47; Stop 08/31/17 at 22:46; Status DC Aspirin (Aspirin Chew) 81 mg DAILY PO Last administered on 09/05/17 09:50; Start 09/01/17 at 09:00 Clopidogrel Bisulfate (Plavix) 600 mg NOW ONCE PO ; Start 08/31/17 at 19:00; Stop 08/31/17 at 19:01; Status DC Clopidogrel Bisulfate (Plavix) 75 mg DAILY PO Last administered on 09/05/17 09 :51; Start 09/01/17 at 09:00 Sodium Chloride (NS Flush) 2 ml UNSCH PRN IV FLUSH FLUSH AFTER USING IV ACCESS ; Start 08/31/17 at 19:00 Sodium Chloride (NS Flush) 2 ml BID IV FLUSH Last administered on 09/05/17 09: 54; Start 08/31/17 at 21:00 Miscellaneous Information 1 ONCE ONCE XX ; Start 08/31/17 at 19:00; Stop at 19:02; Status DC Atorvastatin Calcium (Lipitor) 40 mg DAILY PO Last administered on 09/05/17 09 :51; Start 09/02/17 at 09:00 Iohexol (OMNIPAQUE 350 INJ (Plate Painter Apprentice)) 100 ml STK-MED ONCE OTHER Last administered on 08/31/17 15:05; Start 08/31/17 at 15:05; Stop 09/01/17 at 15:14 ; Status DC Fentanyl Citrate (fentaNYL INJ) 100 mcg STK-MED ONCE .ROUTE Last administered on 09/02/17 10:39; Start 09/02/17 at 10:03; Stop 09/02/17 at 10:04; Status DC Midazolam HCl (Versed Inj) 5 mg STK-MED ONCE .ROUTE Last administered on 10:38; Start 09/02/17 at 10:03; Stop 09/02/17 at 10:04; Status DC Heparin Sodium/ Sodium Chloride 1,000 ml @ As Directed STK-MED ONCE .ROUTE Last administered on 09/02/17 10:03; Start 09/02/17 at 10:03; Stop 09/02/17 at 10:04; Status DC Heparin Sodium (Porcine) (Heparin Inj) 10,000 units STK-MED ONCE .ROUTE Last administered on 09/02/17 11:04; Start 09/02/17 at 10:04; Stop 09/02/17 at 10:05 ; Status DC Heparin Sodium (Porcine) (Heparin Inj) 10,000 units STK-MED ONCE .ROUTE Last administered on 09/02/17 11:59; Start 09/02/17 at 11:58; Stop 09/02/17 at 11:59 ; Status DC Midazolam HCl (Versed Inj) 2 mg STK-MED ONCE .ROUTE Last administered on 12:07; Start 09/02/17 at 12:05; Stop 09/02/17 at 12:06; Status DC Fentanyl Citrate (fentaNYL INJ) 100 mcg STK-MED ONCE .ROUTE Last administered on 09/02/17 12:08; Start 09/02/17 at 12:06; Stop 09/02/17 at 12:07; Status DC Protamine Sulfate (Protamine Sulfate Inj) 50 mg STK-MED ONCE .ROUTE Last administered on 09/02/17 12:18; Start 09/02/17 at 12:16; Stop 09/02/17 at 12:17 ; Status DC Atropine Sulfate (Atropine Inj) 0.5 mg UNSCH PRN IV PUSH VAGAL REPONSE; Start 09/02/17 at 14:45 Ondansetron HCl (Zofran Inj) 4 mg Q4H PRN IV PUSH NAUSEA; Start 09/02/17 at 14: 45 A/P Problem List: (1) AAA (abdominal aortic aneurysm) ICD Code: I71.4 - Abdominal aortic aneurysm, without rupture (2) CAD (coronary artery disease) ICD Code: I25.10 - Atherosclerotic heart disease of [place] coronary artery without angina pectoris Assessment and Plan A/P - Abdominal Aortic Aneurysm vascular surgery consult appreciated; plan for repair this week ( 09/06/17). -CAD- s/p stent placement s/p cardiac cath with : 1. Successful PCI with JUVENTINO to right coronary artery. 2. Successful PCI to right ventricular artery. 3. LV systolic dysfunction, EF of 40% with anterior wall hypokinesis. 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 continue aspirin ,plavix. and statin. cardiology following. -atrial fibrillation; resumed cardizem and digoxin- Xarelto on hold for planned vascular intervention. -DVT prophylaxis;Xarelto on hold for planned surgery. Problem Qualifiers (1) CAD (coronary artery disease): Josette Sidhu MD Sep 05, 2017 13:00
[2017-09-05] MEDS: D5-1/2 NS + KCL 20 MEQ INJ 1,000 ML IV SCH (23:24)
[2017-09-06] VITALS (23 sets, daily range): BP systolic 94–134; BP diastolic 62–86; PULSE 49–81; RESP 16; TEMP 97.6–98.6; O2SAT 96–99
[2017-09-06] MEDS ORDERED: HEPARIN-NS/PF INJ 500 ML ONE (06:49)
[2017-09-06] MEDS ORDERED: HEPARIN SODIUM - IV 10,000 UNITS/10 ML VIAL ONE (06:49)
[2017-09-06] MEDS ORDERED: BUPIVACAINE HCL PF 0.5% 30 ML VIAL ONE (06:49)
[2017-09-06] MEDS ORDERED: PROTAMINE SULFATE 50 MG/5 ML VIAL ONE (06:49)
--- NOTE | 2017-09-06 07:51 | HHI.PR ---
Subjective Remarks in no acute distress. no chest pain or sob. d/w the RN and no acute issues over night. awaiting surgery today. Objective Vitals Vital Signs Date Time Temp Pulse Resp B/P (MAP) Pulse Ox O2 Delivery O2 Flow Rate FiO2 09/06/17 07:31 97.7 78 16 129/77 (94) 97 09/06/17 07:31 97 Room Air 09/06/17 07:31 64 09/06/17 06:24 76 09/06/17 05:02 72 09/06/17 04:03 71 09/06/17 03:30 97.6 75 16 134/81 (98) 96 09/06/17 03:00 63 09/06/17 02:03 60 09/06/17 01:06 63 09/06/17 00:00 49 09/05/17 23:00 54 09/05/17 23:00 97.7 64 18 102/74 (83) 95 09/05/17 21:00 54 09/05/17 20:00 52 09/05/17 19:00 97 Room Air 09/05/17 19:00 98.2 52 16 96/62 (73) 97 09/05/17 19:00 54 09/05/17 18:05 50 09/05/17 17:00 70 09/05/17 16:00 53 09/05/17 15:00 69 09/05/17 15:00 98.4 55 16 118/58 (78) 96 09/05/17 14:00 74 09/05/17 13:00 68 09/05/17 12:00 85 09/05/17 11:17 98.1 77 18 128/68 (88) 98 09/05/17 11:00 68 09/05/17 10:00 72 09/05/17 09:00 80 09/05/17 08:52 98.8 80 16 127/86 (100) 97 09/05/17 08:00 74 I/O 09/05/17 09/05/17 09/05/17 09/06/17 09/06/17 09/06/17 07:00 15:00 23:00 07:00 15:00 23:00 Intake Total 360 ml 444 ml Output Total 300 ml Balance 360 ml 144 ml Intake Oral 360 ml 210 ml IV Total 234 ml Output Urine Total 300 ml # Voids 2 2 2 # Bowel Movements 0 1 Imaging Last Impressions Chest X-Ray 08/31/17 1116 Signed Impressions: Service Date/Time: Thursday, August 31, 2017 11:35 - CONCLUSION: No acute disease. Apparent mild chronic scarring in the left lung base. Markos Padilla MD Aorta CTA 08/31/17 0000 Signed Impressions: Service Date/Time: Thursday, August 31, 2017 13:04 - CONCLUSION: 1. Massive infrarenal abdominal aortic aneurysm measuring 9.0 x 8.8 x 7.7 cm. 2. Bilateral renal cysts. 3. Diverticulosis colon without diverticulitis. 4. Small bilateral pleural effusions greater the left. Maurice Yee MD Objective Remarks GENERAL: This is a well-nourished, well-developed patient, in no apparent distress. CARDIOVASCULAR: Regular rate and regular rhythm without murmurs, gallops, or rubs. RESPIRATORY: Clear to auscultation. Breath sounds equal bilaterally. No wheezes , rales, or rhonchi. GASTROINTESTINAL: Abdomen soft, non-tender, nondistended. Normal, active bowel sounds MUSCULOSKELETAL: Extremities without clubbing, cyanosis, or edema. NEURO: Alert & Oriented x4 to person, place, time, situation. Moves all ext x4 Procedures cardiac cath. Medications and IVs Current Medications Sodium Chloride (NS Flush) 2 ml UNSCH PRN IV FLUSH FLUSH AFTER USING IV ACCESS ; Start 08/31/17 at 11:30; Stop 09/02/17 at 14:51; Status DC Digoxin (Lanoxin) 0.125 mg DAILY PO Last administered on 09/05/17 09:51; Start 09/01/17 at 09:00 Diltiazem HCl (Cardizem Cd) 180 mg DAILY PO Last administered on 09/05/17 09: 51; Start 09/01/17 at 09:00 Furosemide (Lasix) 20 mg DAILY PO Last administered on 09/05/17 09:51; Start 09/01/17 at 09:00 Sodium Chloride 1,000 ml @ 60 mls/hr [id number] ONCE IV ; Start 08/31/17 at 13:00 ; Stop 09/01/17 at 05:39; Status DC Iohexol (Omnipaque 350 Inj) 100 ml STK-MED ONCE IVCONTRAST Last administered on 08/31/17 13:16; Start 08/31/17 at 13:16; Stop 08/31/17 at 13:17; Status DC Heparin Sodium/ Sodium Chloride 500 ml @ As Directed STK-MED ONCE .ROUTE Last administered on 08/31/17 15:09; Start 08/31/17 at 15:09; Stop 08/31/17 at 15:10 ; Status DC Midazolam HCl (Versed Inj) 2 mg STK-MED ONCE .ROUTE Last administered on 15:40; Start 08/31/17 at 15:10; Stop 08/31/17 at 15:11; Status DC Fentanyl Citrate (fentaNYL INJ) 100 mcg STK-MED ONCE .ROUTE Last administered on 08/31/17 15:41; Start 08/31/17 at 15:10; Stop 08/31/17 at 15:11; Status DC Heparin Sodium (Porcine) (Heparin Inj) 10,000 units STK-MED ONCE .ROUTE Last administered on 08/31/17 15:43; Start 08/31/17 at 15:10; Stop 08/31/17 at 15:11 ; Status DC Nitroglycerin 5 ml @ As Directed STK-MED ONCE .ROUTE Last administered on 15:43; Start 08/31/17 at 15:10; Stop 08/31/17 at 15:11; Status DC Verapamil HCl (Isoptin Inj) 5 mg STK-MED ONCE .ROUTE Last administered on 15:43; Start 08/31/17 at 15:27; Stop 08/31/17 at 15:28; Status DC Midazolam HCl (Versed Inj) 2 mg STK-MED ONCE .ROUTE Last administered on 16:12; Start 08/31/17 at 16:05; Stop 08/31/17 at 16:06; Status DC Heparin Sodium/ Sodium Chloride 500 ml @ As Directed STK-MED ONCE .ROUTE Last administered on 08/31/17 16:09; Start 08/31/17 at 16:09; Stop 08/31/17 at 16:10 ; Status DC Midazolam HCl (Versed Inj) 2 mg STK-MED ONCE .ROUTE Last administered on 16:51; Start 08/31/17 at 16:50; Stop 08/31/17 at 16:51; Status DC Midazolam HCl (Versed Inj) 2 mg STK-MED ONCE .ROUTE Last administered on 17:36; Start 08/31/17 at 17:37; Stop 08/31/17 at 17:38; Status DC Fentanyl Citrate (fentaNYL INJ) 100 mcg STK-MED ONCE .ROUTE Last administered on 08/31/17 17:45; Start 08/31/17 at 17:44; Stop 08/31/17 at 17:45; Status DC Midazolam HCl (Versed Inj) 2 mg STK-MED ONCE .ROUTE ; Start 08/31/17 at 18:22; Stop 08/31/17 at 18:23; Status DC Clopidogrel Bisulfate (Plavix) 600 mg STK-MED ONCE .ROUTE Last administered on 08/31/17 18:29; Start 08/31/17 at 18:29; Stop 08/31/17 at 18:30; Status DC Sodium Chloride 1,000 ml @ 125 mls/hr Q8H IV Last administered on 08/31/17 18 :47; Start 08/31/17 at 18:47; Stop 08/31/17 at 22:46; Status DC Aspirin (Aspirin Chew) 81 mg DAILY PO Last administered on 09/05/17 09:50; Start 09/01/17 at 09:00 Clopidogrel Bisulfate (Plavix) 600 mg NOW ONCE PO ; Start 08/31/17 at 19:00; Stop 08/31/17 at 19:01; Status DC Clopidogrel Bisulfate (Plavix) 75 mg DAILY PO Last administered on 09/05/17 09 :51; Start 09/01/17 at 09:00 Sodium Chloride (NS Flush) 2 ml UNSCH PRN IV FLUSH FLUSH AFTER USING IV ACCESS ; Start 08/31/17 at 19:00 Sodium Chloride (NS Flush) 2 ml BID IV FLUSH Last administered on 09/05/17 21: 00; Start 08/31/17 at 21:00 Miscellaneous Information 1 ONCE ONCE XX ; Start 08/31/17 at 19:00; Stop at 19:02; Status DC Atorvastatin Calcium (Lipitor) 40 mg DAILY PO Last administered on 09/05/17 09 :51; Start 09/02/17 at 09:00 Iohexol (OMNIPAQUE 350 INJ (Environmental Remediation Consultant)) 100 ml STK-MED ONCE OTHER Last administered on 08/31/17 15:05; Start 08/31/17 at 15:05; Stop 09/01/17 at 15:14 ; Status DC Fentanyl Citrate (fentaNYL INJ) 100 mcg STK-MED ONCE .ROUTE Last administered on 09/02/17 10:39; Start 09/02/17 at 10:03; Stop 09/02/17 at 10:04; Status DC Midazolam HCl (Versed Inj) 5 mg STK-MED ONCE .ROUTE Last administered on 10:38; Start 09/02/17 at 10:03; Stop 09/02/17 at 10:04; Status DC Heparin Sodium/ Sodium Chloride 1,000 ml @ As Directed STK-MED ONCE .ROUTE Last administered on 09/02/17 10:03; Start 09/02/17 at 10:03; Stop 09/02/17 at 10:04; Status DC Heparin Sodium (Porcine) (Heparin Inj) 10,000 units STK-MED ONCE .ROUTE Last administered on 09/02/17 11:04; Start 09/02/17 at 10:04; Stop 09/02/17 at 10:05 ; Status DC Heparin Sodium (Porcine) (Heparin Inj) 10,000 units STK-MED ONCE .ROUTE Last administered on 09/02/17 11:59; Start 09/02/17 at 11:58; Stop 09/02/17 at 11:59 ; Status DC Midazolam HCl (Versed Inj) 2 mg STK-MED ONCE .ROUTE Last administered on 12:07; Start 09/02/17 at 12:05; Stop 09/02/17 at 12:06; Status DC Fentanyl Citrate (fentaNYL INJ) 100 mcg STK-MED ONCE .ROUTE Last administered on 09/02/17 12:08; Start 09/02/17 at 12:06; Stop 09/02/17 at 12:07; Status DC Protamine Sulfate (Protamine Sulfate Inj) 50 mg STK-MED ONCE .ROUTE Last administered on 09/02/17 12:18; Start 09/02/17 at 12:16; Stop 09/02/17 at 12:17 ; Status DC Atropine Sulfate (Atropine Inj) 0.5 mg UNSCH PRN IV PUSH VAGAL REPONSE; Start 09/02/17 at 14:45 Ondansetron HCl (Zofran Inj) 4 mg Q4H PRN IV PUSH NAUSEA; Start 09/02/17 at 14: 45 Iohexol (OMNIPAQUE 350 INJ (Environmental Remediation Consultant)) 100 ml STK-MED ONCE OTHER ; Start at 09:53; Stop 09/05/17 at 15:15; Status DC Potassium Chloride/Dextrose/ Sod Cl 1,000 ml @ 42 mls/hr [id number] IV Last administered on 09/05/17t 23:24; Start 09/05/17 at 23:00 Protamine Sulfate (Protamine Sulfate Inj) 50 mg STK-MED ONCE .ROUTE ; Start 09/06/17 at 06:49; Stop 09/06/17 at 06:50; Status DC Heparin Sodium (Porcine) (Heparin Inj) 10,000 units STK-MED ONCE .ROUTE ; Start 09/06/17 at 06:49; Stop 09/06/17 at 06:50; Status DC Bupivacaine HCl (Marcaine Pf 0.5% Inj) 30 ml STK-MED ONCE .ROUTE ; Start at 06:49; Stop 09/06/17 at 06:50; Status DC Heparin Sodium/ Sodium Chloride 500 ml @ As Directed STK-MED ONCE .ROUTE ; Start 09/06/17 at 06:49; Stop 09/06/17 at 06:50; Status DC A/P Problem List: (1) AAA (abdominal aortic aneurysm) ICD Code: I71.4 - Abdominal aortic aneurysm, without rupture (2) CAD (coronary artery disease) ICD Code: I25.10 - Atherosclerotic heart disease of [place] coronary artery without angina pectoris Assessment and Plan A/P - Abdominal Aortic Aneurysm vascular surgery consult appreciated; plan for repair today. -CAD- s/p stent placement s/p cardiac cath with : 1. Successful PCI with JUVENTINO to right coronary artery. 2. Successful PCI to right ventricular artery. 3. LV systolic dysfunction, EF of 40% with anterior wall hypokinesis. 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 continue aspirin ,plavix. and statin. cardiology following. -atrial fibrillation; resumed cardizem and digoxin- Xarelto on hold for planned vascular intervention. -DVT prophylaxis;Xarelto on hold for planned surgery. Problem Qualifiers (1) CAD (coronary artery disease): Josette Sidhu MD Sep 06, 2017 07:51
[2017-09-06] MEDS: SODIUM CHLORIDE 0.9% FLUSH 10 ML FLUSH IV FLUSH SCH ×2 (07:52→21:00)
[2017-09-06] MEDS: ASPIRIN 81 MG CHEW TAB PO SCH (08:00)
[2017-09-06] MEDS: CLOPIDOGREL 75 MG TAB PO SCH (08:00)
[2017-09-06] MEDS: DIGOXIN 0.125 MG TAB PO SCH (08:01)
[2017-09-06] MEDS: FUROSEMIDE 20 MG TAB PO SCH (08:01)
[2017-09-06] MEDS: ATORVASTATIN 40 MG TAB PO SCH (08:02)
[2017-09-06] MEDS: DILTIAZEM-CD 180 MG CAP ER PO SCH (08:02)
[2017-09-06] MEDS ORDERED: IOHEXOL 300 MG/ML 100 ML BTL (for Rad CT) IVCONTRAST ONE (10:28)
--- NOTE | 2017-09-06 10:45 | HHI.PR ---
cc: Nadeem Souza MD Immediate Post Op Note Procedure Date: Sep 06, 2017 Pre Op Diagnosis: 9 cm AAA Post Op Diagnosis: 9 cm AAA Surgeon: Josh Pena Manager Underwriting(s): none Procedure: 1. EVAR with 2 docking limbs 2. B BOOK JOGGER Perclose Findings: sluggish endoleak at conclusion of case Good Doppler signals B LE Complications: none Specimen(s) removed: none Estimated blood loss: 50mL Anesthesia: General Drains: None Fluids: 1900 IVF Urinary Output (mLs): 750 Patient to: PACU Patient Condition: Good Implant/Devices: SEE IMPLANT LOG (if applicable) Date/Time of Procedure: SEE SURGICAL CARE RECORD Josh Pena MD Sep 06, 2017 10:45
--- NOTE | 2017-09-06 10:45 | HHI.PR ---
cc: Nadeem Souza MD Immediate Post Op Note Procedure Date: Sep 06, 2017 Pre Op Diagnosis: 9 cm AAA Post Op Diagnosis: 9 cm AAA Surgeon: Josh Pena [employer] Math Teacher(s): none Procedure: 1. EVAR with 2 docking limbs 2. B APPRENTICE ARCHITECT Perclose Findings: sluggish endoleak at conclusion of case Good Doppler signals B LE Complications: none Specimen(s) removed: none Estimated blood loss: 50mL Anesthesia: General Drains: None Fluids: 1900 IVF Urinary Output (mLs): 750 Patient to: PACU Patient Condition: Good Implant/Devices: SEE IMPLANT LOG (if applicable) Date/Time of Procedure: SEE SURGICAL CARE RECORD Josh Pena MD Sep 06, 2017 10:45
--- NOTE | 2017-09-06 10:45 | HHI.PR ---
cc: Nadeem Souza MD Immediate Post Op Note Procedure Date: Sep 06, 2017 Pre Op Diagnosis: 9 cm AAA Post Op Diagnosis: 9 cm AAA Surgeon: Josh Pena Fitness Sales Consultant(s): none Procedure: 1. EVAR with 2 docking limbs 2. 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
[2017-09-06] MEDS: *morphine SULFATE 8 MG/ML PERIprocedure ONLY ONE (11:47)
--- NOTE | 2017-09-06 13:06 | PD.CARD.PN ---
Subjective Subjective Remarks No CV complaints No overnight events s/p PCi/JUVENTINO to RCA s/p EVAR Objective Medications Current Medications Medications (Trade) Dose Ordered Sig/[place] Route Start Time Stop Time Status Last Admin (Lanoxin) 0.125 mg DAILY PO 09/01/17 09:00 09/06/17 08:01 (Cardizem Cd) 180 mg DAILY PO 09/01/17 09:00 09/06/17 08:02 (Lasix) 20 mg DAILY PO 09/01/17 09:00 09/06/17 08:01 (Aspirin Chew) 81 mg DAILY PO 09/01/17 09:00 09/06/17 08:00 (Plavix) 75 mg DAILY PO 09/01/17 09:00 09/06/17 08:00 (NS Flush) 2 ml UNSCH PRN IV FLUSH 08/31/17 19:00 (NS Flush) 2 ml BID IV FLUSH 08/31/17 21:00 09/05/17 21:00 (Lipitor) 40 mg DAILY PO 09/02/17 09:00 09/05/17 09:51 (Atropine Inj) 0.5 mg UNSCH PRN IV PUSH 09/02/17 14:45 (Zofran Inj) 4 mg Q4H PRN IV PUSH 09/02/17 14:45 Potassium Chloride/Dextrose/ Sod Cl 1,000 ml @ 42 mls/hr [id number] IV 09/05/17 23:00 09/05/17 23:24 Vital Signs / I&O Vital Signs Date Time Temp Pulse Resp B/P (MAP) Pulse Ox O2 Delivery O2 Flow Rate FiO2 09/06/17 12:31 97.6 57 16 94/70 (78) 99 09/06/17 12:31 81 09/06/17 08:04 74 09/06/17 07:31 97.7 78 16 129/77 (94) 97 09/06/17 07:31 97 Room Air 09/06/17 07:31 64 09/06/17 06:24 76 09/06/17 05:02 72 09/06/17 04:03 71 09/06/17 03:30 97.6 75 16 134/81 (98) 96 09/06/17 03:00 63 09/06/17 02:03 60 09/06/17 01:06 63 09/06/17 00:00 49 09/05/17 23:00 54 09/05/17 23:00 97.7 64 18 102/74 (83) 95 09/05/17 21:00 54 09/05/17 20:00 52 09/05/17 19:00 97 Room Air 09/05/17 19:00 98.2 52 16 96/62 (73) 97 09/05/17 19:00 54 09/05/17 18:05 50 09/05/17 17:00 70 09/05/17 16:00 53 09/05/17 15:00 69 09/05/17 15:00 98.4 55 16 118/58 (78) 96 09/05/17 14:00 74 I/O 09/05/17 09/05/17 09/05/17 09/06/17 09/06/17 09/06/17 07:00 15:00 23:00 07:00 15:00 23:00 Intake Total 360 ml 444 ml 1900 ml Output Total 300 ml 800 ml Balance 360 ml 144 ml 1100 ml Intake Oral 360 ml 210 ml IV Total 234 ml Other 1900 ml Output Urine Total 300 ml 750 ml Estimated Blood Loss 50 ml # Voids 2 2 2 # Bowel Movements 0 1 Physical Exam GENERAL: Well-nourished, well-developed patient. SKIN: Warm and dry. HEAD: Normocephalic. EYES: No scleral icterus. No injection or drainage. NECK: Supple, trachea midline. No JVD or lymphadenopathy. CARDIOVASCULAR: Regular rate and rhythm without murmurs, gallops, or rubs. RESPIRATORY: Breath sounds equal bilaterally. No accessory muscle use. GASTROINTESTINAL: Abdomen soft, non-tender, nondistended. EXTREMITIES: No cyanosis, or edema. NEUROLOGICAL: Awake, alert, and oriented x 3. Non-focal. Assessment and Plan Problem List: (1) CAD (coronary artery disease) ICD Codes: I25.10 - Atherosclerotic heart disease of [place] coronary artery without angina pectoris Plan: No CV complaints s/p EVAR Plan: Cont aggressive medical management t for CAD Stable from CV standpoint to be d/c home when he recovers from EVAR. (2) Congestive heart failure ICD Codes: I50.9 - Congestive heart failure Status: Acute (3) Atrial fibrillation ICD Codes: I48.91 - Unspecified atrial fibrillation Status: Acute (4) LBBB (left bundle branch block) ICD Codes: I44.7 - Left bundle-branch block, unspecified Status: Acute (5) AAA (abdominal aortic aneurysm) ICD Codes: I71.4 - Abdominal aortic aneurysm, without rupture Problem Qualifiers (1) CAD (coronary artery disease): Nadeem Souza MD Sep 06, 2017 13:05
--- NOTE | 2017-09-06 20:19 | MP ---
cc: CHELSEY PENA DATE OF SURGERY 09/06/17 PREOPERATIVE DIAGNOSIS Abdominal aortic aneurysm. POSTOPERATIVE DIAGNOSIS Abdominal aortic aneurysm. PROCEDURE Endovascular exclusion of an abdominal aortic aneurysm. ATTENDING SURGEON Chelsey Pena MD METROLOGIST SURGEON None. ANESTHESIA General MEDICATIONS Mr. Clark is a 77-year-old gentleman with a nearly 9 cm abdominal aortic aneurysm. He is taken to the operating room for endovascular repair. DESCRIPTION OF PROCEDURE Informed consent was obtained from the patient. He was taken to the operating room and placed supine on the operating room table. An appropriate time-out was taken to ensure his identity, operative site and planned procedure. The administration of 2 grams of Ancef was initiated prior to skin incision and will be discontinued after single preoperative dose. Everyone in the room agreed to time-out and we proceeded. He was prepped from his nipples to his knees. A 21 gauge micropuncture needle was used to access the right common femoral artery. This was exchanged using Seldinger technique for micropuncture sheath through which a 0.035 STORQ wire was introduced. The micropuncture sheath was exchanged for a 5-Serbian sheath. Two Perclose ProGlide sutures were inserted and tagged but not tied down. These will be used later. An 8-Serbian sheath was introduced. A similar procedure was performed on the left-hand side with a micropuncture access STORQ wire, 5-Serbian sheath for dilation, two Percloses and an 8-Serbian sheath. The patient was then systemically heparinized and throughout the remainder of the case the AC was kept greater than 250. Both STORQ wires were advanced into the proximal, descending thoracic aorta and over the left-hand STORQ wire a marker flush catheter was placed and over the right hand STORQ wire a vertebral catheter was placed and the STORQ was exchanged for a Lunderquist. After systemic heparinization the short 8-Serbian sheath was removed from the right-hand side Lloyd dilator used to dilate skin, subcutaneous tract and arteriotomy and the main device which was a [employer] ZenapiOmat 28 x 96 device was inserted. Interval angiography demonstrated the location of the left renal artery and the device was deployed down to the contralateral gate such that the fabric was immediately caudal to the renal artery. The top cap was then deployed with interval angiography confirmed the location of the renal artery. The [place] wire was passed through the marker catheter on the left and the marker catheter was exchanged for a Cobra and then a SOS catheter which was used to cannulate the contralateral gate. Angiogram confirmed we are indeed in the contralateral gate. The [place] wire was exchanged for a Lunderquist wire and the marker flush catheter was then placed. An angiogram confirmed the location of the left hypogastric artery and the contralateral limb which was a 16 x 74 Zenith spiral Z-limb was inserted, placed with sufficient overlap and then deployed without difficulty. The dilators were then removed. The remainder of the main device was deployed. The top cath was recaptured. A marker catheter was then placed to locate the right hypogastric artery and the right ipsilateral limb was then introduced which was a 16 x 56 Zenith spiral Z and deployed without difficulty. The delivery system was removed. The 2 12 x 40 mm balloons were used to angioplasty the proximal aspect of the limbs simultaneously and the completion angiogram showed excellent result with a sluggish type 1A endoleak but what appeared to be a good geometric seal proximally. Wire, catheter and sheath removed. Percloses were tied down. Hemostasis was achieved in the groin. There were Doppler signals in the feet and heparin was reversed with protamine. There were no complications. I was present and scrubbed and performed the entire procedure. MD KARMA Lebron/IGNACIO /6:46 PM /7:50 PM NEAL
--- NOTE | 2017-09-06 20:19 | MP ---
cc: CHELSEY PENA DATE OF SURGERY 09/06/17 PREOPERATIVE DIAGNOSIS Abdominal aortic aneurysm. POSTOPERATIVE DIAGNOSIS Abdominal aortic aneurysm. PROCEDURE Endovascular exclusion of an abdominal aortic aneurysm. ATTENDING SURGEON Chelsey Pena MD PRINCIPAL ACCOUNT CLERK SURGEON None. ANESTHESIA General MEDICATIONS Mr. Clark is a 77-year-old gentleman with a nearly 9 cm abdominal aortic aneurysm. He is taken to the operating room for endovascular repair. DESCRIPTION OF PROCEDURE Informed consent was obtained from the patient. He was taken to the operating room and placed supine on the operating room table. An appropriate time-out was taken to ensure his identity, operative site and planned procedure. The administration of 2 grams of Ancef was initiated prior to skin incision and will be discontinued after single preoperative dose. Everyone in the room agreed to time-out and we proceeded. He was prepped from his nipples to his knees. A 21 gauge micropuncture needle was used to access the right common femoral artery. This was exchanged using Seldinger technique for micropuncture sheath through which a 0.035 STORQ wire was introduced. The micropuncture sheath was exchanged for a 5-Sammarinese sheath. Two Perclose ProGlide sutures were inserted and tagged but not tied down. These will be used later. An 8-Sammarinese sheath was introduced. A similar procedure was performed on the left-hand side with a micropuncture access STORQ wire, 5-Sammarinese sheath for dilation, two Percloses and an 8-Sammarinese sheath. The patient was then systemically heparinized and throughout the remainder of the case the AC was kept greater than 250. Both STORQ wires were advanced into the proximal, descending thoracic aorta and over the left-hand STORQ wire a marker flush catheter was placed and over the right hand STORQ wire a vertebral catheter was placed and the STORQ was exchanged for a Lunderquist. After systemic heparinization the short 8-Sammarinese sheath was removed from the right-hand side Lloyd dilator used to dilate skin, subcutaneous tract and arteriotomy and the main device which was a [employer] ZenMarkLogic 28 x 96 device was inserted. Interval angiography demonstrated the location of the left renal artery and the device was deployed down to the contralateral gate such that the fabric was immediately caudal to the renal artery. The top cap was then deployed with interval angiography confirmed the location of the renal artery. The [place] wire was passed through the marker catheter on the left and the marker catheter was exchanged for a Cobra and then a SOS catheter which was used to cannulate the contralateral gate. Angiogram confirmed we are indeed in the contralateral gate. The [place] wire was exchanged for a Lunderquist wire and the marker flush catheter was then placed. An angiogram confirmed the location of the left hypogastric artery and the contralateral limb which was a 16 x 74 Zenith spiral Z-limb was inserted, placed with sufficient overlap and then deployed without difficulty. The dilators were then removed. The remainder of the main device was deployed. The top cath was recaptured. A marker catheter was then placed to locate the right hypogastric artery and the right ipsilateral limb was then introduced which was a 16 x 56 Zenith spiral Z and deployed without difficulty. The delivery system was removed. The 2 12 x 40 mm balloons were used to angioplasty the proximal aspect of the limbs simultaneously and the completion angiogram showed excellent result with a sluggish type 1A endoleak but what appeared to be a good geometric seal proximally. Wire, catheter and sheath removed. Percloses were tied down. Hemostasis was achieved in the groin. There were Doppler signals in the feet and heparin was reversed with protamine. There were no complications. I was present and scrubbed and performed the entire procedure. MD KARMA Lebron/IGNACIO /6:46 PM /7:50 PM NEAL
--- NOTE | 2017-09-06 20:19 | MP ---
cc: CHELSEY PENA DATE OF SURGERY 09/06/17 PREOPERATIVE DIAGNOSIS Abdominal aortic aneurysm. POSTOPERATIVE DIAGNOSIS Abdominal aortic aneurysm. PROCEDURE Endovascular exclusion of an abdominal aortic aneurysm. ATTENDING SURGEON Chelsey Pena MD SQUILGEER SURGEON None. ANESTHESIA General MEDICATIONS Mr. Clark is a 77-year-old gentleman with a nearly 9 cm abdominal aortic aneurysm. He is taken to the operating room for endovascular repair. DESCRIPTION OF PROCEDURE Informed consent was obtained from the patient. He was taken to the operating room and placed supine on the operating room table. An appropriate time-out was taken to ensure his identity, operative site and planned procedure. The administration of 2 grams of Ancef was initiated prior to skin incision and will be discontinued after single preoperative dose. Everyone in the room agreed to time-out and we proceeded. He was prepped from his nipples to his knees. A 21 gauge micropuncture needle was used to access the right common femoral artery. This was exchanged using Seldinger technique for micropuncture sheath through which a 0.035 STORQ wire was introduced. The micropuncture sheath was exchanged for a 5-[place]rit[place]an sheath. Two Perclose ProGlide sutures were inserted and tagged but not tied down. These will be used later. An 8-[place]ritrean sheath was introduced. A similar procedure was performed on the left-hand side with a micropuncture access STORQ wire, 5-Eritrean sheath for dilation, two Percloses and an 8-Eritrean sheath. The patient was then systemically heparinized and throughout the remainder of the case the AC was kept greater than 250. Both STORQ wires were advanced into the proximal, descending thoracic aorta and over the left-hand STORQ wire a marker flush catheter was placed and over the right hand STORQ wire a vertebral catheter was placed and the STORQ was exchanged for a Lunderquist. After systemic heparinization the short 8-Eritrean sheath was removed from the right-hand side Lloyd dilator used to dilate skin, subcutaneous tract and arteriotomy and the main device which was a [employer] ZenParakey 28 x 96 device was inserted. Interval angiography demonstrated the location of the left renal artery and the device was deployed down to the contralateral gate such that the fabric was immediately caudal to the renal artery. The top cap was then deployed with interval angiography confirmed the location of the renal artery. The [place] wire was passed through the marker catheter on the left and the marker catheter was exchanged for a Cobra and then a SOS catheter which was used to cannulate the contralateral gate. Angiogram confirmed we are indeed in the contralateral gate. The [place] wire was exchanged for a Lunderquist wire and the marker flush catheter was then placed. An angiogram confirmed the location of the left hypogastric artery and the contralateral limb which was a 16 x 74 Zenith spiral Z-limb was inserted, placed with sufficient overlap and then deployed without difficulty. The dilators were then removed. The remainder of the main device was deployed. The top cath was recaptured. A marker catheter was then placed to locate the right hypogastric artery and the right ipsilateral limb was then introduced which was a 16 x 56 Zenith spiral Z and deployed without difficulty. The delivery system was removed. The 2 12 x 40 mm balloons were used to angioplasty the proximal aspect of the limbs simultaneously and the completion angiogram showed excellent result with a sluggish type 1A endoleak but what appeared to be a good geometric seal proximally. Wire, catheter and sheath removed. Percloses were tied down. Hemostasis was achieved in the groin. There were Doppler signals in the feet and heparin was reversed with protamine. There were no complications. I was present and scrubbed and performed the entire procedure. MD KARMA Lebron/IGNACIO /6:46 PM /7:50 PM NEAL
[2017-09-07] VITALS (16 sets, daily range): BP systolic 114–153; BP diastolic 60–80; PULSE 54–78; RESP 14–16; TEMP 98.3–98.4; O2SAT 95–98
[2017-09-07 05:21] LABS: AUTOMATED NEUTROPHIL # 8.1 TH/MM3 (1.8-7.7); BASOPHIL % 0.2 % (0.0-2.0); EOSINOPHIL % 0.1 % (0.0-4.0); HEMATOCRIT 37.7 % (39.0-51.0); HEMOGLOBIN 12.8 GM/DL (13.0-17.0); LYMPHOCYTE # 0.9 TH/MM3 (1.0-4.8); MEAN CELL VOLUME 88.4 FL (80.0-100.0); MEAN CORPUSCULAR HEMOGLOBIN 30.1 PG (27.0-34.0); MEAN CORPUSCULAR HGB CONC 34.1 % (32.0-36.0); MEAN PLATELET VOLUME 9.3 FL (7.0-11.0); MONO % 6.6 % (0.0-8.0); MONOCYTE # 0.6 TH/MM3 (0-0.9); NEUT % 84.1 % (16.0-70.0); PLATELET COUNT 147 TH/MM3 (150-450); RED BLOOD COUNT 4.27 MIL/MM3 (4.50-5.90); RED CELL DISTRIBUTION WIDTH 14.5 % (11.6-17.2); WHITE BLOOD COUNT 9.6 TH/MM3 (4.0-11.0)
[2017-09-07] MEDS: D5-1/2 NS + KCL 20 MEQ INJ 1,000 ML IV SCH (05:34)
[2017-09-07 05:38] LABS: BICARBONATE 24.8 MEQ/L (21.0-32.0); CALCIUM 8.4 MG/DL (8.5-10.1); CREATININE 1.13 MG/DL (0.60-1.30)
[2017-09-07] MEDS: CLOPIDOGREL 75 MG TAB PO SCH (09:14)
[2017-09-07] MEDS: SODIUM CHLORIDE 0.9% FLUSH 10 ML FLUSH IV FLUSH SCH (09:14)
[2017-09-07] MEDS: ASPIRIN 81 MG CHEW TAB PO SCH (09:14)
[2017-09-07] MEDS: ATORVASTATIN 40 MG TAB PO SCH (09:15)
[2017-09-07] MEDS: DIGOXIN 0.125 MG TAB PO SCH (09:15)
[2017-09-07] MEDS: FUROSEMIDE 20 MG TAB PO SCH (09:15)
[2017-09-07] MEDS: DILTIAZEM-CD 180 MG CAP ER PO SCH (09:15)
--- NOTE | 2017-09-07 09:42 | PD.VS.PN ---
Subjective POD #: 1 Procedure(s): EVAR Subjective/Hospital Course 77/M Alert in NAD Pt in bed w/o c/o abdominal/back pain Pt reported a good night (Adriana Rosen) Objective Vitals/I&O Date Time Temp Pulse Resp B/P (MAP) Pulse Ox O2 Delivery O2 Flow Rate FiO2 09/07/17 09:00 64 09/07/17 08:27 98.3 78 16 114/60 (78) 95 09/07/17 08:27 95 Nasal Cannula 2.00 09/07/17 08:00 60 09/07/17 07:00 54 09/07/17 06:00 58 09/07/17 05:00 58 09/07/17 04:00 64 09/07/17 03:00 98.4 67 14 124/71 (88) 98 09/07/17 03:00 56 09/07/17 02:00 64 09/07/17 01:00 70 09/07/17 00:00 74 09/06/17 23:00 72 09/06/17 23:00 66 16 121/86 (98) 98 09/06/17 22:00 68 09/06/17 21:00 74 09/06/17 20:00 66 09/06/17 20:00 98 Nasal Cannula 2.00 09/06/17 19:30 98.6 75 16 116/63 (80) 98 09/06/17 19:00 78 09/06/17 18:03 78 09/06/17 17:22 79 09/06/17 16:10 74 09/06/17 15:46 16 09/06/17 15:14 97.8 77 16 115/62 (79) 97 09/06/17 15:14 70 09/06/17 14:38 77 09/06/17 13:28 77 09/06/17 12:31 97.6 57 16 94/70 (78) 99 09/06/17 12:31 81 09/06/17 12:15 97.5 87 16 142/64 (90) 99 Nasal Cannula 3 09/06/17 12:00 87 16 140/64 (89) 99 Nasal Cannula 3 09/06/17 11:45 84 17 138/67 (90) 99 Nasal Cannula 3 09/06/17 11:30 81 17 155/71 (99) 99 Nasal Cannula 3 09/06/17 11:15 81 15 123/79 (94) 99 Nasal Cannula 3 09/06/17 10:56 97.4 76 15 118/79 (92) 100 Nasal Cannula 3 09/07/17 09/07/17 09/07/17 07:00 15:00 23:00 Intake Total 680 ml Output Total 1050 ml Balance -370 ml Exam: GENERAL: A&OX3,NAD,GCS15 SKIN: Warm and dry R/L groin w/o swelling or hematoma GASTROINTESTINAL: Abdomen soft, non-tender, nondistended. LE warm w/ motor intact Laboratory Laboratory Tests Test 09/07/17 04:53 White Blood Count 9.6 Red Blood Count 4.27 Hemoglobin 12.8 Hematocrit 37.7 Mean Corpuscular Volume 88.4 Mean Corpuscular Hemoglobin 30.1 Mean Corpuscular Hemoglobin Concent 34.1 Red Cell Distribution Width 14.5 Platelet Count 147 Mean Platelet Volume 9.3 Neutrophils (%) (Auto) 84.1 Lymphocytes (%) (Auto) 9.0 Monocytes (%) (Auto) 6.6 Eosinophils (%) (Auto) 0.1 Basophils (%) (Auto) 0.2 Neutrophils # (Auto) 8.1 Lymphocytes # (Auto) 0.9 Monocytes # (Auto) 0.6 Eosinophils # (Auto) 0.0 Basophils # (Auto) 0.0 CBC Comment DIFF FINAL Differential Comment Blood Urea Nitrogen 20 Creatinine 1.13 Random Glucose 167 Calcium Level 8.4 Sodium Level 137 Potassium Level 4.5 Chloride Level 104 Carbon Dioxide Level 24.8 Anion Gap 8 Estimat Glomerular Filtration Rate 63 (Adriana Rosen) Assessment and Plan Plan Pt POD 1 s/p EVAR Pt w/o complaints Denies abdominal/back pain Plan Pt doing well Arranged out pt f/u Pt clear for D/C from a vascular stand point Adriana MCDONALD [email or web address] [phone] Discharge Planning Pt clear for d/c from a vascular standpoint (Adriana Rosen) Plan Looks great POD#1 s/p EVAR Groins ok can d/c [place], get OOB and from a vascular standpoint, can go home F/u CT already arranged. (Josh Pena MD) Adriana Rosen Sep 07, 2017 09:42 Josh Pena MD Sep 07, 2017 10:55
--- NOTE | 2017-09-07 10:56 | HHI.PR ---
Subjective Remarks in no acute distress. denies pain. no new complaints. d/w the RN and no acute issues over night. Objective Vitals Vital Signs Date Time Temp Pulse Resp B/P (MAP) Pulse Ox O2 Delivery O2 Flow Rate FiO2 09/07/17 09:00 64 09/07/17 08:27 98.3 78 16 114/60 (78) 95 09/07/17 08:27 95 Nasal Cannula 2.00 09/07/17 08:00 60 09/07/17 07:00 54 09/07/17 06:00 58 09/07/17 05:00 58 09/07/17 04:00 64 09/07/17 03:00 98.4 67 14 124/71 (88) 98 09/07/17 03:00 56 09/07/17 02:00 64 09/07/17 01:00 70 09/07/17 00:00 74 09/06/17 23:00 72 09/06/17 23:00 66 16 121/86 (98) 98 09/06/17 22:00 68 09/06/17 21:00 74 09/06/17 20:00 66 09/06/17 20:00 98 Nasal Cannula 2.00 09/06/17 19:30 98.6 75 16 116/63 (80) 98 09/06/17 19:00 78 09/06/17 18:03 78 09/06/17 17:22 79 09/06/17 16:10 74 09/06/17 15:46 16 09/06/17 15:14 97.8 77 16 115/62 (79) 97 09/06/17 15:14 70 09/06/17 14:38 77 09/06/17 13:28 77 09/06/17 12:31 97.6 57 16 94/70 (78) 99 09/06/17 12:31 81 09/06/17 12:15 97.5 87 16 142/64 (90) 99 Nasal Cannula 3 09/06/17 12:00 87 16 140/64 (89) 99 Nasal Cannula 3 09/06/17 11:45 84 17 138/67 (90) 99 Nasal Cannula 3 09/06/17 11:30 81 17 155/71 (99) 99 Nasal Cannula 3 09/06/17 11:15 81 15 123/79 (94) 99 Nasal Cannula 3 09/06/17 10:56 97.4 76 15 118/79 (92) 100 Nasal Cannula 3 I/O 09/06/17 09/06/17 09/06/17 09/07/17 09/07/17 09/07/17 07:00 15:00 23:00 07:00 15:00 23:00 Intake Total 444 ml 1950 ml 780 ml 680 ml Output Total 300 ml 1300 ml 750 ml 1050 ml Balance 144 ml 650 ml 30 ml -370 ml Intake Oral 210 ml 360 ml 240 ml IV Total 234 ml 50 ml 420 ml 440 ml Other 1900 ml Output Urine Total 300 ml 1250 ml 750 ml 1050 ml Estimated Blood Loss 50 ml # Voids 2 # Bowel Movements 0 Result Diagram: 09/07/17 0453 09/07/17 0453 Imaging Last Impressions Chest X-Ray 08/31/17 1116 Signed Impressions: Service Date/Time: Thursday, August 31, 2017 11:35 - CONCLUSION: No acute disease. Apparent mild chronic scarring in the left lung base. Markos Padilla MD Aorta CTA 08/31/17 0000 Signed Impressions: Service Date/Time: Thursday, August 31, 2017 13:04 - CONCLUSION: 1. Massive infrarenal abdominal aortic aneurysm measuring 9.0 x 8.8 x 7.7 cm. 2. Bilateral renal cysts. 3. Diverticulosis colon without diverticulitis. 4. Small bilateral pleural effusions greater the left. Maurice Yee MD Objective Remarks GENERAL: This is a well-nourished, well-developed patient, in no apparent distress. CARDIOVASCULAR: Regular rate and regular rhythm without murmurs, gallops, or rubs. RESPIRATORY: Clear to auscultation. Breath sounds equal bilaterally. No wheezes , rales, or rhonchi. GASTROINTESTINAL: Abdomen soft, non-tender, nondistended. Normal, active bowel sounds MUSCULOSKELETAL: Extremities without clubbing, cyanosis, or edema. NEURO: Alert & Oriented x4 to person, place, time, situation. Moves all ext x4 Procedures cardiac cath. Medications and IVs Current Medications Sodium Chloride (NS Flush) 2 ml UNSCH PRN IV FLUSH FLUSH AFTER USING IV ACCESS ; Start 08/31/17 at 11:30; Stop 09/02/17 at 14:51; Status DC Digoxin (Lanoxin) 0.125 mg DAILY PO Last administered on 09/07/17 09:15; Start 09/01/17 at 09:00 Diltiazem HCl (Cardizem Cd) 180 mg DAILY PO Last administered on 09/07/17 09: 15; Start 09/01/17 at 09:00 Furosemide (Lasix) 20 mg DAILY PO Last administered on 09/07/17 09:15; Start 09/01/17 at 09:00 Sodium Chloride 1,000 ml @ 60 mls/hr [id number] ONCE IV ; Start 08/31/17 at 13:00 ; Stop 09/01/17 at 05:39; Status DC Iohexol (Omnipaque 350 Inj) 100 ml STK-MED ONCE IVCONTRAST Last administered on 08/31/17 13:16; Start 08/31/17 at 13:16; Stop 08/31/17 at 13:17; Status DC Heparin Sodium/ Sodium Chloride 500 ml @ As Directed STK-MED ONCE .ROUTE Last administered on 08/31/17 15:09; Start 08/31/17 at 15:09; Stop 08/31/17 at 15:10 ; Status DC Midazolam HCl (Versed Inj) 2 mg STK-MED ONCE .ROUTE Last administered on 15:40; Start 08/31/17 at 15:10; Stop 08/31/17 at 15:11; Status DC Fentanyl Citrate (fentaNYL INJ) 100 mcg STK-MED ONCE .ROUTE Last administered on 08/31/17 15:41; Start 08/31/17 at 15:10; Stop 08/31/17 at 15:11; Status DC Heparin Sodium (Porcine) (Heparin Inj) 10,000 units STK-MED ONCE .ROUTE Last administered on 08/31/17 15:43; Start 08/31/17 at 15:10; Stop 08/31/17 at 15:11 ; Status DC Nitroglycerin 5 ml @ As Directed STK-MED ONCE .ROUTE Last administered on 15:43; Start 08/31/17 at 15:10; Stop 08/31/17 at 15:11; Status DC Verapamil HCl (Isoptin Inj) 5 mg STK-MED ONCE .ROUTE Last administered on 15:43; Start 08/31/17 at 15:27; Stop 08/31/17 at 15:28; Status DC Midazolam HCl (Versed Inj) 2 mg STK-MED ONCE .ROUTE Last administered on 16:12; Start 08/31/17 at 16:05; Stop 08/31/17 at 16:06; Status DC Heparin Sodium/ Sodium Chloride 500 ml @ As Directed STK-MED ONCE .ROUTE Last administered on 08/31/17 16:09; Start 08/31/17 at 16:09; Stop 08/31/17 at 16:10 ; Status DC Midazolam HCl (Versed Inj) 2 mg STK-MED ONCE .ROUTE Last administered on 16:51; Start 08/31/17 at 16:50; Stop 08/31/17 at 16:51; Status DC Midazolam HCl (Versed Inj) 2 mg STK-MED ONCE .ROUTE Last administered on 17:36; Start 08/31/17 at 17:37; Stop 08/31/17 at 17:38; Status DC Fentanyl Citrate (fentaNYL INJ) 100 mcg STK-MED ONCE .ROUTE Last administered on 08/31/17 17:45; Start 08/31/17 at 17:44; Stop 08/31/17 at 17:45; Status DC Midazolam HCl (Versed Inj) 2 mg STK-MED ONCE .ROUTE ; Start 08/31/17 at 18:22; Stop 08/31/17 at 18:23; Status DC Clopidogrel Bisulfate (Plavix) 600 mg STK-MED ONCE .ROUTE Last administered on 08/31/17 18:29; Start 08/31/17 at 18:29; Stop 08/31/17 at 18:30; Status DC Sodium Chloride 1,000 ml @ 125 mls/hr Q8H IV Last administered on 08/31/17 18 :47; Start 08/31/17 at 18:47; Stop 08/31/17 at 22:46; Status DC Aspirin (Aspirin Chew) 81 mg DAILY PO Last administered on 09/07/17 09:14; Start 09/01/17 at 09:00 Clopidogrel Bisulfate (Plavix) 600 mg NOW ONCE PO ; Start 08/31/17 at 19:00; Stop 08/31/17 at 19:01; Status DC Clopidogrel Bisulfate (Plavix) 75 mg DAILY PO Last administered on 09/07/17 09 :14; Start 09/01/17 at 09:00 Sodium Chloride (NS Flush) 2 ml UNSCH PRN IV FLUSH FLUSH AFTER USING IV ACCESS ; Start 08/31/17 at 19:00 Sodium Chloride (NS Flush) 2 ml BID IV FLUSH Last administered on 09/07/17 09: 14; Start 08/31/17 at 21:00 Miscellaneous Information 1 ONCE ONCE XX ; Start 08/31/17 at 19:00; Stop at 19:02; Status DC Atorvastatin Calcium (Lipitor) 40 mg DAILY PO Last administered on 09/07/17 09 :15; Start 09/02/17 at 09:00 Iohexol (OMNIPAQUE 350 INJ ([employer])) 100 ml STK-MED ONCE OTHER Last administered on 08/31/17 15:05; Start 08/31/17 at 15:05; Stop 09/01/17 at 15:14 ; Status DC Fentanyl Citrate (fentaNYL INJ) 100 mcg STK-MED ONCE .ROUTE Last administered on 09/02/17 10:39; Start 09/02/17 at 10:03; Stop 09/02/17 at 10:04; Status DC Midazolam HCl (Versed Inj) 5 mg STK-MED ONCE .ROUTE Last administered on 10:38; Start 09/02/17 at 10:03; Stop 09/02/17 at 10:04; Status DC Heparin Sodium/ Sodium Chloride 1,000 ml @ As Directed STK-MED ONCE .ROUTE Last administered on 09/02/17 10:03; Start 09/02/17 at 10:03; Stop 09/02/17 at 10:04; Status DC Heparin Sodium (Porcine) (Heparin Inj) 10,000 units STK-MED ONCE .ROUTE Last administered on 09/02/17 11:04; Start 09/02/17 at 10:04; Stop 09/02/17 at 10:05 ; Status DC Heparin Sodium (Porcine) (Heparin Inj) 10,000 units STK-MED ONCE .ROUTE Last administered on 09/02/17 11:59; Start 09/02/17 at 11:58; Stop 09/02/17 at 11:59 ; Status DC Midazolam HCl (Versed Inj) 2 mg STK-MED ONCE .ROUTE Last administered on 12:07; Start 09/02/17 at 12:05; Stop 09/02/17 at 12:06; Status DC Fentanyl Citrate (fentaNYL INJ) 100 mcg STK-MED ONCE .ROUTE Last administered on 09/02/17 12:08; Start 09/02/17 at 12:06; Stop 09/02/17 at 12:07; Status DC Protamine Sulfate (Protamine Sulfate Inj) 50 mg STK-MED ONCE .ROUTE Last administered on 09/02/17 12:18; Start 09/02/17 at 12:16; Stop 09/02/17 at 12:17 ; Status DC Atropine Sulfate (Atropine Inj) 0.5 mg UNSCH PRN IV PUSH VAGAL REPONSE; Start 09/02/17 at 14:45 Ondansetron HCl (Zofran Inj) 4 mg Q4H PRN IV PUSH NAUSEA; Start 09/02/17 at 14: 45 Iohexol (OMNIPAQUE 350 INJ ([employer])) 100 ml STK-MED ONCE OTHER ; Start at 09:53; Stop 09/05/17 at 15:15; Status DC Potassium Chloride/Dextrose/ Sod Cl 1,000 ml @ 42 mls/hr [id number] IV Last administered on 09/07/17 05:34; Start 09/05/17 at 23:00 Protamine Sulfate (Protamine Sulfate Inj) 50 mg STK-MED ONCE .ROUTE Last administered on 09/06/17 10:25; Start 09/06/17 at 06:49; Stop 09/06/17 at 06:50 ; Status DC Heparin Sodium (Porcine) (Heparin Inj) 10,000 units STK-MED ONCE .ROUTE Last administered on 09/06/17 09:36; Start 09/06/17 at 06:49; Stop 09/06/17 at 06:50 ; Status DC Bupivacaine HCl (Marcaine Pf 0.5% Inj) 30 ml STK-MED ONCE .ROUTE ; Start at 06:49; Stop 09/06/17 at 06:50; Status DC Heparin Sodium/ Sodium Chloride 500 ml @ As Directed STK-MED ONCE .ROUTE Last administered on 09/06/17 08:35; Start 09/06/17 at 06:49; Stop 09/06/17 at 06:50 ; Status DC Iohexol (OMNIPAQUE 300 INJ ([facility] CT)) 95 ml ONCE ONCE IVCONTRAST Last administered on 09/06/17 10:29; Start 09/06/17 at 10:28; Stop 09/06/17 at 10:29 ; Status DC Morphine Sulfate (*morphine INJ PERIprocedure ONLY) 8 mg STK-MED ONCE .ROUTE Last administered on 09/06/17 11:47; Start 09/06/17 at 11:47; Stop 09/06/17 at 11:48; Status DC A/P Problem List: (1) AAA (abdominal aortic aneurysm) ICD Code: I71.4 - Abdominal aortic aneurysm, without rupture (2) CAD (coronary artery disease) ICD Code: I25.10 - Atherosclerotic heart disease of [place] coronary artery without angina pectoris Assessment and Plan A/P - Abdominal Aortic Aneurysm- s/p EVAR cleared by vacular surgery for discharge. -CAD- s/p stent placement s/p cardiac cath with : 1. Successful PCI with JUVENTINO to right coronary artery. 2. Successful PCI to right ventricular artery. 3. LV systolic dysfunction, EF of 40% with anterior wall hypokinesis. 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 continue aspirin ,plavix. and statin. cardiology following. -atrial fibrillation; resumed cardizem and digoxin- Xarelto on hold for planned vascular intervention. -DVT prophylaxis;Xarelto on hold for planned surgery. Discharge Planning dc home - hopefully soon- when cleared by cardiology. see med list. f/u; pcp, cardiology and vascular surgery. d/w the patient and RN. time spent 35 min. Problem Qualifiers (1) CAD (coronary artery disease): Josette Sidhu MD Sep 07, 2017 10:56
[2017-09-07] MEDS ORDERED: ATOR40TA16 PO (10:58)
[2017-09-07] MEDS ORDERED: ASPI81CH25 PO (10:58)
[2017-09-07] MEDS ORDERED: PLAV75TA29 PO (10:58)
--- NOTE | 2017-09-07 10:59 | HHI.DS ---
Discharge Summary Admission Date Aug 31, 2017 at 12:44 Discharge Date: Sep 07, 2017 Admitting Diagnosis AAA, CAD (1) AAA (abdominal aortic aneurysm) ICD Code: I71.4 - Abdominal aortic aneurysm, without rupture Diagnosis: Principal (2) CAD (coronary artery disease) ICD Code: I25.10 - Atherosclerotic heart disease of [place] coronary artery without angina pectoris Diagnosis: Principal Procedures cardiac cath. AAA- s/p EVAR. Brief History - From Admission patient is a 77 y/o male with history of CAD, atrial fibrillation, AAA, was sent to ER by his progress developer because of abdominal aortic aneurysm. he was found to have an abdominal aortic aneurysm of 8.7 cm. he also reportedly have an abnormal stress test. he was sent to ER by his progress developer for further evaluation. at the time of my examination he was resting comfortably with no distress. he denies any chest pain, sob or abdominal pain. CBC/BMP: 09/07/17 0453 09/07/17 0453 Significant Findings Laboratory Tests Test 09/07/17 04:53 Red Blood Count 4.27 MIL/MM3 (4.50-5.90) Hemoglobin 12.8 GM/DL (13.0-17.0) Hematocrit 37.7 % (39.0-51.0) Platelet Count 147 TH/MM3 (150-450) Neutrophils (%) (Auto) 84.1 % (16.0-70.0) Neutrophils # (Auto) 8.1 TH/MM3 (1.8-7.7) Lymphocytes # (Auto) 0.9 TH/MM3 (1.0-4.8) Blood Urea Nitrogen 20 MG/DL (7-18) Random Glucose 167 MG/DL (74-106) Calcium Level 8.4 MG/DL (8.5-10.1) Estimat Glomerular Filtration Rate 63 ML/MIN (>89) PE at Discharge GENERAL: This is a well-nourished, well-developed patient, in no apparent distress. CARDIOVASCULAR: Regular rate and regular rhythm without murmurs, gallops, or rubs. RESPIRATORY: Clear to auscultation. Breath sounds equal bilaterally. No wheezes , rales, or rhonchi. GASTROINTESTINAL: Abdomen soft, non-tender, nondistended. Normal, active bowel sounds MUSCULOSKELETAL: Extremities without clubbing, cyanosis, or edema. NEURO: Alert & Oriented x4 to person, place, time, situation. Moves all ext x4 Hospital Course - Abdominal Aortic Aneurysm- s/p EVAR cleared by vacular surgery for discharge. -CAD- s/p stent placement s/p cardiac cath with : 1. Successful PCI with JUVENTINO to right coronary artery. 2. Successful PCI to right ventricular artery. 3. LV systolic dysfunction, EF of 40% with anterior wall hypokinesis. 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 continue aspirin ,plavix. and statin. cardiology following. -atrial fibrillation; resumed cardizem and digoxin- resumed Xarelto after my d/ w . -DVT prophylaxis;Xarelto on hold for planned surgery. Pt Condition on Discharge: Good Discharge Disposition: Discharge Home Discharge Time: > 30 minutes Discharge Instructions DIET: Follow Instructions for: Heart Healthy Diet Activities you can perform: Regular-No Restrictions Follow up Referrals: Cardiology PCP Follow-up Vascular Surgery @ Vascular Surgery with Josh Pena MD New Medications: Aspirin (Aspirin Low Strength) 81 Mg Chew 81 MG PO DAILY for cad for 30 Days, EA 0 Refills Atorvastatin (Atorvastatin) 40 Mg Tab 40 MG PO DAILY for cad for 30 Days, #30 TAB 0 Refills Clopidogrel (Plavix) 75 Mg Tab 75 MG PO DAILY for cad for 30 Days, #30 TAB 0 Refills Continued Medications: Digoxin (Digoxin) 0.125 Mg Tab 0.125 MG PO DAILY for Regulate Heart Beat, #30 TAB 0 Refills Diltiazem ER 24 HR (Cartia Xt) 120 Mg Caper 180 MG PO DAILY, #30 CAP 0 Refills Furosemide (Lasix) 20 Mg Tab 20 MG PO DAILY, #30 TAB 0 Refills Rivaroxaban (Xarelto) 20 Mg Tab 20 MG PO DAILY for Blood Clot Prevention, TAB 0 Refills Josette Sidhu MD Sep 07, 2017 10:59
--- NOTE | 2017-09-07 10:59 | HHI.DS ---
Discharge Summary Admission Date Aug 31, 2017 at 12:44 Discharge Date: Sep 07, 2017 Admitting Diagnosis AAA, CAD (1) AAA (abdominal aortic aneurysm) ICD Code: I71.4 - Abdominal aortic aneurysm, without rupture Diagnosis: Principal (2) CAD (coronary artery disease) ICD Code: I25.10 - Atherosclerotic heart disease of [place] coronary artery without angina pectoris Diagnosis: Principal Procedures cardiac cath. AAA- s/p EVAR. Brief History - From Admission patient is a 77 y/o male with history of CAD, atrial fibrillation, AAA, was sent to ER by his family counselor because of abdominal aortic aneurysm. he was found to have an abdominal aortic aneurysm of 8.7 cm. he also reportedly have an abnormal stress test. he was sent to ER by his family counselor for further evaluation. at the time of my examination he was resting comfortably with no distress. he denies any chest pain, sob or abdominal pain. CBC/BMP: 09/07/17 0453 09/07/17 0453 Significant Findings Laboratory Tests Test 09/07/17 04:53 Red Blood Count 4.27 MIL/MM3 (4.50-5.90) Hemoglobin 12.8 GM/DL (13.0-17.0) Hematocrit 37.7 % (39.0-51.0) Platelet Count 147 TH/MM3 (150-450) Neutrophils (%) (Auto) 84.1 % (16.0-70.0) Neutrophils # (Auto) 8.1 TH/MM3 (1.8-7.7) Lymphocytes # (Auto) 0.9 TH/MM3 (1.0-4.8) Blood Urea Nitrogen 20 MG/DL (7-18) Random Glucose 167 MG/DL (74-106) Calcium Level 8.4 MG/DL (8.5-10.1) Estimat Glomerular Filtration Rate 63 ML/MIN (>89) PE at Discharge GENERAL: This is a well-nourished, well-developed patient, in no apparent distress. CARDIOVASCULAR: Regular rate and regular rhythm without murmurs, gallops, or rubs. RESPIRATORY: Clear to auscultation. Breath sounds equal bilaterally. No wheezes , rales, or rhonchi. GASTROINTESTINAL: Abdomen soft, non-tender, nondistended. Normal, active bowel sounds MUSCULOSKELETAL: Extremities without clubbing, cyanosis, or edema. NEURO: Alert & Oriented x4 to person, place, time, situation. Moves all ext x4 Hospital Course - Abdominal Aortic Aneurysm- s/p EVAR cleared by vacular surgery for discharge. -CAD- s/p stent placement s/p cardiac cath with : 1. Successful PCI with JUVENTINO to right coronary artery. 2. Successful PCI to right ventricular artery. 3. LV systolic dysfunction, EF of 40% with anterior wall hypokinesis. 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 continue aspirin ,plavix. and statin. cardiology following. -atrial fibrillation; resumed cardizem and digoxin- resumed Xarelto after my d/ w . -DVT prophylaxis;Xarelto on hold for planned surgery. Pt Condition on Discharge: Good Discharge Disposition: Discharge Home Discharge Time: > 30 minutes Discharge Instructions DIET: Follow Instructions for: Heart Healthy Diet Activities you can perform: Regular-No Restrictions Follow up Referrals: Cardiology PCP Follow-up Vascular Surgery @ Vascular Surgery with Josh Pena MD New Medications: Aspirin (Aspirin Low Strength) 81 Mg Chew 81 MG PO DAILY for cad for 30 Days, EA 0 Refills Atorvastatin (Atorvastatin) 40 Mg Tab 40 MG PO DAILY for cad for 30 Days, #30 TAB 0 Refills Clopidogrel (Plavix) 75 Mg Tab 75 MG PO DAILY for cad for 30 Days, #30 TAB 0 Refills Continued Medications: Digoxin (Digoxin) 0.125 Mg Tab 0.125 MG PO DAILY for Regulate Heart Beat, #30 TAB 0 Refills Diltiazem ER 24 HR (Cartia Xt) 120 Mg Caper 180 MG PO DAILY, #30 CAP 0 Refills Furosemide (Lasix) 20 Mg Tab 20 MG PO DAILY, #30 TAB 0 Refills Rivaroxaban (Xarelto) 20 Mg Tab 20 MG PO DAILY for Blood Clot Prevention, TAB 0 Refills Josette Sidhu MD Sep 07, 2017 10:59
--- NOTE | 2017-09-07 10:59 | HHI.DS ---
Discharge Summary Admission Date Aug 31, 2017 at 12:44 Discharge Date: Sep 07, 2017 Admitting Diagnosis AAA, CAD (1) AAA (abdominal aortic aneurysm) ICD Code: I71.4 - Abdominal aortic aneurysm, without rupture Diagnosis: Principal (2) CAD (coronary artery disease) ICD Code: I25.10 - Atherosclerotic heart disease of [place] coronary artery without angina pectoris Diagnosis: Principal Procedures cardiac cath. AAA- s/p EVAR. Brief History - From Admission patient is a 77 y/o male with history of CAD, atrial fibrillation, AAA, was sent to ER by his flat sheet maker because of abdominal aortic aneurysm. he was found to have an abdominal aortic aneurysm of 8.7 cm. he also reportedly have an abnormal stress test. he was sent to ER by his flat sheet maker for further evaluation. at the time of my examination he was resting comfortably with no distress. he denies any chest pain, sob or abdominal pain. CBC/BMP: 09/07/17 0453 09/07/17 0453 Significant Findings Laboratory Tests Test 09/07/17 04:53 Red Blood Count 4.27 MIL/MM3 (4.50-5.90) Hemoglobin 12.8 GM/DL (13.0-17.0) Hematocrit 37.7 % (39.0-51.0) Platelet Count 147 TH/MM3 (150-450) Neutrophils (%) (Auto) 84.1 % (16.0-70.0) Neutrophils # (Auto) 8.1 TH/MM3 (1.8-7.7) Lymphocytes # (Auto) 0.9 TH/MM3 (1.0-4.8) Blood Urea Nitrogen 20 MG/DL (7-18) Random Glucose 167 MG/DL (74-106) Calcium Level 8.4 MG/DL (8.5-10.1) Estimat Glomerular Filtration Rate 63 ML/MIN (>89) PE at Discharge GENERAL: This is a well-nourished, well-developed patient, in no apparent distress. CARDIOVASCULAR: Regular rate and regular rhythm without murmurs, gallops, or rubs. RESPIRATORY: Clear to auscultation. Breath sounds equal bilaterally. No wheezes , rales, or rhonchi. GASTROINTESTINAL: Abdomen soft, non-tender, nondistended. Normal, active bowel sounds MUSCULOSKELETAL: Extremities without clubbing, cyanosis, or edema. NEURO: Alert & Oriented x4 to person, place, time, situation. Moves all ext x4 Hospital Course - Abdominal Aortic Aneurysm- s/p EVAR cleared by vacular surgery for discharge. -CAD- s/p stent placement s/p cardiac cath with : 1. Successful PCI with JUVENTINO to right coronary artery. 2. Successful PCI to right ventricular artery. 3. LV systolic dysfunction, EF of 40% with anterior wall hypokinesis. 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 continue aspirin ,plavix. and statin. cardiology following. -atrial fibrillation; resumed cardizem and digoxin- resumed Xarelto after my d/ w . -DVT prophylaxis;Xarelto on hold for planned surgery. Pt Condition on Discharge: Good Discharge Disposition: Discharge Home Discharge Time: > 30 minutes Discharge Instructions DIET: Follow Instructions for: Heart Healthy Diet Activities you can perform: Regular-No Restrictions Follow up Referrals: Cardiology PCP Follow-up Vascular Surgery @ Vascular Surgery with Josh Pena MD New Medications: Aspirin (Aspirin Low Strength) 81 Mg Chew 81 MG PO DAILY for cad for 30 Days, EA 0 Refills Atorvastatin (Atorvastatin) 40 Mg Tab 40 MG PO DAILY for cad for 30 Days, #30 TAB 0 Refills Clopidogrel (Plavix) 75 Mg Tab 75 MG PO DAILY for cad for 30 Days, #30 TAB 0 Refills Continued Medications: Digoxin (Digoxin) 0.125 Mg Tab 0.125 MG PO DAILY for Regulate Heart Beat, #30 TAB 0 Refills Diltiazem ER 24 HR (Cartia Xt) 120 Mg Caper 180 MG PO DAILY, #30 CAP 0 Refills Furosemide (Lasix) 20 Mg Tab 20 MG PO DAILY, #30 TAB 0 Refills Rivaroxaban (Xarelto) 20 Mg Tab 20 MG PO DAILY for Blood Clot Prevention, TAB 0 Refills Josette Sidhu MD Sep 07, 2017 10:59
== END 2017-09-07 16:00 | disposition home or self-care (01) | DRG 269 ==
LOC: NEPC 10:20 → NEDA 12:44 → HCPC 18:50
PROVIDERS: ADMIT Internal Medicine; ATTEND Internal Medicine
PROC: 027036Z Dilation of Coronary Artery, One Artery with Three Drug-eluting Intraluminal Devices, Percutaneous Approach (ICD-10-PCS; 2017-08-31)
PROC: 4A023N7 Measurement of Cardiac Sampling and Pressure, Left Heart, Percutaneous Approach (ICD-10-PCS; 2017-08-31)
PROC: B2111ZZ Fluoroscopy of Multiple Coronary Arteries using Low Osmolar Contrast (ICD-10-PCS; 2017-08-31)
PROC: B2151ZZ Fluoroscopy of Left Heart using Low Osmolar Contrast (ICD-10-PCS; 2017-08-31)
PROC: 4A023N7 Measurement of Cardiac Sampling and Pressure, Left Heart, Percutaneous Approach (ICD-10-PCS; 2017-09-02)
PROC: B2111ZZ Fluoroscopy of Multiple Coronary Arteries using Low Osmolar Contrast (ICD-10-PCS; 2017-09-02)
PROC: B2151ZZ Fluoroscopy of Left Heart using Low Osmolar Contrast (ICD-10-PCS; 2017-09-02)
PROC: 04V03DZ Restriction of Abdominal Aorta with Intraluminal Device, Percutaneous Approach (ICD-10-PCS; principal; 2017-09-06 08:44)
DX: I71.4 Abdominal aortic aneurysm, without rupture (principal); I11.0 Hypertensive heart disease with heart failure; I50.9 Heart failure, unspecified; I25.82 Chronic total occlusion of coronary artery; I44.7 Left bundle-branch block, unspecified; I48.91 Unspecified atrial fibrillation; I25.10 Atherosclerotic heart disease of native coronary artery without angina pectoris; R94.39 Abnormal result of other cardiovascular function study; M19.90 Unspecified osteoarthritis, unspecified site; R06.02 Shortness of breath; E78.00 Pure hypercholesterolemia, unspecified; I25.2 Old myocardial infarction; Z79.01 Long term (current) use of anticoagulants; Z95.5 Presence of coronary angioplasty implant and graft; Z86.73 Personal history of transient ischemic attack (TIA), and cerebral infarction without residual deficits; Z85.828 Personal history of other malignant neoplasm of skin
CPT/HCPCS: 71010; 71275; 74174; 80048; 80053; 80061; 81001; 85002; 85025; 85610; 85730; 86850; 86900; 86901; 92943; 93005; 93454; 93458; 99152; 99153; 99285; C1725; C1751; C1760; C1769; C1874; C1887; C1893; G0269; J1644; J2250; J2270; J2720; J3010; J3480; J7030; Q9967

== ENCOUNTER 2017-11-07 22:21 | Inpatient (IN) | payer MEDICARE, OTHER ==
[~2017-11-07] VITALS: Ht 182.9 cm; Wt 63.2 kg
[~2017-11-07 22:21] MED LIST changes: +ASPI81CH25 PO; +ATOR40TA16 PO; -ENAL5TAB PO; +PLAV75TA29 PO; -POTA10CA PO
[2017-11-07 22:28] VITALS: BP 138/108; PULSE 125; RESP 22; TEMP 98.3; O2SAT 98
--- NOTE | 2017-11-07 23:07 | PD ---
HPI Chief Complaint: Chest Pain Time Seen by Provider: 23:01 Travel History International Travel<30 days: No Contact w/Intl Traveler<30days: No Traveled to known affect area: No History of Present Illness HPI The patient is a 77 year old male who presents to the [facility] [address] emergency department with a history of shortness of breath that he reports began 2 days ago. He reports that the shortness of breath has gotten worse with time. He reports that he is unable to sleep related to shortness of breath. He reports that 2 days ago he had a brief episode of chest pain. The patient reports that he does have a history of coronary artery disease. He reports that he's had 3 stents placed in the past. Unfortunately the patient is a poor historian, I believe related to him being hard of hearing. The patient has difficulty describing the character of his pain. He is unsure whether he has a history of atrial fibrillation, cardiac arrhythmia, or congestive heart failure. He is unsure whether he takes any type of diuretic. He denies having any weight gain or lower extremity edema. I'm review of systems, the patient denies having any recent fevers, neck pain, abdominal pain, vomiting, diarrhea, urinary symptoms, or neurologic symptoms. The patient reports that he has had an occasional dry cough. He denies having any chest congestion or head congestion. PFS Past Medical History Narrative Medical The patient's past medical history is significant for hypertension, osteoarthritis, coronary artery disease, hyperlipidemia, prior history of myocardial infarction. From reviewing the electronic medical record, the patient has a history of a large abdominal aortic aneurysm status post repair in August 2017. Hx Anticoagulant Therapy: Yes (XARELTO) Arthritis: Yes (OA in hands) Asthma: No Autoimmune Disease: No Heart Rhythm Problems: Yes (a fib) Cancer: No Cardiovascular Problems: Yes High Cholesterol: No Chest Pain: No Congestive Heart Failure: Yes COPD: No Cerebrovascular Accident: Yes (CVA x2, 2007 and 1989) Diminished Hearing: No Endocrine: No Genitourinary: No Hypertension: Yes Immune Disorder: No Musculoskeletal: Yes Neurologic: Yes Psychiatric: No Reproductive: No Respiratory: Yes Migraines: No Myocardial Infarction: Yes (2004) Seizures: No Sickle Cell Disease: No Sleep Apnea: No Past Surgical History Narrative Surgical The patient's past surgical history is significant for sinus surgery, history of cardiac catheterization with stent placement. The patient has a history of abdominal aortic aneurysm repair in August 2017. Abdominal Surgery: No Cardiac Surgery: No Coronary Stent: Yes (2007) Ear Surgery: No Endocrine Surgery: No Eye Surgery: No Genitourinary Surgery: No Gynecologic Surgery: No Oral Surgery: Yes (sinus dental abcess) Thoracic Surgery: No Other Surgery: Yes (sinus abcess) Social History Alcohol Use: No Tobacco Use: No Substance Use: No Allergies-Medications (Allergen,Severity, Reaction): Coded Allergies: No Known Allergies (Unverified Allergy, Unknown, 11/07/17) Reported Meds & Prescriptions Reported Meds & Active Scripts Active Lasix (Furosemide) 20 Mg Tab 20 Mg PO DAILY Reported Xarelto (Rivaroxaban) 20 Mg Tab 20 Mg PO DAILY Digoxin 0.125 Mg Tab 0.125 Mg PO DAILY Cartia Xt (Diltiazem ER 24 HR) 120 Mg Caper 180 Mg PO DAILY Review of Systems Except as stated in HPI: all other systems reviewed are Neg General / Constitutional: No: Fever, Chills Eyes: No: Visual changes HENT: No: Headaches, Congestion Cardiovascular: Positive: Chest Pain or Discomfort, Dyspnea on exertion Respiratory: Positive: Cough, Shortness of Breath, Orthopnea Gastrointestinal: No: Nausea, Vomiting, Diarrhea, Abdominal Pain Genitourinary: No: Dysuria Musculoskeletal: No: Pain Skin: No Rash Neurologic: No: Weakness, Focal Abnormalities, Change in Mentation, Slurred Speech, Sensory Disturbance Psychiatric: No: Depression Endocrine: No: Polydipsia Hematologic/Lymphatic: No: Easy Bruising Physical Exam Narrative General: The patient is a well-developed well-nourished male in no acute distress. Head and Neck exam: Head is normocephalic atraumatic. Eyes: EOMI, pupils are equal round and reactive to light. Nose: Midline septum with pink mucous membranes Mouth: Dentition unremarkable. Moist mucus membranes. Posterior oropharynx is not erythematous. No tonsillar hypertrophy. Uvula midline. Airway patent. Neck: No palpable lymphadenopathy. No nuchal rigidity. No thyromegaly. Cardiovascular: Tachycardia that is irregularly irregular with a rate in the low 100s with without murmurs, gallops, or rubs. No pulse deficit to the extremities on simultaneous auscultation and palpation of his radial artery. Lungs: The patient has anterior inspiratory wheezing that is soft bilaterally. The patient has crackles audible in bilateral lung bases. No rhonchi audible. No accessory muscle use. The patient is slightly tachypneic. Abdomen: Soft, without tenderness to palpation in all 4 quadrants of the abdomen. No guarding, rebound, or rigidity. Normal bowel sounds are audible. No tenderness on palpation of McBurney's point. Extremities: No clubbing, cyanosis, or edema. 2+ pulses in all 4 extremities. No calf tenderness on palpation. Back: No spinous process tenderness to palpation. No costovertebral angle tenderness to palpation. Neurologic Exam: Grossly Nonfocal. Skin Exam: No rash noted. Intact skin that is warm and dry. Data Data Last Documented VS Vital Signs Date Time Temp Pulse Resp B/P (MAP) Pulse Ox O2 Delivery O2 Flow Rate FiO2 11/08/17 00:23 110 22 145/88 (107) 97 Nasal Cannula 2.00 11/07/17 22:28 98.3 Orders Orders Electrocardiogram (11/07/17 23:01) Complete Blood Count With Diff (11/07/17 23:) Comprehensive Metabolic Panel (11/07/17 23:01) Creatine Kinase (Cpk) (11/07/17 23:01) Ckmb (Isoenzyme) Profile (11/07/17 23:01) Troponin I (11/07/17 23:) B-Type Natriuretic Peptide (11/07/17 23:01) Prothrombin Time / Inr (Pt) (11/07/17 23:01) Act Partial Throm Time (Ptt) (11/07/17 23:01) C-Reactive Protein (Crp) (11/07/17 23:) Lipase (11/07/17 23:) Urinalysis - C+S If Indicated (11/07/17 23:01) Magnesium (Mg) (11/07/17 23:01) Iv Access Insert/Monitor (11/07/17 23:01) Ecg Monitoring (11/07/17 23:) Oximetry (11/07/17 23:01) Aspirin Chew (Aspirin Chew) (11/07/17 23:15) Nitroglycerin Sl (Nitrostat Sl) (11/07/17 23:15) Nitroglycerin 2% Oint (Nitroglycerin 2% (11/07/17 23:15) Furosemide Inj (Lasix Inj) (11/07/17 23:30) Digoxin (11/07/17 23:59) CKMB (11/07/17 23:59) CKMB% (11/07/17 23:59) Chest, Single Ap (11/08/17 01:01) Diltiazem Inj (Cardizem Inj) (11/08/17 01:45) Admit Order (Ed Use Only) (11/08/17 01:40) Ct Pulmonary Angiogram (11/08/17 01:41) Labs Laboratory Tests Test 11/07/17 23:25 11/07/17 23:59 11/08/17 00:20 White Blood Count 10.7 TH/MM3 Red Blood Count 4.26 MIL/MM3 Hemoglobin 12.7 GM/DL Hematocrit 38.0 % Mean Corpuscular Volume 89.1 FL Mean Corpuscular Hemoglobin 29.8 PG Mean Corpuscular Hemoglobin Concent 33.5 % Red Cell Distribution Width 16.7 % Platelet Count 210 TH/MM3 Mean Platelet Volume 9.0 FL Neutrophils (%) (Auto) 79.6 % Lymphocytes (%) (Auto) 11.8 % Monocytes (%) (Auto) 5.4 % Eosinophils (%) (Auto) 2.5 % Basophils (%) (Auto) 0.7 % Neutrophils # (Auto) 8.5 TH/MM3 Lymphocytes # (Auto) 1.3 TH/MM3 Monocytes # (Auto) 0.6 TH/MM3 Eosinophils # (Auto) 0.3 TH/MM3 Basophils # (Auto) 0.1 TH/MM3 CBC Comment DIFF FINAL Differential Comment B-Type Natriuretic Peptide 1185 PG/ML Prothrombin Time 11.9 SEC Prothromb Time International Ratio 1.2 RATIO Activated Partial Thromboplast Time 26.7 SEC Blood Urea Nitrogen 31 MG/DL Creatinine 1.10 MG/DL Random Glucose 124 MG/DL Total Protein 7.9 GM/DL Albumin 3.3 GM/DL Calcium Level 8.5 MG/DL Magnesium Level 2.1 MG/DL Alkaline Phosphatase 91 U/L Aspartate Amino Transf (AST/SGOT) 39 U/L Alanine Aminotransferase (ALT/SGPT) 24 U/L Total Bilirubin 0.6 MG/DL Sodium Level 136 MEQ/L Potassium Level 5.7 MEQ/L Chloride Level 105 MEQ/L Carbon Dioxide Level 25.6 MEQ/L Anion Gap 5 MEQ/L Estimat Glomerular Filtration Rate 65 ML/MIN Total Creatine Kinase 121 U/L Creatine Kinase MB 1.5 NG/ML Troponin I 0.03 NG/ML C-Reactive Protein 1.38 MG/DL Lipase 99 U/L Digoxin Level 0.5 NG/ML Urine Color YELLOW Urine Turbidity CLEAR Urine pH 5.5 Urine Specific [place] 1.011 Urine Protein NEG mg/dL Urine Glucose (UA) NEG mg/dL Urine Ketones TRACE mg/dL Urine Occult Blood SMALL Urine Nitrite NEG Urine Bilirubin NEG Urine Urobilinogen LESS THAN 2.0 MG/DL Urine Leukocyte Esterase NEG Urine RBC 2 /hpf Urine Hyaline Casts 6 /lpf Urine Mucus FEW /lpf Microscopic Urinalysis Comment CULT NOT INDICATED MDM Medical Decision Making Medical Screen Exam Complete: Yes Emergency Medical Condition: Yes Medical Record Reviewed: Yes Interpretation(s) Last Impressions CT Angiography 11/08/17140 Signed Impressions: Service Date/Time: Wednesday, November 08, 2017 03:05 - CONCLUSION: 1. No evidence of pulmonary embolism. 2. Large bilateral effusions 3. Bibasilar atelectasis Eloy Rocha MD Chest X-Ray 11/08/17100 Signed Impressions: Service Date/Time: Wednesday, November 08, 2017 01:33 - CONCLUSION: 1. Cardiomegaly and findings of congestive heart failure. Moderate left effusion Eloy Rocha MD Differential Diagnosis Congestive heart failure exacerbation, versus A. fib with RVR, versus acute coronary syndrome, versus pneumonia. Narrative Course During the course of the patients emergency department visit, the patients history, examination, and differential diagnosis were reviewed with the patient. The patient was placed on a cardiac rehabilitation specialist with oximetry and frequent blood pressure monitoring. The patient had IV access obtained and blood work sent for analysis. The patient had an ECG done on arrival. The patient's ECG reveals atrial fibrillation with RVR, left bundle branch block. From reviewing his prior history, the patient had a prior EKG with a left bundle branch block, also evidence of atrial fibrillation. QRS duration today is 152 ms, QTC 407 ms. Heart rate is 116. The patient on arrival on room air is noted to have O2 saturations of 89-90%. The patient was placed on 2 L nasal cannula O2. The patient was initially provided nitroglycerin 1 inch the chest wall, nitroglycerin sublingual every 5 minutes 3 when necessary chest pain, aspirin 162 mg by mouth 1. The patient continued to be tachycardic and was given Cardizem 15 mg IV 1. The patient's chest x-ray was consistent with fluid overload from congestive heart failure, therefore the patient was given Lasix 40 mg IV. The patients laboratory studies were reviewed and remarkable for a white count of 10.7, hemoglobin 12.7, platelets 210 with 79.6 neutrophils, CMP is remarkable for a potassium of 5.7 with hemolysis noted, BUN 31, glucose 124, AST 39, CRP is 1.38, BNP is 1185, lipase 99, PT 11.9, PTT 26.7, digoxin level 0.5, urinalysis shows trace ketones, small occult blood, otherwise unremarkable. Radiology studies were reviewed and remarkable for a chest x-ray that shows cardiomegaly and findings of congestive heart failure, moderate left effusion noted. Due to the patient's recent hospitalization, CTA to rule out PE was also ordered. The patient has no evidence of pulmonary embolism on CTA, however large bilateral effusions are noted, bibasilar atelectasis is noted. The patients results were discussed with the patient, including the plan of care. I explained that further testing and/ or monitoring is indicated based on the patients history, examination, and/ or laboratory findings. Therefore, I recommended admission for additional evaluation. The patient expressed understanding and was agreeable with this plan. The patient was admitted to the hospital in guarded condition and sent to a bed under the care of [facility] service. Physician Communication Physician Communication The patient's case including history, pertinent physical examination findings, and laboratory studies were discussed with Dr. Juan. It was agreed that the patient would be admitted to the [facility] service. Diagnosis Primary Impression: Atrial fibrillation with RVR Additional Impressions: Congestive heart failure Qualified Codes: I50.9 - Heart failure, unspecified Bilateral pleural effusion Admitting Information Admitting Physician Requests: Brooke Solano MD Nov 07, 2017 23:07
[2017-11-07 23:12] VITALS: RESP 18; O2SAT 96
[2017-11-07] MEDS ORDERED: NITROGLYCERIN 0.4 MG SL 25 TABS/BTL SL PRN (23:15)
[2017-11-07] MEDS ORDERED: ASPIRIN 81 MG CHEW TAB CHEW ONE (23:15)
[2017-11-07] MEDS ORDERED: NITROGLYCERIN 2% OINT 1 GM PACKET TOPICAL ONE (23:15)
[2017-11-07 23:16] VITALS: BP 135/87; PULSE 120; RESP 22
[2017-11-07] MEDS ORDERED: FUROSEMIDE 40 MG/4 ML VIAL IV PUSH ONE (23:30)
[2017-11-07 23:39] LABS: AUTOMATED NEUTROPHIL # 8.5 TH/MM3 (1.8-7.7); BASOPHIL # 0.1 TH/MM3 (0-0.2); BASOPHIL % 0.7 % (0.0-2.0); EOSINOPHIL # 0.3 TH/MM3 (0-0.4); EOSINOPHIL % 2.5 % (0.0-4.0); HEMOGLOBIN 12.7 GM/DL (13.0-17.0); LYMPH % 11.8 % (9.0-44.0); LYMPHOCYTE # 1.3 TH/MM3 (1.0-4.8); MEAN CELL VOLUME 89.1 FL (80.0-100.0); MEAN CORPUSCULAR HEMOGLOBIN 29.8 PG (27.0-34.0); MEAN CORPUSCULAR HGB CONC 33.5 % (32.0-36.0); MONO % 5.4 % (0.0-8.0); MONOCYTE # 0.6 TH/MM3 (0-0.9); NEUT % 79.6 % (16.0-70.0); PLATELET COUNT 210 TH/MM3 (150-450); RED BLOOD COUNT 4.26 MIL/MM3 (4.50-5.90); RED CELL DISTRIBUTION WIDTH 16.7 % (11.6-17.2); WHITE BLOOD COUNT 10.7 TH/MM3 (4.0-11.0)
[2017-11-08] VITALS (11 sets, daily range): BP systolic 106–145; BP diastolic 8–88; PULSE 76–110; RESP 16–22; TEMP 97.7–98.4; O2SAT 95–97
[2017-11-08 00:30] LABS: INTERNATIONAL NORMALIZED RATIO 1.2 RATIO; PROTHROMBIN TIME - PATIENT 11.9 SEC (9.8-11.6)
[2017-11-08 00:35] LABS: BILIRUBIN, URINE NEG (NEG); BLOOD, URINE SMALL (NEG); GLUCOSE,URINE NEG (NEG); HYALINE CAST, URINE 6 /lpf (RARE); KETONE, URINE TRACE mg/dL (NEG); MUCUS URINE FEW /lpf (OCC); NITRITE,URINE NEG (NEG); PH, URINE 5.5 (5.0-8.5); URINE COLOR YELLOW (YELLW/STRAW); URINE LEUKOCYTE ESTERASE NEG (NEG)
[2017-11-08 00:36] LABS: DIGOXIN 0.5 NG/ML (0.8-2.0)
[2017-11-08 00:57] LABS: ALBUMIN 3.3 GM/DL (3.4-5.0); ALKALINE PHOSPHATASE 91 U/L (45-117); ALT (GPT) 24 U/L (12-78); AST (GOT) 39 U/L (15-37); BICARBONATE 25.6 MEQ/L (21.0-32.0); BLOOD UREA NITROGEN 31 MG/DL (7-18); C-REACTIVE PROTEIN 1.38 MG/DL (0.00-0.30); CALCIUM 8.5 MG/DL (8.5-10.1); CHLORIDE 105 MEQ/L (98-107); GLOMERULAR FILTRATION RATE 65 ML/MIN (>89); GLUCOSE,RANDOM 124 MG/DL (74-106); LIPASE 99 U/L (73-393); MAGNESIUM 2.1 MG/DL (1.5-2.5); SODIUM (NA) 136 MEQ/L (136-145); TOTAL BILIRUBIN ADULT 0.6 MG/DL (0.2-1.0); TOTAL PROTEIN 7.9 GM/DL (6.4-8.2); TROPONIN I 0.03 NG/ML (0.02-0.05)
[2017-11-08] MEDS ORDERED: DILTIAZEM HCL 25 MG/5 ML VIAL IV ONE (01:45)
--- NOTE | 2017-11-08 01:48 | RADRPT ---
EXAM DATE/TIME: 11/08/2017 01:33 [facility] COMPARISON: CHEST SINGLE AP, August 31, 2017, 11:35. INDICATIONS : Short of breath. MEDICAL HISTORY : Cardiovascular disease. Hypertension. SURGICAL HISTORY : Coronary artery stent. ENCOUNTER: Initial ACUITY: 1 day PAIN SCORE: 0/10 LOCATION: Bilateral chest FINDINGS: The cardiac silhouette is enlarged in transverse diameter. There are findings of congestive heart kylie lure with interstitial and alveolar opacity bilaterally. There is left lower lobe atelectasis versus pneumonia. A moderate size left sided effusion is present. CONCLUSION: 1. Cardiomegaly and findings of congestive heart failure. Moderate left effusion Eloy Rocha MD on November 08, 2017 at 1:45 Board Certified Radiologist. This report was verified electronically.
[2017-11-08] MEDS ORDERED: SODIUM CHLORIDE 0.9% FLUSH 10 ML FLUSH IV FLUSH PRN (02:15)
[2017-11-08] MEDS ORDERED: NALOXONE HCL 0.4 MG/ML AMP IV PUSH PRN (02:15)
[2017-11-08] MEDS ORDERED: IOHEXOL 350 MG/ML 10 ML VIAL (for RAD DIAG) IVCONTRAST ONE (03:29)
--- NOTE | 2017-11-08 03:39 | RADRPT ---
EXAM DATE/TIME: 11/08/2017 03:05 [facility] COMPARISON: CTA THORACIC ABDOMINAL AORTA W 3D RECON, August 31, 2017, 13:04. INDICATIONS : Dyspnea; rule out pulmonary embolus. IV CONTRAST: 75 cc Omnipaque 350 (iohexol) IV RADIATION DOSE: 11.41 CTDIvol (mGy) MEDICAL HISTORY : Myocardial infarction. Congestive heart failure. Hypertension.CVA SURGICAL HISTORY : None. ENCOUNTER: Initial ACUITY: 1 day PAIN SCALE: 0/10 LOCATION: chest TECHNIQUE: Volumetric scanning of the chest was performed using a pulmonary embolism protocol MIP images were re constructed. Using automated exposure control and adjustment of the mA and/or kV according to patien t size, radiation dose was kept as low as reasonably achievable to obtain optimal diagnostic quality images. DICOM format image data is available electronically for review and comparison. Follow-up recommendations for detected pulmonary nodules are based at a minimum on nodule size and pa tient risk factors according to Fleischner Society Guidelines. FINDINGS: Examination of the pulmonary vasculature demonstrates good filling of the main, lobar and segmental b ranches. There are no filling defects to suggest pulmonary embolism. Multiplanar reconstructions are also unremarkable. Large bilateral effusions are present. There is atelectasis in the left base. No pulmonary nodules ar e identified. Examination of the mediastinum demonstrates no abnormally enlarged lymph nodes by CT criteria. No axi llary or hilar abnormalities are identified. Coronary artery calcifications are present. A stent emilee t is present in the abdominal aorta not entirely evaluated CONCLUSION: 1. No evidence of pulmonary embolism. 2. Large bilateral effusions 3. Bibasilar atelectasis Eloy Rocha MD on November 08, 2017 at 3:32 Board Certified Radiologist. This report was verified electronically.
--- NOTE | 2017-11-08 05:50 | HHI.HP ---
[facility] Unknown Admission Diagnosis afib with rvr, CHF exacerbation Diagnoses: Travel History International Travel<30 Days: No Contact w/Intl Traveler <30 Da: No Traveled to Known Affected Are: No History of Present Illness History from patient, ER physician communication, and review of medical records shortness of breath started tuesday was coughing a lot states "water in the lung" before dry cough no fever no swelling in legs or abdomen denies pillow orthopnea denies pnd in [facility] while on vacation, was in hospital and had to remove water in the lung with a needle per pt it was 3L or more on thoracocentesis had similar symptoms then states he doesnt take water pill, but lasix is on med rec and he is not very sure he knows he takes xarelto and digoxin reports he was told he has chf Review of Systems Except as stated in HPI: all other systems reviewed are Neg Past Family Social History Past Medical History CAD s/p cardiac cath in 04/2017 CHF- systolic EF 40% AAA repair CVA - at age 49 yo AFib Chronic anticoagulation on Xarelto Past Surgical History aaa surgery coronary angiogram and stenting Allergies: Coded Allergies: No Known Allergies (Unverified Allergy, Unknown, 11/07/17) Family History mom- of heart attack Social History lives alone still driving , came to hospital last night with his car never smoked, denies etoh abuse or drug abuse Physical Exam Vital Signs Vital Signs Date Time Temp Pulse Resp B/P (MAP) Pulse Ox O2 Delivery O2 Flow Rate FiO2 11/08/17 05:12 98.0 81 16 123/71 (88) 97 Nasal Cannula 2.00 11/08/17 02:28 98.4 100 19 111/72 (85) 97 Nasal Cannula 2.00 11/08/17 00:23 110 22 145/88 (107) 97 Nasal Cannula 2.00 11/07/17 23:16 96 Nasal Cannula 2.00 11/07/17 23:16 120 22 135/87 (103) 11/07/17 23:12 18 96 Nasal Cannula 2.00 11/07/17 22:28 98.3 125 22 138/108 (118) 98 Room Air Physical Exam GENERAL: This is a well-nourished, well-developed patient, in no apparent distress. SKIN: No rashes, ecchymoses or lesions. Cool and dry. HEAD: Atraumatic. Normocephalic. No temporal or scalp tenderness. EYES: No scleral icterus. No injection or drainage. ENT: Nose without bleeding, purulent drainage or septal hematoma. . Airway patent. NECK: Trachea midline. No JVD or lymphadenopathy. Supple, nontender, no meningeal signs. CARDIOVASCULAR: Regular rate and rhythm without murmurs, gallops, or rubs. RESPIRATORY: bilateral basilar rale s up to mid lungs GASTROINTESTINAL: Abdomen soft, non-tender, nondistended. No guarding. MUSCULOSKELETAL: Extremities without clubbing, cyanosis, or edema. No calf tenderness. NEUROLOGICAL: Awake and alert. no focal deficits, normal speech Laboratory Laboratory Tests Test 11/07/17 23:25 11/07/17 23:59 11/08/17 00:20 White Blood Count 10.7 Red Blood Count 4.26 Hemoglobin 12.7 Hematocrit 38.0 Mean Corpuscular Volume 89.1 Mean Corpuscular Hemoglobin 29.8 Mean Corpuscular Hemoglobin Concent 33.5 Red Cell Distribution Width 16.7 Platelet Count 210 Mean Platelet Volume 9.0 Neutrophils (%) (Auto) 79.6 Lymphocytes (%) (Auto) 11.8 Monocytes (%) (Auto) 5.4 Eosinophils (%) (Auto) 2.5 Basophils (%) (Auto) 0.7 Neutrophils # (Auto) 8.5 Lymphocytes # (Auto) 1.3 Monocytes # (Auto) 0.6 Eosinophils # (Auto) 0.3 Basophils # (Auto) 0.1 CBC Comment DIFF FINAL Differential Comment B-Type Natriuretic Peptide 1185 Prothrombin Time 11.9 Prothromb Time International Ratio 1.2 Activated Partial Thromboplast Time 26.7 Blood Urea Nitrogen 31 Creatinine 1.10 Random Glucose 124 Total Protein 7.9 Albumin 3.3 Calcium Level 8.5 Magnesium Level 2.1 Alkaline Phosphatase 91 Aspartate Amino Transf (AST/SGOT) 39 Alanine Aminotransferase (ALT/SGPT) 24 Total Bilirubin 0.6 Sodium Level 136 Potassium Level 5.7 Chloride Level 105 Carbon Dioxide Level 25.6 Anion Gap 5 Estimat Glomerular Filtration Rate 65 Total Creatine Kinase 121 Creatine Kinase MB 1.5 Troponin I 0.03 C-Reactive Protein 1.38 Lipase 99 Digoxin Level 0.5 Urine Color YELLOW Urine Turbidity CLEAR Urine pH 5.5 Urine Specific [place] 1.011 Urine Protein NEG Urine Glucose (UA) NEG Urine Ketones TRACE Urine Occult Blood SMALL Urine Nitrite NEG Urine Bilirubin NEG Urine Urobilinogen LESS THAN 2.0 Urine Leukocyte Esterase NEG Urine RBC 2 Urine Hyaline Casts 6 Urine Mucus FEW Microscopic Urinalysis Comment CULT NOT INDICATED Result Diagram: 11/07/17 2325 11/07/17 2359 Imaging Last [address] Angiography 11/08/17 0141 Signed Impressions: Service Date/Time: Wednesday, November 08, 2017 03:05 - CONCLUSION: 1. No evidence of pulmonary embolism. 2. Large bilateral effusions 3. Bibasilar atelectasis Eloy Rocha MD Chest X-Ray 11/08/17 0101 Signed Impressions: Service Date/Time: Wednesday, November 08, 2017 01:33 - CONCLUSION: 1. Cardiomegaly and findings of congestive heart failure. Moderate left effusion Eloy Rocha MD Caprini VTE Risk Assessment Caprini VTE Risk Assessment: Mod/High Risk (score >= 2) Caprini Risk Assessment Model Point Value = 1 Point Value = 2 Point Value = 3 Point Value = 5 Age 41-60 Minor surgery BMI > 25 kg/m2 Swollen legs Varicose veins or History of unexplained or recurrent spontaneous Oral contraceptives or hormone replacement Sepsis (< 1 month) Serious lung disease, including pneumonia (< 1 month) Abnormal pulmonary function Acute myocardial infarction Congestive heart failure (< 1 month) History of inflammatory bowel disease Medical patient at bed rest Age 61-74 Arthroscopic surgery Major open surgery (> 45 min) Laparoscopic surgery (> 45 min) Malignancy Confined to bed (> 72 hours) Immobilizing plaster cast Central venous access Age >= 75 History of VTE Family history of VTE Factor V Leiden Prothrombin [id number] Lupus anticoagulant Anticardiolipin antibodies Elevated serum homocysteine Heparin-induced thrombocytopenia Other congenital or acquired thrombophilia Stroke (< 1 month) Elective arthroplasty Hip, pelvis, or leg fracture Acute spinal cord injury (< 1 month) Prophylaxis Regimen Total Risk Factor Score Risk Level Prophylaxis Regimen 0-1 Low Early ambulation 2 Moderate Order ONE of the following: *Sequential Compression Device (SCD) *Heparin 5000 units SQ BID 3-4 Higher Order ONE of the following medications: *Heparin 5000 units SQ TID *Enoxaparin/Lovenox 40 mg SQ daily (WT < 150 kg, CrCl > 30 mL/min) *Enoxaparin/Lovenox 30 mg SQ daily (WT < 150 kg, CrCl > 10-29 mL/min) *Enoxaparin/Lovenox 30 mg SQ BID (WT < 150 kg, CrCl > 30 mL/min) AND/OR *Sequential Compression Device (SCD) 5 or more Highest Order ONE of the following medications: *Heparin 5000 units SQ TID (Preferred with Epidurals) *Enoxaparin/Lovenox 40 mg SQ daily (WT < 150 kg, CrCl > 30 mL/min) *Enoxaparin/Lovenox 30 mg SQ daily (WT < 150 kg, CrCl > 10-29 mL/min) *Enoxaparin/Lovenox 30 mg SQ BID (WT < 150 kg, CrCl > 30 mL/min) AND *Sequential Compression Device (SCD) Assessment and Plan Assessment and Plan Impression : Acute on chronic systolic heart failure symptomatic prior hx of requiring thoracocentesis. Next and hyperkalemia. Lab error. Hemolyzed sample. Normal renal function. Elevated BNP. CAD s/p cardiac cath in 04/2017 CHF- systolic EF 40% AAA repair CVA - at age 49 yo AFib Chronic anticoagulation on Xarelto Plan: Serial cardiac enzymes and EKGs. Lasix 40 mg IV every 12 hours. We'll wait to see whether patient improves with diuresis. PT evaluation. Likely, patient may not improve based on his prior history. In that case, he would need thoracocentesis. 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 Patient's EKG personally reviewed. Left bundle branch block. No acute ST-T changes. Chest x-raypersonally reviewed. Bilateral pulmonary edema. Chest CT reveals large bilateral pleural effusions. Resume home meds. DVT prophylaxis with Xarelto. Discussed Condition With Patient, ER physician, nursing staff Physician Certification 2 Midnight Certification Type: Admission for Inpatient Services Order for Inpatient Services The services are ordered in accordance with Medicare regulations or non- Medicare payer requirements, as applicable. In the case of services not specified as inpatient-only, they are appropriately provided as inpatient services in accordance with the 2-midnight benchmark. Estimated LOS (days): 2 days is the estimated time the patient will need to remain in the hospital, assuming treatment plan goals are met and no additional complications. Post-Hospital Plan: Home Rakesh Juan MD Nov 08, 2017 05:50
[2017-11-08] MEDS: SODIUM CHLORIDE 0.9% FLUSH 10 ML FLUSH IV FLUSH SCH ×2 (09:28→21:09)
[2017-11-08] MEDS: DIGOXIN 0.125 MG TAB PO SCH (09:29)
[2017-11-08] MEDS: FUROSEMIDE 40 MG/4 ML VIAL IV PUSH SCH ×2 (09:29→18:13)
[2017-11-08] MEDS: RIVAROXABAN 20 MG TAB PO SCH (09:29)
[2017-11-08] MEDS ORDERED: CLOPIDOGREL 300 MG TAB PO ONE (09:45)
[2017-11-08] MEDS ORDERED: PILL SPLITTER OTHER PRN (10:15)
--- NOTE | 2017-11-08 10:16 | MB ---
cc: AQUILINO DUNN M.D. DATE OF CONSULTATION 11/08/2017 REASON FOR CONSULTATION Evaluation of CHF. HISTORY OF PRESENT ILLNESS Gallo Clark is a 77-year-old man who has not yet established with a primary care doctor. He had seen my colleague, Dr. Fuentes, for a consult in the latter part of last year. He ultrasound a catheterization August 31 and was found to have a totally occluded mid LAD which correlates with a previous heart attack. He had faint collaterals. The right coronary artery had severe disease proximally and an RV branch. The proximal right was stented with a 3.0 x 38 mm drug-eluting stent, and the RV branch was stented with 2.5 x 16 mm drug-eluting stent. It is not clear to me how long he took the aspirin and Plavix. He comes in now only on Xarelto. He is not on aspirin or Plavix. In fact I could not tell that he even recognized the name of clopidogrel or any of the drugs. I have just given him a loading dose of clopidogrel. Surprisingly he has not had any chest pain. He does, however, complain of shortness of breath the last couple of days and is found to have bilateral pleural effusions. From what I can tell he has not been on diuretic. He has been on Cartia at home but no beta monse and no COLLEEN inhibitor. He has been on digoxin with a therapeutic level of 0.5. PAST MEDICAL HISTORY 1. Coronary artery disease. 2. Hypertension. 3. Hyperlipidemia. 4. Previous anterior TN in 2004. 5. Chronic atrial fibrillation. 6. Prior stroke in 2007 and 1989. SOCIAL HISTORY He lives alone. 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 He is a non-smoker, non-drinker. FAMILY HISTORY Noncontributory. REVIEW OF SYSTEMS Negative. PHYSICAL EXAMINATION GENERAL: A well-developed, well-nourished man in no acute distress. VITAL SIGNS: Charted. HEENT: Unremarkable. NECK: No JVD. No bruits. CHEST: Absent breath sounds, greater at the left base than the right. CARDIAC: PMI is displaced laterally. S1, S2, regular rate and rhythm. No murmur. Possible slight S3. ABDOMEN: Soft, nontender. EXTREMITIES: Trace edema. LABORATORY His laboratories are charted. Troponin 0.03. Digoxin 0.5. IMAGING Chest x-ray showing pleural effusions and CHF. IMPRESSION 1. Coronary artery disease, status post drug-eluting stents August 31, 2017, but not on aspirin and Plavix; unclear why he is not on these. 2. History of stenting of an aortic aneurysm. 3. CHF with moderate bilateral pleural effusions, greater on the left. Known LV systolic dysfunction of 40%. This would be considered systolic CHF. I suspect it is acute as they have not heard of a previous diagnosis of CHF. 4. Prior strokes, possibly from atrial fibrillation. He has been on Xarelto which should be protective for that. 5. Potassium is somewhat high, not sure if this is hemolysis. Repeat lab being done tomorrow. RECOMMENDATIONS 1. He is not on treatment for his lipids and he has coronary artery disease so I am adding atorvastatin 40 mg daily. 2. He has had a stent in August but not on aspirin and Plavix. He has been on Xarelto. I am going to give him a 600 mg loading dose of Plavix and continue Plavix 75 mg daily, and continue the combination of Plavix and Xarelto for the combination of his atrial fibrillation and coronary stents 3. Regarding the pleural effusions he has been started on IV Lasix. He may benefit from thoracentesis at some point. 4. Recheck an echo Doppler study this admission. 5. Depending on blood pressure and BUN and creatinine results may consider adding an COLLEEN inhibitor. 6. Go ahead and add low-dose metoprolol 12.5 mg b.i.d. Keep him off diltiazem. Use a beta monse and digoxin for rate control instead. 7. The patient will probably need to be here at least a couple of days. 8. Further therapy to be determined. MD TEO Yan/MAICOL /9:38 AM /9:45 AM
--- NOTE | 2017-11-08 15:20 | EKG ---
Date Performed: 11/07/2017 Time Performed: 22:39:49 PTAGE: 77 years EKG: ATRIAL FIBRILLATION WITH RAPID VENTRICULAR RESPONSE LEFT BUNDLE BRANCH BLOCK ABNORMAL ECG PREVIOUS TRACING : 08/31/2017 11.34 Rate has increased significantly since prior tracing. Cardi ac axis has changed. Inferior ST depression also appears to be new. Clinical correlation recommended. DOCTOR: Adrian Holguin Interpretating Date/Time 11/08/2017 15:18:31
--- NOTE | 2017-11-08 16:32 | EKG ---
Date Performed: 11/08/2017 Time Performed: 10:47:11 PTAGE: 77 years EKG: ATRIAL FIBRILLATION LEFT BUNDLE BRANCH BLOCK ABNORMAL ECG Compared to prior tracing no sign ificant change DOCTOR: Deanne Ashley Interpretating Date/Time 11/08/2017 16:31:21
[2017-11-08] MEDS: METOPROLOL TARTRATE 25 MG TAB PO SCH (21:06)
[2017-11-09] VITALS (10 sets, daily range): BP systolic 107–131; BP diastolic 70–85; PULSE 53–134; RESP 16–19; TEMP 97.7–98.5; O2SAT 92–96
[2017-11-09] MEDS: SODIUM CHLORIDE 0.9% FLUSH 10 ML FLUSH IV FLUSH SCH ×2 (08:24→20:02)
[2017-11-09] MEDS: METOPROLOL TARTRATE 25 MG TAB PO SCH (08:25)
[2017-11-09] MEDS: ATORVASTATIN 40 MG TAB PO SCH (08:25)
[2017-11-09] MEDS: FUROSEMIDE 40 MG/4 ML VIAL IV PUSH SCH (08:25)
[2017-11-09] MEDS: DIGOXIN 0.125 MG TAB PO SCH (08:25)
[2017-11-09] MEDS: RIVAROXABAN 20 MG TAB PO SCH (08:26)
[2017-11-09] MEDS: CLOPIDOGREL 75 MG TAB PO SCH (08:26)
--- NOTE | 2017-11-09 08:42 | PD.CARD.PN ---
Subjective Subjective Remarks less SOB. No complaints. No chest pain Objective Medications Current Medications Medications (Trade) Dose Ordered Sig/Morena Route Start Time Stop Time Status Last Admin (Nitrostat Sl) 0.4 mg Q5M PRN SL 11/07/17 23:15 (NS Flush) 2 ml UNSCH PRN IV FLUSH 11/08/17 02:15 (NS Flush) 2 ml BID IV FLUSH 11/08/17 09:00 11/09/17 08:24 (Narcan Inj) 0.4 mg UNSCH PRN IV PUSH 11/08/17 02:15 (Lasix Inj) 40 mg BID@ IV PUSH 11/08/17 09:00 11/09/17 08:25 (Lanoxin) 0.125 mg DAILY PO 11/08/17 09:00 11/09/17 08:25 (Xarelto) 20 mg DAILY PO 11/08/17 09:00 11/09/17 08:26 (Plavix) 75 mg DAILY PO 11/09/17 09:00 11/09/17 08:26 (Lopressor) 12.5 mg Q12HR PO 11/08/17 21:00 11/09/17 08:25 (Lipitor) 40 mg DAILY PO 11/09/17 09:00 11/09/17 08:25 (Pill Splitter) 1 ea UNSCH PRN OTHER 11/08/17 10:15 Vital Signs / I&O Vital Signs Date Time Temp Pulse Resp B/P (MAP) Pulse Ox O2 Delivery O2 Flow Rate FiO2 11/09/17 04:00 97.8 100 16 110/78 (89) 92 11/09/17 03:42 93 11/08/17 23:45 101 11/08/17 21:15 96 Nasal Cannula 2.00 11/08/17 21:12 Nasal Cannula 2.00 11/08/17 20:00 97.7 86 18 109/65 (80) 95 11/08/17 19:44 95 11/08/17 17:40 91 11/08/17 16:18 98.3 98 18 106/58 (74) 96 11/08/17 12:27 80 20 109/67 (81) 96 Nasal Cannula 2.00 I/O 11/08/17 11/08/17 11/08/17 11/09/17 11/09/1710/18 07:00 15:00 23:00 07:00 15:00 23:00 Intake Total 350 ml 240 ml Output Total 1400 ml 1050 ml 400 ml Balance -1400 ml -700 ml -160 ml Intake Oral 350 ml 240 ml Output Urine Total 1400 ml 1050 ml 400 ml # Voids 1 2 Physical Exam Alert, NAD Neck no JVD seen Chest dull to percussion and absent BS about 1/4 way up on left CV PMI displaced laterally, S1S2S3 irr irr. Telemetry this AM AF RVR Ext no edema Laboratory None of his AM labs are back. Need special attention to his electrolytes Imaging CXR yest B/l? effusions L>R with CHF Assessment and Plan Problem List: (1) Stented coronary artery ICD Codes: Z95.5 - Presence of coronary angioplasty implant and graft Plan: RCA JUVENTINO August by Dr. Fuentes. Surprisingly was not taking ASA or clopidogrel. Loaded with 600mg juliet and now 75mg/day. I made sure he understands he must continue to to take this medication. (2) Occlusion of left anterior descending (LAD) artery ICD Codes: I24.0 - Acute coronary thrombosis not resulting in myocardial infarction (3) Ischemic cardiomyopathy ICD Codes: I25.5 - Ischemic cardiomyopathy (4) Acute systolic CHF (congestive heart failure) ICD Codes: I50.21 - Acute systolic (congestive) heart failure Plan: Cont IV lasix (5) Atrial fibrillation with RVR ICD Codes: I48.91 - Unspecified atrial fibrillation Status: Acute Plan: Dig level therapeutic. Increase metoprolol to 50 mg bid. (6) Pleural effusion ICD Codes: J90 - Pleural effusion, not elsewhere classified Plan: cont diuretic. Thoracentesis remains an option (7) LBBB (left bundle branch block) ICD Codes: I44.7 - Left bundle-branch block, unspecified Status: Acute Assessment and Plan I will be out of town until Tuesday. Will ask Dr. Fuentes to cover who did his initial CV consult and RCA stents in August. Jaspreet Kaplan MD Nov 09, 2017 08:42
[2017-11-09 10:18] LABS: AUTOMATED NEUTROPHIL # 5.3 TH/MM3 (1.8-7.7); BASOPHIL # 0.1 TH/MM3 (0-0.2); BASOPHIL % 1.1 % (0.0-2.0); EOSINOPHIL # 0.3 TH/MM3 (0-0.4); HEMATOCRIT 41.9 % (39.0-51.0); HEMOGLOBIN 13.6 GM/DL (13.0-17.0); LYMPH % 11.5 % (9.0-44.0); LYMPHOCYTE # 0.8 TH/MM3 (1.0-4.8); MEAN CELL VOLUME 88.5 FL (80.0-100.0); MEAN CORPUSCULAR HEMOGLOBIN 28.8 PG (27.0-34.0); MEAN CORPUSCULAR HGB CONC 32.5 % (32.0-36.0); MONO % 7.5 % (0.0-8.0); MONOCYTE # 0.5 TH/MM3 (0-0.9); NEUT % 75.9 % (16.0-70.0); PLATELET COUNT 242 TH/MM3 (150-450); RED BLOOD COUNT 4.73 MIL/MM3 (4.50-5.90); RED CELL DISTRIBUTION WIDTH 17.2 % (11.6-17.2)
[2017-11-09 10:49] LABS: ALBUMIN 3.3 GM/DL (3.4-5.0); ALKALINE PHOSPHATASE 103 U/L (45-117); ALT (GPT) 19 U/L (12-78); AST (GOT) 16 U/L (15-37); BLOOD UREA NITROGEN 28 MG/DL (7-18); CALCIUM 9.1 MG/DL (8.5-10.1); CHLORIDE 98 MEQ/L (98-107); CREATININE 1.31 MG/DL (0.60-1.30); GLOMERULAR FILTRATION RATE 53 ML/MIN (>89); GLUCOSE,RANDOM 181 MG/DL (74-106); SODIUM (NA) 135 MEQ/L (136-145); TOTAL BILIRUBIN ADULT 0.8 MG/DL (0.2-1.0); TROPONIN I 0.04 NG/ML (0.02-0.05)
[2017-11-09] MEDS ORDERED: POTASSIUM CHLORIDE 20 MEQ CONTROLLED RELEASE TAB PO ONE (12:00)
[2017-11-09 17:53] LABS: TROPONIN I 0.05 NG/ML (0.02-0.05)
--- NOTE | 2017-11-09 19:49 | HHI.PR ---
Subjective Remarks Deferred entry - patient seen at 14:30 hrs SOB better, denies cp. Objective Vitals Vital Signs Date Time Temp Pulse Resp B/P (MAP) Pulse Ox O2 Delivery O2 Flow Rate FiO2 11/09/17 16:44 97 11/09/17 16:05 97.7 66 18 130/78 (95) 95 11/09/17 12:05 97.9 53 18 131/85 (100) 96 11/09/17 12:00 89 11/09/17 10:45 Nasal Cannula 2.00 11/09/17 08:05 97.9 99 19 127/70 (89) 93 11/09/17 08:00 134 11/09/17 04:00 97.8 100 16 110/78 (89) 92 11/09/17 03:42 93 11/08/17 23:45 101 11/08/17 21:15 96 Nasal Cannula 2.00 11/08/17 21:12 Nasal Cannula 2.00 11/08/17 20:00 97.7 86 18 109/65 (80) 95 I/O 11/08/17 11/08/17 11/08/17 11/09/17 11/09/17 11/09/17 07:00 15:00 23:00 07:00 15:00 23:00 Intake Total 350 ml 240 ml 520 ml Output Total 1400 ml 1050 ml 400 ml Balance -1400 ml -700 ml -160 ml 520 ml Intake Oral 350 ml 240 ml 520 ml Output Urine Total 1400 ml 1050 ml 400 ml # Voids 1 2 5 # Bowel Movements 2 Result Diagram: 11/09/17 0840 11/09/17 [address] Angiography 11/08/17 0141 Signed Impressions: Service Date/Time: Wednesday, November 08, 2017 03:05 - CONCLUSION: 1. No evidence of pulmonary embolism. 2. Large bilateral effusions 3. Bibasilar atelectasis Eloy Rocha MD Chest X-Ray 11/08/17 0101 Signed Impressions: Service Date/Time: Wednesday, November 08, 2017 01:33 - CONCLUSION: 1. Cardiomegaly and findings of congestive heart failure. Moderate left effusion Eloy Rocha MD Objective Remarks GENERAL: This is a well-nourished, well-developed patient, in no apparent distress. SKIN: No rashes, ecchymoses or lesions. Cool and dry. HEAD: Atraumatic. Normocephalic. No temporal or scalp tenderness. EYES: No scleral icterus. No injection or drainage. ENT: Nose without bleeding, purulent drainage or septal hematoma. . Airway patent. NECK: Trachea midline. No JVD or lymphadenopathy. Supple, nontender, no meningeal signs. CARDIOVASCULAR: Irregularly irregular, no murmurs, rubs or gallops. RESPIRATORY: bilateral basilar rale s up to mid lungs GASTROINTESTINAL: Abdomen soft, non-tender, nondistended. No guarding. MUSCULOSKELETAL: Extremities without clubbing, cyanosis, or edema. No calf tenderness. NEUROLOGICAL: Awake and alert. no focal deficits, normal speech A/P Assessment and Plan Acute on chronic systolic heart failure symptomatic prior hx of requiring thoracocentesis. Next and hyperkalemia. Lab error. Hemolyzed sample. Normal renal function. Elevated BNP. CAD s/p cardiac cath in 04/2017 CHF- systolic EF 40% AAA repair CVA - at age 49 yo AFib Chronic anticoagulation on Xarelto Hyperglycemia - Check hemoglobin a1c Hypokalemia - replace and monitor bmp CTA showed large BL pleural effusions. no PE Continue IV diuretics. Appreciate cardiology input. Cardiac enzymes negative. Continue to see if there is improvement with diuresis. Agree witn increasing metoprolol to 50 mg po BID. Digoxin level therapeutic. Discharge Planning Pending clinical improvement. Derrick Kasper MD Nov 09, 2017 19:49
--- NOTE | 2017-11-09 19:50 | ECHRPT ---
Indication: HEART FAILURE CONCLUSIONS Normal left ventricular size. Moderate concentric left ventricular hypertrophy. The left ventricular systolic function is severely reduced with an estimated ejection fraction of 25 %. There is diffuse global hypokinesis with distinct regional wall motion abnormalities. Mitral annular calcification is present. Mild to moderate mitral valve regurgitation. Aortic valve sclerosis is present. Mild thickening of the aortic valve leaflets. Mild aortic valve regurgitation. There is mild tricuspid valve regurgitation. There is estimated mild pulmonary hypertension present ( 44 mmHg). A large left sided pleural effusion is noted. BP: / HR: Rhythm: MEASUREMENTS (Male / Female) Normal Values Technical Quality:Good 2D ECHO LV Diastolic Diameter PLAX 4.9 cm 4.2 - 5.9 / 3.9 - 5.3 cm LV Systolic Diameter PLAX 4.5 cm IVS Diastolic Thickness 1.6 cm 0.6 - 1.0 / 0.6 - 0.9 cm LVPW Diastolic Thickness 0.9 cm 0.6 - 1.0 / 0.6 - 0.9 cm LV Relative Wall Thickness 0.5 LA Systolic Diameter LX 3.8 cm 3.0 - 4.0 / 2.7 - 3.8 cm DOPPLER AV Peak Velocity 244.0 cm/s AV Peak Gradient 23.8 mmHg AV Mean Gradient 15.5 mmHg AV Velocity Time Integral 48.3 cm AI Peak Velocity 372.0 cm/s AI Peak Gradient 55.4 mmHg AI Pressure Half Time 687.0 ms LVOT Peak Velocity 81.9 cm/s LVOT Peak Gradient 2.7 mmHg MR Peak Velocity 430.0 cm/s MR Peak Gradient 74.0 mmHg Mitral E Point Velocity 82.4 cm/s Mitral A Point Velocity 46.4 cm/s Mitral E to A Ratio 1.8 TR Peak Velocity 311.0 cm/s TR Peak Gradient 38.7 mmHg Right Atrial Pressure 5.0 mmHg Pulmonary Artery Systolic Pressu 43.7 mmHg Right Ventricular Systolic Press 43.7 mmHg FINDINGS LEFT VENTRICLE Normal left ventricular size. Moderate concentric left ventricular hypertrophy. The left ventricular systolic function is severely reduced with an estimated ejection fraction of 25 %. LV dyssynchrony. There is diffuse global hypokinesis with distinct regional wall motion abnormalities. RIGHT VENTRICLE Normal right ventricular size and systolic function. LEFT ATRIUM The left atrial size is normal. RIGHT ATRIUM The right atrial size is normal. ATRIAL SEPTUM Normal atrial septal thickness without atrial level shunting by limited color doppler interrogation. AORTA The aortic root and proximal ascending aorta are normal in size on limited imaging. MITRAL VALVE Mitral annular calcification is present. Mild to moderate mitral valve regurgitation. AORTIC VALVE Aortic valve sclerosis is present. Mild thickening of the aortic valve leaflets. Mild aortic valve regurgitation. TRICUSPID VALVE There is mild tricuspid valve regurgitation. There is estimated mild pulmonary hypertension present ( 44 mmHg). PULMONARY VALVE No pulmonary valve regurgitation or stenosis. VESSELS The inferior vena cava is normal in size. PERICARDIUM A large left sided pleural effusion is noted. Deanne Ashley MD, FACC (Electronically Signed) Final Date:09 November 2017 19:49
[2017-11-09] MEDS ORDERED: METOPROLOL TARTRATE 25 MG TAB PO SCH ×2 (21:00)
[2017-11-10] VITALS (9 sets, daily range): BP systolic 112–138; BP diastolic 68–77; PULSE 73–99; RESP 16–19; TEMP 97–98.1; O2SAT 95–100
[2017-11-10] MEDS ORDERED: FUROSEMIDE 40 MG/4 ML VIAL IV PUSH SCH ×2 (09:00)
[2017-11-10] MEDS: CLOPIDOGREL 75 MG TAB PO SCH (09:28)
[2017-11-10] MEDS: ATORVASTATIN 40 MG TAB PO SCH (09:29)
[2017-11-10] MEDS: RIVAROXABAN 20 MG TAB PO SCH (09:29)
[2017-11-10] MEDS: DIGOXIN 0.125 MG TAB PO SCH (09:29)
[2017-11-10] MEDS: METOPROLOL TARTRATE 50 MG TAB PO SCH ×2 (09:29→22:47)
[2017-11-10] MEDS: SODIUM CHLORIDE 0.9% FLUSH 10 ML FLUSH IV FLUSH SCH ×2 (09:31→22:48)
[2017-11-10 12:01] LABS: ALBUMIN 3.3 GM/DL (3.4-5.0); AST (GOT) 10 U/L (15-37); BICARBONATE 29.4 MEQ/L (21.0-32.0); BLOOD UREA NITROGEN 30 MG/DL (7-18); CALCIUM 9.1 MG/DL (8.5-10.1); CHLORIDE 99 MEQ/L (98-107); CREATININE 1.37 MG/DL (0.60-1.30); GLOMERULAR FILTRATION RATE 50 ML/MIN (>89); GLUCOSE,RANDOM 127 MG/DL (74-106); MAGNESIUM 2.1 MG/DL (1.5-2.5); SODIUM (NA) 137 MEQ/L (136-145)
[2017-11-10 12:05] LABS: ALKALINE PHOSPHATASE 102 U/L (45-117); ALT (GPT) 19 U/L (12-78); TOTAL BILIRUBIN ADULT 0.5 MG/DL (0.2-1.0); TOTAL PROTEIN 8.1 GM/DL (6.4-8.2)
--- NOTE | 2017-11-10 13:36 | EKG ---
Date Performed: 11/08/2017 Time Performed: 05:09:08 PTAGE: 77 years EKG: ATRIAL FIBRILLATION LEFT BUNDLE BRANCH BLOCK ABNORMAL ECG PREVIOUS TRACING : 08/31/2017 11.34 Rate has again slowed and ST-T changes have improved. DOCTOR: Adrian Holguin Interpretating Date/Time 11/10/2017 13:34:25
[2017-11-10] MEDS ORDERED: POTASSIUM CHLORIDE 10 MEQ CONTROLLED RELEASE TAB PO ONE (16:15)
[2017-11-10] MEDS: LISINOPRIL 5 MG TAB PO SCH (17:35)
[2017-11-10] MEDS: POTASSIUM CHLORIDE 20 MEQ CONTROLLED RELEASE TAB PO SCH ×2 (17:35→17:37)
--- NOTE | 2017-11-10 18:02 | RADRPT ---
EXAM DATE/TIME: 11/10/2017 17:47 [facility] COMPARISON: CT PULMONARY ANGIOGRAM, November 08, 2017, 3:05. INDICATIONS : Short of breath, effusion. MEDICAL HISTORY : Myocardial infarction. Congestive heart failure. Hypertension.CVA SURGICAL HISTORY : None. ENCOUNTER: Initial ACUITY: 2 days PAIN SCORE: 0/10 LOCATION: Bilateral chest FINDINGS: There is a moderate to large left pleural effusion with improved now small right pleural effusion pos teriorly. There is associated airspace disease in the lower lobes bilaterally. Cardiomediastinal cont ours are within normal limits. Bony thorax is intact. CONCLUSION: 1. Moderate to large left pleural effusion with associated left lower lobe airspace disease, likely c ompressive atelectasis. 2. Improved small right pleural effusion with associated right lower lobe airspace disease. Himanshu Uribe MD on November 10, 2017 at 17:57 Board Certified Radiologist. This report was verified electronically.
--- NOTE | 2017-11-10 19:45 | HHI.PR ---
Subjective Remarks Patient denies cp, sob much improved. afebrile denies cough Objective Vitals Vital Signs Date Time Temp Pulse Resp B/P (MAP) Pulse Ox O2 Delivery O2 Flow Rate FiO2 11/10/17 16:00 90 11/10/17 16:00 97.6 80 18 124/77 (93) 100 11/10/17 12:00 97.3 89 16 138/68 (91) 98 11/10/17 12:00 75 11/10/17 08:00 98.1 99 16 113/74 (87) 97 11/10/17 08:00 Room Air 11/10/17 08:00 88 11/10/17 04:39 Room Air 11/10/17 04:00 97.0 81 16 133/75 (94) 96 11/10/17 03:42 90 11/10/17 00:39 90 11/10/17 00:00 Room Air 11/10/17 00:00 97.3 73 18 116/73 (87) 98 11/09/17 20:00 98.5 96 16 107/74 (85) 96 11/09/17 20:00 Nasal Cannula 2.00 11/09/17 19:43 102 I/O 11/09/17 11/09/17 11/09/17 11/10/17 11/10/17 11/10/17 07:00 15:00 23:00 07:00 15:00 23:00 Intake Total 520 ml 360 ml 1880 ml Output Total 1650 ml Balance 520 ml 360 ml 230 ml Intake Oral 520 ml 360 ml 1880 ml Output Urine Total 1650 ml # Voids 5 5 # Bowel Movements 2 1 1 Result Diagram: 11/09/17 0840 11/10/17 1059 Imaging Last Impressions Chest X-Ray 11/10/17 0000 Signed Impressions: Service Date/Time: October 17:47 - CONCLUSION: 1. Moderate to large left pleural effusion with associated left lower lobe airspace disease , likely compressive atelectasis. 2. Improved small right pleural effusion with associated right lower lobe airspace disease. Himanshu Uribe MD CT Angiography 11/08/17 0141 Signed Impressions: Service Date/Time: Wednesday, November 08, 2017 03:05 - CONCLUSION: 1. No evidence of pulmonary embolism. 2. Large bilateral effusions 3. Bibasilar atelectasis Eloy Rocha MD Objective Remarks GENERAL: This is a well-nourished, well-developed patient, in no apparent distress. SKIN: No rashes, ecchymoses or lesions. Cool and dry. HEAD: Atraumatic. Normocephalic. No temporal or scalp tenderness. EYES: No scleral icterus. No injection or drainage. ENT: Nose without bleeding, purulent drainage or septal hematoma. . Airway patent. NECK: Trachea midline. No JVD or lymphadenopathy. Supple, nontender, no meningeal signs. CARDIOVASCULAR: Irregularly irregular, no murmurs, rubs or gallops. RESPIRATORY: Clear to auscultation BL GASTROINTESTINAL: Abdomen soft, non-tender, nondistended. No guarding. MUSCULOSKELETAL: Extremities without clubbing, cyanosis, or edema. No calf tenderness. NEUROLOGICAL: Awake and alert. no focal deficits, normal speech Medications and IVs Current Medications Medications (Trade) Dose Ordered Sig/Morena Route Start Time Stop Time Status Last Admin (Nitrostat Sl) 0.4 mg Q5M PRN SL 11/07/17 23:15 (NS Flush) 2 ml UNSCH PRN IV FLUSH 11/08/17 02:15 (NS Flush) 2 ml BID IV FLUSH 11/08/17 09:00 11/10/17 09:31 (Narcan Inj) 0.4 mg UNSCH PRN IV PUSH 11/08/17 02:15 (Lanoxin) 0.125 mg DAILY PO 11/08/17 09:00 11/10/17 09:29 (Xarelto) 20 mg DAILY PO 11/08/17 09:00 11/10/17 09:29 (Plavix) 75 mg DAILY PO 11/09/17 09:00 11/10/17 09:28 (Lipitor) 40 mg DAILY PO 11/09/17 09:00 11/10/17 09:29 (Pill Splitter) 1 ea UNSCH PRN OTHER 11/08/17 10:15 (Lopressor) 50 mg Q12HR PO 11/09/17 21:00 Future Hold (Lopressor) 50 mg Q12HR PO 11/10/17 09:00 11/10/17 09:29 (Prinivil) 5 mg DAILY PO 11/10/17 15:45 11/10/17 17:35 (KCl) 20 meq TID PO 11/10/17 16:00 11/10/17 17:37 A/P Problem List: (1) Acute on chronic systolic heart failure ICD Code: I50.23 - Acute on chronic systolic (congestive) heart failure Plan: The patient was admitted to the medical floor, started on IV Lasix Cardiology consulted. Endocardium showed a normal lipid size with a severely reduced ejection fraction estimated at 25% with global hypokinesis and distinct regional wall motion abnormalities. Moderate mitral valve regurgitation. Aortic sclerosis is present. Mild tricuspid valve regurgitation. Estimated my pulmonary hypertension present (44 mmhg) Repeat a chest x-ray. Continue supplemental oxygen to keep oxygen saturation more than 92%. (2) CAD (coronary artery disease) ICD Code: I25.10 - Atherosclerotic heart disease of [place] coronary artery without angina pectoris Plan: Continue Plavix, Xarelto, statin, beta monse. Cardiology following. (3) AAA (abdominal aortic aneurysm) ICD Code: I71.4 - Abdominal aortic aneurysm, without rupture Plan: Status post repair in 2017. Seems stable. (4) H/O: CVA (cerebrovascular accident) ICD Code: Z86.73 - Personal history of transient ischemic attack (TIA), and cerebral infarction without residual deficits Status: Chronic Plan: At age 49. on xarelto and Plavix, continue. (5) Afib ICD Code: I48.91 - Unspecified atrial fibrillation Plan: EKG on admission showed a defibrillation with left bundle branch block. Ventricular rate 81 bpm and a QTC of 491. Continue beta monse as per cardiology recommendations. The patient currently on Toprol tartrate 50 minutes by mouth twice a day. (6) Hyperglycemia ICD Code: R73.9 - Hyperglycemia, unspecified Plan: Hemoglobin A1c ordered and pending. (7) ANUJ (acute kidney injury) ICD Code: N17.9 - Acute kidney failure, unspecified Plan: Creatinine trending up from 1.1-1.3. I will hold diuretics for now. Continue to monitor BUN/creatinine, strict I's and O's, avoid nephrotoxins. (8) Hypokalemia ICD Code: E87.6 - Hypokalemia Status: Resolved Plan: Potassium initially elevated, improved and trended down to 3.3. Replaced orally on 11/09 and now within normal range. Continue to monitor BMP, will start on potassium 3 times a day. Assessment and Plan DVT peophylaxis - on xarelto Discharge Planning Pending clinical improvement. Pending chest x-ray and cardiology clearance. Also pending stabilization of creatinine. Problem Qualifiers (1) Afib: Qualified Codes: I48.1 - Persistent atrial fibrillation Derrick Kasper MD Nov 10, 2017 19:45
[2017-11-11] VITALS (7 sets, daily range): BP systolic 97–123; BP diastolic 65–75; PULSE 63–89; RESP 16–21; TEMP 97.1–98.1; O2SAT 93–98
--- NOTE | 2017-11-11 06:27 | RADRPT ---
EXAM DATE/TIME: 11/11/2017 06:07 [facility] COMPARISON: CHEST PA & LAT, November 10, 2017, 17:47. CHEST SINGLE AP, November 08, 2017, 1:33. INDICATIONS : Short of breath, evaluate CHF MEDICAL HISTORY : Myocardial infarction. Congestive heart failure. Hypertension. CVA SURGICAL HISTORY : None. ENCOUNTER: Subsequent ACUITY: 3 days PAIN SCORE: 0/10 LOCATION: Bilateral chest FINDINGS: There continues to be infiltrates in both lung bases, left greater than right. These findings are ess entially about the same compared to the prior study. The upper lung garcia are grossly clear. There i s no pneumothorax. The heart size is enlarged. There is blunting of both costophrenic angles characte ristic of bilateral effusions. CONCLUSION: There continues to be bibasilar infiltrates, left greater than right without significant change yadira red to the prior study. Byron Huston MD on November 11, 2017 at 6:23 Board Certified Radiologist. This report was verified electronically.
[2017-11-11] MEDS: SODIUM CHLORIDE 0.9% FLUSH 10 ML FLUSH IV FLUSH SCH (08:13)
[2017-11-11] MEDS: ATORVASTATIN 40 MG TAB PO SCH (08:13)
[2017-11-11] MEDS: METOPROLOL TARTRATE 50 MG TAB PO SCH (08:14)
[2017-11-11] MEDS: POTASSIUM CHLORIDE 20 MEQ CONTROLLED RELEASE TAB PO SCH ×3 (08:14→18:00)
[2017-11-11] MEDS: CLOPIDOGREL 75 MG TAB PO SCH ×2 (08:14→08:27)
[2017-11-11] MEDS: LISINOPRIL 5 MG TAB PO SCH (08:14)
[2017-11-11] MEDS: DIGOXIN 0.125 MG TAB PO SCH (08:14)
[2017-11-11] MEDS ORDERED: METO-309 PO (14:43)
[2017-11-11] MEDS ORDERED: ATOR40TA16 PO (14:43)
[2017-11-11] MEDS ORDERED: PLAV75TA29 PO (14:43)
[2017-11-11] MEDS ORDERED: DIGO0.12 PO (14:43)
[2017-11-11] MEDS ORDERED: XARE20TA PO (14:43)
[2017-11-11] MEDS ORDERED: FURO40TA PO (14:43)
[2017-11-11] MEDS ORDERED: LISI-519 PO (14:43)
--- NOTE | 2017-11-11 14:47 | HHI.DCPOC ---
Discharge Care Plan Diagnosis: (1) ANUJ (acute kidney injury) (2) Afib (3) Acute on chronic systolic heart failure (4) AAA (abdominal aortic aneurysm) (5) Hyperglycemia (6) CAD (coronary artery disease) (7) Acute systolic CHF (congestive heart failure) (8) Hypokalemia (9) Pleural effusion (10) Ischemic cardiomyopathy Goals to Promote Your Health * To prevent worsening of your condition and complications * To maintain your health at the optimal level Directions to Meet Your Goals Take your medications as prescribed Follow your dietary instruction Follow activity as directed Keep your appointments as scheduled Take your immunizations and boosters as scheduled If your symptoms worsen call your PCP, if no PCP go to Urgent Care Center or Emergency Room Smoking is Dangerous to Your Health. Avoid second hand smoke Call the 24-hour hour crisis hotline for domestic abuse at Derrick Kasper MD Nov 11, 2017 14:47
--- NOTE | 2017-11-11 14:52 | HHI.DS ---
Discharge Summary Admission Date Nov 08, 2017 at 01:42 Discharge Date: Nov 11, 2017 Admitting Diagnosis afib with rvr, CHF exacerbation (1) Acute on chronic systolic heart failure ICD Code: I50.23 - Acute on chronic systolic (congestive) heart failure (2) CAD (coronary artery disease) ICD Code: I25.10 - Atherosclerotic heart disease of [place] coronary artery without angina pectoris (3) AAA (abdominal aortic aneurysm) ICD Code: I71.4 - Abdominal aortic aneurysm, without rupture (4) H/O: CVA (cerebrovascular accident) ICD Code: Z86.73 - Personal history of transient ischemic attack (TIA), and cerebral infarction without residual deficits Status: Chronic (5) Afib ICD Code: I48.91 - Unspecified atrial fibrillation (6) Hyperglycemia ICD Code: R73.9 - Hyperglycemia, unspecified (7) ANUJ (acute kidney injury) ICD Code: N17.9 - Acute kidney failure, unspecified (8) Hypokalemia ICD Code: E87.6 - Hypokalemia Status: Resolved Procedures none Brief History - From Admission History from patient, ER physician communication, and review of medical records shortness of breath started tuesday was coughing a lot states "water in the lung" before dry cough no fever no swelling in legs or abdomen denies pillow orthopnea denies pnd in [facility] while on vacation, was in hospital and had to remove water in the lung with a needle per pt it was 3L or more on thoracocentesis had similar symptoms then states he doesnt take water pill, but lasix is on med rec and he is not very sure he knows he takes xarelto and digoxin reports he was told he has chf CBC/BMP: 11/09/17 0840 11/10/17 1059 Significant Findings Laboratory Tests Test 11/09/17 08:40 11/09/17 16:30 11/10/17 10:59 11/11/17 06:00 Neutrophils (%) (Auto) 75.9 % (16.0-70.0) Lymphocytes # (Auto) 0.8 TH/MM3 (1.0-4.8) Blood Urea Nitrogen 28 MG/DL (7-18) 30 MG/DL (7-18) Creatinine 1.31 MG/DL (0.60-1.30) 1.37 MG/DL (0.60-1.30) Random Glucose 181 MG/DL (74-106) 127 MG/DL (74-106) Albumin 3.3 GM/DL (3.4-5.0) 3.3 GM/DL (3.4-5.0) Sodium Level 135 MEQ/L (136-145) Potassium Level 3.3 MEQ/L (3.5-5.1) Estimat Glomerular Filtration Rate 53 ML/MIN (>89) 50 ML/MIN (>89) Total Creatine Kinase 30 U/L (39-308) 30 U/L (39-308) Aspartate Amino Transf (AST/SGOT) 10 U/L (15-37) Imaging Last Impressions Chest X-Ray 11/11/17 0600 Signed Impressions: Service Date/Time: Saturday, November 11, 2017 06:07 - CONCLUSION: There continues to be bibasilar infiltrates, left greater than right without significant change compared to the prior study. Byron Huston MD CT Angiography 11/08/17 0141 Signed Impressions: Service Date/Time: Wednesday, November 08, 2017 03:05 - CONCLUSION: 1. No evidence of pulmonary embolism. 2. Large bilateral effusions 3. Bibasilar atelectasis Eloy Rocha MD PE at Discharge GENERAL: This is a well-nourished, well-developed patient, in no apparent distress. SKIN: No rashes, ecchymoses or lesions. Cool and dry. HEAD: Atraumatic. Normocephalic. No temporal or scalp tenderness. EYES: No scleral icterus. No injection or drainage. ENT: Nose without bleeding, purulent drainage or septal hematoma. . Airway patent. NECK: Trachea midline. No JVD or lymphadenopathy. Supple, nontender, no meningeal signs. CARDIOVASCULAR: Irregularly irregular, no murmurs, rubs or gallops. RESPIRATORY: Clear to auscultation BL GASTROINTESTINAL: Abdomen soft, non-tender, nondistended. No guarding. MUSCULOSKELETAL: Extremities without clubbing, cyanosis, or edema. No calf tenderness. NEUROLOGICAL: Awake and alert. no focal deficits, normal speech Pt update on day of discharge The patient is refusing labs. Patient states insurance of breath is much improved and wants to go home. Denies chest pain. The patient is afebrile. Creatinine was noted to be trending up, however the patient is refusing labs. Will discharge home to follow-up with cardiology. Pt Condition on Discharge: Stable Discharge Time: > 30 minutes Discharge Instructions New Medications: Furosemide (Furosemide) 40 Mg Tab 40 MG PO DAILY for Shortness of Breath, #30 TAB 0 Refills Atorvastatin (Atorvastatin) 40 Mg Tab 40 MG PO DAILY for Cholesterol Management, #31 TAB Clopidogrel (Plavix) 75 Mg Tab 75 MG PO DAILY for Blood Clot Prevention, #31 TAB Lisinopril (Lisinopril) 5 Mg Tab 5 MG PO DAILY for cad, #31 TAB Metoprolol Tartrate (Lopressor) 50 Mg Tab 50 MG PO Q12HR for CAD, #60 TAB Continued Medications: Digoxin (Digoxin) 0.125 Mg Tab 0.125 MG PO DAILY for Regulate Heart Beat, #30 TAB 0 Refills (This prescription has been renewed) Rivaroxaban (Xarelto) 20 Mg Tab 20 MG PO DAILY for Blood Clot Prevention, #31 TAB 0 Refills (This prescription has been renewed) Discontinued Medications: Diltiazem ER 24 HR (Cartia Xt) 120 Mg Caper 180 MG PO DAILY, #30 CAP 0 Refills Furosemide (Lasix) 20 Mg Tab 20 MG PO DAILY, #30 TAB 0 Refills Derrick Kasper MD Nov 11, 2017 14:52
== END 2017-11-11 18:49 | disposition home or self-care (01) | DRG 292 ==
LOC: NEPC 22:21 → NEDA 11-08 01:42 → NEDH 11-08 06:03 → N04B 11-08 15:19
PROVIDERS: ADMIT Hospitalist; ATTEND Hospitalist
DX: I11.0 Hypertensive heart disease with heart failure (principal); N17.9 Acute kidney failure, unspecified; I27.20 Pulmonary hypertension, unspecified; E87.5 Hyperkalemia; I08.1 Rheumatic disorders of both mitral and tricuspid valves; I50.23 Acute on chronic systolic (congestive) heart failure; I44.7 Left bundle-branch block, unspecified; I25.5 Ischemic cardiomyopathy; R73.9 Hyperglycemia, unspecified; E87.6 Hypokalemia; I25.10 Atherosclerotic heart disease of native coronary artery without angina pectoris; I48.2 Chronic atrial fibrillation; I70.0 Atherosclerosis of aorta; I71.4 Abdominal aortic aneurysm, without rupture; I25.2 Old myocardial infarction; E78.5 Hyperlipidemia, unspecified; M19.90 Unspecified osteoarthritis, unspecified site; H91.90 Unspecified hearing loss, unspecified ear; Z79.01 Long term (current) use of anticoagulants; Z82.49 Family history of ischemic heart disease and other diseases of the circulatory system; Z86.73 Personal history of transient ischemic attack (TIA), and cerebral infarction without residual deficits; Z95.5 Presence of coronary angioplasty implant and graft
CPT/HCPCS: 71045; 71046; 71275; 80053; 80162; 81001; 82550; 82552; 83690; 83735; 83880; 84484; 85025; 85610; 85730; 86140; 93005; 93306; 96374; J1940; Q9967

== ENCOUNTER 2018-03-15 13:54 | Inpatient (IN) | payer MEDICARE, OTHER ==
[2018-03-15] VITALS (9 sets, daily range): BP systolic 103–133; BP diastolic 59–91; PULSE 71–131; RESP 16–24; TEMP 97.6–98.1; O2SAT 92–98
[~2018-03-15] VITALS: Ht 182.9 cm; Wt 65.6 kg
[~2018-03-15 13:54] MED LIST changes: -ASPI81CH25 PO; -CART120C PO; -FURO1TAB62 PO; +FURO40TA PO; +LISI-519 PO; +METO-309 PO
[2018-03-15] MEDS: METOPROLOL TARTRATE 5 MG/5 ML VIAL IVS SCH ×3 (14:30→14:40)
[2018-03-15] MEDS ORDERED: SODIUM CHLORIDE 0.9% FLUSH 10 ML FLUSH IVF PRN (14:30)
--- NOTE | 2018-03-15 14:33 | PD ---
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 Ariza. He does not have a primary care physician. He is complaining of dyspnea. Symptoms started 1 week ago. He reports dyspnea on exertion and orthopnea. Typically he is able to lay down flat but this week he has been sleeping inclined. He denies chest pain, cough, congestion, abdominal pain, nausea or vomiting, fevers or chills, lower extremity edema, recent travel. He denies any recent medication changes. He denies any recent dietary indiscretions. Per chart review it it appears that the patient has a history of atrial fibrillation, anticoagulated with xarelto, CHF, CVA, AAA status post repair, coronary artery disease. He is on digoxin and metoprolol. 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) Asthma: No Atrial Fibrillation: Yes Autoimmune Disease: No Heart Rhythm Problems: Yes (a fib) Cancer: No Cardiovascular Problems: Yes High Cholesterol: No Chest Pain: No Congestive Heart Failure: Yes COPD: No Cerebrovascular Accident: Yes (CVA x2, 2007 and 1989) Diminished Hearing: No Endocrine: No Genitourinary: No Hypertension: Yes Immune Disorder: No Musculoskeletal: Yes Neurologic: Yes Psychiatric: No Reproductive: No Respiratory: Yes Migraines: No Myocardial Infarction: Yes (2004) Seizures: No Sickle Cell Disease: No Sleep Apnea: No Influenza Vaccination: No Past Surgical History Abdominal Surgery: Yes (AAA stent placed) Cardiac Surgery: No Coronary Stent: Yes (2007) Ear Surgery: No Endocrine Surgery: No Eye Surgery: No Genitourinary Surgery: No Gynecologic Surgery: No Oral Surgery: Yes (sinus dental abcess) Thoracic Surgery: No Other Surgery: Yes (sinus abcess) Social History Alcohol Use: No Tobacco Use: No Substance Use: No Allergies-Medications (Allergen,Severity, Reaction): Coded Allergies: No Known Allergies (Unverified Allergy, Unknown, 11/07/17) Reported Meds & Prescriptions Reported Meds & Active Scripts Active Furosemide 40 Mg Tab 40 Mg PO DAILY Lisinopril 5 Mg Tab 5 Mg PO DAILY Lopressor (Metoprolol Tartrate) 50 Mg Tab 50 Mg PO Q12HR Atorvastatin (Atorvastatin Calcium) 40 Mg Tab 40 Mg PO DAILY Plavix (Clopidogrel Bisulfate) 75 Mg Tab 75 Mg PO DAILY Xarelto (Rivaroxaban) 20 Mg Tab 20 Mg PO DAILY Digoxin 0.125 Mg Tab 0.125 Mg PO DAILY Review of Systems Except as stated in HPI: all other systems reviewed are Neg Physical Exam Narrative GENERAL: Well-developed well-nourished male in no acute distress. Tachycardic. SKIN: Warm and dry. HEAD: Atraumatic. Normocephalic. EYES: Pupils equal and round. No scleral icterus. No injection or drainage. ENT: No nasal bleeding or discharge. Mucous membranes pink and moist. NECK: Trachea midline. No JVD. CARDIOVASCULAR: Irregular rate and rhythm. No murmur appreciated. RESPIRATORY: No accessory muscle use. Clear to auscultation. Breath sounds equal bilaterally. GASTROINTESTINAL: Abdomen soft, non-tender, nondistended. Hepatic and splenic margins not palpable. MUSCULOSKELETAL: No obvious deformities. No clubbing. No cyanosis. No edema. NEUROLOGICAL: Awake and alert. No obvious cranial nerve deficits. Motor grossly within normal limits. Normal speech. PSYCHIATRIC: Appropriate mood and affect; insight and judgment normal. Data Data Last Documented VS Vital Signs Date Time Temp Pulse Resp B/P (MAP) Pulse Ox O2 Delivery O2 Flow Rate FiO2 03/15/18 16:08 81 24 129/86 (100) 96 Room Air 03/15/18 14:03 97.8 Orders Orders Electrocardiogram (03/15/18 14:20) Basic Metabolic Panel (Bmp) (03/15/18 14:20) B-Type Natriuretic Peptide (03/15/18 14:20) Ckmb (Isoenzyme) Profile (03/15/18 14:20) Complete Blood Count With Diff (03/15/18 14:20) Magnesium (Mg) (03/15/18 14:20) Prothrombin Time / Inr (Pt) (03/15/18 14:20) Act Partial Throm Time (Ptt) (03/15/18 14:20) Troponin I (03/15/18 14:20) Ecg Monitoring (03/15/18 14:20) Bilateral Bp Monitoring (03/15/18 14:20) Iv Access Insert/Monitor (03/15/18 14:20) Oximetry (03/15/18 14:20) Oxygen Administration (03/15/18 14:20) Sodium Chloride 0.9% Flush (Ns Flush) (03/15/18 14:30) Chest, Pa & Lat (03/15/18 14:20) Metoprolol Tartrate Inj (Lopressor Inj) (03/15/18 14:30) Digoxin (03/15/18 14:21) Furosemide Inj (Lasix Inj) (03/15/18 15:45) Metoprolol Tartrate (Lopressor) (03/15/18 16:15) Admit Order (Ed Use Only) (03/15/18 16:19) Labs Laboratory Tests Test 03/15/18 14:21 White Blood Count 9.0 TH/MM3 Red Blood Count 5.05 MIL/MM3 Hemoglobin 14.6 GM/DL Hematocrit 44.7 % Mean Corpuscular Volume 88.6 FL Mean Corpuscular Hemoglobin 28.9 PG Mean Corpuscular Hemoglobin Concent 32.7 % Red Cell Distribution Width 17.0 % Platelet Count 215 TH/MM3 Mean Platelet Volume 10.1 FL Neutrophils (%) (Auto) 73.6 % Lymphocytes (%) (Auto) 16.8 % Monocytes (%) (Auto) 7.8 % Eosinophils (%) (Auto) 1.1 % Basophils (%) (Auto) 0.7 % Neutrophils # (Auto) 6.6 TH/MM3 Lymphocytes # (Auto) 1.5 TH/MM3 Monocytes # (Auto) 0.7 TH/MM3 Eosinophils # (Auto) 0.1 TH/MM3 Basophils # (Auto) 0.1 TH/MM3 CBC Comment DIFF FINAL Differential Comment Prothrombin Time 11.3 SEC Prothromb Time International Ratio 1.1 RATIO Activated Partial Thromboplast Time 24.7 SEC Blood Urea Nitrogen 32 MG/DL Creatinine 1.57 MG/DL Random Glucose 141 MG/DL Calcium Level 9.0 MG/DL Magnesium Level 2.3 MG/DL Sodium Level 142 MEQ/L Potassium Level 4.3 MEQ/L Chloride Level 104 MEQ/L Carbon Dioxide Level 28.4 MEQ/L Anion Gap 10 MEQ/L Estimat Glomerular Filtration Rate 43 ML/MIN Total Creatine Kinase 56 U/L Troponin I 0.22 NG/ML B-Type Natriuretic Peptide 2308 PG/ML Digoxin Level 0.3 NG/ML MDM Medical Decision Making Medical Screen Exam Complete: Yes Emergency Medical Condition: Yes Medical Record Reviewed: Yes Differential Diagnosis Atrial fibrillation with RVR, CHF exacerbation, pneumonia, pleural effusion, pulmonary embolism, acute coronary syndrome Narrative Course The patient was placed on ECG monitoring pulse oximetry. A 12-lead EKG was obtained revealing atrial fibrillation with RVR, rate 133, left bundle branch block. Per chart review the patient has a history of left bundle branch block. Lab work, chest x-ray ordered. Hospital currently has diltiazem on back order , the patient will be treated with IV metoprolol. Patient was given 1 5 mg dose of IV metoprolol with improvement in his rate to the 80s-90s. Chest x-ray reveals diffuse interstitial prominence consistent with pulmonary edema. He will be given 40 mg IV dose of Lasix. Troponin 0.22 likely related to CHF exacerbation and atrial fibrillation. Higher than his baseline. Digoxin level 0.3. At this point in time the plan is to admit the patient for further treatment. Diagnosis Primary Impression: CHF exacerbation Additional Impressions: Atrial fibrillation with RVR Elevated troponin Admitting Information Admitting Physician Requests: it Abraham Grant March 15, 2018 14:33
[2018-03-15 15:10] LABS: AUTOMATED NEUTROPHIL # 6.6 TH/MM3 (1.8-7.7); BASOPHIL # 0.1 TH/MM3 (0-0.2); BASOPHIL % 0.7 % (0.0-2.0); EOSINOPHIL # 0.1 TH/MM3 (0-0.4); EOSINOPHIL % 1.1 % (0.0-4.0); HEMATOCRIT 44.7 % (39.0-51.0); HEMOGLOBIN 14.6 GM/DL (13.0-17.0); LYMPH % 16.8 % (9.0-44.0); LYMPHOCYTE # 1.5 TH/MM3 (1.0-4.8); MEAN CELL VOLUME 88.6 FL (80.0-100.0); MEAN CORPUSCULAR HEMOGLOBIN 28.9 PG (27.0-34.0); MEAN CORPUSCULAR HGB CONC 32.7 % (32.0-36.0); MEAN PLATELET VOLUME 10.1 FL (7.0-11.0); MONO % 7.8 % (0.0-8.0); MONOCYTE # 0.7 TH/MM3 (0-0.9); NEUT % 73.6 % (16.0-70.0); PLATELET COUNT 215 TH/MM3 (150-450); RED BLOOD COUNT 5.05 MIL/MM3 (4.50-5.90)
--- NOTE | 2018-03-15 15:21 | RADRPT ---
EXAM DATE/TIME: 03/15/2018 14:43 [facility] COMPARISON: CHEST SINGLE AP, November 11, 2017, 6:07. INDICATIONS : Short of breath x 1 week. MEDICAL HISTORY : Myocardial infarction. Congestive heart failure. Hypertension.CVA. Arthritis. CAD. A-fib. CAD. SURGICAL HISTORY : Cardiac cath w/ stent placement. ENCOUNTER: Initial ACUITY: 1 week PAIN SCORE: 0/10 LOCATION: chest FINDINGS: The examination demonstrates cardiomegaly left basilar effusion. This is similar to the previous date d 11/11/17. There is minimal effusion on the right. There are chronic interstitial changes throughout both lungs. There is diffuse interstitial prominence. This could suggest congestive failure. Visualiz ed bony structures are grossly intact. CONCLUSION: 1. Left basilar effusion and consolidation similar to previous exam. 2. Diffuse interstitial prominence suggesting possible congestive failure. Domingo Mcintyre MD on March 15, 2018 at 15:17 Board Certified Radiologist. This report was verified electronically.
[2018-03-15 15:28] LABS: BICARBONATE 28.4 MEQ/L (21.0-32.0); CREATININE 1.57 MG/DL (0.60-1.30); MAGNESIUM 2.3 MG/DL (1.5-2.5)
[2018-03-15 15:34] LABS: INTERNATIONAL NORMALIZED RATIO 1.1 RATIO; PROTHROMBIN TIME - PATIENT 11.3 SEC (9.8-11.6)
[2018-03-15 15:39] LABS: DIGOXIN 0.3 NG/ML (0.8-2.0); TROPONIN I 0.22 NG/ML (0.02-0.05)
[2018-03-15] MEDS ORDERED: FUROSEMIDE 40 MG/4 ML VIAL IV PUSH ONE (15:45)
[2018-03-15] MEDS ORDERED: METOPROLOL TARTRATE 50 MG TAB PO ONE (16:15)
--- NOTE | 2018-03-15 16:52 | HHI.HP ---
[facility] No Primary Care Physician Admission Diagnosis CHF exacerbation, atrial fibrillation, elevated troponin Diagnoses: Chief Complaint: Shortness of breath Travel History International Travel<30 Days: No Contact w/Intl Traveler <30 Da: No Traveled to Known Affected Are: No History of Present Illness 77-year-old white male admitted for shortness of breath. Patient was in his usual state of health until about 1 week ago and began experiencing gradual onset shortness of breath. It would worsen with lying down. He progressed with time. Denies having any chest pain. Presented today. Patient reports being compliant with all of his medications including his diuretic. In the emergency department he was irregularly tachycardic in the 130s. Given IV Lopressor with improvement in his heart rate down to the 90s. Chest x-ray which I independently reviewed shows mild diffuse edema. Patient was given Lasix. Review of Systems Except as stated in HPI: all other systems reviewed are Neg Past Family Social History Past Medical History Systolic CHF A. fib Coronary artery disease Allergies: Coded Allergies: No Known Allergies (Unverified Allergy, Unknown, 11/07/17) Family History Nothing per patient Social History Lives with his , denies drinking, denies smoking Physical Exam Vital Signs Vital Signs Date Time Temp Pulse Resp B/P (MAP) Pulse Ox O2 Delivery O2 Flow Rate FiO2 03/15/18 16:08 81 24 129/86 (100) 96 Room Air 03/15/18 14:25 96 Room Air 03/15/18 14:12 124 19 113/91 (98) 96 Room Air 03/15/18 14:03 97.8 131 20 Physical Exam VS: afebrile GENERAL: Elderly white male, well-nourished for his age, lying in bed, no acute distress SKIN: Warm and dry. EYES: No scleral icterus. No injection or drainage. ENT: No nasal bleeding or discharge. Mucous membranes pink and moist. CARDIOVASCULAR: Irregular rhythm, regular rate, no murmurs RESPIRATORY: No accessory muscle use. Unlabored breathing, mild crackles heard bilaterally GASTROINTESTINAL: Abdomen soft, non-tender, nondistended. Extremities: No clubbing, cyanosis, or edema. No obvious deformities. MUSCULOSKELETAL: y; adequate muscle bulk and tone for age and habitus NEUROLOGICAL: Awake and alert. No obvious cranial nerve deficits. No facial droop nor slurred speech noted. PSYCHIATRIC: Appropriate mood and affect; insight and judgment normal. Laboratory Laboratory Tests Test 03/15/18 14:21 White Blood Count 9.0 Red Blood Count 5.05 Hemoglobin 14.6 Hematocrit 44.7 Mean Corpuscular Volume 88.6 Mean Corpuscular Hemoglobin 28.9 Mean Corpuscular Hemoglobin Concent 32.7 Red Cell Distribution Width 17.0 Platelet Count 215 Mean Platelet Volume 10.1 Neutrophils (%) (Auto) 73.6 Lymphocytes (%) (Auto) 16.8 Monocytes (%) (Auto) 7.8 Eosinophils (%) (Auto) 1.1 Basophils (%) (Auto) 0.7 Neutrophils # (Auto) 6.6 Lymphocytes # (Auto) 1.5 Monocytes # (Auto) 0.7 Eosinophils # (Auto) 0.1 Basophils # (Auto) 0.1 CBC Comment DIFF FINAL Differential Comment Prothrombin Time 11.3 Prothromb Time International Ratio 1.1 Activated Partial Thromboplast Time 24.7 Blood Urea Nitrogen 32 Creatinine 1.57 Random Glucose 141 Calcium Level 9.0 Magnesium Level 2.3 Sodium Level 142 Potassium Level 4.3 Chloride Level 104 Carbon Dioxide Level 28.4 Anion Gap 10 Estimat Glomerular Filtration Rate 43 Total Creatine Kinase 56 Troponin I 0.22 Digoxin Level 0.3 Result Diagram: 03/15/18 1421 03/15/18 1421 Imaging Last Impressions Chest X-Ray 03/15/18 1420 Signed Impressions: Service Date/Time: Thursday, March 15, 2018 14:43 - CONCLUSION: 1. Left basilar effusion and consolidation similar to previous exam. 2. Diffuse interstitial prominence suggesting possible congestive failure. Domingo Mcintyre MD Caprini VTE Risk Assessment Caprini VTE Risk Assessment: Mod/High Risk (score >= 2) Caprini Risk Assessment Model Point Value = 1 Point Value = 2 Point Value = 3 Point Value = 5 Age 41-60 Minor surgery BMI > 25 kg/m2 Swollen legs Varicose veins or History of unexplained or recurrent spontaneous Oral contraceptives or hormone replacement Sepsis (< 1 month) Serious lung disease, including pneumonia (< 1 month) Abnormal pulmonary function Acute myocardial infarction Congestive heart failure (< 1 month) History of inflammatory bowel disease Medical patient at bed rest Age 61-74 Arthroscopic surgery Major open surgery (> 45 min) Laparoscopic surgery (> 45 min) Malignancy Confined to bed (> 72 hours) Immobilizing plaster cast Central venous access Age >= 75 History of VTE Family history of VTE Factor V Leiden Prothrombin [id number] Lupus anticoagulant Anticardiolipin antibodies Elevated serum homocysteine Heparin-induced thrombocytopenia Other congenital or acquired thrombophilia Stroke (< 1 month) Elective arthroplasty Hip, pelvis, or leg fracture Acute spinal cord injury (< 1 month) Prophylaxis Regimen Total Risk Factor Score Risk Level Prophylaxis Regimen 0-1 Low Early ambulation 2 Moderate Order ONE of the following: *Sequential Compression Device (SCD) *Heparin 5000 units SQ BID 3-4 Higher Order ONE of the following medications: *Heparin 5000 units SQ TID *Enoxaparin/Lovenox 40 mg SQ daily (WT < 150 kg, CrCl > 30 mL/min) *Enoxaparin/Lovenox 30 mg SQ daily (WT < 150 kg, CrCl > 10-29 mL/min) *Enoxaparin/Lovenox 30 mg SQ BID (WT < 150 kg, CrCl > 30 mL/min) AND/OR *Sequential Compression Device (SCD) 5 or more Highest Order ONE of the following medications: *Heparin 5000 units SQ TID (Preferred with Epidurals) *Enoxaparin/Lovenox 40 mg SQ daily (WT < 150 kg, CrCl > 30 mL/min) *Enoxaparin/Lovenox 30 mg SQ daily (WT < 150 kg, CrCl > 10-29 mL/min) *Enoxaparin/Lovenox 30 mg SQ BID (WT < 150 kg, CrCl > 30 mL/min) AND *Sequential Compression Device (SCD) Assessment and Plan Assessment and Plan 77-year-old white male admitted for shortness of breath A. fib with RVR - improving with beta-monse, continue p.o. Lopressor - Home doses Lopressor 50 mg twice daily, will increase to 50 mg 3 times daily for now - Continue home digoxin - home eliquis Acute systolic CHF suspected -Likely compounded with A. fib RVR, IV diuresis -BMP in a.m. -Fluid restriction -intake and output Acute on chronic kidney disease -Likely secondary to dehydration, poor cardiac output -BMP in a.m CAD - home plavix and lipitor eliqusohan Physician Certification 2 Midnight Certification Type: Admission for Inpatient Services Order for Inpatient Services The services are ordered in accordance with Medicare regulations or non- Medicare payer requirements, as applicable. In the case of services not specified as inpatient-only, they are appropriately provided as inpatient services in accordance with the 2-midnight benchmark. Estimated LOS (days): 2 2 days is the estimated time the patient will need to remain in the hospital, assuming treatment plan goals are met and no additional complications. Post-Hospital Plan: Home Oscar Akers MD March 15, 2018 16:52
[2018-03-15] MEDS: METOPROLOL TARTRATE 50 MG TAB PO SCH (20:06)
[2018-03-16] VITALS (7 sets, daily range): BP systolic 103–116; BP diastolic 66–79; PULSE 63–98; RESP 16–18; TEMP 97.9–98; O2SAT 93–96
[2018-03-16] MEDS: METOPROLOL TARTRATE 50 MG TAB PO SCH ×2 (05:31→13:58)
[2018-03-16 07:43] LABS: CREATININE 1.39 MG/DL (0.60-1.30)
[2018-03-16] MEDS ORDERED: RIVAROXABAN 20 MG TAB PO SCH (09:00)
[2018-03-16] MEDS ORDERED: FUROSEMIDE 20 MG/2 ML VIAL IV PUSH SCH (09:00)
[2018-03-16] MEDS ORDERED: DIGOXIN 0.125 MG TAB PO SCH (09:00)
[2018-03-16] MEDS ORDERED: CLOPIDOGREL 75 MG TAB PO SCH (09:00)
--- NOTE | 2018-03-16 14:31 | HHI.PR ---
Subjective Remarks 77-year-old white male admitted for shortness of breath. Patient was in his usual state of health until about 1 week ago and began experiencing gradual onset shortness of breath. It would worsen with lying down. He progressed with time. Denies having any chest pain. Presented today. Patient reports being compliant with all of his medications including his diuretic. In the emergency department he was irregularly tachycardic in the 130s. Given IV Lopressor with improvement in his heart rate down to the 90s. Chest x-ray which I independently reviewed shows mild diffuse edema. Patient was given Lasix. 03-16 PATIENT IS BETTER TODAY BREATHING BETTER DC TO HOME WITH C DW RN AND PT AND CM LIVES ALONE WANTS TO GO HOME Objective Vitals Vital Signs Date Time Temp Pulse Resp B/P (MAP) Pulse Ox O2 Delivery O2 Flow Rate FiO2 03/16/18 12:00 97.9 63 17 103/67 (79) 94 03/16/18 08:43 98.0 97 16 114/73 (87) 93 03/16/18 08:00 84 03/16/18 07:00 Room Air 03/16/18 05:30 98.0 83 16 116/79 (91) 94 03/16/18 04:00 Room Air 03/16/18 04:00 77 03/16/18 00:00 83 03/16/18 00:00 Room Air 03/15/18 23:25 97.6 71 16 108/66 (80) 95 03/15/18 20:05 98.1 79 16 128/59 (82) 92 03/15/18 20:00 Room Air 03/15/18 20:00 85 03/15/18 18:15 97.8 79 17 103/81 (88) 96 03/15/18 18:05 03/15/18 16:59 91 16 133/80 (97) 98 Room Air 03/15/18 16:08 81 24 129/86 (100) 96 Room Air I/O 03/15/18 03/15/18 03/15/18 03/16/18 03/16/18 03/16/18 07:00 15:00 23:00 07:00 15:00 23:00 Intake Total 600 ml Output Total 1200 ml 750 ml Balance -1200 ml -150 ml Intake Oral 600 ml Output Urine Total 1200 ml 750 ml # Voids 1 # Bowel Movements 0 Result Diagram: 03/15/18 1421 03/16/18 0547 Other Results Laboratory Tests Test 03/15/18 14:21 03/16/18 05:47 White Blood Count 9.0 TH/MM3 Red Blood Count 5.05 MIL/MM3 Hemoglobin 14.6 GM/DL Hematocrit 44.7 % Mean Corpuscular Volume 88.6 FL Mean Corpuscular Hemoglobin 28.9 PG Mean Corpuscular Hemoglobin Concent 32.7 % Red Cell Distribution Width 17.0 % Platelet Count 215 TH/MM3 Mean Platelet Volume 10.1 FL Neutrophils (%) (Auto) 73.6 % Lymphocytes (%) (Auto) 16.8 % Monocytes (%) (Auto) 7.8 % Eosinophils (%) (Auto) 1.1 % Basophils (%) (Auto) 0.7 % Neutrophils # (Auto) 6.6 TH/MM3 Lymphocytes # (Auto) 1.5 TH/MM3 Monocytes # (Auto) 0.7 TH/MM3 Eosinophils # (Auto) 0.1 TH/MM3 Basophils # (Auto) 0.1 TH/MM3 CBC Comment DIFF FINAL Differential Comment Prothrombin Time 11.3 SEC Prothromb Time International Ratio 1.1 RATIO Activated Partial Thromboplast Time 24.7 SEC Blood Urea Nitrogen 32 MG/DL 39 MG/DL Creatinine 1.57 MG/DL 1.39 MG/DL Random Glucose 141 MG/DL 98 MG/DL Calcium Level 9.0 MG/DL 9.0 MG/DL Magnesium Level 2.3 MG/DL Sodium Level 142 MEQ/L 142 MEQ/L Potassium Level 4.3 MEQ/L 4.3 MEQ/L Chloride Level 104 MEQ/L 103 MEQ/L Carbon Dioxide Level 28.4 MEQ/L 30.0 MEQ/L Anion Gap 10 MEQ/L 9 MEQ/L Estimat Glomerular Filtration Rate 43 ML/MIN 49 ML/MIN Total Creatine Kinase 56 U/L Troponin I 0.22 NG/ML B-Type Natriuretic Peptide 2308 PG/ML Digoxin Level 0.3 NG/ML Imaging Last Impressions Chest X-Ray 03/15/18 1420 Signed Impressions: Service Date/Time: Thursday, March 15, 2018 14:43 - CONCLUSION: 1. Left basilar effusion and consolidation similar to previous exam. 2. Diffuse interstitial prominence suggesting possible congestive failure. Domingo Mcintyre MD Objective Remarks GENERAL: Awake alert and oriented 3 talkative and cooperative SKIN: Warm and dry. HEAD: Atraumatic. Normocephalic. EYES: Pupils equal and round. No scleral icterus. No injection or drainage. Extraocular muscles intact ENT: No nasal bleeding or discharge. Mucous membranes pink and moist. Tongue is midline NECK: Trachea midline. No JVD. Supple CARDIOVASCULAR: IRRegular rate and rhythm. S1-S2 no S3 or S4 RESPIRATORY: No accessory muscle use. Clear to auscultation. Breath sounds equal bilaterally. GASTROINTESTINAL: Abdomen soft, non-tender, nondistended. Hepatic and splenic margins not palpable. MUSCULOSKELETAL: Extremities without clubbing, cyanosis, or edema. No obvious deformities. NEUROLOGICAL: Awake and alert. No obvious cranial nerve deficits. Motor grossly within normal limits. Five out of 5 muscle strength in the arms and legs. Normal speech. PSYCHIATRIC: Appropriate mood and affect; insight and judgment normal. Procedures NONE Medications and IVs Current Medications Sodium Chloride (NS Flush) 2 ml UNSCH PRN IVF FLUSH AFTER USING IV ACCESS; Start 03/15/18 at 14:30 Metoprolol Tartrate (Lopressor Inj) 5 mg Q5M IVS Last administered on at 14:30; Start 03/15/18 at 14:30; Stop 03/15/18 at 14:41; Status DC Furosemide (Lasix Inj) 40 mg ONCE ONCE IV PUSH Last administered on 03/15/18at 16:09; Start 03/15/18 at 15:45; Stop 03/15/18 at 15:46; Status DC Metoprolol Tartrate (Lopressor) 50 mg ONCE ONCE PO Last administered on at 17:00; Start 03/15/18 at 16:15; Stop 03/15/18 at 16:16; Status DC Furosemide (Lasix Inj) 20 mg BID@18 IV PUSH Last administered on 03/16/18at 09:17; Start 03/16/18 at 09:00 Metoprolol Tartrate (Lopressor) 50 mg Q8HR PO Last administered on 03/16/18at 13 :58; Start 03/15/18 at 22:00 Clopidogrel Bisulfate (Plavix) 75 mg DAILY PO Last administered on 03/16/18at 09 :18; Start 03/16/18 at 09:00 Rivaroxaban (Xarelto) 20 mg DAILY PO Last administered on 03/16/18at 09:18; Start 03/16/18 at 09:00 Digoxin (Lanoxin) 0.125 mg DAILY PO Last administered on 03/16/18at 09:17; Start 03/16/18 at 09:00 A/P Assessment and Plan Assessment and Plan 77-year-old white male admitted for shortness of breath A. fib with RVR - improving with beta-monse, continue p.o. Lopressor - Home doses Lopressor 50 mg twice daily, will increase to 50 mg 3 times daily for now - Continue home digoxin - home eliquis Acute systolic CHF suspected -Likely compounded with A. fib RVR, IV diuresis--switch to p.o. medications and discharge home -BMP in a.m. -Fluid restriction -intake and output Acute on chronic kidney disease -Likely secondary to dehydration, poor cardiac output -BMP in a.m CAD - home plavix and lipitor eliquis Discharge Planning DC TO HOME WITH [facility] Cornelio Bass DO March 16, 2018 14:31
--- NOTE | 2018-03-16 14:34 | HHI.FF ---
Face to Face Verification Diagnosis: (1) CHF exacerbation (2) Atrial fibrillation with RVR (3) Afib (4) Acute on chronic systolic heart failure (5) Ischemic cardiomyopathy (6) Atrial fibrillation Physical Therapy Order: Evaluate and Treat, Improve ambulation, Strength and gait training Occupational Therapy Order: Evaluate and Treat, Improve ADL, Gross motor coordination, Fine motor coordination Home Health Nursing Order: Medical education Signs/symptoms of disease process CHF education Nursing assessment with vital signs Home Health Aide Order: To Assist In: Bathing and personal care, street supervisor and meal prep I have seen patient Gallo Clark on 03/16/18. My clinical findings support the need for the requested home health care services because: Ltd mobility - disease progression Med compliance is questionable I certify that my clinical findings support that this patient is homebound because: Unsteady gait/balance Poor cardiac reserve Cornelio Bass DO March 16, 2018 14:34
[2018-03-16] MEDS ORDERED: DIGO0.12 PO (14:37)
[2018-03-16] MEDS ORDERED: METO-309 PO (14:37)
[2018-03-16] MEDS ORDERED: PLAV75TA29 PO (14:37)
[2018-03-16] MEDS ORDERED: LISI-519 PO (14:37)
[2018-03-16] MEDS ORDERED: XARE20TA PO (14:37)
[2018-03-16] MEDS ORDERED: FURO40TA PO (14:37)
[2018-03-16] MEDS ORDERED: ATOR40TA16 PO (14:37)
--- NOTE | 2018-03-16 14:39 | HHI.DS ---
Discharge Summary Admission Date March 15, 2018 at 16:27 Discharge Date: March 16, 2018 Admitting Diagnosis CHF exacerbation, atrial fibrillation, elevated troponin (1) Stented coronary artery ICD Code: Z95.5 - Presence of coronary angioplasty implant and graft Diagnosis: Secondary (2) Afib ICD Code: I48.91 - Unspecified atrial fibrillation Diagnosis: Principal (3) Acute on chronic systolic heart failure ICD Code: I50.23 - Acute on chronic systolic (congestive) heart failure Diagnosis: Principal (4) Ischemic cardiomyopathy ICD Code: I25.5 - Ischemic cardiomyopathy Diagnosis: Secondary (5) CHF exacerbation ICD Code: I50.9 - Heart failure, unspecified Diagnosis: Principal Status: Acute (6) ANUJ (acute kidney injury) ICD Code: N17.9 - Acute kidney failure, unspecified Diagnosis: Secondary (7) Congestive heart failure ICD Code: I50.9 - Congestive heart failure Diagnosis: Principal Status: Acute Procedures NONE Brief History - From Admission 77-year-old white male admitted for shortness of breath. Patient was in his usual state of health until about 1 week ago and began experiencing gradual onset shortness of breath. It would worsen with lying down. He progressed with time. Denies having any chest pain. Presented today. Patient reports being compliant with all of his medications including his diuretic. In the emergency department he was irregularly tachycardic in the 130s. Given IV Lopressor with improvement in his heart rate down to the 90s. Chest x-ray which I independently reviewed shows mild diffuse edema. Patient was given Lasix. CBC/BMP: 03/15/18 1421 03/16/18 0547 Significant Findings Laboratory Tests Test 03/15/18 14:21 03/16/18 05:47 Neutrophils (%) (Auto) 73.6 % (16.0-70.0) Blood Urea Nitrogen 32 MG/DL (7-18) 39 MG/DL (7-18) Creatinine 1.57 MG/DL (0.60-1.30) 1.39 MG/DL (0.60-1.30) Random Glucose 141 MG/DL (74-106) Estimat Glomerular Filtration Rate 43 ML/MIN (>89) 49 ML/MIN (>89) Troponin I 0.22 NG/ML (0.02-0.05) B-Type Natriuretic Peptide 2308 PG/ML (0-100) Digoxin Level 0.3 NG/ML (0.8-2.0) Imaging Last Impressions Chest X-Ray 03/15/18 1420 Signed Impressions: Service Date/Time: Thursday, March 15, 2018 14:43 - CONCLUSION: 1. Left basilar effusion and consolidation similar to previous exam. 2. Diffuse interstitial prominence suggesting possible congestive failure. Domingo Mcintyre MD PE at Discharge GENERAL: Awake alert and oriented 3 talkative and cooperative SKIN: Warm and dry. HEAD: Atraumatic. Normocephalic. EYES: Pupils equal and round. No scleral icterus. No injection or drainage. Extraocular muscles intact ENT: No nasal bleeding or discharge. Mucous membranes pink and moist. Tongue is midline NECK: Trachea midline. No JVD. Supple CARDIOVASCULAR: IRRegular rate and rhythm. S1-S2 no S3 or S4 RESPIRATORY: No accessory muscle use. Clear to auscultation. Breath sounds equal bilaterally. GASTROINTESTINAL: Abdomen soft, non-tender, nondistended. Hepatic and splenic margins not palpable. MUSCULOSKELETAL: Extremities without clubbing, cyanosis, or edema. No obvious deformities. NEUROLOGICAL: Awake and alert. No obvious cranial nerve deficits. Motor grossly within normal limits. Five out of 5 muscle strength in the arms and legs. Normal speech. PSYCHIATRIC: Appropriate mood and affect; insight and judgment normal. Hospital Course 77-year-old white male admitted for shortness of breath. Patient was in his usual state of health until about 1 week ago and began experiencing gradual onset shortness of breath. It would worsen with lying down. He progressed with time. Denies having any chest pain. Presented today. Patient reports being compliant with all of his medications including his diuretic. In the emergency department he was irregularly tachycardic in the 130s. Given IV Lopressor with improvement in his heart rate down to the 90s. Chest x-ray which I independently reviewed shows mild diffuse edema. Patient was given Lasix. 5-17 PATIENT IS BETTER TODAY BREATHING BETTER DC TO HOME WITH C DW RN AND PT AND CM LIVES ALONE WANTS TO GO HOME Pt Condition on Discharge: Good Discharge Disposition: Disch w/ Home Health Serv Discharge Time: > 30 minutes Discharge Instructions DIET: Follow Instructions for: Heart Healthy Diet Speech Therapy-Diet Recommends: Regular Fluid Restrictions: 1.5 LITERS RODNEY Activities you can perform: Regular-No Restrictions Follow up Referrals: Cardiology, Interventional - 1 Week with oTdd Ariza DO PCP Follow-up - 1 Week New Medications: Metoprolol Tartrate (Lopressor) 50 Mg Tab 50 MG PO Q8HR for Regulate Heart Beat, #90 TAB Continued Medications: Atorvastatin (Atorvastatin) 40 Mg Tab 40 MG PO DAILY for Cholesterol Management, #31 TAB (This prescription has been renewed) Clopidogrel (Plavix) 75 Mg Tab 75 MG PO DAILY for Blood Clot Prevention, #31 TAB (This prescription has been renewed) Digoxin (Digoxin) 0.125 Mg Tab 0.125 MG PO DAILY for Regulate Heart Beat, #30 TAB 0 Refills (This prescription has been renewed) Furosemide (Furosemide) 40 Mg Tab 40 MG PO DAILY for Shortness of Breath, #30 TAB 0 Refills (This prescription has been renewed) Lisinopril (Lisinopril) 5 Mg Tab 5 MG PO DAILY for cad, #31 TAB (This prescription has been renewed) Rivaroxaban (Xarelto) 20 Mg Tab 20 MG PO DAILY for Blood Clot Prevention, #31 TAB 0 Refills (This prescription has been renewed) Discontinued Medications: Metoprolol Tartrate (Lopressor) 50 Mg Tab 50 MG PO Q12HR for CAD, #60 TAB Cornelio Bass DO March 16, 2018 14:39
[2018-03-16 16:17] LABS: AUTOMATED NEUTROPHIL # 5.5 TH/MM3 (1.8-7.7); BASOPHIL # 0.1 TH/MM3 (0-0.2); BASOPHIL % 0.9 % (0.0-2.0); EOSINOPHIL # 0.2 TH/MM3 (0-0.4); EOSINOPHIL % 3.1 % (0.0-4.0); HEMATOCRIT 42.8 % (39.0-51.0); HEMOGLOBIN 13.9 GM/DL (13.0-17.0); LYMPH % 10.6 % (9.0-44.0); LYMPHOCYTE # 0.8 TH/MM3 (1.0-4.8); MEAN CORPUSCULAR HEMOGLOBIN 28.9 PG (27.0-34.0); MEAN CORPUSCULAR HGB CONC 32.5 % (32.0-36.0); MONO % 9.1 % (0.0-8.0); MONOCYTE # 0.6 TH/MM3 (0-0.9); NEUT % 76.3 % (16.0-70.0); PLATELET COUNT 197 TH/MM3 (150-450); RED CELL DISTRIBUTION WIDTH 16.9 % (11.6-17.2); WHITE BLOOD COUNT 7.2 TH/MM3 (4.0-11.0)
[2018-03-16 16:39] LABS: ALT (GPT) 20 U/L (12-78); AST (GOT) 21 U/L (15-37); BICARBONATE 33.7 MEQ/L (21.0-32.0); BLOOD UREA NITROGEN 38 MG/DL (7-18); CALCIUM 8.9 MG/DL (8.5-10.1); CHLORIDE 103 MEQ/L (98-107); CREATININE 1.46 MG/DL (0.60-1.30); GLOMERULAR FILTRATION RATE 47 ML/MIN (>89); GLUCOSE,RANDOM 107 MG/DL (74-106); MAGNESIUM 2.2 MG/DL (1.5-2.5); PHOSPHORUS 3.6 MG/DL (2.5-4.9); SODIUM (NA) 144 MEQ/L (136-145)
[2018-03-16 16:47] LABS: ALKALINE PHOSPHATASE 99 U/L (45-117); FREE T4 1.27 NG/DL (0.76-1.46); TOTAL BILIRUBIN ADULT 0.5 MG/DL (0.2-1.0); TOTAL PROTEIN 7.2 GM/DL (6.4-8.2)
[2018-03-16 19:42] LABS: HEMOGLOBIN A1C 6.5 % (4.3-6.0)
--- NOTE | 2018-03-17 12:07 | EKG ---
Date Performed: 03/15/2018 Time Performed: 14:13:37 PTAGE: 77 years EKG: ATRIAL FLUTTER/TACHYCARDIA WITH RAPID VENTRICULAR RESPONSE MARKED LEFT AXIS DEVIATION LEFT BUNDLE BRANCH BLOCK ABNORMAL ECG INTERPRETATION BASED ON A DEFAULT AGE OF 40 YEARS PREVIOUS TRACING : 11/08/2017 10.47 DOCTOR: Nhung Ha Interpretating Date/Time 03/17/2018 11:56:32
== END 2018-03-16 16:09 | disposition home health service (06) | DRG 291 ==
LOC: NEPE 13:54 → NEDA 16:27 → N04B 18:07
PROVIDERS: ADMIT Hospitalist; ATTEND Hospitalist
DX: I13.0 Hypertensive heart and chronic kidney disease with heart failure and stage 1 through stage 4 chronic kidney disease, or unspecified chronic kidney disease (principal); I50.23 Acute on chronic systolic (congestive) heart failure; N17.9 Acute kidney failure, unspecified; E86.0 Dehydration; I25.5 Ischemic cardiomyopathy; I48.91 Unspecified atrial fibrillation; I25.10 Atherosclerotic heart disease of native coronary artery without angina pectoris; N18.9 Chronic kidney disease, unspecified; I25.2 Old myocardial infarction; Z86.73 Personal history of transient ischemic attack (TIA), and cerebral infarction without residual deficits; Z95.5 Presence of coronary angioplasty implant and graft; Z79.01 Long term (current) use of anticoagulants; Z79.02 Long term (current) use of antithrombotics/antiplatelets
CPT/HCPCS: 71046; 80048; 80053; 80162; 82550; 83036; 83735; 83880; 84100; 84439; 84443; 84484; 85025; 85610; 85730; 93005; J1940